=== PATIENT | female | born 1975 | race African-American/Black ===

== ENCOUNTER 2016-10-20 11:50 | Emergency (ER) | payer MEDICARE, MEDICAID ==
[~2016-10-20] VITALS: Ht 177.8 cm; Wt 87.1 kg
[~2016-10-20 11:50] MED LIST: ATENOLOL100 MG ORAL; BACLOFEN10 MG ORAL; CIPROFLOXACIN500 M2 ORAL; DILAUDID4 MG ORAL; FLUCONAZOLE100 MG ORAL; IBUPROFEN600 MG ORAL; LOMOTIL TABLET1 EAC1 PO; LORAZEPAM1 MG ORAL; MACROBID100 MG ORAL; ONDANSETRON ODT4 MG ORAL; PAMELOR25 MG ORAL; PHENAZOPYRIDIN100 MG ORAL; REGLAN10 MG ORAL; VIBRAMYCIN100 MG ORAL; VICODIN 5-3001 EACH ORAL; ZOFRAN ODT4 MG ORAL; ZOFRAN ODT8 MG ORAL; ZOFRAN4 MG ORAL; ZOLPIDEM TARTRAT5 MG ORAL
[2016-10-20 12:09] VITALS: BP 173/116
[2016-10-20] MEDS ORDERED: Morphine Sulfate 10mg/ml Inj IVP ONE (12:30)
[2016-10-20] MEDS ORDERED: Haloperidol 5mg/ml Inj IM ONE (12:30)
[2016-10-20] MEDS ORDERED: Famotidine 20 MG/ 2ML VIAL IVP ONE (12:30)
[2016-10-20 13:11] LABS: ALANINE AMINOTRANSFERASE 10 U/L (3-33); ALBUMIN/GLOBULIN RATIO 1.1 (1.0-2.7); ANION GAP 16 (5-15); ASPARTATE AMINO TRANSFERASE 20 U/L (5-40); CALCIUM 9.6 mg/dL (8.6-10.2); CARBON DIOXIDE 25 mEQ/L (20-30); CHLORIDE 98 mEQ/L (98-107); CREATININE 0.9 mg/dL (0.5-0.9); GLOMERULAR FILTRATION RATE > 60 mL/min (>60); HEMOLYSIS 52; LIPASE 62 U/L (< 60); POTASSIUM 4.4 mEQ/L (3.4-4.9); SODIUM 139 mEQ/L (135-145)
[2016-10-20 13:19] LABS: BASOPHILS % (AUTO) 1.2 % (0.0-2.0); EOSINOPHILS % (AUTO) 1.7 % (0.0-3.0); LYMPHOCYTES % (AUTO) 22.9 % (20.0-45.0); MEAN CORPUSCULAR HEMOGLOBIN 23.1 PG (27.0-31.0); MEAN CORPUSCULAR HGB CONC 29.2 G/DL (32.0-36.0); MEAN CORPUSCULAR VOLUME 79 FL (80-99); NEUTROPHILS % (AUTO) 66.2 % (45.0-75.0); PLATELET COUNT 395 K/UL (150-450); RED BLOOD COUNT 5.85 M/UL (4.20-5.40); RED CELL DISTRIBUTION WIDTH 14.7 % (11.6-14.8); WHITE BLOOD COUNT 11.2 K/UL (4.8-10.8)
[2016-10-20 13:22] LABS: APPEARANCE,URINE CLEAR; KETONES,URINE NEGATIVE (NEGATIVE); LEUKOCYTE ESTERASE ,URINE NEGATIVE (NEGATIVE); NITRITE,URINE NEGATIVE (NEGATIVE); PH,URINE 7 (4.5-8.0); PROTEIN,URINE 2+ (NEGATIVE); UROBILINOGEN,URINE 1 MG/DL (0.0-1.0)
[2016-10-20 13:32] LABS: BACTERIA,URINE FEW /HPF; RBC,URINE 15-20 /HPF (0 - 2); SQUAMOUS EPITHELIAL CELL,UR MODERATE /LPF (NONE/OCC); WBC,URINE 0-2 /HPF (0 - 2)
--- NOTE | 2016-10-20 13:34 | Emergency Room Report ---
History of Present Illness General Chief Complaint: Vomiting Source: Patient Present Illness HPI This is a 41-year-old female with a history of cyclic vomiting syndrome. Patient presented after having increased abdominal pain. Patient had similar type symptoms in the past. Patient had been taking multiple medications and had previously had endoscopy as well as colonoscopy without any significant findings. Patient states she's had prior history of pancreatitis. She denies any fever. As she reports having some diarrhea. Patient normally takes Dilaudid 4 mg. Patient is followed by Dr. Peñaloza. Allergies: Coded Allergies: No Known Allergies (Unverified , 05/08/14) Patient History Past Medical History: see triage record Last Menstrual Period: menopause Reviewed Nursing Documentation: PMH: Agreed, PSxH: Agreed Nursing Documentation-PMH Past Medical History: No History, Except For Hx Cardiac Problems: Yes Hx Hypertension: Yes Hx Cancer: No Hx Gastrointestinal Problems: Yes - cyclical vomitting syndrome Hx Neurological Problems: No Review of Systems All Other Systems: negative except mentioned in HPI Physical Exam Vital Signs Date Time Temp Pulse Resp B/P Pulse Ox O2 Delivery O2 Flow Rate FiO2 10/20/16 11:56 98.2 54 16 173/116 99 Room Air Sp02 EP Interpretation: reviewed, normal General Appearance: normal inspection, well appearing, no apparent distress, alert, GCS 15, non-toxic Head: atraumatic ENT: normal ENT inspection, hearing grossly normal, normal voice Neck: normal inspection, full range of motion, supple, no bony tend Respiratory: normal inspection, lungs clear, normal breath sounds, no respiratory distress, no retraction, no wheezing Cardiovascular #1: regular rate, rhythm, no edema Gastrointestinal: normal inspection, normal bowel sounds, non tender, soft, no guarding, no hernia Genitourinary: no CVA tenderness Musculoskeletal: normal inspection, back normal, normal range of motion Neurologic: normal inspection, alert, oriented x3, responsive, blood bank booking clerk III-XII nml as tested, speech normal Psychiatric: normal inspection, judgement/insight normal, mood/affect normal Skin: normal inspection, normal color, no rash Medical Decision Making Diagnostic Impression: Primary Impression: Opiate dependence Additional Impression: Cyclical vomiting ER Course Patient presented for abdominal pain. Differential diagnoses included ischemic bowel, appendicitis, perforated viscus, abdominal aortic aneurysm, inferior myocardial infarction, viral gastroenteritis Because of complexity of patient's case laboratory testing and imaging studies were ordered.The patient prior history of cyclic vomiting. The patient's vomiting is likely related to opiate withdrawal after initiation of vomiting since patient is chronically on Dilaudid. Laboratory testing showed normal white blood count. Urine test showed no evidence of infection.Patient was noted to have improvement after laboratory testing. Urine drug screen was negative. Patient was given prescription for Zofran. The patient is advised to follow up with primary care doctor in 1-2 days. Patient is advised to return if any worsening condition or if any changes in status that are concerning. Labs Test 10/20/16 12:30 White Blood Count 11.2 K/UL (4.8-10.8) Red Blood Count 5.85 M/UL (4.20-5.40) Hemoglobin 13.5 G/DL (12.0-16.0) Hematocrit 46.3 % (37.0-47.0) Mean Corpuscular Volume 79 FL (80-99) Mean Corpuscular Hemoglobin 23.1 PG (27.0-31.0) Mean Corpuscular Hemoglobin Concent 29.2 G/DL (32.0-36.0) Red Cell Distribution Width 14.7 % (11.6-14.8) Platelet Count 395 K/UL (150-450) Mean Platelet Volume 8.0 FL (6.5-10.1) Neutrophils (%) (Auto) 66.2 % (45.0-75.0) Lymphocytes (%) (Auto) 22.9 % (20.0-45.0) Monocytes (%) (Auto) 8.0 % (1.0-10.0) Eosinophils (%) (Auto) 1.7 % (0.0-3.0) Basophils (%) (Auto) 1.2 % (0.0-2.0) Urine Color Pale yellow Urine Appearance Clear Urine pH 7 (4.5-8.0) Urine Specific [place] 1.010 (1.005-1.035) Urine Protein 2+ (NEGATIVE) Urine Glucose (UA) Negative (NEGATIVE) Urine Ketones Negative (NEGATIVE) Urine Occult Blood 4+ (NEGATIVE) Urine Nitrite Negative (NEGATIVE) Urine Bilirubin Negative (NEGATIVE) Urine Urobilinogen 1 MG/DL (0.0-1.0) Urine Leukocyte Esterase Negative (NEGATIVE) Urine RBC 15-20 /HPF (0 - 2) Urine WBC 0-2 /HPF (0 - 2) Urine Squamous Epithelial Cells Moderate /LPF (NONE/OCC) Urine Bacteria Few /HPF (NONE) Urine HCG, Qualitative Negative Sodium Level 139 mEQ/L (135-145) Potassium Level 4.4 mEQ/L (3.4-4.9) Chloride Level 98 mEQ/L (98-107) Carbon Dioxide Level 25 mEQ/L (20-30) Anion Gap 16 (5-15) Blood Urea Nitrogen 13 mg/dL (7-23) Creatinine 0.9 mg/dL (0.5-0.9) Estimat Glomerular Filtration Rate > 60 mL/min (>60) Glucose Level 114 mg/dL (74-106) Calcium Level 9.6 mg/dL (8.6-10.2) Total Bilirubin 0.3 mg/dL (0.0-1.2) Aspartate Amino Transf (AST/SGOT) 20 U/L (5-40) Alanine Aminotransferase (ALT/SGPT) 10 U/L (3-33) Alkaline Phosphatase 116 U/L (35-104) Total Protein 8.0 g/dL (6.6-8.7) Albumin 4.2 g/dL (3.5-5.2) Globulin 3.8 g/dL Albumin/Globulin Ratio 1.1 (1.0-2.7) Lipase 62 U/L (< 60) Last Vital Signs Date Time Temp Pulse Resp B/P Pulse Ox O2 Delivery O2 Flow Rate FiO2 10/20/16 13:04 98.2 10/20/16 12:09 16 173/116 99 Room Air 10/20/16 11:56 54 Status: improved Disposition: HOME, SELF-CARE Condition: Stable Scripts Ondansetron Odt* (ZOFRAN ODT*) 4 Mg Tab.rapdis 4 MG ORAL EVERY 8 HOURS, #10 TAB 0 Refills Prov: Amor Chase 10/20/16 Referrals: NON PHYSICIAN (PCP) Amor Chase Oct 20, 2016 13:34
[2016-10-20] MEDS ORDERED: ONDANSETRON ODT4 MG ORAL (13:51)
[2016-10-20 14:05] VITALS: BP 146/86
== END 2016-10-20 14:07 | disposition home or self-care (01) ==
LOC: EMR 12:26
DX: G43.A0 Cyclical vomiting, in migraine, not intractable (principal); F11.20 Opioid dependence, uncomplicated; I10 Essential (primary) hypertension
CPT/HCPCS: 36415; 80053; 80300; 81003; 81025; 83690; 85025; 96372; 96374; 96375; 99284; J1630; J2270; J2405; S0028

== ENCOUNTER 2016-10-21 05:04 | Inpatient (IN) | payer MEDICARE, MEDICAID ==
[2016-10-21] VITALS (8 sets, daily range): BP systolic 101–166; BP diastolic 57–103
[~2016-10-21] VITALS: Ht 177.8 cm; Wt 87.1 kg
[2016-10-21] MEDS ORDERED: DiphenhydrAMINE 50mg/ml Inj IVP ONE (05:45)
[2016-10-21] MEDS ORDERED: Famotidine 20 MG/ 2ML VIAL IVP ONE (05:45)
[2016-10-21] MEDS ORDERED: HYDROmorphone 1mg/ml Carpuject IVP ONE ×2 (05:45→08:00)
[2016-10-21 06:09] LABS: MEAN CORPUSCULAR HEMOGLOBIN 23.3 PG (27.0-31.0); MEAN CORPUSCULAR VOLUME 78 FL (80-99); PLATELET COUNT 420 K/UL (150-450); RED BLOOD COUNT 5.96 M/UL (4.20-5.40); RED CELL DISTRIBUTION WIDTH 14.9 % (11.6-14.8); WHITE BLOOD COUNT 18.2 K/UL (4.8-10.8)
[2016-10-21 06:18] LABS: PROTHROMBIN TIME 10.6 SEC (9.30-11.50)
[2016-10-21 06:25] LABS: ALANINE AMINOTRANSFERASE 11 U/L (3-33); ALBUMIN/GLOBULIN RATIO 0.9 (1.0-2.7); ANION GAP 22 (5-15); ASPARTATE AMINO TRANSFERASE 24 U/L (5-40); CARBON DIOXIDE 21 mEQ/L (20-30); CHLORIDE 94 mEQ/L (98-107); CREATININE 0.9 mg/dL (0.5-0.9); GLOMERULAR FILTRATION RATE > 60 mL/min (>60); HEMOLYSIS 0; LIPASE 46 U/L (< 60); POTASSIUM 3.4 mEQ/L (3.4-4.9); SODIUM 137 mEQ/L (135-145); TOTAL PROTEIN 8.9 g/dL (6.6-8.7)
[2016-10-21 06:33] LABS: APPEARANCE,URINE CLEAR; KETONES,URINE 4+ (NEGATIVE); LEUKOCYTE ESTERASE ,URINE 1+ (NEGATIVE); NITRITE,URINE NEGATIVE (NEGATIVE); PH,URINE 6.5 (4.5-8.0); PROTEIN,URINE 4+ (NEGATIVE); UROBILINOGEN,URINE NORMAL MG/DL (0.0-1.0)
[2016-10-21 06:49] LABS: BACTERIA,URINE FEW /HPF; RBC,URINE 30-40 /HPF (0 - 2); SQUAMOUS EPITHELIAL CELL,UR FEW /LPF (NONE/OCC)
--- NOTE | 2016-10-21 07:05 | Emergency Room Report ---
History of Present Illness General Chief Complaint: Abdominal Pain Source: Patient Present Illness HPI Patient presents with abdominal pain and vomiting. Unable to keep down liquids or pain medicine. She has dilaudid 4 mg at home but vomited this up. She states she was seen yesterday here, but did not get "enough" zofran. Pain is 20 /10 epigastric radiating to her back and constant. Denies fever. Not vomit blood. Moved bowels which were loose. No dysuria. Alleges pancreatitis. Denies alcohol. Cyclic vomiting syndrome. This is the note from yesterday: Patient presented for abdominal pain. Differential diagnoses included ischemic bowel, appendicitis, perforated viscus, abdominal aortic aneurysm, inferior myocardial infarction, viral gastroenteritis Because of complexity of patient's case laboratory testing and imaging studies were ordered.The patient prior history of cyclic vomiting. The patient's vomiting is likely related to opiate withdrawal after initiation of vomiting since patient is chronically on Dilaudid. Laboratory testing showed normal white blood count. Urine test showed no evidence of infection.Patient was noted to have improvement after laboratory testing. Urine drug screen was negative. Patient was given prescription for Zofran. The patient is advised to follow up with primary care doctor in 1-2 days. Patient is advised to return if any worsening condition or if any changes in status that are concerning. Allergies: Coded Allergies: No Known Allergies (Unverified , 05/08/14) Patient History Past Medical History: see triage record Past Surgical History: maki Social History: Reports: smoking Social History Narrative at home Last Menstrual Period: Menopause Now: No Reviewed Nursing Documentation: PMH: Agreed, PSxH: Agreed Nursing Documentation-PMH Hx Cardiac Problems: Yes Hx Hypertension: Yes Hx Cancer: No Hx Neurological Problems: No Review of Systems All Other Systems: negative except mentioned in HPI Physical Exam Vital Signs Date Time Temp Pulse Resp B/P Pulse Ox O2 Delivery O2 Flow Rate FiO2 10/21/16 05:13 98.2 91 16 149/103 99 Room Air Sp02 EP Interpretation: reviewed, normal General Appearance: alert, GCS 15, mild distress - retching Head: normocephalic Eyes: bilateral eye PERRL, bilateral eye anticteric ENT: moist mucus membranes Neck: supple Respiratory: lungs clear, normal breath sounds Cardiovascular #1: regular rate, rhythm Cardiovascular #2: 2+ radial (R) Gastrointestinal: normal inspection, normal bowel sounds, no mass, non- distended, no guarding, no rebound, tenderness - epigastric Musculoskeletal: back normal, gait/station normal, normal range of motion Neurologic: alert, oriented x3, grossly normal Psychiatric: mood/affect normal Skin: normal inspection, warm/dry Medical Decision Making Diagnostic Impression: Primary Impression: Abdominal pain Qualified Codes: R10.13 - Epigastric pain Additional Impressions: UTI (urinary tract infection) Qualified Codes: N30.00 - Acute cystitis without hematuria Nausea & vomiting Qualified Codes: R11.2 - Nausea with vomiting, unspecified Opiate seeking behavior Leukocytosis Qualified Codes: D72.829 - Elevated white blood cell count, unspecified ER Course Patient presents again with abdominal pain and vomiting. Ddx: pancreatitis, gastritis, viral syndrome, UTI, opiate dependence amongst others. Labs will be obtained. Also abdominal films. CT not indicated. Patient will be treated with IV hydration, analgesia and zofran. Patient still vomiting after initial dosing and states pain unchanged. She had insisted on getting the dilaudid "undiluted" which was refused. Analgesia repeated and reglan and benadryl given. Still with vomiting and abdominal pain, though clinically appears improved. Still asking for more pain medicine. Antibiotics begun for UTI. Abd films unremarkable (paucity of gas). Due to elevated WBC (new since yesterday) and UTI with persistent vomiting, patient admitted to the hospital to Dr. Quintanilla. After admission, she states: "I realize I have an appointment with my GI specialist today which I've waited for a year to have". Laboratory Tests Test 10/21/16 05:50 10/21/16 06:06 White Blood Count 18.2 K/UL (4.8-10.8) #H Red Blood Count 5.96 M/UL (4.20-5.40) H Hemoglobin 13.9 G/DL (12.0-16.0) Hematocrit 46.4 % (37.0-47.0) Mean Corpuscular Volume 78 FL (80-99) L Mean Corpuscular Hemoglobin 23.3 PG (27.0-31.0) L Mean Corpuscular Hemoglobin Concent 30.0 G/DL (32.0-36.0) L Red Cell Distribution Width 14.9 % (11.6-14.8) H Platelet Count 420 K/UL (150-450) Mean Platelet Volume 8.0 FL (6.5-10.1) Neutrophils (%) (Auto) % (45.0-75.0) Lymphocytes (%) (Auto) % (20.0-45.0) Monocytes (%) (Auto) % (1.0-10.0) Eosinophils (%) (Auto) % (0.0-3.0) Basophils (%) (Auto) % (0.0-2.0) Prothrombin Time 10.6 SEC (9.30-11.50) Prothrombin Time INR 1.0 (0.9-1.1) PTT 25 SEC (23-33) Sodium Level 137 mEQ/L (135-145) Potassium Level 3.4 mEQ/L (3.4-4.9) Chloride Level 94 mEQ/L (98-107) L Carbon Dioxide Level 21 mEQ/L (20-30) Anion Gap 22 (5-15) H Blood Urea Nitrogen 13 mg/dL (7-23) Creatinine 0.9 mg/dL (0.5-0.9) Estimate Glomerular Filtration Rate > 60 mL/min (>60) Glucose Level 185 mg/dL (74-106) H Hemoglobin A1c 5.0 % (< 6.0) Calcium Level 10.0 mg/dL (8.6-10.2) Total Bilirubin 0.3 mg/dL (0.0-1.2) Aspartate Amino Transferase (AST) 24 U/L (5-40) Alanine Aminotransferase (ALT) 11 U/L (3-33) Alkaline Phosphatase 128 U/L (35-104) H Total Protein 8.9 g/dL (6.6-8.7) H Albumin 4.3 g/dL (3.5-5.2) Globulin 4.6 g/dL Albumin/Globulin Ratio 0.9 (1.0-2.7) L Triglycerides Level 149 mg/dL (< 150) Cholesterol Level 251 mg/dL (< 200) H LDL Cholesterol 170 mg/dL (60-99) H HDL Cholesterol 51 mg/dL (> 60) Cholesterol/HDL Ratio 4.9 (3.3-4.4) H Amylase Level 64 U/L (10-110) Lipase 46 U/L (< 60) Thyroid Stimulating Hormone (TSH) 0.831 uIU/mL (0.300-4.500) Free Thyroxine 1.24 ng/dL (0.86-1.85) Urine Color Yellow Urine Appearance Clear Urine pH 6.5 (4.5-8.0) Urine Specific [place] 1.020 (1.005-1.035) Urine Protein 4+ (NEGATIVE) H Urine Glucose (UA) 1+ (NEGATIVE) H Urine Ketones 4+ (NEGATIVE) H Urine Occult Blood 5+ (NEGATIVE) H Urine Nitrite Negative (NEGATIVE) Urine Bilirubin Negative (NEGATIVE) Urine Urobilinogen Normal MG/DL (0.0-1.0) Urine Leukocyte Esterase 1+ (NEGATIVE) H Urine RBC 30-40 /HPF (0 - 2) H Urine WBC 5-10 /HPF (0 - 2) H Urine Squamous Epithelial Cells Few /LPF (NONE/OCC) Urine Bacteria Few /HPF (NONE) Urine Opiates Screen Positive (NEGATIVE) H Urine Barbiturates Screen Negative (NEGATIVE) Phencyclidine (PCP) Screen Negative (NEGATIVE) Urine Amphetamines Screen Negative (NEGATIVE) Urine Benzodiazepines Screen Negative (NEGATIVE) Urine Cocaine Screen Negative (NEGATIVE) Urine Marijuana (THC) Screen Negative (NEGATIVE) Other X-Ray Diagnostic Results Other X-Ray Diagnostic Results : X-Ray Ordered: abd Findings: other - maki clips, no SBO, NSBGP (paucity gas) Number of Views: 2 Last Vital Signs Date Time Temp Pulse Resp B/P Pulse Ox O2 Delivery O2 Flow Rate FiO2 10/21/16 06:38 98.2 10/21/16 05:20 91 16 149/103 99 Room Air Status: improved Disposition: ADMITTED INPATIENT Condition: Serious Marcos Thompson M.D. Oct 21, 2016 07:05
[2016-10-21] MEDS ORDERED: cefTRIAXone 1 GM in NS 55 ML IVPB ONE (07:15)
[2016-10-21] MEDS ORDERED: Metoclopramide 10mg/2ml Inj IVP ONE ×2 (09:00→09:15)
--- NOTE | 2016-10-21 10:58 | History & Physical ---
History and Physical History & Physicial seen and examined. Dictation completed Rome Quintanilla MD Oct 21, 2016 10:58
[2016-10-21 11:24] LABS: CHOLESTEROL/HDL RATIO 4.9 (3.3-4.4)
[2016-10-21] MEDS ORDERED: Atenolol 25mg tab ORAL ONE (11:30)
[2016-10-21 11:32] LABS: THYROID STIMULATING HORMONE 0.831 uIU/mL (0.300-4.500)
[2016-10-21] MEDS: Heparin 5000 units/ml inj SUBQ SCH ×2 (11:45→21:42)
--- NOTE | 2016-10-21 12:23 | Diagnostic Imaging Report ---
Indication: ABD PAIN Technique: Supine view of the abdomen Comparison: Compensator Worker image from CT scan 06/15/2016 Findings: Bowel gas pattern is unremarkable. There are right upper quadrant surgical clips. No significant change Impression: No acute process Evidence of prior cholecystectomy
[2016-10-21] MEDS ORDERED: Ketorolac 30mg Inj IV PRN (12:45)
[2016-10-21] MEDS ORDERED: cefTRIAXone 1gm/D5W 55ml IVPB ONE ×2 (13:00)
[2016-10-21] MEDS: D5NS 1,000 ML IV SCH ×2 (13:11→21:39)
[2016-10-21] MEDS: Atenolol 25mg tab ORAL SCH (14:06)
--- NOTE | 2016-10-21 16:29 | Diagnostic Imaging Report ---
Indication: PAIN Technique: Elkins-scale and duplex images of the upper abdomen were obtained Comparison: CT abdomen pelvis 06/15/2016 Findings: . Gallbladder is surgically absent. Common bile duct measures 3 mm in diameter. No intrahepatic biliary ductal dilatation. Liver demonstrates normal echogenicity, no focal abnormality. Portal vein and hepatic veins are patent.. Pancreas is unremarkable. Spleen is unremarkable. Left kidney measures 11.1 cm in length. Right kidney measures 11.4 cm length. Both kidneys demonstrate normal echogenicity. There is no hydronephrosis. No focal abnormality. . Non-aneurysmal abdominal aorta. Impression: Surgically absent gallbladder Negative for dilated ducts No other acute or significant findings
--- NOTE | 2016-10-21 17:57 | History and Physical Report ---
DATE OF ADMISSION: 10/21/2016 SOURCE OF INFORMATION: Patient and EMR. HISTORY OF PRESENT ILLNESS: The patient is a 41-year-old female with history of with narcotic-seeking behavior and reported history of cyclic vomiting syndrome. The patient presented with another episode of had been referred to receive care to the emergency room. At the time of evaluation in the emergency room, the patient is stable in the ER. REVIEW OF SYSTEMS: Negative for chest pain or shortness of breath. Negative for severe headache or blurry vision. Negative for abnormal bleeding, pain or swelling in the extremities. PAST MEDICAL HISTORY: Reported cyclic vomiting syndrome questionable, history of pelvic inflammatory disease, history of opiate dependence. PAST SURGICAL HISTORY: Cholecystectomy. MEDICATIONS: Outpatient medications including atenolol, baclofen, Dilaudid, lorazepam, nitrofurantoin. ALLERGIES: NKDA. SOCIAL HISTORY: The patient is a single mother. She lives with one child. Positive for active tobacco smoking, one pack a day for 16 years. Denies history of illicit drug abuse. Denies history of alcohol abuse. FAMILY HISTORY: Reviewed and noncontributory. PHYSICAL EXAMINATION: VITAL SIGNS: Blood pressure 140/100, temperature 98.2, pulse oximetry 98% on room air, pulse rate is 90 to 95, pulse oximetry 99% on room air. HEENT: Head and neck, atraumatic and normocephalic. CHEST: Clear to auscultation. HEART: S1 and S2. Regular rate and rhythm. ABDOMEN: Soft. No organomegaly. MUSCULOSKELETAL: No gross focal motor deficit. NEUROLOGIC: Mood is anxious and depressed. LABORATORY AND DIAGNOSTIC DATA: Results dated 10/21/2016 showed WBC of 18.2, hemoglobin 13.9, platelets is 420,000. Sodium 137, potassium 3.4, BUN 22, creatinine 1.3. AST is normal. INR is 1. Urinalysis shows 5 to 10 WBCs, 5+ blood. ASSESSMENT: 1. Acute cyclic vomitus incidence. 2. Systemic inflammatory response syndrome. 3. Urinary tract infection. 4. Chronic pain. 5. Hematuria. 6. Gastrointestinal and deep venous thrombosis prophylaxis 7. Hypertension PLAN OF CARE: I will consult GI. I will continue with the intravenous antibiotics, Rocephin. We will consult commercial painter. We will avoid narcotic medication for further evaluation. Rome Quintanilla M.D. DR: Mercedes JOB#: [id number] CC: PATRICIO
[2016-10-21] MEDS ORDERED: cloNIDine 0.2mg Tab ORAL PRN (23:00)
[2016-10-22] MEDS ORDERED: Loperamide 2mg cap ORAL PRN (02:30)
[2016-10-22 04:00] VITALS: BP 161/117
[2016-10-22] MEDS: D5NS 1,000 ML IV SCH ×3 (05:00→20:31)
[2016-10-22 06:58] LABS: BASOPHILS % (AUTO) 0.7 % (0.0-2.0); LYMPHOCYTES % (AUTO) 11.7 % (20.0-45.0); MEAN CORPUSCULAR HEMOGLOBIN 23.5 PG (27.0-31.0); MEAN CORPUSCULAR HGB CONC 30.2 G/DL (32.0-36.0); MEAN CORPUSCULAR VOLUME 78 FL (80-99); MEAN PLATELET VOLUME 7.4 FL (6.5-10.1); MONOCYTES % (AUTO) 6.2 % (1.0-10.0); NEUTROPHILS % (AUTO) 81.3 % (45.0-75.0); PLATELET COUNT 386 K/UL (150-450); RED BLOOD COUNT 5.19 M/UL (4.20-5.40); RED CELL DISTRIBUTION WIDTH 14.2 % (11.6-14.8); WHITE BLOOD COUNT 16.1 K/UL (4.8-10.8)
[2016-10-22 07:11] LABS: ALANINE AMINOTRANSFERASE 18 U/L (3-33); ALBUMIN/GLOBULIN RATIO 1.1 (1.0-2.7); ANION GAP 19 (5-15); ASPARTATE AMINO TRANSFERASE 35 U/L (5-40); CALCIUM 9.9 mg/dL (8.6-10.2); CARBON DIOXIDE 24 mEQ/L (20-30); CHLORIDE 96 mEQ/L (98-107); GLOMERULAR FILTRATION RATE > 60 mL/min (>60); HEMOLYSIS 2; POTASSIUM 3.1 mEQ/L (3.4-4.9); SODIUM 139 mEQ/L (135-145); TOTAL PROTEIN 7.8 g/dL (6.6-8.7)
[2016-10-22 08:00] VITALS: BP 154/110
[2016-10-22] MEDS: Atenolol 25mg tab ORAL SCH (08:31)
[2016-10-22] MEDS: Heparin 5000 units/ml inj SUBQ SCH ×2 (08:34→20:39)
--- NOTE | 2016-10-22 09:47 | General Progress Note ---
Assessment/Plan Status: stable Assessment/Plan 1. Acute cyclic vomitus incidence. 2. Systemic inflammatory response syndrome. 3. Urinary tract infection. 4. Chronic pain. 5. Hematuria. 6. Gastrointestinal and deep venous thrombosis prophylaxis 7. Hypertension Plan: Started on Dilaudid 2 mg sc. Patient reported is taking 4 mg out patient. continue with current Zofran, IV fluid. NPO and will advance as tolerated. GI- Dr Kim notified Subjective ROS Limited/Unobtainable: Yes Constitutional: Reports: malaise HEENT: Reports: no symptoms Cardiovascular: Reports: no symptoms Respiratory: Reports: no symptoms Gastrointestinal/Abdominal: Reports: nausea, vomiting Allergies: Coded Allergies: No Known Allergies (Unverified , 05/08/14) Objective Last 24 Hour Vital Signs Date Time Temp Pulse Resp B/P Pulse Ox O2 Delivery O2 Flow Rate FiO2 10/22/16 09:00 96.7 10/22/16 08:31 102 154/91 10/22/16 08:00 97.9 111 20 154/110 97 Room Air 10/22/16 07:16 87 20 Room Air 10/22/16 04:00 96.7 102 18 161/117 99 Room Air 10/21/16 21:42 98.1 10/21/16 20:00 99.5 66 18 166/102 100 Room Air 10/21/16 16:00 98.1 89 20 142/88 99 Room Air 10/21/16 14:06 77 101/57 10/21/16 12:00 98.0 60 20 137/97 98 Room Air 10/21/16 10:00 77 18 101/57 98 Room Air 10/21/16 09:47 98.2 78 18 136/84 98 Room Air Intake and Output 10/21/16 10/22/16 19:00 07:00 Intake Total 4335 ml 500 ml Balance 4335 ml 500 ml Intake IV Total 4335 ml 500 ml Laboratory Tests 10/22/16 05:10: White Blood Count 16.1H, Red Blood Count 5.19, Hemoglobin 12.2, Hematocrit 40.5 , Mean Corpuscular Volume 78L, Mean Corpuscular Hemoglobin 23.5L, Mean Corpuscular Hemoglobin Concent 30.2L, Red Cell Distribution Width 14.2, Platelet Count 386, Mean Platelet Volume 7.4, Neutrophils (%) (Auto) 81.3H, Lymphocytes (%) (Auto) 11.7L, Monocytes (%) (Auto) 6.2, Eosinophils (%) (Auto) 0.0, Basophils (%) (Auto) 0.7, Sodium Level 139, Potassium Level 3.1L, Chloride Level 96L, Carbon Dioxide Level 24, Anion Gap 19H, Blood Urea Nitrogen 14, Creatinine 1.0H, Estimat Glomerular Filtration Rate > 60, Glucose Level 124H, Calcium Level 9.9, Total Bilirubin 0.4, Aspartate Amino Transf (AST/SGOT) 35, Alanine Aminotransferase (ALT/SGPT) 18, Alkaline Phosphatase 111H, Total Protein 7.8, Albumin 4.1, Globulin 3.7, Albumin/Globulin Ratio 1.1 Height (Feet): 5 Height (Inches): 10.00 Weight (Pounds): 192 General Appearance: no apparent distress EENT: PERRL/EOMI Neck: supple Cardiovascular: normal rate Respiratory/Chest: lungs clear Abdomen: soft Extremities: non-tender Neurologic: venereal disease control head II-XII grossly normal, oriented x 3 Rome Quintanilla MD Oct 22, 2016 09:47
[2016-10-22] MEDS: cefTRIAXone 2 GM in D5W 110 ML IVPB SCH (11:38)
[2016-10-22 11:55] VITALS: BP 147/97
[2016-10-22] MEDS ORDERED: cefTRIAXone 1 GM in D5W 55 ML IVPB SCH (12:45)
--- NOTE | 2016-10-22 15:55 | GI Initial Consult Note ---
History of Present Illness General Date patient seen: Oct 22, 2016 Time patient seen: 15:44 Reason for Hospitalization: Abdominal Pain Referring physician: CARROLL HONG Reason for Consultation: ABDOMINAL PAIN Present Illness HPI Patient presents with abdominal pain and vomiting. Unable to keep down liquids or pain medicine. She has dilaudid 4 mg at home but vomited this up. She states she was seen yesterday here, but did not get "enough" zofran. Pain is 20 /10 epigastric radiating to her back and constant. Denies fever. Not vomit blood. Moved bowels which were loose. No dysuria. Alleges pancreatitis. Denies alcohol. Cyclic vomiting syndrome. This is the note from yesterday: Patient presented for abdominal pain. Differential diagnoses included ischemic bowel, appendicitis, perforated viscus, abdominal aortic aneurysm, inferior myocardial infarction, viral gastroenteritis Because of complexity of patient's case laboratory testing and imaging studies were ordered.The patient prior history of cyclic vomiting. The patient's vomiting is likely related to opiate withdrawal after initiation of vomiting since patient is chronically on Dilaudid. Laboratory testing showed normal white blood count. Urine test showed no evidence of infection.Patient was noted to have improvement after laboratory testing. Urine drug screen was negative. Patient was given prescription for Zofran. The patient is advised to follow up with primary care doctor in 1-2 days. Patient is advised to return if any worsening condition or if any changes in status that are concerning. GI CONSULT: HPI as noted above. Pt seen on floor, awake A&Ox4 NAD with no active s/sx of N/V. The patient is complaining of RLQ pain that radiates to the back flank. Last episode of emesis was this morning, denied any hemataemesis or coffee grounds. Abdomen tender to palpation. States she had an episode of diarrhea last night which has no resolved. Pt states she is a chronic dilaudid user. Lipase levels, abd US and KUB unremarkable. Pt presents today with leukocytosis, N/V, and abnormal alkaline phosphatase. Pt says she's had both upper/lower endoscopy with unremarkable results in the past. Home Meds Active Scripts Ondansetron Odt* (ZOFRAN ODT*) 4 Mg Tab.rapdis, 4 MG ORAL EVERY 8 HOURS, #10 TAB 0 Refills Prov:Amor Chase 10/20/16 Ondansetron Odt* (ZOFRAN ODT*) 4 Mg Tab.rapdis, 4 MG ORAL Q6H Y for Nausea & Vomiting, #10 TAB 0 Refills Prov:REGINA FAIRCHILD D.O. 06/18/16 Nitrofurantoin Monohyd/M-Cryst (Nitrofurantoin Alexander-Mcr 100 mg) 100 Mg Capsule, 100 MG ORAL Q12H, #14 CAP Prov:LEEANNA REINOSO M.D. 06/17/16 Reported Medications Baclofen* (BACLOFEN*) 10 Mg Tablet, 10 MG ORAL TID, TAB 06/15/16 Zolpidem Tartrate* (ZOLPIDEM TARTRATE*) 5 Mg Tablet, 5 MG ORAL BEDTIME Y for Insomnia, TAB 0 Refills 07/11/15 Lorazepam* (LORAZEPAM*) 1 Mg Tablet, 1 MG ORAL BID, TAB 07/11/15 Hydromorphone HCl (Dilaudid) 4 Mg Tab, 4 MG ORAL EVERY 6 HOURS Y for For Pain, # 20 TAB 0 Refills 07/11/15 Metoclopramide Hcl* (REGLAN*) 10 Mg Tablet, 10 MG ORAL, TAB 07/11/15 Ondansetron Odt* (ZOFRAN ODT*) 8 Mg Tab.rapdis, 8 MG ORAL EVERY 8 HOURS Y for Nausea & Vomiting, #30 TAB 07/11/15 Atenolol* (TENORMIN*) 100 Mg Tablet, 100 MG ORAL DAILY, TAB 05/08/14 Med list reviewed/reconciled: Yes Allergies: Coded Allergies: No Known Allergies (Unverified , 05/08/14) Patient History History Provided By: Patient, Medical Record PMH Narrative Past Medical History: see triage record Past Surgical History: maki Social History: Reports: smoking Social History Narrative at home Last Menstrual Period: Menopause Now: No Reviewed Nursing Documentation: PMH: Agreed, PSxH: Agreed Nursing Documentation-PMH Hx Cardiac Problems: Yes Hx Hypertension: Yes Hx Cancer: No Hx Neurological Problems: No Social History: Reports: drug use - rx dilaudid, smoking Review of Systems All Other Systems: negative except mentioned in HPI Physical Exam Vital Signs Date Time Temp Pulse Resp B/P Pulse Ox O2 Delivery O2 Flow Rate FiO2 10/21/16 05:13 98.2 91 16 149/103 99 Room Air Sp02 EP Interpretation: reviewed Labs Laboratory Tests Test 10/22/16 05:10 White Blood Count 16.1 K/UL (4.8-10.8) H Red Blood Count 5.19 M/UL (4.20-5.40) Hemoglobin 12.2 G/DL (12.0-16.0) Hematocrit 40.5 % (37.0-47.0) Mean Corpuscular Volume 78 FL (80-99) L Mean Corpuscular Hemoglobin 23.5 PG (27.0-31.0) L Mean Corpuscular Hemoglobin Concent 30.2 G/DL (32.0-36.0) L Red Cell Distribution Width 14.2 % (11.6-14.8) Platelet Count 386 K/UL (150-450) Mean Platelet Volume 7.4 FL (6.5-10.1) Neutrophils (%) (Auto) 81.3 % (45.0-75.0) H Lymphocytes (%) (Auto) 11.7 % (20.0-45.0) L Monocytes (%) (Auto) 6.2 % (1.0-10.0) Eosinophils (%) (Auto) 0.0 % (0.0-3.0) Basophils (%) (Auto) 0.7 % (0.0-2.0) Sodium Level 139 mEQ/L (135-145) Potassium Level 3.1 mEQ/L (3.4-4.9) L Chloride Level 96 mEQ/L (98-107) L Carbon Dioxide Level 24 mEQ/L (20-30) Anion Gap 19 (5-15) H Blood Urea Nitrogen 14 mg/dL (7-23) Creatinine 1.0 mg/dL (0.5-0.9) H Estimat Glomerular Filtration Rate > 60 mL/min (>60) Glucose Level 124 mg/dL (74-106) H Calcium Level 9.9 mg/dL (8.6-10.2) Total Bilirubin 0.4 mg/dL (0.0-1.2) Aspartate Amino Transf (AST/SGOT) 35 U/L (5-40) Alanine Aminotransferase (ALT/SGPT) 18 U/L (3-33) Alkaline Phosphatase 111 U/L (35-104) H Total Protein 7.8 g/dL (6.6-8.7) Albumin 4.1 g/dL (3.5-5.2) Globulin 3.7 g/dL Albumin/Globulin Ratio 1.1 (1.0-2.7) General Appearance: well appearing, no apparent distress, alert, obese Head: normocephalic EENT: normal ENT inspection Neck: supple Respiratory: normal breath sounds, no respiratory distress Cardiovascular: normal rate Gastrointestinal: soft, tenderness - generalized Rectal: deferred Musculoskeletal: normal inspection Neurologic: normal inspection, alert, oriented x3, responsive Psychiatric: normal inspection, judgement/insight normal, memory normal Skin: normal inspection, normal color, no rash, warm/dry Lymphatic: normal inspection, no adenopathy Current Medications Current Medications Medications (Trade) Dose Ordered Sig/Robbie Route PRN Reason Start Time Stop Time Status Last Admin Dose Admin Acetaminophen (Tylenol) 650 mg Q4H PRN ORAL Mild Pain/Temp > 100.5 10/21/16 12:45 11/20/16 12:44 10/21/16 20:03 Atenolol (Tenormin) 25 mg DAILY ORAL 10/21/16 13:00 11/20/16 12:59 10/22/16 08:31 Ceftriaxone Sodium 2 gm/ Dextrose 110 ml @ 220 mls/hr Q24H IVPB 10/22/16 12:00 10/29/16 11:59 10/22/16 11:38 Clonidine HCl (Catapres) 0.2 mg Q6H PRN ORAL SBP >170 10/21/16 23:00 11/20/16 22:59 Dextrose/Sodium Chloride (D5ns) 1,000 ml @ 125 mls/hr Q8H IV 10/21/16 13:00 11/20/16 12:59 10/22/16 13:13 Diphenhydramine HCl (Benadryl) 50 mg Q6H PRN ORAL Itching 10/22/16 13:00 11/21/16 12:59 10/22/16 13:13 Heparin Sodium (Porcine) (Heparin 5000 units/ml) 5,000 units EVERY 12 HOURS SUBQ 10/21/16 11:00 11/20/16 10:59 10/22/16 08:34 Hydromorphone HCl (Dilaudid) 2 mg Q6H PRN SUBQ Severe Pain (7-10) 10/22/16 02:20 10/29/16 02:19 10/22/16 14:35 Ketorolac Tromethamine (Toradol 30mg) 15 mg Q12H PRN IV Moderate Pain (Pain Scale 4-6) 10/21/16 12:45 10/26/16 12:44 10/21/16 15:19 Loperamide HCl (Imodium) 2 mg Q4H PRN ORAL Diarrhea 10/22/16 02:30 11/21/16 02:29 Ondansetron HCl (Zofran) 4 mg Q4H PRN IM Nausea & Vomiting 10/22/16 02:26 11/21/16 02:25 10/22/16 11:38 Pantoprazole 40 mg 40 mg DAILY ORAL 10/21/16 11:00 11/20/16 10:59 10/22/16 08:31 GI: Plan Problems: (1) Nausea & vomiting (2) Diarrhea (3) Nausea, vomiting, and diarrhea (4) Cyclical vomiting (5) Leukocytosis (6) UTI (urinary tract infection) (7) Abdominal pain Plan KUB negative Abd U/S - s/p maki, negative for dilated ducts utox >> positive for opiates >> chronic dilaudid user diarrhea >> resolved. lipase negative symptomatic treatment at this time order low dose reglan zofran prn CLD, adv as tolerated ppi abx recommend pain service consult fu labs Discussed with Dr. Kim. Thank you for referring this patient, we will follow. Katie Reinoso N.P. Oct 22, 2016 15:54
[2016-10-22 16:00] VITALS: BP 139/89
[2016-10-22] MEDS: Metoclopramide 10mg/2ml Inj IVP SCH ×2 (17:15→23:02)
[2016-10-22 20:00] VITALS: BP 150/97
[2016-10-23] VITALS: BP 147/87
[2016-10-23 04:00] VITALS: BP 141/98
[2016-10-23] MEDS: D5NS 1,000 ML IV SCH ×2 (04:37→13:00)
[2016-10-23] MEDS: Metoclopramide 10mg/2ml Inj IVP SCH ×2 (05:52→14:19)
[2016-10-23 07:08] LABS: BASOPHILS % (AUTO) 1.1 % (0.0-2.0); EOSINOPHILS % (AUTO) 1.8 % (0.0-3.0); LYMPHOCYTES % (AUTO) 33.6 % (20.0-45.0); MEAN CORPUSCULAR HEMOGLOBIN 23.8 PG (27.0-31.0); MEAN CORPUSCULAR HGB CONC 30.2 G/DL (32.0-36.0); MEAN CORPUSCULAR VOLUME 79 FL (80-99); MEAN PLATELET VOLUME 7.9 FL (6.5-10.1); MONOCYTES % (AUTO) 10.9 % (1.0-10.0); NEUTROPHILS % (AUTO) 52.5 % (45.0-75.0); PLATELET COUNT 355 K/UL (150-450); RED BLOOD COUNT 4.85 M/UL (4.20-5.40); RED CELL DISTRIBUTION WIDTH 14.6 % (11.6-14.8); WHITE BLOOD COUNT 10.8 K/UL (4.8-10.8)
[2016-10-23 07:32] LABS: ALANINE AMINOTRANSFERASE 36 U/L (3-33); ALBUMIN/GLOBULIN RATIO 1.1 (1.0-2.7); ANION GAP 16 (5-15); ASPARTATE AMINO TRANSFERASE 56 U/L (5-40); CALCIUM 9.6 mg/dL (8.6-10.2); CARBON DIOXIDE 23 mEQ/L (20-30); CHLORIDE 101 mEQ/L (98-107); CREATININE 0.9 mg/dL (0.5-0.9); GLOMERULAR FILTRATION RATE > 60 mL/min (>60); HEMOLYSIS 2; POTASSIUM 3.1 mEQ/L (3.4-4.9); SODIUM 140 mEQ/L (135-145)
[2016-10-23 08:13] VITALS: BP 137/108
[2016-10-23] MEDS: Atenolol 25mg tab ORAL SCH (08:28)
[2016-10-23] MEDS: Heparin 5000 units/ml inj SUBQ SCH (08:31)
--- NOTE | 2016-10-23 09:59 | General Progress Note ---
Assessment/Plan Status: stable Assessment/Plan 1. Acute cyclic vomitus incidence. 2. Systemic inflammatory response syndrome. 3. Urinary tract infection. 4. Chronic pain vs Narcotic seeking behavior 5. Hematuria. 6. Gastrointestinal and deep venous thrombosis prophylaxis 7. Hypertension 8. HypoKalemia Plan: Started on Dilaudid 2 mg sc. Patient reported is taking 4 mg out patient. continue with current Zofran, IV fluid. NPO and will advance as tolerated. GI- Dr Kim notified Dr West is consulted Once cleared by GI. may followup as outpatient Subjective ROS Limited/Unobtainable: No - requesting only IV dilaudid. stating that her Nausea gets better with that Constitutional: Reports: no symptoms HEENT: Reports: no symptoms Gastrointestinal/Abdominal: Reports: nausea Allergies: Coded Allergies: No Known Allergies (Unverified , 05/08/14) Objective Last 24 Hour Vital Signs Date Time Temp Pulse Resp B/P Pulse Ox O2 Delivery O2 Flow Rate FiO2 10/23/16 09:14 97.7 10/23/16 08:28 69 137/108 10/23/16 08:13 97.7 69 18 137/108 99 Room Air 10/23/16 04:00 98.2 73 18 141/98 97 Room Air 10/23/16 00:00 98.8 57 18 147/87 100 Room Air 10/22/16 20:00 99.0 58 18 150/97 98 Room Air 10/22/16 16:00 98.4 56 18 139/89 98 Room Air 10/22/16 11:55 96.8 54 18 147/97 99 Room Air Intake and Output 10/22/16 10/23/16 19:00 07:00 Intake Total 845 ml 125 ml Balance 845 ml 125 ml Intake IV Total 845 ml 125 ml # Voids 2 Laboratory Tests 10/23/16 04:35: White Blood Count 10.8, Red Blood Count 4.85, Hemoglobin 11.6L, Hematocrit 38.2 , Mean Corpuscular Volume 79L, Mean Corpuscular Hemoglobin 23.8L, Mean Corpuscular Hemoglobin Concent 30.2L, Red Cell Distribution Width 14.6, Platelet Count 355, Mean Platelet Volume 7.9, Neutrophils (%) (Auto) 52.5, Lymphocytes (%) (Auto) 33.6, Monocytes (%) (Auto) 10.9H, Eosinophils (%) (Auto) 1.8, Basophils (%) (Auto) 1.1, Sodium Level 140, Potassium Level 3.1L, Chloride Level 101, Carbon Dioxide Level 23, Anion Gap 16H, Blood Urea Nitrogen 16, Creatinine 0.9, Estimat Glomerular Filtration Rate > 60, Glucose Level 112H, Calcium Level 9.6, Total Bilirubin 0.5, Aspartate Amino Transf (AST/SGOT) 56H, Alanine Aminotransferase (ALT/SGPT) 36H, Alkaline Phosphatase 101, Total Protein 7.0, Albumin 3.8, Globulin 3.2, Albumin/Globulin Ratio 1.1 Height (Feet): 5 Height (Inches): 10.00 Weight (Pounds): 192 General Appearance: no apparent distress EENT: PERRL/EOMI Neck: supple Cardiovascular: normal rate Respiratory/Chest: lungs clear Abdomen: soft Extremities: non-tender Neurologic: other - anixious Rome Quintanilla MD Oct 23, 2016 09:59
[2016-10-23] MEDS: cefTRIAXone 2 GM in D5W 110 ML IVPB SCH (10:59)
--- NOTE | 2016-10-23 11:34 | GI Progress Note ---
Assessment/Plan Problems: (1) Nausea & vomiting ICD Codes: R11.2 - Nausea with vomiting, unspecified SNOMED: 84352068 (2) Diarrhea ICD Codes: R19.7 - Diarrhea, unspecified SNOMED: 24492071 (3) Cyclical vomiting ICD Codes: G43.A0 - Cyclical vomiting, not intractable SNOMED: 79203429 (4) Opiate dependence ICD Codes: F11.20 - Opioid dependence, uncomplicated SNOMED: 75642293 Status: unchanged Status Narrative Discussed with Dr. Kim. Assessment/Plan KUB negative Abd U/S - s/p maki, negative for dilated ducts utox >> positive for opiates >> chronic dilaudid user diarrhea x 1 >> fu cdiff lipase negative symptomatic treatment at this time low dose reglan zofran prn FLD, adv as tolerated ppi abx recommend pain service consult fu hep panel fu labs Subjective Subjective pt continues to complain of pain, request dilaudid IV c/o of diarrhea Objective Last 24 Hour Vital Signs Date Time Temp Pulse Resp B/P Pulse Ox O2 Delivery O2 Flow Rate FiO2 10/23/16 09:14 97.7 10/23/16 08:28 69 137/108 10/23/16 08:13 97.7 69 18 137/108 99 Room Air 10/23/16 04:00 98.2 73 18 141/98 97 Room Air 10/23/16 00:00 98.8 57 18 147/87 100 Room Air 10/22/16 20:00 99.0 58 18 150/97 98 Room Air 10/22/16 16:00 98.4 56 18 139/89 98 Room Air 10/22/16 11:55 96.8 54 18 147/97 99 Room Air Intake and Output 10/22/16 10/23/16 19:00 07:00 Intake Total 845 ml 125 ml Balance 845 ml 125 ml Intake IV Total 845 ml 125 ml # Voids 2 Laboratory Tests Test 10/23/16 04:35 10/23/16 06:30 White Blood Count 10.8 K/UL (4.8-10.8) Red Blood Count 4.85 M/UL (4.20-5.40) Hemoglobin 11.6 G/DL (12.0-16.0) L Hematocrit 38.2 % (37.0-47.0) Mean Corpuscular Volume 79 FL (80-99) L Mean Corpuscular Hemoglobin 23.8 PG (27.0-31.0) L Mean Corpuscular Hemoglobin Concent 30.2 G/DL (32.0-36.0) L Red Cell Distribution Width 14.6 % (11.6-14.8) Platelet Count 355 K/UL (150-450) Mean Platelet Volume 7.9 FL (6.5-10.1) Neutrophils (%) (Auto) 52.5 % (45.0-75.0) Lymphocytes (%) (Auto) 33.6 % (20.0-45.0) Monocytes (%) (Auto) 10.9 % (1.0-10.0) H Eosinophils (%) (Auto) 1.8 % (0.0-3.0) Basophils (%) (Auto) 1.1 % (0.0-2.0) Sodium Level 140 mEQ/L (135-145) Potassium Level 3.1 mEQ/L (3.4-4.9) L Chloride Level 101 mEQ/L (98-107) Carbon Dioxide Level 23 mEQ/L (20-30) Anion Gap 16 (5-15) H Blood Urea Nitrogen 16 mg/dL (7-23) Creatinine 0.9 mg/dL (0.5-0.9) Estimat Glomerular Filtration Rate > 60 mL/min (>60) Glucose Level 112 mg/dL (74-106) H Calcium Level 9.6 mg/dL (8.6-10.2) Total Bilirubin 0.5 mg/dL (0.0-1.2) Aspartate Amino Transf (AST/SGOT) 56 U/L (5-40) H Alanine Aminotransferase (ALT/SGPT) 36 U/L (3-33) H Alkaline Phosphatase 101 U/L (35-104) Total Protein 7.0 g/dL (6.6-8.7) Albumin 3.8 g/dL (3.5-5.2) Globulin 3.2 g/dL Albumin/Globulin Ratio 1.1 (1.0-2.7) Hepatitis A IgM Antibody Pending Hepatitis B Surface Antigen Pending Hepatitis B Core IgM Antibody Pending Hepatitis C Antibody Pending Height (Feet): 5 Height (Inches): 10.00 Weight (Pounds): 192 General Appearance: no apparent distress, alert Cardiovascular: normal rate Respiratory/Chest: no respiratory distress Abdominal Exam: normal bowel sounds, non tender, soft Extremities: normal range of motion Katie Dill N.P. Oct 23, 2016 11:34
[2016-10-23 12:14] VITALS: BP 139/96
[2016-10-23 16:00] VITALS: BP 155/103
[2016-10-23] MEDS ORDERED: Tubing IV Secondary IV ONE (18:05)
[2016-10-23] MEDS ORDERED: D5NS 1000ml IV ONE (18:05)
--- NOTE | 2016-10-24 14:49 | Discharge Summary ---
Discharge Summary Hospital Course Date of Admission Oct 21, 2016 at 07:33 Date of Discharge Oct 23, 2016 at 18:06 Admitting Diagnosis abdominal pain HPI Jailyn Avelar is a 41 year old female who was admitted on Oct 21, 2016 at 07:33 for Abdominal Pain Hospital Course [id number] Discharge Discharge Disposition Patient left AMA Discharge Diagnoses: Gina Odonnell NP Oct 24, 2016 14:49
--- NOTE | 2016-10-24 21:48 | Discharge Summary 2 SIG ---
DATE OF ADMISSION: 10/21/2016 DATE OF DISCHARGE: 10/23/2016 POST CLOSING SPECIALIST: Bebo Kim M.D. BRIEF HOSPITAL COURSE: The patient is a 41-year-old female with history of narcotic seeking behavior and reported history of cyclic vomiting syndrome who presented after another episode of abdominal pain and vomiting and unable to keep fluids down. On evaluation, she had elevated WBC. Urine toxicology was positive for opiates. She was given IV antibiotic, IV ceftriaxone, for urinary tract infection. She was seen by Dr. Kim. Abdominal ultrasound showed status post cholecystectomy. Negative for dilated ducts. KUB was negative. Lipase was negative. She was given symptomatic treatment with low-dose Reglan and Zofran p.r.n. Diet was eventually advanced as tolerated. Full treatment was not carried out as the patient signed out against medical advice. FINAL DIAGNOSES: 1. Acute cyclic vomiting. 2. Systemic inflammatory response syndrome. 3. Urinary tract infection. 4. Chronic pain and narcotic seeking behavior. 5. Hypertension. 6. Hypokalemia. Rome Quintanilla M.D. I have been assigned to dictate discharge summary on this account and I was not involved in the patient's management. Gina Odonnell N.P. DR: LEE JOB#: [id number] CC:
== END 2016-10-23 18:06 | disposition left against medical advice (07) | DRG 103 ==
LOC: EMR 06:16 → 4W 07:33 → EDBEDREQ 10:12
DX: G43.A0 Cyclical vomiting, in migraine, not intractable (principal); R65.10 Systemic inflammatory response syndrome (SIRS) of non-infectious origin without acute organ dysfunction; N39.0 Urinary tract infection, site not specified; F11.20 Opioid dependence, uncomplicated; I10 Essential (primary) hypertension; E87.6 Hypokalemia; G89.29 Other chronic pain; Z76.5 Malingerer [conscious simulation]
CPT/HCPCS: 36415; 74000; 76700; 80053; 80061; 80300; 81003; 82150; 83036; 83690; 84439; 84443; 85025; 85610; 85730; 86705; 86709; 86803; 87324; 87340; 94664; J2405; J2765; J8499

== ENCOUNTER 2016-10-28 20:53 | Emergency (ER) | payer MEDICARE, MEDICAID ==
[~2016-10-28] VITALS: Ht 177.8 cm; Wt 86.2 kg
[2016-10-28] MEDS ORDERED: Metoclopramide 10mg/2ml Inj IM ONE (22:00)
[2016-10-28 22:36] LABS: APPEARANCE,URINE CLEAR; KETONES,URINE NEGATIVE (NEGATIVE); LEUKOCYTE ESTERASE ,URINE NEGATIVE (NEGATIVE); NITRITE,URINE NEGATIVE (NEGATIVE); PH,URINE 8 (4.5-8.0); PROTEIN,URINE 2+ (NEGATIVE); UROBILINOGEN,URINE NORMAL MG/DL (0.0-1.0)
[2016-10-28 22:53] LABS: WBC,URINE 0-2 /HPF (0 - 2)
[2016-10-28 22:54] LABS: BACTERIA,URINE FEW /HPF; SQUAMOUS EPITHELIAL CELL,UR FEW /LPF (NONE/OCC)
[2016-10-28 23:15] VITALS: BP 154/87
[2016-10-28 23:19] VITALS: BP 154/87
--- NOTE | 2016-11-02 13:36 | Emergency Room Report ---
History of Present Illness General Chief Complaint: Abdominal Pain Source: Patient Present Illness HPI [id number] presents with multiple episodes of vomiting without nausea. Denies abd pain, fever/chills, diarrhea, urinary complaints. On menstrual period currently. Denies . Has reglan, zofran, and ativan at home that she says she takes for known cyclical vomiting but not helpign today. Per EMR multiple visits here for cyclica vomiting, narcotic dependence and narcotic seeking behavior. Allergies: Coded Allergies: No Known Allergies (Unverified , 05/08/14) Patient History Past Medical History: see triage record, old chart reviewed Past Surgical History: none Pertinent Family History: none Social History: Denies: alcohol use, drug use, smoking Last Menstrual Period: n/a Now: No Immunizations: UTD Reviewed Nursing Documentation: PMH: Agreed, PSxH: Agreed Nursing Documentation-PMH Hx Cardiac Problems: Yes Hx Hypertension: Yes Hx Diabetes: No Hx Cancer: No Hx Gastrointestinal Problems: Yes - Cyclic Vomiting SYNDROME Hx Neurological Problems: No Review of Systems All Other Systems: negative except mentioned in HPI Physical Exam Vital Signs Date Time Temp Pulse Resp B/P Pulse Ox O2 Delivery O2 Flow Rate FiO2 10/28/16 21:09 99.1 90 18 171/120 100 Room Air Sp02 EP Interpretation: reviewed, abnormal General Appearance: normal inspection, well appearing, no apparent distress, alert, GCS 15, non-toxic, obese Head: normocephalic, atraumatic Eyes: bilateral eye EOMI, bilateral eye PERRL ENT: normal ENT inspection, hearing grossly normal, normal voice Neck: normal inspection, full range of motion, supple, no bony tend Respiratory: normal inspection, lungs clear, normal breath sounds, no respiratory distress, no retraction, no wheezing Cardiovascular #1: regular rate, rhythm, no edema Gastrointestinal: normal inspection, normal bowel sounds, non tender, soft, no guarding, no hernia Genitourinary: no CVA tenderness Musculoskeletal: normal inspection, back normal, normal range of motion, Sisi' s Sign negative Neurologic: normal inspection, alert, oriented x3, responsive, frog shaker III-XII nml as tested, DTRs symmetric, speech normal Psychiatric: normal inspection, judgement/insight normal, mood/affect normal Skin: normal inspection, normal color, no rash Medical Decision Making Diagnostic Impression: Primary Impression: Cyclical vomiting Qualified Codes: G43.A0 - Cyclical vomiting, not intractable ER Course Resolved with IM reglan VS with initial hypertension resolved to normotension after IM reglan given Tolerating PO in the ED Serially non-focal abdomen Multiple visits with significant workup in the past that has not revealed bacterial or emergency surgical cause Narcotic dependence and narcotic seeking behavior in the past DC home with PMD followup Last Vital Signs Date Time Temp Pulse Resp B/P Pulse Ox O2 Delivery O2 Flow Rate FiO2 10/28/16 23:19 98.7 82 18 154/87 100 Room Air Status: improved Disposition: HOME, SELF-CARE Condition: Improved Referrals: NON PHYSICIAN (PCP) Patient Instructions: Nausea and Vomiting, Adult, [id number] Additional Instructions: - Follow up with your primary care doctor as needed regarding your cyclic vomiting syndrome - Try NOT to take zofran/reglan when you dont have symptoms. ONLY when you feel nauseated ANURADHA MICHAELS M.D. Nov 02, 2016 13:36
== END 2016-10-28 23:19 | disposition home or self-care (01) ==
LOC: EMR 22:24
DX: G43.A0 Cyclical vomiting, in migraine, not intractable (principal); I10 Essential (primary) hypertension
CPT/HCPCS: 81003; 81025; 96372; 99283; J2765

== ENCOUNTER 2016-11-01 13:17 | Emergency (ER) | payer MEDICARE, MEDICAID ==
[~2016-11-01] VITALS: Ht 177.8 cm; Wt 86.2 kg
[2016-11-01] MEDS ORDERED: Metoclopramide 10mg/2ml Inj IVP ONE (14:15)
--- NOTE | 2016-11-01 14:55 | Emergency Room Report ---
History of Present Illness General Chief Complaint: Nausea, Vomiting, and Diarrhea Source: Patient Present Illness HPI 41-year-old female presents emergency department complaining of 10 out of 10 in severity abdominal pain that radiates towards the back patient states the pain is located on the right upper abdominal area. Patient also reports that she has chronic pain in this area and is usually prescribed Dilaudid at home to be taken. Patient also states that she has a history of cyclical vomiting and she has been vomiting all morning and unable to take her medications. Patient's issues prescribed oral Zofran and Reglan however she has been vomiting the medications up. She denies fevers or chills. She also reports watery diarrhea x2 weeks. Patient reports recent antibiotic use. She denies blood in the vomit or stool. Denies black tarry stools. Denies CP, Palpitations, LOC, AMS, dizziness, Changes in Vision, Sensation, paresthesias, or a sudden severe headache. Allergies: Coded Allergies: No Known Allergies (Unverified , 05/08/14) Patient History Past Medical History: see triage record Past Surgical History: none Pertinent Family History: none Last Menstrual Period: n/a Now: No Reviewed Nursing Documentation: PMH: Agreed, PSxH: Agreed Nursing Documentation-PMH Hx Hypertension: Yes Hx Diabetes: No Hx Cancer: No Hx Gastrointestinal Problems: Yes - Cyclic Vomiting SYNDROME Hx Neurological Problems: No Review of Systems All Other Systems: negative except mentioned in HPI Physical Exam Vital Signs Date Time Temp Pulse Resp B/P Pulse Ox O2 Delivery O2 Flow Rate FiO2 11/01/16 13:45 97.5 73 14 111/74 99 Room Air Medical Decision Making PA Attestation Dr. cuellar is my supervising Physician whom patient management has been discussed with. Diagnostic Impression: Primary Impression: Abdominal pain Qualified Codes: R10.84 - Generalized abdominal pain Additional Impressions: Nausea & vomiting Qualified Codes: R11.2 - Nausea with vomiting, unspecified Colitis, acute UTI (urinary tract infection) Qualified Codes: N30.00 - Acute cystitis without hematuria ER Course 41-year-old female presents emergency department complaining of 10 out of 10 in severity abdominal pain that radiates towards the back patient states the pain is located on the right upper abdominal area. Patient also reports that she has chronic pain in this area and is usually prescribed Dilaudid at home to be taken. Patient also states that she has a history of cyclical vomiting and she has been vomiting all morning and unable to take her medications. Patient's issues prescribed oral Zofran and Reglan however she has been vomiting the medications up. She denies fevers or chills. She also reports watery diarrhea x2 weeks. Patient reports recent antibiotic use. She denies blood in the vomit or stool. Denies black tarry stools. Ddx considered but are not limited to GE, colitis, acute appy, SBO, * , colitis, cyclical vomiting syndrome Vital signs: pt. is afebrile, H&PE are most consistent with Cyclical vomiting syndrome, or colitis will do abdominal work up and assess hydration status. ORDERS: none required at this time, the diagnosis is clinical ED INTERVENTIONS: -1000 NS iv hydration, -10 IVP Reglan for nausea. -4mg Zofran -10mg Bentyl PO -Benadryl 25mg IV -0.5mg Dilaudid IV DISCHARGE: At this time pt. is stable for d/c to home. Will provide printed patient care instructions, and any necessary prescriptions. Care plan and follow up instructions have been discussed with the patient prior to discharge. Labs Test 11/01/16 14:06 11/01/16 14:20 White Blood Count 14.2 K/UL (4.8-10.8) Red Blood Count 4.61 M/UL (4.20-5.40) Hemoglobin 11.0 G/DL (12.0-16.0) Hematocrit 36.3 % (37.0-47.0) Mean Corpuscular Volume 79 FL (80-99) Mean Corpuscular Hemoglobin 23.9 PG (27.0-31.0) Mean Corpuscular Hemoglobin Concent 30.3 G/DL (32.0-36.0) Red Cell Distribution Width 13.8 % (11.6-14.8) Platelet Count 300 K/UL (150-450) Mean Platelet Volume 7.1 FL (6.5-10.1) Neutrophils (%) (Auto) 74.4 % (45.0-75.0) Lymphocytes (%) (Auto) 14.3 % (20.0-45.0) Monocytes (%) (Auto) 7.7 % (1.0-10.0) Eosinophils (%) (Auto) 2.6 % (0.0-3.0) Basophils (%) (Auto) 1.0 % (0.0-2.0) Urine Color Brown Urine Appearance Clear Urine pH 6 (4.5-8.0) Urine Specific [place] 1.020 (1.005-1.035) Urine Protein 3+ (NEGATIVE) Urine Glucose (UA) Negative (NEGATIVE) Urine Ketones 1+ (NEGATIVE) Urine Occult Blood 5+ (NEGATIVE) Urine Nitrite Negative (NEGATIVE) Urine Bilirubin 1+ (NEGATIVE) Urine Ictotest Negative Urine Urobilinogen 1 MG/DL (0.0-1.0) Urine Leukocyte Esterase 1+ (NEGATIVE) Urine RBC 10-15 /HPF (0 - 2) Urine WBC 5-10 /HPF (0 - 2) Urine Squamous Epithelial Cells Moderate /LPF (NONE/OCC) Urine Bacteria Moderate /HPF (NONE) Sodium Level 135 mEQ/L (135-145) Potassium Level 3.6 mEQ/L (3.4-4.9) Chloride Level 97 mEQ/L (98-107) Carbon Dioxide Level 19 mEQ/L (20-30) Anion Gap 19 (5-15) Blood Urea Nitrogen 11 mg/dL (7-23) Creatinine 1.1 mg/dL (0.5-0.9) Estimat Glomerular Filtration Rate > 60 mL/min (>60) Glucose Level 122 mg/dL (74-106) Calcium Level 9.0 mg/dL (8.6-10.2) Total Bilirubin 0.4 mg/dL (0.0-1.2) Aspartate Amino Transf (AST/SGOT) 14 U/L (5-40) Alanine Aminotransferase (ALT/SGPT) 21 U/L (3-33) Alkaline Phosphatase 90 U/L (35-104) Total Protein 6.4 g/dL (6.6-8.7) Albumin 3.4 g/dL (3.5-5.2) Globulin 3.0 g/dL Albumin/Globulin Ratio 1.1 (1.0-2.7) Lipase 69 U/L (< 60) Last Vital Signs Date Time Temp Pulse Resp B/P Pulse Ox O2 Delivery O2 Flow Rate FiO2 11/01/16 13:45 97.5 73 14 111/74 99 Room Air Disposition: HOME, SELF-CARE Condition: Stable Scripts Nitrofurantoin Monohyd/M-Cryst* (MACROBID 100 MG*) 100 Mg Capsule 100 MG ORAL EVERY 12 HOURS for 5 Days, #10 CAP Prov: Keesha Ernst 11/01/16 Metronidazole* (FLAGYL*) 250 Mg Tablet 250 MG ORAL EVERY 6 HOURS for 10 Days, #40 TAB Prov: Keesha Ernst 11/01/16 Dicyclomine Hcl* (BENTYL*) 10 Mg Capsule 10 MG ORAL FOUR TIMES A DAY for 4 Days, #20 CAP Prov: Keesha Ernst 11/01/16 Metoclopramide Hcl* (REGLAN*) 10 Mg Tablet 10 MG ORAL THREE TIMES A DAY for 5 Days, #15 TAB Prov: Keesha Ernst 11/01/16 Referrals: NON PHYSICIAN (PCP) Patient Instructions: Clostridium Difficile Testing, Diarrhea, Adult, Easy-to- Read, Nausea and Vomiting, Adult, [id number] Additional Instructions: Take medications as directed. Follow up with PCP and GI Specialist in 3-5 days Return sooner to ED if new symptoms occur, or current symptoms become worse. - Please note that this Emergency Department Report was dictated using [employer] operator control room operator technology software, occasionally this can lead to erroneous entry secondary to interpretation by the dictation equipment. Keesha Ernst Nov 01, 2016 14:55
[2016-11-01] MEDS ORDERED: Dicyclomine HCl 10mg/5ml oral soln ORAL ONE (15:00)
[2016-11-01] MEDS ORDERED: Hydromorphone 0.5mg/0.5ml inj IVP ONE (15:00)
[2016-11-01 15:01] LABS: EOSINOPHILS % (AUTO) 2.6 % (0.0-3.0); LYMPHOCYTES % (AUTO) 14.3 % (20.0-45.0); MEAN CORPUSCULAR HEMOGLOBIN 23.9 PG (27.0-31.0); MEAN CORPUSCULAR HGB CONC 30.3 G/DL (32.0-36.0); MEAN CORPUSCULAR VOLUME 79 FL (80-99); MEAN PLATELET VOLUME 7.1 FL (6.5-10.1); MONOCYTES % (AUTO) 7.7 % (1.0-10.0); NEUTROPHILS % (AUTO) 74.4 % (45.0-75.0); PLATELET COUNT 300 K/UL (150-450); RED BLOOD COUNT 4.61 M/UL (4.20-5.40); RED CELL DISTRIBUTION WIDTH 13.8 % (11.6-14.8); WHITE BLOOD COUNT 14.2 K/UL (4.8-10.8)
[2016-11-01 15:17] LABS: APPEARANCE,URINE CLEAR; KETONES,URINE 1+ (NEGATIVE); LEUKOCYTE ESTERASE ,URINE 1+ (NEGATIVE); NITRITE,URINE NEGATIVE (NEGATIVE); PH,URINE 6 (4.5-8.0); PROTEIN,URINE 3+ (NEGATIVE); UROBILINOGEN,URINE 1 MG/DL (0.0-1.0)
[2016-11-01 15:21] LABS: ALANINE AMINOTRANSFERASE 21 U/L (3-33); ALBUMIN/GLOBULIN RATIO 1.1 (1.0-2.7); ANION GAP 19 (5-15); ASPARTATE AMINO TRANSFERASE 14 U/L (5-40); CARBON DIOXIDE 19 mEQ/L (20-30); CHLORIDE 97 mEQ/L (98-107); CREATININE 1.1 mg/dL (0.5-0.9); GLOMERULAR FILTRATION RATE > 60 mL/min (>60); HEMOLYSIS 5; LIPASE 69 U/L (< 60); POTASSIUM 3.6 mEQ/L (3.4-4.9); SODIUM 135 mEQ/L (135-145); TOTAL PROTEIN 6.4 g/dL (6.6-8.7)
[2016-11-01] MEDS ORDERED: BENTYL10 MG ORAL (15:21)
[2016-11-01] MEDS ORDERED: METRONIDAZOLE250 MG ORAL (15:21)
[2016-11-01] MEDS ORDERED: REGLAN10 MG ORAL (15:21)
[2016-11-01 15:43] LABS: SQUAMOUS EPITHELIAL CELL,UR MODERATE /LPF (NONE/OCC)
[2016-11-01 15:44] LABS: BACTERIA,URINE MODERATE /HPF
[2016-11-01 15:47] LABS: ICTOTEST NEGATIVE
[2016-11-01] MEDS ORDERED: NITROFURANTOIN100 M2 ORAL (15:53)
[2016-11-01] MEDS ORDERED: DiphenhydrAMINE 50mg/ml Inj IVP ONE (16:15)
[2016-11-01 16:50] VITALS: BP 122/80
== END 2016-11-01 16:50 | disposition home or self-care (01) ==
LOC: EMR 14:03
DX: R10.11 Right upper quadrant pain (principal); R11.2 Nausea with vomiting, unspecified; I10 Essential (primary) hypertension; R19.7 Diarrhea, unspecified; G89.29 Other chronic pain
CPT/HCPCS: 36415; 80053; 81003; 83690; 85025; 87086; 87181; 96360; 96361; 96374; 96375; 99284; J1170; J1200; J2405; J2765

== ENCOUNTER 2016-11-09 19:07 | Inpatient (IN) | payer MEDICARE, MEDICAID ==
[~2016-11-09] VITALS: Ht 165.1 cm; Wt 81.6 kg
[~2016-11-09 19:07] MED LIST changes: +BENTYL10 MG ORAL; +METRONIDAZOLE250 MG ORAL; +NITROFURANTOIN100 M2 ORAL
[2016-11-09] MEDS ORDERED: Metoclopramide 10mg/2ml Inj IVP ONE (20:15)
[2016-11-09] MEDS ORDERED: Famotidine 20 MG/ 2ML VIAL IVP ONE (20:15)
[2016-11-09] MEDS: Mylanta II UD 30ml ORAL ONE ×2 (20:30→21:45)
[2016-11-09] MEDS: Lidocaine 2% Visc 15ml soln ORAL ONE ×2 (20:30→21:44)
[2016-11-09] MEDS: Dicyclomine HCl 10mg/5ml oral soln ORAL ONE ×2 (20:30→21:45)
[2016-11-09] MEDS ORDERED: HYDROmorphone 1 MG, DiphenhydrAMINE 25 MG in NS 55 ML IVPB ONE (20:45)
[2016-11-09] MEDS ORDERED: HYDROmorphone 1mg/ml Carpuject ONE (21:42)
[2016-11-09] MEDS ORDERED: DiphenhydrAMINE 50mg/ml Inj ONE (21:42)
[2016-11-09 21:58] LABS: BASOPHILS % (AUTO) 0.6 % (0.0-2.0); EOSINOPHILS % (AUTO) 1.3 % (0.0-3.0); LYMPHOCYTES % (AUTO) 16.1 % (20.0-45.0); MEAN CORPUSCULAR HEMOGLOBIN 26.7 PG (27.0-31.0); MEAN CORPUSCULAR HGB CONC 33.9 G/DL (32.0-36.0); MEAN CORPUSCULAR VOLUME 79 FL (80-99); MEAN PLATELET VOLUME 6.3 FL (6.5-10.1); MONOCYTES % (AUTO) 1.8 % (1.0-10.0); NEUTROPHILS % (AUTO) 80.2 % (45.0-75.0); PLATELET COUNT 416 K/UL (150-450); RED BLOOD COUNT 5.23 M/UL (4.20-5.40); RED CELL DISTRIBUTION WIDTH 13.5 % (11.6-14.8); WHITE BLOOD COUNT 10.1 K/UL (4.8-10.8)
[2016-11-09 22:01] LABS: APPEARANCE,URINE CLEAR; KETONES,URINE NEGATIVE (NEGATIVE); LEUKOCYTE ESTERASE ,URINE NEGATIVE (NEGATIVE); NITRITE,URINE NEGATIVE (NEGATIVE); PH,URINE 7 (4.5-8.0); PROTEIN,URINE 2+ (NEGATIVE); UROBILINOGEN,URINE NORMAL MG/DL (0.0-1.0)
[2016-11-09 22:16] LABS: ALANINE AMINOTRANSFERASE 9 U/L (3-33); ANION GAP 16 (5-15); ASPARTATE AMINO TRANSFERASE 14 U/L (5-40); CALCIUM 9.9 mg/dL (8.6-10.2); CARBON DIOXIDE 24 mEQ/L (20-30); CHLORIDE 98 mEQ/L (98-107); GLOMERULAR FILTRATION RATE > 60 mL/min (>60); HEMOLYSIS 13; LIPASE 77 U/L (< 60); POTASSIUM 3.5 mEQ/L (3.4-4.9); SODIUM 138 mEQ/L (135-145); TOTAL PROTEIN 7.5 g/dL (6.6-8.7)
[2016-11-09 22:23] VITALS: BP 176/87
[2016-11-09 22:34] LABS: BACTERIA,URINE FEW /HPF; SQUAMOUS EPITHELIAL CELL,UR FEW /LPF (NONE/OCC)
[2016-11-09 22:35] LABS: WBC,URINE 0-2 /HPF (0 - 2)
--- NOTE | 2016-11-09 22:42 | Emergency Room Report ---
History of Present Illness General Chief Complaint: Vomiting Present Illness HPI 41-year-old female presents emergency department complaining of 4 episodes of vomiting since this a.m. with right upper quadrant pain. Patient states she has a history of chronic pain in that area as well as cyclical vomiting syndrome. Patient states she is prescribed Dilaudid at home and has been unable to take her medications today due to vomiting. Patient denies blood in the vomit. Patient reports several episodes of diarrhea and states that this is common during her cyclical vomiting episodes. Patient denies fevers or chills patient denies constipation. Denies recent travel or ill contacts. She denies . Denies CP, Palpitations, LOC, AMS, dizziness, Changes in Vision, Sensation, paresthesias, or a sudden severe headache. (Keesha Ernst P.A.) Allergies: Coded Allergies: No Known Allergies (Unverified , 05/08/14) Patient History Past Medical History: see triage record Past Surgical History: none Pertinent Family History: none Last Menstrual Period: MENOPAUSE Now: No Reviewed Nursing Documentation: PMH: Agreed, PSxH: Agreed (Keesha Ernst PRebecca) Nursing Documentation-PMH Hx Hypertension: Yes Hx Diabetes: No Hx Cancer: No Hx Gastrointestinal Problems: Yes - Cyclic Vomiting SYNDROME Hx Neurological Problems: No (Keesha Ernst P.Shania) Review of Systems All Other Systems: negative except mentioned in HPI (Keesha Ernst P.A.) Physical Exam Vital Signs Date Time Temp Pulse Resp B/P Pulse Ox O2 Delivery O2 Flow Rate FiO2 11/09/16 19:27 99.0 80 16 164/113 99 Room Air (Keesha Ernst P.A.) Medical Decision Making PA Attestation Dr. Chase is my supervising Physician whom patient management has been discussed with. (Keesha Ernst P.A.) Diagnostic Impression: Primary Impression: Cyclical vomiting Qualified Codes: G43.A0 - Cyclical vomiting, not intractable Additional Impressions: Opiate dependence Qualified Codes: F11.29 - Opioid dependence with unspecified opioid-induced disorder Opiate withdrawal ER Course 41-year-old female presents emergency department complaining of 4 episodes of vomiting since this a.m. with right upper quadrant pain. Patient states she has a history of chronic pain in that area as well as cyclical vomiting syndrome. Patient states she is prescribed Dilaudid at home and has been unable to take her medications today due to vomiting. Patient denies blood in the vomit. Patient reports several episodes of diarrhea and states that this is common during her cyclical vomiting episodes. Patient denies fevers or chills patient denies constipation. Denies recent travel or ill contacts. She denies . Ddx considered but are not limited to GE, colitis, acute appy, SBO, * , cyclical vomiting, drug-seeking. Vital signs: pt. is afebrile, H&PE are most consistent with episode of cyclical vomiting syndrome and gastritis consistent with previous symptoms from prior episodes. ORDERS: -CBC: unremarkable -CMP: pending -Lipase: pending -UA: unremarkable -Urine HCG: negative ED INTERVENTIONS: -1000 NS iv hydration, -10mg Reglan IV for nausea. -1 mg Dilaudid / 25 mg Benadryl IVPB Labs Test 11/09/16 21:30 White Blood Count 10.1 K/UL (4.8-10.8) Red Blood Count 5.23 M/UL (4.20-5.40) Hemoglobin 14.0 G/DL (12.0-16.0) Hematocrit 41.2 % (37.0-47.0) Mean Corpuscular Volume 79 FL (80-99) Mean Corpuscular Hemoglobin 26.7 PG (27.0-31.0) Mean Corpuscular Hemoglobin Concent 33.9 G/DL (32.0-36.0) Red Cell Distribution Width 13.5 % (11.6-14.8) Platelet Count 416 K/UL (150-450) Mean Platelet Volume 6.3 FL (6.5-10.1) Neutrophils (%) (Auto) 80.2 % (45.0-75.0) Lymphocytes (%) (Auto) 16.1 % (20.0-45.0) Monocytes (%) (Auto) 1.8 % (1.0-10.0) Eosinophils (%) (Auto) 1.3 % (0.0-3.0) Basophils (%) (Auto) 0.6 % (0.0-2.0) Urine Color Pale yellow Urine Appearance Clear Urine pH 7 (4.5-8.0) Urine Specific [place] 1.010 (1.005-1.035) Urine Protein 2+ (NEGATIVE) Urine Glucose (UA) Negative (NEGATIVE) Urine Ketones Negative (NEGATIVE) Urine Occult Blood 4+ (NEGATIVE) Urine Nitrite Negative (NEGATIVE) Urine Bilirubin Negative (NEGATIVE) Urine Urobilinogen Normal MG/DL (0.0-1.0) Urine Leukocyte Esterase Negative (NEGATIVE) Urine RBC 2-4 /HPF (0 - 2) Urine WBC 0-2 /HPF (0 - 2) Urine Squamous Epithelial Cells Few /LPF (NONE/OCC) Urine Bacteria Few /HPF (NONE) Urine HCG, Qualitative Negative Sodium Level 138 mEQ/L (135-145) Potassium Level 3.5 mEQ/L (3.4-4.9) Chloride Level 98 mEQ/L (98-107) Carbon Dioxide Level 24 mEQ/L (20-30) Anion Gap 16 (5-15) Blood Urea Nitrogen 7 mg/dL (7-23) Creatinine 1.0 mg/dL (0.5-0.9) Estimat Glomerular Filtration Rate > 60 mL/min (>60) Glucose Level 127 mg/dL (74-106) Calcium Level 9.9 mg/dL (8.6-10.2) Total Bilirubin 0.3 mg/dL (0.0-1.2) Aspartate Amino Transf (AST/SGOT) 14 U/L (5-40) Alanine Aminotransferase (ALT/SGPT) 9 U/L (3-33) Alkaline Phosphatase 106 U/L (35-104) Total Protein 7.5 g/dL (6.6-8.7) Albumin 3.8 g/dL (3.5-5.2) Globulin 3.7 g/dL Albumin/Globulin Ratio 1.0 (1.0-2.7) Lipase 77 U/L (< 60) (Keesha Ernst.Shania) ER Course 41-year-old female presents to ED for multiple episodes of vomiting and pain Patient initially seen and evaluated by my PA; please see her note for full history and physical Patient signed out to me pending lab work and reassessment. Patient has history of cyclical vomiting syndrome and has been here multiple times recently for similar presentation. Patient has history of opioid dependence. Labs were essentially unchanged from prior visits. Patient was prepared to be discharged but has since had multiple episodes of vomiting. Patient is unable to tolerate by mouth intake and cannot be discharged at this time. Patient given additional Zofran, IV fluids. Patient requesting pain medications which were given previously. However given patient is having withdrawal symptoms and has history of opioid dependence I do not believe additional pain medication as appropriate this time. Will be treated as opioid withdrawal with IV fluids, Zofran when necessary and clonidine for any rebound hypertension effects Patient will be admitted to Dr. Decker for further care and support Diagnosis - cyclical vomiting, opioid dependence, opioid withdrawal Admitted to floor in serious condition Labs Test 11/09/16 21:30 White Blood Count 10.1 K/UL (4.8-10.8) Red Blood Count 5.23 M/UL (4.20-5.40) Hemoglobin 14.0 G/DL (12.0-16.0) Hematocrit 41.2 % (37.0-47.0) Mean Corpuscular Volume 79 FL (80-99) Mean Corpuscular Hemoglobin 26.7 PG (27.0-31.0) Mean Corpuscular Hemoglobin Concent 33.9 G/DL (32.0-36.0) Red Cell Distribution Width 13.5 % (11.6-14.8) Platelet Count 416 K/UL (150-450) Mean Platelet Volume 6.3 FL (6.5-10.1) Neutrophils (%) (Auto) 80.2 % (45.0-75.0) Lymphocytes (%) (Auto) 16.1 % (20.0-45.0) Monocytes (%) (Auto) 1.8 % (1.0-10.0) Eosinophils (%) (Auto) 1.3 % (0.0-3.0) Basophils (%) (Auto) 0.6 % (0.0-2.0) Urine Color Pale yellow Urine Appearance Clear Urine pH 7 (4.5-8.0) Urine Specific [place] 1.010 (1.005-1.035) Urine Protein 2+ (NEGATIVE) Urine Glucose (UA) Negative (NEGATIVE) Urine Ketones Negative (NEGATIVE) Urine Occult Blood 4+ (NEGATIVE) Urine Nitrite Negative (NEGATIVE) Urine Bilirubin Negative (NEGATIVE) Urine Urobilinogen Normal MG/DL (0.0-1.0) Urine Leukocyte Esterase Negative (NEGATIVE) Urine RBC 2-4 /HPF (0 - 2) Urine WBC 0-2 /HPF (0 - 2) Urine Squamous Epithelial Cells Few /LPF (NONE/OCC) Urine Bacteria Few /HPF (NONE) Urine HCG, Qualitative Negative Sodium Level 138 mEQ/L (135-145) Potassium Level 3.5 mEQ/L (3.4-4.9) Chloride Level 98 mEQ/L (98-107) Carbon Dioxide Level 24 mEQ/L (20-30) Anion Gap 16 (5-15) Blood Urea Nitrogen 7 mg/dL (7-23) Creatinine 1.0 mg/dL (0.5-0.9) Estimat Glomerular Filtration Rate > 60 mL/min (>60) Glucose Level 127 mg/dL (74-106) Calcium Level 9.9 mg/dL (8.6-10.2) Total Bilirubin 0.3 mg/dL (0.0-1.2) Aspartate Amino Transf (AST/SGOT) 14 U/L (5-40) Alanine Aminotransferase (ALT/SGPT) 9 U/L (3-33) Alkaline Phosphatase 106 U/L (35-104) Total Protein 7.5 g/dL (6.6-8.7) Albumin 3.8 g/dL (3.5-5.2) Globulin 3.7 g/dL Albumin/Globulin Ratio 1.0 (1.0-2.7) Lipase 77 U/L (< 60) (GERALD REBOLLEDO M.D.) Last Vital Signs Date Time Temp Pulse Resp B/P Pulse Ox O2 Delivery O2 Flow Rate FiO2 11/09/16 19:27 99.0 80 16 164/113 99 Room Air (Keesha Ernst) Status: improved (GERALD REBOLLEDO M.D.) Disposition: ADMITTED INPATIENT Condition: Serious Signed Out To: Dr. Rebolledo (Keesha Ernst) Referrals: NON PHYSICIAN (PCP) Keesha Ernst November 09, 2016 22:42 GERALD REBOLLEDO M.D. November 10, 2016 02:59
[2016-11-10 01:37] VITALS: BP 172/114
[2016-11-10 04:52] VITALS: BP 118/88
[2016-11-10] MEDS ORDERED: Nitroglycerin Subl 0.4mg tab (Bottle Of 25) SL PRN (06:45)
[2016-11-10] MEDS ORDERED: LORazepam Inj 2mg/ml 1ml IV PRN (06:45)
[2016-11-10] MEDS ORDERED: Miralax 17gm pkt ORAL PRN (06:45)
[2016-11-10] MEDS ORDERED: Mylanta II UD 30ml ORAL PRN (06:45)
[2016-11-10] MEDS: Metoclopramide 10mg/2ml Inj IVP PRN ×3 (07:25→21:45)
[2016-11-10 08:29] VITALS: BP 132/90
[2016-11-10] MEDS: Pantoprazole Inj IV SCH (08:31)
[2016-11-10] MEDS: Heparin 5000 units/ml inj SUBQ SCH ×2 (08:33→20:38)
[2016-11-10] MEDS: Morphine Sulfate 2mg/ml Inj IVP PRN ×4 (08:33→21:47)
[2016-11-10] MEDS: D5 1/2NS 1,000 ML IV SCH ×2 (08:40→21:20)
[2016-11-10] MEDS: Dicyclomine 10mg Cap ORAL SCH ×4 (09:00→20:37)
[2016-11-10] MEDS: LORazepam 1mg tab ORAL SCH ×2 (09:00→17:12)
--- NOTE | 2016-11-10 11:14 | Diagnostic Imaging Report ---
Indication:Abdominal pain Technique: Grayscale and duplex Doppler imaging of the abdomen performed. Comparison: None Findings: The liver, demonstrated part of the pancreas, aorta and IVC, both kidneys, spleen appear unremarkable. Gallbladder is absent. There is no biliary ductal dilatation identified. Doppler evaluation of the main portal vein shows patency. There is no ascites. No hydronephrosis seen. Impression: Negative abdominal ultrasound. Cholecystectomy
[2016-11-10 11:30] VITALS: BP 139/89
--- NOTE | 2016-11-10 11:51 | Consultation ---
History of Present Illness General Date patient seen: November 10, 2016 Chief Complaint: Vomiting Present Illness HPI 41-year-old female presented emergency department complaining of 4 episodes of vomiting since this a.m. with right upper quadrant pain. Patient states she has a history of chronic pain in that area as well as cyclical vomiting syndrome. Patient states she is prescribed Dilaudid at home and has been unable to take her medications today due to vomiting. Basically she is here to get IV dilaudid. Allergies: Coded Allergies: No Known Allergies (Unverified , 05/08/14) Medication History Scheduled Atenolol* (Tenormin*), 100 MG ORAL DAILY, (Reported) Baclofen* (Baclofen*), 10 MG ORAL TID, (Reported) Dicyclomine Hcl* (Bentyl*), 10 MG ORAL FOUR TIMES A DAY Lorazepam* (Lorazepam*), 1 MG ORAL BID, (Reported) Scheduled PRN Ondansetron Odt* (Zofran Odt*), 8 MG ORAL EVERY 8 HOURS PRN for Nausea & Vomiting, (Reported) Zolpidem Tartrate* (Zolpidem Tartrate*), 5 MG ORAL BEDTIME PRN for Insomnia, ( Reported) Discontinued Medications Hydromorphone HCl (Dilaudid), 4 MG ORAL EVERY 6 HOURS PRN for For Pain, ( Reported) Discontinued Reason: Therapy completed Metoclopramide Hcl* (Reglan*), 10 MG ORAL, (Reported) Discontinued Reason: Pt stopped taking med Metronidazole* (Flagyl*), 250 MG ORAL EVERY 6 HOURS Discontinued Reason: Therapy completed Nitrofurantoin Monohyd/M-Cryst (Nitrofurantoin Mcdonald-Mcr 100 mg), 100 MG ORAL Q12H Discontinued Reason: Therapy completed Patient History Healthcare decision maker Resuscitation status Full Code Advanced Directive on File Past Medical/Surgical History Past Medical/Surgical History: (1) Cyclical vomiting (2) Opiate dependence Review of Systems All Other Systems: negative except mentioned in HPI Physical Exam General Appearance: WD/WN Lines, tubes and drains: peripheral HEENT: normocephalic Neck: non-tender Respiratory/Chest: chest wall non-tender Cardiovascular/Chest: normal peripheral pulses Abdomen: normal bowel sounds Genitourinary/Rectal: normal genital exam Extremities: normal range of motion Skin Exam: normal pigmentation Last 24 Hour Vital Signs Date Time Temp Pulse Resp B/P Pulse Ox O2 Delivery O2 Flow Rate FiO2 11/10/16 11:30 98.2 82 19 139/89 99 Room Air 11/10/16 09:03 98.1 11/10/16 09:00 65 132/90 11/10/16 08:29 98.1 65 19 132/90 100 Room Air 11/10/16 07:18 88 14 146/95 100 Room Air 11/10/16 04:52 98.6 87 14 118/88 100 Room Air 11/10/16 02:40 172/114 11/10/16 01:37 98.9 79 16 172/114 97 Room Air 11/09/16 22:23 99.0 87 14 176/87 97 Room Air 11/09/16 22:16 99.0 11/09/16 19:27 99.0 80 16 164/113 99 Room Air Intake and Output 11/09/16 11/10/16 19:00 07:00 Intake Total 1556.5 ml Balance 1556.5 ml Intake IV Total 1556.5 ml # Voids 2 Laboratory Tests Test 11/09/16 21:30 White Blood Count 10.1 K/UL (4.8-10.8) Red Blood Count 5.23 M/UL (4.20-5.40) Hemoglobin 14.0 G/DL (12.0-16.0) Hematocrit 41.2 % (37.0-47.0) Mean Corpuscular Volume 79 FL (80-99) L Mean Corpuscular Hemoglobin 26.7 PG (27.0-31.0) L Mean Corpuscular Hemoglobin Concent 33.9 G/DL (32.0-36.0) Red Cell Distribution Width 13.5 % (11.6-14.8) Platelet Count 416 K/UL (150-450) Mean Platelet Volume 6.3 FL (6.5-10.1) L Neutrophils (%) (Auto) 80.2 % (45.0-75.0) H Lymphocytes (%) (Auto) 16.1 % (20.0-45.0) L Monocytes (%) (Auto) 1.8 % (1.0-10.0) Eosinophils (%) (Auto) 1.3 % (0.0-3.0) Basophils (%) (Auto) 0.6 % (0.0-2.0) Urine Color Pale yellow Urine Appearance Clear Urine pH 7 (4.5-8.0) Urine Specific [place] 1.010 (1.005-1.035) Urine Protein 2+ (NEGATIVE) H Urine Glucose (UA) Negative (NEGATIVE) Urine Ketones Negative (NEGATIVE) Urine Occult Blood 4+ (NEGATIVE) H Urine Nitrite Negative (NEGATIVE) Urine Bilirubin Negative (NEGATIVE) Urine Urobilinogen Normal MG/DL (0.0-1.0) Urine Leukocyte Esterase Negative (NEGATIVE) Urine RBC 2-4 /HPF (0 - 2) H Urine WBC 0-2 /HPF (0 - 2) Urine Squamous Epithelial Cells Few /LPF (NONE/OCC) Urine Bacteria Few /HPF (NONE) Urine HCG, Qualitative Negative Sodium Level 138 mEQ/L (135-145) Potassium Level 3.5 mEQ/L (3.4-4.9) Chloride Level 98 mEQ/L (98-107) Carbon Dioxide Level 24 mEQ/L (20-30) Anion Gap 16 (5-15) H Blood Urea Nitrogen 7 mg/dL (7-23) Creatinine 1.0 mg/dL (0.5-0.9) H Estimat Glomerular Filtration Rate > 60 mL/min (>60) Glucose Level 127 mg/dL (74-106) H Calcium Level 9.9 mg/dL (8.6-10.2) Total Bilirubin 0.3 mg/dL (0.0-1.2) Aspartate Amino Transf (AST/SGOT) 14 U/L (5-40) Alanine Aminotransferase (ALT/SGPT) 9 U/L (3-33) Alkaline Phosphatase 106 U/L (35-104) H Total Protein 7.5 g/dL (6.6-8.7) Albumin 3.8 g/dL (3.5-5.2) Globulin 3.7 g/dL Albumin/Globulin Ratio 1.0 (1.0-2.7) Lipase 77 U/L (< 60) H Height (Feet): 5 Height (Inches): 9.00 Weight (Pounds): 180 Medications Current Medications Medications (Trade) Dose Ordered Sig/Robbie Route PRN Reason Start Time Stop Time Status Last Admin Dose Admin Acetaminophen (Tylenol) 650 mg Q4H PRN ORAL fever 11/10/16 06:45 12/10/16 06:44 Al Hydroxide/Mg Hydroxide (Mylanta II) 30 ml Q6H PRN ORAL dyspepsia 11/10/16 06:45 12/10/16 06:44 Atenolol (Tenormin) 100 mg DAILY ORAL 11/10/16 09:00 12/10/16 08:59 Baclofen (Lioresal) 10 mg TID ORAL 11/10/16 09:00 12/10/16 08:59 Dextrose (Dextrose 50%) STAT PRN IV Hypoglycemia 11/10/16 06:45 12/10/16 06:44 Dextrose/Sodium Chloride (D5 0.45% NS) 1,000 ml @ 75 mls/hr [id number] IV 11/10/16 08:00 12/10/16 07:59 11/10/16 08:40 Dicyclomine HCl (Bentyl) 10 mg FOUR TIMES A DAY ORAL 11/10/16 09:00 12/10/16 08:59 Diphenhydramine HCl (Benadryl) 25 mg Q6H PRN ORAL Itching/Pruritis 11/10/16 06:45 12/10/16 06:44 Heparin Sodium (Porcine) (Heparin 5000 units/ml) 5,000 units EVERY 12 HOURS SUBQ 11/10/16 09:00 12/10/16 08:59 11/10/16 08:33 Lorazepam (Ativan 2mg/ml 1ml) 1 mg Q4H PRN IV agitation 11/10/16 06:45 11/17/16 06:44 11/10/16 11:03 Lorazepam 1 mg 1 mg BID ORAL 11/10/16 09:00 11/17/16 08:59 Metoclopramide HCl (Reglan) 10 mg Q6H PRN IVP SEVERE NAUSEA 11/10/16 06:45 12/10/16 06:44 11/10/16 07:25 Morphine Sulfate (Morphine Sulfate) 2 mg Q4H PRN IVP severe Pain (Pain Scale 7-10) 11/10/16 06:45 11/17/16 06:44 11/10/16 08:33 Nitroglycerin (Ntg) 0.4 mg Q5M X 3 DOSES PRN SL Prn Chest Pain 11/10/16 06:45 12/10/16 06:44 Ondansetron HCl (Zofran) 4 mg Q6H PRN IVP Nausea & Vomiting 11/10/16 06:45 12/10/16 06:44 Pantoprazole (Protonix) 40 mg DAILY IV 11/10/16 09:00 12/10/16 08:59 11/10/16 08:31 Polyethylene Glycol (Miralax) 17 gm HSPRN PRN ORAL Constipation 11/10/16 06:45 12/10/16 06:44 Promethazine HCl (Phenergan) 25 mg Q8H PRN IV refractory nausea 11/10/16 06:45 12/10/16 06:44 Temazepam (Restoril) 15 mg HSPRN PRN ORAL Insomnia 11/10/16 06:45 11/17/16 06:44 Assessment/Plan Problem List: (1) Cyclical vomiting ICD Codes: G43.A0 - Cyclical vomiting, not intractable SNOMED: [id number] Qualifiers: Qualified Codes: G43.A0 - Cyclical vomiting, not intractable (2) Opiate dependence ICD Codes: F11.20 - Opioid dependence, uncomplicated SNOMED: 01155240 Qualifiers: Qualified Codes: F11.29 - Opioid dependence with unspecified opioid-induced disorder (3) Abdominal pain ICD Codes: R10.9 - Unspecified abdominal pain SNOMED: 66529616 Assessment/Plan NPO IV fluids symptomatic treatment Pain and GI and psych management SALBADOR MEYER November 10, 2016 11:51
--- NOTE | 2016-11-10 15:34 | General Progress Note ---
Assessment/Plan Assessment/Plan GI Consult Dictated Thank you Heriberto Bennett MD Subjective Allergies: Coded Allergies: No Known Allergies (Unverified , 05/08/14) Objective Last 24 Hour Vital Signs Date Time Temp Pulse Resp B/P Pulse Ox O2 Delivery O2 Flow Rate FiO2 11/10/16 14:07 98.2 11/10/16 11:30 98.2 82 19 139/89 99 Room Air 11/10/16 09:00 65 132/90 11/10/16 08:29 98.1 65 19 132/90 100 Room Air 11/10/16 07:18 88 14 146/95 100 Room Air 11/10/16 04:52 98.6 87 14 118/88 100 Room Air 11/10/16 02:40 172/114 11/10/16 01:37 98.9 79 16 172/114 97 Room Air 11/09/16 22:23 99.0 87 14 176/87 97 Room Air 11/09/16 22:16 99.0 11/09/16 19:27 99.0 80 16 164/113 99 Room Air Intake and Output 11/09/16 11/10/16 19:00 07:00 Intake Total 1556.5 ml Balance 1556.5 ml Intake IV Total 1556.5 ml # Voids 2 Laboratory Tests 11/09/16 21:30: White Blood Count 10.1, Red Blood Count 5.23, Hemoglobin 14.0, Hematocrit 41.2, Mean Corpuscular Volume 79L, Mean Corpuscular Hemoglobin 26.7L, Mean Corpuscular Hemoglobin Concent 33.9, Red Cell Distribution Width 13.5, Platelet Count 416, Mean Platelet Volume 6.3L, Neutrophils (%) (Auto) 80.2H, Lymphocytes (%) (Auto) 16.1L, Monocytes (%) (Auto) 1.8, Eosinophils (%) (Auto) 1.3, Basophils (%) (Auto) 0.6, Urine Color Pale yellow, Urine Appearance Clear, Urine pH 7, Urine Specific [place] 1.010, Urine Protein 2+H, Urine Glucose (UA) Negative, Urine Ketones Negative, Urine Occult Blood 4+H, Urine Nitrite Negative , Urine Bilirubin Negative, Urine Urobilinogen Normal, Urine Leukocyte Esterase Negative, Urine RBC 2-4H, Urine WBC 0-2, Urine Squamous Epithelial Cells Few, Urine Bacteria Few, Urine HCG, Qualitative Negative, Sodium Level 138, Potassium Level 3.5, Chloride Level 98, Carbon Dioxide Level 24, Anion Gap 16H, Blood Urea Nitrogen 7, Creatinine 1.0H, Estimat Glomerular Filtration Rate > 60 , Glucose Level 127H, Calcium Level 9.9, Total Bilirubin 0.3, Aspartate Amino Transf (AST/SGOT) 14, Alanine Aminotransferase (ALT/SGPT) 9, Alkaline Phosphatase 106H, Total Protein 7.5, Albumin 3.8, Globulin 3.7, Albumin/ Globulin Ratio 1.0, Lipase 77H Height (Feet): 5 Height (Inches): 9.00 Weight (Pounds): 180 HERIBERTO BENNETT November 10, 2016 15:34
[2016-11-10 15:42] VITALS: BP 108/80
--- NOTE | 2016-11-10 18:38 | History and Physical Report ---
DATE OF ADMISSION: 11/10/2016 TIME: 8 a.m. CONSULTANTS: 1. Bebo Kim M.D. 2. Bianca Petersen M.D. CHIEF COMPLAINT: Recurrent nausea and vomiting. BRIEF HISTORY: This is a 41-year-old female who lives at home presents with two days of increasing nausea and vomiting. She has a diagnosis of cyclic vomiting for the past seven years and has been getting these about monthly. Currently, slightly anxious in bed, tired. No other complaints otherwise. PAST MEDICAL HISTORY: Cyclic vomiting and hypertension. PAST SURGICAL HISTORY: Gallbladder. MEDICATIONS: Atenolol, , Bentyl, heparin, Protonix, Tylenol, morphine, MiraLAX, Zofran, Restoril, Benadryl, Mylanta, nitroglycerin, Reglan, Phenergan, and Ativan. ALLERGIES: Denies. SOCIAL HISTORY: Positive smoking. No alcohol. No intravenous drug abuse. FAMILY HISTORY: Noncontributory. REVIEW OF SYSTEMS: No chest pain. Slight short of breath. Positive nausea and vomiting. No diarrhea. PHYSICAL EXAMINATION: GENERAL: Slightly anxious, tired in bed, oriented x3, no acute distress. VITAL SIGNS: Temperature is 98 degrees, pulse 65, respiratory rate 19, and blood pressure 132/90. CARDIOVASCULAR: No murmur. LUNGS: Clear. ABDOMEN: Bowel sounds positive. Slightly tender. No guarding. No rebound. EXTREMITIES: No cyanosis, clubbing or edema. NEUROLOGIC: The patient is slightly weak, but moves all extremities. LABORATORY AND DIAGNOSTIC DATA: CBC is normal. BMP show creatinine 1.0 and glucose 127. Otherwise, lipase 77 and alkaline phosphatase 106. Urinalysis show 4+ occult blood and 2+ protein, otherwise normal. ASSESSMENT: Nausea, vomiting, cyclic vomiting x7 years. PLAN: Continue pre-medications. Dr. Kim, Dr. Petersen, Dr. Haas, and Dr. Sumner to consult. OT/PT. Dietary evaluation. CBC and BMP in the morning. We will continue to follow this patient medically. Amadou Decker D.O. DR: ERICK JOB#: [id number] CC:
[2016-11-10 20:00] VITALS: BP 118/76
[2016-11-11] VITALS: BP 120/77
[2016-11-11] MEDS: Morphine Sulfate 2mg/ml Inj IVP PRN ×6 (01:23→22:03)
--- NOTE | 2016-11-11 02:48 | Consultation ---
DATE OF CONSULTATION: 11/10/2016 GASTROLOGY CONSULTATION CHIEF COMPLAINT: I was asked to see this patient for evaluation of cyclic nausea and vomiting. HISTORY OF PRESENT ILLNESS: The patient is a 41-year-old woman with a seven-year history of cyclic nausea and vomiting. The patient states that she gets one in fact a month and she usually takes multiple medications at home. She states eventually gets hospitalized. Her last endoscopy and colonoscopy was over seven years ago done by . At home, she is on Zofran and Reglan and still lot of other medications described below. She has her gallbladder removed. PAST MEDICAL HISTORY: History of hypertension, history of chronic abdominal pain, status post cholecystectomy. MEDICATIONS: Baclofen, Zofran, Reglan, Dilaudid, Ativan, Neurontin, atenolol, and amlodipine. FAMILY HISTORY: Noncontributory. SOCIAL HISTORY: The patient does smoke and does not drink alcohol. He has a son, who is grown. REVIEW OF SYSTEMS: Otherwise, negative. PHYSICAL EXAMINATION: GENERAL: The patient is pleasant woman, seen in her room. HEENT: Normocephalic and atraumatic. Sclerae anicteric. Oropharynx clear. NECK: Supple. CHEST: Clear to auscultation. CARDIOVASCULAR: Regular rhythm and rate. ABDOMEN: Soft. Good bowel sounds. There is some tenderness to palpation, but this was not reproducible and it was mainly in the epigastric region. EXTREMITIES: No edema. LABORATORY AND DIAGNOSTIC DATA: Laboratory values are noted. ASSESSMENT: This patient presents with cyclic nausea and vomiting syndrome per her own report. The etiology of the abdominal pain is unclear, as this does not follow typical regular pattern seen with cyclic nausea and vomiting syndrome. We support the patient's pain management, but we will try to cautiously take her down her outpatient doses. She received antiemetics and a consideration to be made to Elavil on long-term basis for treatment of the chronic cyclic nausea and vomiting syndrome. RECOMMENDATIONS: Per above discussion and per orders written in the chart. Thank you for asking me to participate in the care of this patient. Heriberto Bennett M.D. DR: YOLANDA JOB#: [id number] CC:
[2016-11-11 04:00] VITALS: BP 125/69
[2016-11-11] MEDS: D5 1/2NS 1,000 ML IV SCH ×2 (04:00→05:57)
[2016-11-11] MEDS: Metoclopramide 10mg/2ml Inj IVP PRN ×2 (05:52→21:58)
[2016-11-11 07:32] LABS: BASOPHILS % (AUTO) 0.4 % (0.0-2.0); LYMPHOCYTES % (AUTO) 29.2 % (20.0-45.0); MEAN CORPUSCULAR HEMOGLOBIN 23.4 PG (27.0-31.0); MEAN CORPUSCULAR HGB CONC 30.4 G/DL (32.0-36.0); MEAN CORPUSCULAR VOLUME 77 FL (80-99); MEAN PLATELET VOLUME 6.3 FL (6.5-10.1); MONOCYTES % (AUTO) 7.1 % (1.0-10.0); NEUTROPHILS % (AUTO) 59.3 % (45.0-75.0); PLATELET COUNT 380 K/UL (150-450); RED BLOOD COUNT 4.02 M/UL (4.20-5.40); WHITE BLOOD COUNT 12.6 K/UL (4.8-10.8)
[2016-11-11 08:00] VITALS: BP 124/87
[2016-11-11 08:37] LABS: ALANINE AMINOTRANSFERASE 7 U/L (3-33); AMYLASE 67 U/L (10-110); ANION GAP 16 (5-15); ASPARTATE AMINO TRANSFERASE 14 U/L (5-40); CALCIUM 8.7 mg/dL (8.6-10.2); CARBON DIOXIDE 23 mEQ/L (20-30); CHLORIDE 99 mEQ/L (98-107); CREATININE 0.9 mg/dL (0.5-0.9); GLOMERULAR FILTRATION RATE > 60 mL/min (>60); HEMOLYSIS 4; LIPASE 113 U/L (< 60); SODIUM 138 mEQ/L (135-145); TOTAL PROTEIN 5.5 g/dL (6.6-8.7)
[2016-11-11] MEDS: LORazepam 1mg tab ORAL SCH ×2 (09:35→18:07)
[2016-11-11] MEDS: Dicyclomine 10mg Cap ORAL SCH ×4 (09:35→21:07)
[2016-11-11] MEDS: Pantoprazole Inj IV SCH (09:37)
[2016-11-11] MEDS: Heparin 5000 units/ml inj SUBQ SCH ×2 (09:38→21:10)
--- NOTE | 2016-11-11 11:28 | GI Progress Note ---
Assessment/Plan Problems: (1) Abdominal pain ICD Codes: R10.9 - Unspecified abdominal pain SNOMED: 16161400 (2) Cyclical vomiting ICD Codes: G43.A0 - Cyclical vomiting, not intractable SNOMED: 78127746 Qualifiers: Qualified Codes: G43.A0 - Cyclical vomiting, not intractable (3) Opiate dependence ICD Codes: F11.20 - Opioid dependence, uncomplicated SNOMED: 23877445 Qualifiers: Qualified Codes: F11.29 - Opioid dependence with unspecified opioid-induced disorder (4) Nausea, vomiting, and diarrhea ICD Codes: R11.2 - Nausea with vomiting, unspecified; R19.7 - Diarrhea, unspecified SNOMED: 4412752 (5) Gastroenteritis ICD Codes: K52.9 - Noninfective gastroenteritis and colitis, unspecified SNOMED: 85938266 Status: stable Status Narrative Discussed with Dr. Kim. Assessment/Plan Abd U/S - negative utox >> positive for opiates >> chronic dilaudid user rising lipase hepatitis panel negative symptomatic treatment at this time low dose reglan if vomiting persists zofran prn CLD, adv as tolerated ppi abx fu labs Subjective Subjective abdominal pain Objective Last 24 Hour Vital Signs Date Time Temp Pulse Resp B/P Pulse Ox O2 Delivery O2 Flow Rate FiO2 11/11/16 10:06 97.0 11/11/16 09:36 78 125/69 11/11/16 04:00 97.0 78 18 125/69 96 Room Air 11/11/16 00:00 98.0 80 18 120/77 97 Room Air 11/10/16 20:00 98.2 85 20 118/76 98 Room Air 11/10/16 15:42 98.0 94 19 108/80 98 Room Air 11/10/16 11:30 98.2 82 19 139/89 99 Room Air Intake and Output 11/10/16 11/11/16 19:00 07:00 Intake Total 750 ml 525 ml Output Total 50 ml Balance 700 ml 525 ml Intake Oral 0 ml IV Total 750 ml 525 ml Output Emesis 50 ml # Voids 2 2 # Bowel Movements 1 Laboratory Tests Test 11/11/16 04:30 White Blood Count 12.6 K/UL (4.8-10.8) H Red Blood Count 4.02 M/UL (4.20-5.40) L Hemoglobin 9.4 G/DL (12.0-16.0) #L Hematocrit 30.9 % (37.0-47.0) L Mean Corpuscular Volume 77 FL (80-99) L Mean Corpuscular Hemoglobin 23.4 PG (27.0-31.0) L Mean Corpuscular Hemoglobin Concent 30.4 G/DL (32.0-36.0) L Red Cell Distribution Width 14.0 % (11.6-14.8) Platelet Count 380 K/UL (150-450) Mean Platelet Volume 6.3 FL (6.5-10.1) L Neutrophils (%) (Auto) 59.3 % (45.0-75.0) Lymphocytes (%) (Auto) 29.2 % (20.0-45.0) Monocytes (%) (Auto) 7.1 % (1.0-10.0) Eosinophils (%) (Auto) 4.0 % (0.0-3.0) H Basophils (%) (Auto) 0.4 % (0.0-2.0) Activated Partial Thromboplast Time 23 SEC (23-33) Sodium Level 138 mEQ/L (135-145) Potassium Level 3.0 mEQ/L (3.4-4.9) L Chloride Level 99 mEQ/L (98-107) Carbon Dioxide Level 23 mEQ/L (20-30) Anion Gap 16 (5-15) H Blood Urea Nitrogen 8 mg/dL (7-23) Creatinine 0.9 mg/dL (0.5-0.9) Estimat Glomerular Filtration Rate > 60 mL/min (>60) Glucose Level 96 mg/dL (74-106) Calcium Level 8.7 mg/dL (8.6-10.2) Total Bilirubin 0.3 mg/dL (0.0-1.2) Aspartate Amino Transf (AST/SGOT) 14 U/L (5-40) Alanine Aminotransferase (ALT/SGPT) 7 U/L (3-33) Alkaline Phosphatase 74 U/L (35-104) Total Protein 5.5 g/dL (6.6-8.7) L Albumin 2.8 g/dL (3.5-5.2) L Globulin 2.7 g/dL Albumin/Globulin Ratio 1.0 (1.0-2.7) Amylase Level 67 U/L (10-110) Lipase 113 U/L (< 60) H Height (Feet): 5 Height (Inches): 9.00 Weight (Pounds): 180 General Appearance: no apparent distress, alert, overweight Cardiovascular: normal rate Respiratory/Chest: normal breath sounds, no respiratory distress Abdominal Exam: normal bowel sounds, non tender, soft Extremities: normal range of motion Katie Dill N.P. November 11, 2016 11:28
[2016-11-11 12:00] VITALS: BP 126/75
[2016-11-11] MEDS ORDERED: NS 55ml IV ONE (14:06)
--- NOTE | 2016-11-11 14:17 | General Progress Note ---
Assessment/Plan Problem List: (1) HTN (hypertension) ICD Codes: I10 - Essential (primary) hypertension SNOMED: 07677092 (2) Itch ICD Codes: L29.9 - Pruritus, unspecified SNOMED: 964692935 (3) Nausea & vomiting ICD Codes: R11.2 - Nausea with vomiting, unspecified SNOMED: 78967932 Status: stable, progressing, tolerating diet Assessment/Plan otp t diet adv diet cbc bmp am benadryl and id eval Subjective Constitutional: Reports: weakness Allergies: Coded Allergies: No Known Allergies (Unverified , 05/08/14) All Systems: reviewed and negative except above Subjective c/o sl itch Objective Last 24 Hour Vital Signs Date Time Temp Pulse Resp B/P Pulse Ox O2 Delivery O2 Flow Rate FiO2 11/11/16 12:00 98.2 59 18 126/75 100 Room Air 11/11/16 10:06 97.0 11/11/16 09:36 78 125/69 11/11/16 08:00 97.9 94 18 124/87 99 Room Air 11/11/16 04:00 97.0 78 18 125/69 96 Room Air 11/11/16 00:00 98.0 80 18 120/77 97 Room Air 11/10/16 20:00 98.2 85 20 118/76 98 Room Air 11/10/16 15:42 98.0 94 19 108/80 98 Room Air Intake and Output 11/10/16 11/11/16 19:00 07:00 Intake Total 750 ml 525 ml Output Total 50 ml Balance 700 ml 525 ml Intake Oral 0 ml IV Total 750 ml 525 ml Output Emesis 50 ml # Voids 2 2 # Bowel Movements 1 Laboratory Tests 11/11/16 04:30: White Blood Count 12.6H, Red Blood Count 4.02L, Hemoglobin 9.4#L, Hematocrit 30.9L, Mean Corpuscular Volume 77L, Mean Corpuscular Hemoglobin 23.4L, Mean Corpuscular Hemoglobin Concent 30.4L, Red Cell Distribution Width 14.0, Platelet Count 380, Mean Platelet Volume 6.3L, Neutrophils (%) (Auto) 59.3, Lymphocytes (%) (Auto) 29.2, Monocytes (%) (Auto) 7.1, Eosinophils (%) (Auto) 4.0H, Basophils (%) (Auto) 0.4, Activated Partial Thromboplast Time 23, Sodium Level 138, Potassium Level 3.0L, Chloride Level 99, Carbon Dioxide Level 23, Anion Gap 16H, Blood Urea Nitrogen 8, Creatinine 0.9, Estimat Glomerular Filtration Rate > 60, Glucose Level 96, Calcium Level 8.7, Total Bilirubin 0.3, Aspartate Amino Transf (AST/SGOT) 14, Alanine Aminotransferase (ALT/SGPT) 7, Alkaline Phosphatase 74, Total Protein 5.5L, Albumin 2.8L, Globulin 2.7, Albumin /Globulin Ratio 1.0, Amylase Level 67, Lipase 113H Height (Feet): 5 Height (Inches): 9.00 Weight (Pounds): 180 General Appearance: alert EENT: normal ENT inspection Neck: normal alignment Cardiovascular: normal peripheral pulses, normal rate, regular rhythm Respiratory/Chest: chest wall non-tender, lungs clear, normal breath sounds Abdomen: normal bowel sounds, non tender, soft Extremities: normal inspection Edema: no edema noted Arm (L), no edema noted Arm (R), no edema noted Leg (L), no edema noted Leg (R), no edema noted Pedal (L), no edema noted Pedal (R), no edema noted Generalized Neurologic: responsive, motor weakness Skin: normal pigmentation, warm/dry ENDY KUMAR November 11, 2016 14:16
[2016-11-11 16:00] VITALS: BP 135/82
[2016-11-11 20:00] VITALS: BP 133/87
--- NOTE | 2016-11-11 22:31 | Pulmonology Progress Note ---
Assessment/Plan Problems: (1) Cyclical vomiting (2) Opiate dependence (3) Abdominal pain Assessment/Plan symptoamtic treatment f/u GI recommendations check electrolytes advance diet Subjective ROS Limited/Unobtainable: No Allergies: Coded Allergies: No Known Allergies (Unverified , 05/08/14) Objective Last 24 Hour Vital Signs Date Time Temp Pulse Resp B/P Pulse Ox O2 Delivery O2 Flow Rate FiO2 11/11/16 20:00 98.2 62 20 133/87 98 Room Air 11/11/16 18:36 98.2 11/11/16 16:00 98.2 60 18 135/82 100 Room Air 11/11/16 12:00 98.2 59 18 126/75 100 Room Air 11/11/16 09:36 78 125/69 11/11/16 08:00 97.9 94 18 124/87 99 Room Air 11/11/16 04:00 97.0 78 18 125/69 96 Room Air 11/11/16 00:00 98.0 80 18 120/77 97 Room Air Intake and Output 11/10/16 11/11/16 19:00 07:00 Intake Total 750 ml 525 ml Output Total 50 ml Balance 700 ml 525 ml Intake Oral 0 ml IV Total 750 ml 525 ml Output Emesis 50 ml # Voids 2 2 # Bowel Movements 1 General Appearance: WD/WN HEENT: normocephalic, atraumatic, anicteric Respiratory/Chest: chest wall non-tender, lungs clear Cardiovascular: normal peripheral pulses, normal rate Abdomen: normal bowel sounds, soft, non tender Genitourinary: normal external genitalia Skin: no rash 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: 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 normal Lymphatic: no neck adenopathy Laboratory Tests 11/11/16 04:30: White Blood Count 12.6H, Red Blood Count 4.02L, Hemoglobin 9.4#L, Hematocrit 30.9L, Mean Corpuscular Volume 77L, Mean Corpuscular Hemoglobin 23.4L, Mean Corpuscular Hemoglobin Concent 30.4L, Red Cell Distribution Width 14.0, Platelet Count 380, Mean Platelet Volume 6.3L, Neutrophils (%) (Auto) 59.3, Lymphocytes (%) (Auto) 29.2, Monocytes (%) (Auto) 7.1, Eosinophils (%) (Auto) 4.0H, Basophils (%) (Auto) 0.4, Activated Partial Thromboplast Time 23, Sodium Level 138, Potassium Level 3.0L, Chloride Level 99, Carbon Dioxide Level 23, Anion Gap 16H, Blood Urea Nitrogen 8, Creatinine 0.9, Estimat Glomerular Filtration Rate > 60, Glucose Level 96, Calcium Level 8.7, Total Bilirubin 0.3, Aspartate Amino Transf (AST/SGOT) 14, Alanine Aminotransferase (ALT/SGPT) 7, Alkaline Phosphatase 74, Total Protein 5.5L, Albumin 2.8L, Globulin 2.7, Albumin /Globulin Ratio 1.0, Amylase Level 67, Lipase 113H Current Medications Medications (Trade) Dose Ordered Sig/Robbie Route PRN Reason Start Time Stop Time Status Last Admin Dose Admin Acetaminophen (Tylenol) 650 mg Q4H PRN ORAL fever 11/10/16 06:45 12/10/16 06:44 Al Hydroxide/Mg Hydroxide (Mylanta II) 30 ml Q6H PRN ORAL dyspepsia 11/10/16 06:45 12/10/16 06:44 Atenolol (Tenormin) 100 mg DAILY ORAL 11/10/16 09:00 12/10/16 08:59 11/11/16 09:36 Baclofen (Lioresal) 10 mg TID ORAL 11/10/16 09:00 12/10/16 08:59 11/11/16 18:07 Dextrose (Dextrose 50%) STAT PRN IV Hypoglycemia 11/10/16 06:45 12/10/16 06:44 Dextrose/Sodium Chloride (D5 0.45% NS) 1,000 ml @ 75 mls/hr [id number] IV 11/10/16 08:00 12/10/16 07:59 11/11/16 05:57 Dicyclomine HCl (Bentyl) 10 mg FOUR TIMES A DAY ORAL 11/10/16 09:00 12/10/16 08:59 11/11/16 21:07 Diphenhydramine HCl (Benadryl) 50 mg Q6H PRN ORAL Itching 11/11/16 14:45 12/11/16 14:44 11/11/16 14:55 Heparin Sodium (Porcine) (Heparin 5000 units/ml) 5,000 units EVERY 12 HOURS SUBQ 11/10/16 09:00 12/10/16 08:59 11/11/16 21:10 Lorazepam (Ativan 2mg/ml 1ml) 1 mg Q4H PRN IV agitation 11/10/16 06:45 11/17/16 06:44 11/10/16 11:03 Lorazepam 1 mg 1 mg BID ORAL 11/10/16 09:00 11/17/16 08:59 11/11/16 18:07 Metoclopramide HCl (Reglan) 10 mg Q6H PRN IVP SEVERE NAUSEA 11/10/16 06:45 12/10/16 06:44 11/11/16 21:58 Morphine Sulfate (Morphine Sulfate) 2 mg Q4H PRN IVP severe Pain (Pain Scale 7-10) 11/10/16 06:45 11/17/16 06:44 11/11/16 22:03 Nitroglycerin (Ntg) 0.4 mg Q5M X 3 DOSES PRN SL Prn Chest Pain 11/10/16 06:45 12/10/16 06:44 Ondansetron HCl (Zofran) 4 mg Q6H PRN IVP Nausea & Vomiting 11/10/16 06:45 12/10/16 06:44 11/11/16 18:06 Pantoprazole (Protonix) 40 mg DAILY IV 11/10/16 09:00 12/10/16 08:59 11/11/16 09:37 Polyethylene Glycol (Miralax) 17 gm HSPRN PRN ORAL Constipation 11/10/16 06:45 12/10/16 06:44 Promethazine HCl (Phenergan) 25 mg Q8H PRN IV refractory nausea 11/10/16 06:45 12/10/16 06:44 11/11/16 21:59 Temazepam (Restoril) 15 mg HSPRN PRN ORAL Insomnia 11/10/16 06:45 11/17/16 06:44 11/11/16 02:01 SALBADOR MEYER November 11, 2016 22:31
[2016-11-12 04:00] VITALS: BP 136/85
[2016-11-12] MEDS: Morphine Sulfate 2mg/ml Inj IVP PRN ×5 (04:31→21:06)
[2016-11-12] MEDS: Metoclopramide 10mg/2ml Inj IVP PRN (04:31)
[2016-11-12 07:08] LABS: ANION GAP 14 (5-15); CALCIUM 9.1 mg/dL (8.6-10.2); CARBON DIOXIDE 27 mEQ/L (20-30); CHLORIDE 98 mEQ/L (98-107); CREATININE 0.8 mg/dL (0.5-0.9); GLOMERULAR FILTRATION RATE > 60 mL/min (>60); HEMOLYSIS 2; LIPASE 113 U/L (< 60); POTASSIUM 3.1 mEQ/L (3.4-4.9); SODIUM 139 mEQ/L (135-145)
[2016-11-12 07:24] LABS: BASOPHILS % (AUTO) 0.7 % (0.0-2.0); EOSINOPHILS % (AUTO) 6.9 % (0.0-3.0); LYMPHOCYTES % (AUTO) 28.2 % (20.0-45.0); MEAN CORPUSCULAR HEMOGLOBIN 23.2 PG (27.0-31.0); MEAN CORPUSCULAR VOLUME 77 FL (80-99); MEAN PLATELET VOLUME 5.6 FL (6.5-10.1); MONOCYTES % (AUTO) 8.3 % (1.0-10.0); PLATELET COUNT 398 K/UL (150-450); RED BLOOD COUNT 4.44 M/UL (4.20-5.40); RED CELL DISTRIBUTION WIDTH 13.8 % (11.6-14.8); WHITE BLOOD COUNT 9.7 K/UL (4.8-10.8)
[2016-11-12 08:02] VITALS: BP 152/101
[2016-11-12] MEDS: Pantoprazole Inj IV SCH (08:54)
[2016-11-12] MEDS: LORazepam 1mg tab ORAL SCH ×2 (08:55→18:00)
[2016-11-12] MEDS: Dicyclomine 10mg Cap ORAL SCH ×5 (08:55→22:02)
[2016-11-12] MEDS: Heparin 5000 units/ml inj SUBQ SCH ×3 (08:56→21:00)
[2016-11-12 11:30] VITALS: BP 144/84
--- NOTE | 2016-11-12 11:40 | GI Progress Note ---
Assessment/Plan Problems: (1) Abdominal pain ICD Codes: R10.9 - Unspecified abdominal pain SNOMED: 26224079 (2) Cyclical vomiting ICD Codes: G43.A0 - Cyclical vomiting, not intractable SNOMED: 29618995 Qualifiers: Qualified Codes: G43.A0 - Cyclical vomiting, not intractable (3) Opiate dependence ICD Codes: F11.20 - Opioid dependence, uncomplicated SNOMED: 96030910 Qualifiers: Qualified Codes: F11.29 - Opioid dependence with unspecified opioid-induced disorder (4) Nausea, vomiting, and diarrhea ICD Codes: R11.2 - Nausea with vomiting, unspecified; R19.7 - Diarrhea, unspecified SNOMED: 2095126 (5) Gastroenteritis ICD Codes: K52.9 - Noninfective gastroenteritis and colitis, unspecified SNOMED: 19277427 Status: unchanged Status Narrative Discussed with Dr. Kim. Assessment/Plan Abd U/S - negative elevated lipase hepatitis panel negative symptomatic treatment at this time ordered utox reglan ATC zofran prn CLD, adv as tolerated ppi abx fu labs Subjective Subjective abdominal pain nausea emesis x 1, bile Objective Last 24 Hour Vital Signs Date Time Temp Pulse Resp B/P Pulse Ox O2 Delivery O2 Flow Rate FiO2 11/12/16 11:30 97.9 85 19 144/84 99 Room Air 11/12/16 09:25 98.2 11/12/16 08:55 74 152/101 11/12/16 08:02 98.2 74 19 152/101 100 Room Air 11/12/16 04:00 97.9 60 20 136/85 100 Room Air 11/11/16 20:00 98.2 62 20 133/87 98 Room Air 11/11/16 16:00 98.2 60 18 135/82 100 Room Air 11/11/16 12:00 98.2 59 18 126/75 100 Room Air Intake and Output 11/11/16 11/12/16 19:00 07:00 Intake Total 1005 ml Balance 1005 ml Intake Oral 480 ml IV Total 525 ml # Voids 3 2 Laboratory Tests Test 11/12/16 05:10 White Blood Count 9.7 K/UL (4.8-10.8) Red Blood Count 4.44 M/UL (4.20-5.40) Hemoglobin 10.3 G/DL (12.0-16.0) L Hematocrit 34.4 % (37.0-47.0) L Mean Corpuscular Volume 77 FL (80-99) L Mean Corpuscular Hemoglobin 23.2 PG (27.0-31.0) L Mean Corpuscular Hemoglobin Concent 30.0 G/DL (32.0-36.0) L Red Cell Distribution Width 13.8 % (11.6-14.8) Platelet Count 398 K/UL (150-450) Mean Platelet Volume 5.6 FL (6.5-10.1) L Neutrophils (%) (Auto) 56.0 % (45.0-75.0) Lymphocytes (%) (Auto) 28.2 % (20.0-45.0) Monocytes (%) (Auto) 8.3 % (1.0-10.0) Eosinophils (%) (Auto) 6.9 % (0.0-3.0) H Basophils (%) (Auto) 0.7 % (0.0-2.0) Sodium Level 139 mEQ/L (135-145) Potassium Level 3.1 mEQ/L (3.4-4.9) L Chloride Level 98 mEQ/L (98-107) Carbon Dioxide Level 27 mEQ/L (20-30) Anion Gap 14 (5-15) Blood Urea Nitrogen 5 mg/dL (7-23) L Creatinine 0.8 mg/dL (0.5-0.9) Estimat Glomerular Filtration Rate > 60 mL/min (>60) Glucose Level 91 mg/dL (74-106) Calcium Level 9.1 mg/dL (8.6-10.2) Lipase 113 U/L (< 60) H Height (Feet): 5 Height (Inches): 9.00 Weight (Pounds): 180 General Appearance: no apparent distress, alert, overweight Cardiovascular: normal rate Respiratory/Chest: normal breath sounds, no respiratory distress Abdominal Exam: normal bowel sounds, non tender, soft Extremities: normal range of motion Katie Dill N.P. November 12, 2016 11:40
[2016-11-12] MEDS: D5 1/2NS 1,000 ML IV SCH (13:20)
[2016-11-12] MEDS: Metoclopramide 10mg/2ml Inj IVP SCH ×2 (14:33→22:03)
--- NOTE | 2016-11-12 14:38 | General Progress Note ---
Assessment/Plan Problem List: (1) HTN (hypertension) ICD Codes: I10 - Essential (primary) hypertension SNOMED: 11290236 (2) Itch ICD Codes: L29.9 - Pruritus, unspecified SNOMED: 689870054 (3) Nausea & vomiting ICD Codes: R11.2 - Nausea with vomiting, unspecified SNOMED: 02817609 Status: stable, progressing, tolerating diet Assessment/Plan otp t diet adv diet cbc bmp am benadryl and id eval neph eval Subjective Constitutional: Reports: weakness Allergies: Coded Allergies: No Known Allergies (Unverified , 05/08/14) All Systems: reviewed and negative except above Subjective sl nv weak Objective Last 24 Hour Vital Signs Date Time Temp Pulse Resp B/P Pulse Ox O2 Delivery O2 Flow Rate FiO2 11/12/16 13:24 97.9 11/12/16 11:30 97.9 85 19 144/84 99 Room Air 11/12/16 08:55 74 152/101 11/12/16 08:02 98.2 74 19 152/101 100 Room Air 11/12/16 04:00 97.9 60 20 136/85 100 Room Air 11/11/16 20:00 98.2 62 20 133/87 98 Room Air 11/11/16 16:00 98.2 60 18 135/82 100 Room Air Intake and Output 11/11/16 11/12/16 19:00 07:00 Intake Total 1005 ml Balance 1005 ml Intake Oral 480 ml IV Total 525 ml # Voids 3 2 Laboratory Tests 11/12/16 05:10: White Blood Count 9.7, Red Blood Count 4.44, Hemoglobin 10.3L, Hematocrit 34.4L , Mean Corpuscular Volume 77L, Mean Corpuscular Hemoglobin 23.2L, Mean Corpuscular Hemoglobin Concent 30.0L, Red Cell Distribution Width 13.8, Platelet Count 398, Mean Platelet Volume 5.6L, Neutrophils (%) (Auto) 56.0, Lymphocytes (%) (Auto) 28.2, Monocytes (%) (Auto) 8.3, Eosinophils (%) (Auto) 6.9H, Basophils (%) (Auto) 0.7, Sodium Level 139, Potassium Level 3.1L, Chloride Level 98, Carbon Dioxide Level 27, Anion Gap 14, Blood Urea Nitrogen 5L , Creatinine 0.8, Estimat Glomerular Filtration Rate > 60, Glucose Level 91, Calcium Level 9.1, Lipase 113H Height (Feet): 5 Height (Inches): 9.00 Weight (Pounds): 180 General Appearance: lethargic EENT: normal ENT inspection Neck: normal alignment Cardiovascular: normal peripheral pulses, normal rate, regular rhythm Respiratory/Chest: chest wall non-tender, lungs clear, normal breath sounds Abdomen: normal bowel sounds, non tender, soft Extremities: normal inspection Edema: no edema noted Arm (L), no edema noted Arm (R), no edema noted Leg (L), no edema noted Leg (R), no edema noted Pedal (L), no edema noted Pedal (R), no edema noted Generalized Neurologic: responsive, motor weakness Skin: normal pigmentation, warm/dry ENDY KUMAR November 12, 2016 14:38
[2016-11-12] MEDS: D5 1/2NS w/KCl 20mEq 1,000 ML IV SCH (18:41)
--- NOTE | 2016-11-12 21:19 | Consultation ---
DATE OF CONSULTATION: 11/11/2016 NOTE: "POOR AUDIO QUALITY" HISTORY OF PRESENT ILLNESS: The patient is a 41-year-old female patient. The patient was admitted to the hospital for intractable vomiting, cyclical vomiting. The patient lives at home. The patient states that she has had nausea and vomiting for three days and self reducing. She is admitted to the hospital. The patient has a history of anxiety and depression and possible bipolar disorder according to . She has been quite anxious, irritable, and agitated disorder. The patient states that her anxiety level has been high. She has been very depressed due to her current medical condition . PAST MEDICAL HISTORY: The patient's past medical history includes a history of hypertension and cyclical vomiting. ALLERGIES: The patient has no known drug allergies. SUBSTANCE USE HISTORY: There is no indication of alcohol use, illicit substance use, or smoking cigarette. SOCIAL HISTORY: The patient is a 41-year-old female patient. The patient currently lives in a [facility]. She is a single female. PSYCHIATRIC HISTORY: The patient states that she has a history of mental illness including possible bipolar disorder. She does have history of anxiety. She was given psychotropic medications in the past. MENTAL STATUS EXAMINATION: The patient is alert and oriented x4 to person, place, time, and situation. Mood is anxious. Affect is congruent. Thought process is disorganized. Thought content is linear. The patient has poor attention and concentration. Fair insight, judgment, and impulse control. DIAGNOSES: AXIS I: 1. Generalized anxiety disorder. 2. . AXIS II: Deferred. AXIS III: Per history and physical. AXIS IV: Problems with social environment. PLAN: This clinician has assessed this patient. This clinician has provided the patient with supportive psychotherapy, reality orientation, and coping skills. Encouraging the patient to participate in milieu as well as medication management. the patient . Continue with medication management and behavioral management. This clinician has reviewed the patient's chart. Discussed the treatment with nursing staff. Erendira Campbell PsyD. DR: FARTUN JOB#: [id number] CC:
[2016-11-12] MEDS ORDERED: KCl 10% 40mEq/30ml liquid ORAL ONE (23:30)
[2016-11-13] MEDS: Morphine Sulfate 2mg/ml Inj IVP PRN ×6 (02:05→23:42)
[2016-11-13] MEDS: Metoclopramide 10mg/2ml Inj IVP SCH ×3 (06:07→21:38)
[2016-11-13] MEDS: D5 1/2NS w/KCl 20mEq 1,000 ML IV SCH ×2 (06:14→20:10)
[2016-11-13 06:48] LABS: ANION GAP 22 (5-15); CALCIUM 9.9 mg/dL (8.6-10.2); CARBON DIOXIDE 22 mEQ/L (20-30); CHLORIDE 92 mEQ/L (98-107); CREATININE 1.1 mg/dL (0.5-0.9); GLOMERULAR FILTRATION RATE > 60 mL/min (>60); HEMOLYSIS 19; POTASSIUM 3.8 mEQ/L (3.4-4.9); SODIUM 136 mEQ/L (135-145)
[2016-11-13 06:57] LABS: BASOPHILS % (AUTO) 0.6 % (0.0-2.0); EOSINOPHILS % (AUTO) 1.1 % (0.0-3.0); MEAN CORPUSCULAR HEMOGLOBIN 23.5 PG (27.0-31.0); MEAN CORPUSCULAR HGB CONC 30.1 G/DL (32.0-36.0); MEAN CORPUSCULAR VOLUME 78 FL (80-99); MEAN PLATELET VOLUME 6.8 FL (6.5-10.1); MONOCYTES % (AUTO) 9.1 % (1.0-10.0); NEUTROPHILS % (AUTO) 72.2 % (45.0-75.0); PLATELET COUNT 302 K/UL (150-450); RED CELL DISTRIBUTION WIDTH 14.2 % (11.6-14.8); WHITE BLOOD COUNT 13.7 K/UL (4.8-10.8)
[2016-11-13 08:13] VITALS: BP 129/91
[2016-11-13] MEDS: Dicyclomine 10mg Cap ORAL SCH ×4 (09:18→21:38)
[2016-11-13] MEDS: Pantoprazole Inj IV SCH (09:19)
[2016-11-13] MEDS: LORazepam 1mg tab ORAL SCH ×2 (09:19→17:53)
[2016-11-13] MEDS: Heparin 5000 units/ml inj SUBQ SCH ×2 (09:20→21:39)
--- NOTE | 2016-11-13 10:09 | GI Progress Note ---
Assessment/Plan Problems: (1) Abdominal pain ICD Codes: R10.9 - Unspecified abdominal pain SNOMED: 74712496 (2) Cyclical vomiting ICD Codes: G43.A0 - Cyclical vomiting, not intractable SNOMED: 75207697 Qualifiers: Qualified Codes: G43.A0 - Cyclical vomiting, not intractable (3) Opiate dependence ICD Codes: F11.20 - Opioid dependence, uncomplicated SNOMED: 25839164 Qualifiers: Qualified Codes: F11.29 - Opioid dependence with unspecified opioid-induced disorder (4) Nausea, vomiting, and diarrhea ICD Codes: R11.2 - Nausea with vomiting, unspecified; R19.7 - Diarrhea, unspecified SNOMED: 2386799 (5) Gastroenteritis ICD Codes: K52.9 - Noninfective gastroenteritis and colitis, unspecified SNOMED: 62359998 Status: unchanged Status Narrative Discussed with Dr. Kim. Assessment/Plan KUB (10/21/16) - negative APCT (06/15/16) - Uterine fibroid. Post cholecystectomy. Small hiatal hernia Abd U/S - negative elevated lipase hepatitis panel negative utox unremarkable pt scheduled for EGD/colonoscopy tomorrow to evaluate abdominal pain, N/V of unknown etiology. - CLD, NPO @ [place]. reglan ATC zofran prn ppi abx fu labs Subjective Subjective abdominal pain nausea emesis x 1 last night, bile Objective Last 24 Hour Vital Signs Date Time Temp Pulse Resp B/P Pulse Ox O2 Delivery O2 Flow Rate FiO2 11/13/16 09:19 82 129/91 11/13/16 08:13 98.2 82 20 129/91 99 11/13/16 06:38 97.9 11/12/16 11:30 97.9 85 19 144/84 99 Room Air Intake and Output 11/12/16 11/13/16 19:00 07:00 Intake Total 240 ml Output Total 120 ml 130 ml Balance 120 ml -130 ml Intake Oral 240 ml Output Emesis 120 ml 130 ml # Voids 2 1 Laboratory Tests Test 11/12/16 17:40 11/13/16 05:30 Urine Opiates Screen Positive (NEGATIVE) H Urine Barbiturates Screen Negative (NEGATIVE) Phencyclidine (PCP) Screen Negative (NEGATIVE) Urine Amphetamines Screen Negative (NEGATIVE) Urine Benzodiazepines Screen Negative (NEGATIVE) Urine Cocaine Screen Negative (NEGATIVE) Urine Marijuana (THC) Screen Negative (NEGATIVE) White Blood Count 13.7 K/UL (4.8-10.8) H Red Blood Count 5.60 M/UL (4.20-5.40) H Hemoglobin 13.1 G/DL (12.0-16.0) Hematocrit 43.6 % (37.0-47.0) Mean Corpuscular Volume 78 FL (80-99) L Mean Corpuscular Hemoglobin 23.5 PG (27.0-31.0) L Mean Corpuscular Hemoglobin Concent 30.1 G/DL (32.0-36.0) L Red Cell Distribution Width 14.2 % (11.6-14.8) Platelet Count 302 K/UL (150-450) Mean Platelet Volume 6.8 FL (6.5-10.1) Neutrophils (%) (Auto) 72.2 % (45.0-75.0) Lymphocytes (%) (Auto) 17.0 % (20.0-45.0) L Monocytes (%) (Auto) 9.1 % (1.0-10.0) Eosinophils (%) (Auto) 1.1 % (0.0-3.0) Basophils (%) (Auto) 0.6 % (0.0-2.0) Sodium Level 136 mEQ/L (135-145) Potassium Level 3.8 mEQ/L (3.4-4.9) Chloride Level 92 mEQ/L (98-107) L Carbon Dioxide Level 22 mEQ/L (20-30) Anion Gap 22 (5-15) H Blood Urea Nitrogen 11 mg/dL (7-23) Creatinine 1.1 mg/dL (0.5-0.9) H Estimat Glomerular Filtration Rate > 60 mL/min (>60) Glucose Level 109 mg/dL (74-106) H Calcium Level 9.9 mg/dL (8.6-10.2) Lipase 117 U/L (< 60) H Height (Feet): 5 Height (Inches): 9.00 Weight (Pounds): 180 General Appearance: no apparent distress, alert Cardiovascular: normal rate Respiratory/Chest: normal breath sounds, no respiratory distress Abdominal Exam: normal bowel sounds, non tender, soft Extremities: normal range of motion Katie Dill N.PCampos November 13, 2016 10:09
[2016-11-13] MEDS ORDERED: D5 1/2NS 1000ml IV ONE (10:44)
[2016-11-13 12:09] VITALS: BP 111/75
--- NOTE | 2016-11-13 14:45 | General Progress Note ---
Assessment/Plan Problem List: (1) HTN (hypertension) ICD Codes: I10 - Essential (primary) hypertension SNOMED: 43310595 (2) Itch ICD Codes: L29.9 - Pruritus, unspecified SNOMED: 630438443 (3) Nausea & vomiting ICD Codes: R11.2 - Nausea with vomiting, unspecified SNOMED: 97105426 Status: stable, progressing, tolerating diet Assessment/Plan otp t diet adv diet cbc bmp am dc plan Subjective Constitutional: Reports: weakness Allergies: Coded Allergies: No Known Allergies (Unverified , 05/08/14) All Systems: reviewed and negative except above Subjective sl weak Objective Last 24 Hour Vital Signs Date Time Temp Pulse Resp B/P Pulse Ox O2 Delivery O2 Flow Rate FiO2 11/13/16 12:09 98.4 72 19 111/75 99 11/13/16 10:47 98.2 11/13/16 09:19 82 129/91 11/13/16 08:13 98.2 82 20 129/91 99 Intake and Output 11/12/16 11/13/16 19:00 07:00 Intake Total 240 ml Output Total 120 ml 130 ml Balance 120 ml -130 ml Intake Oral 240 ml Output Emesis 120 ml 130 ml # Voids 2 1 Laboratory Tests 11/12/16 17:40: Urine Opiates Screen PositiveH, Urine Barbiturates Screen Negative, Phencyclidine (PCP) Screen Negative, Urine Amphetamines Screen Negative, Urine Benzodiazepines Screen Negative, Urine Cocaine Screen Negative, Urine Marijuana (THC) Screen Negative 11/13/16 05:30: White Blood Count 13.7H, Red Blood Count 5.60H, Hemoglobin 13.1, Hematocrit 43.6 , Mean Corpuscular Volume 78L, Mean Corpuscular Hemoglobin 23.5L, Mean Corpuscular Hemoglobin Concent 30.1L, Red Cell Distribution Width 14.2, Platelet Count 302, Mean Platelet Volume 6.8, Neutrophils (%) (Auto) 72.2, Lymphocytes (%) (Auto) 17.0L, Monocytes (%) (Auto) 9.1, Eosinophils (%) (Auto) 1.1, Basophils (%) (Auto) 0.6, Sodium Level 136, Potassium Level 3.8, Chloride Level 92L, Carbon Dioxide Level 22, Anion Gap 22H, Blood Urea Nitrogen 11, Creatinine 1.1H, Estimat Glomerular Filtration Rate > 60, Glucose Level 109H, Calcium Level 9.9, Lipase 117H Height (Feet): 5 Height (Inches): 9.00 Weight (Pounds): 180 General Appearance: alert EENT: normal ENT inspection Neck: normal alignment Cardiovascular: normal peripheral pulses, normal rate, regular rhythm Respiratory/Chest: chest wall non-tender, lungs clear, normal breath sounds Abdomen: normal bowel sounds, non tender, soft Extremities: normal inspection Edema: no edema noted Arm (L), no edema noted Arm (R), no edema noted Leg (L), no edema noted Leg (R), no edema noted Pedal (L), no edema noted Pedal (R), no edema noted Generalized Neurologic: responsive, motor weakness Skin: normal pigmentation, warm/dry ENDY KUMAR November 13, 2016 14:45
[2016-11-13 15:47] VITALS: BP 98/63
[2016-11-13] MEDS ORDERED: Bisacodyl EC 5mg tab ORAL ONE (16:00)
[2016-11-13] MEDS ORDERED: Polyethylene Glycol 238gm bottle ORAL ONE (16:00)
[2016-11-13 20:00] VITALS: BP 102/67
[2016-11-13] MEDS ORDERED: Fleet's Enema 133ml RECTAL ONE (23:00)
[2016-11-14] VITALS (12 sets, daily range): BP systolic 103–165; BP diastolic 66–115
[2016-11-14] MEDS: Metoclopramide 10mg/2ml Inj IVP SCH ×3 (05:39→21:08)
[2016-11-14 06:53] LABS: EOSINOPHILS % (AUTO) 4.2 % (0.0-3.0); MEAN CORPUSCULAR HEMOGLOBIN 23.5 PG (27.0-31.0); MEAN CORPUSCULAR HGB CONC 31.2 G/DL (32.0-36.0); MEAN CORPUSCULAR VOLUME 75 FL (80-99); MEAN PLATELET VOLUME 6.6 FL (6.5-10.1); MONOCYTES % (AUTO) 9.6 % (1.0-10.0); NEUTROPHILS % (AUTO) 59.1 % (45.0-75.0); PLATELET COUNT 444 K/UL (150-450); RED CELL DISTRIBUTION WIDTH 13.7 % (11.6-14.8); WHITE BLOOD COUNT 11.2 K/UL (4.8-10.8)
[2016-11-14 07:27] LABS: CALCIUM 9.6 mg/dL (8.6-10.2); CREATININE 2.8 mg/dL (0.5-0.9); GLOMERULAR FILTRATION RATE 22.4 mL/min (>60); POTASSIUM 3.2 mEQ/L (3.4-4.9)
[2016-11-14 07:45] LABS: INR 1.1 (0.9-1.1); PROTHROMBIN TIME 11.1 SEC (9.30-11.50)
[2016-11-14] MEDS: LORazepam 1mg tab ORAL SCH ×2 (09:00→18:00)
[2016-11-14] MEDS: Heparin 5000 units/ml inj SUBQ SCH ×2 (09:00→21:09)
[2016-11-14] MEDS: Dicyclomine 10mg Cap ORAL SCH ×4 (09:00→21:08)
[2016-11-14] MEDS: D5 1/2NS w/KCl 20mEq 1,000 ML IV SCH (09:30)
[2016-11-14] MEDS: Pantoprazole Inj IV SCH (09:48)
[2016-11-14] MEDS ORDERED: LORazepam 1mg tab ORAL PRN (10:00)
--- NOTE | 2016-11-14 12:25 | Anethesia Preoperative Eval ---
Anesthesia Pre-op PMH/ROS General Date of Evaluation: November 14, 2016 Anesthesiologist: Chapo ASA Score: ASA 2 Mallampati Score Class I : Soft palate, uvula, fauces, pillars visible Class II: Soft palate, uvula, fauces visible Class III: Soft palate, base of uvula visible Class IV: Only hard plate visible Mallampati Classification: Class II Surgeon: Judy Diagnosis: Cyclic vomitting syndrome Surgical Procedure: EGD and colonoscopy Anesthesia History: none Family History: no anesthesia problems Allergies: Coded Allergies: No Known Allergies (Unverified , 05/08/14) Medications: see eMAR Past Medical History Cardiovascular: Reports: HTN, other - HLD, Denies: CAD, MT, arrhythmia, valve dz Pulmonary: Denies: COPD, LEANNE, asthma, other Gastrointestinal/Genitourinary: Reports: GERD, other - cyclic vomitting syndrome, Denies: CRI, ESRD 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: Reports: other - opiate dependent, Denies: CVA, TIA, dementia, depression/anxiety Endocrine: Denies: DM, hypothyroidism, other, steroids HEENT: Denies: ANGOON (L), ANGOON (R), cataract (L), cataract (R), glaucoma, other Hematology/Immune: Reports: anemia - chronic, Denies: DVT, bleeding disorder, other Musculoskeletal/Integumentary: Denies: DDD, DJD, OA, RA, edema, other Other: other - overweight PSxH Narrative: lap maki Anesthesia Pre-op Phys. Exam Physician Exam Last Vital Signs Date Time Temp Pulse Resp B/P Pulse Ox O2 Delivery O2 Flow Rate FiO2 11/14/16 08:00 98.1 64 20 109/75 100 Room Air Constitutional: NAD Cardiovascular: RRR Respiratory: CTA Airway Exam Mallampati Score: Class II MO: full ROM: full Teeth: intact Anesthesia Pre-op A/P Labs Hematology Test 11/14/16 05:25 White Blood Count 11.2 K/UL (4.8-10.8) H Red Blood Count 5.10 M/UL (4.20-5.40) Hemoglobin 12.0 G/DL (12.0-16.0) Hematocrit 38.4 % (37.0-47.0) Mean Corpuscular Volume 75 FL (80-99) L Mean Corpuscular Hemoglobin 23.5 PG (27.0-31.0) L Mean Corpuscular Hemoglobin Concent 31.2 G/DL (32.0-36.0) L Red Cell Distribution Width 13.7 % (11.6-14.8) Platelet Count 444 K/UL (150-450) Mean Platelet Volume 6.6 FL (6.5-10.1) Neutrophils (%) (Auto) 59.1 % (45.0-75.0) Lymphocytes (%) (Auto) 26.0 % (20.0-45.0) Monocytes (%) (Auto) 9.6 % (1.0-10.0) Eosinophils (%) (Auto) 4.2 % (0.0-3.0) H Basophils (%) (Auto) 1.0 % (0.0-2.0) Coagulation Test 11/14/16 05:25 Prothrombin Time 11.1 SEC (9.30-11.50) Prothromb Time International Ratio 1.1 (0.9-1.1) Activated Partial Thromboplast Time 25 SEC (23-33) Chemistry Test 11/14/16 05:25 Sodium Level 136 mEQ/L (135-145) Potassium Level 3.2 mEQ/L (3.4-4.9) L Chloride Level 94 mEQ/L (98-107) L Carbon Dioxide Level 24 mEQ/L (20-30) Anion Gap 18 (5-15) H Blood Urea Nitrogen 20 mg/dL (7-23) Creatinine 2.8 mg/dL (0.5-0.9) #H Estimat Glomerular Filtration Rate 22.4 mL/min (>60) Glucose Level 107 mg/dL (74-106) H Calcium Level 9.6 mg/dL (8.6-10.2) Lipase 212 U/L (< 60) H Risk Assessment & Plan Assessment: ASA II Plan: MAC Status Change Before Surgery: No Pre-Antibiotics Drug: N/A GRAHAM ARIZMENDI M.D. November 14, 2016 12:25
[2016-11-14] MEDS ORDERED: LR 1000ml 1,000 ML IVLG SCH (12:26)
--- NOTE | 2016-11-14 12:27 | Pre-Procedure Note/Attestation ---
Pre-Procedure Note/Attestation Complete Prior to Procedure Planned Procedure: not applicable Procedure Narrative: egd/colon Indications for Procedure Pre-Operative Diagnosis: N/V abd pain Attestation I attest that I discussed the nature of the procedure; its benefits; risks and complications; and alternatives (and the risks and benefits of such alternatives ), prior to the procedure, with the patient (or the patient's legal guest relations representative). I attest that, if there was a reasonable possibility of needing a blood transfusion, the patient (or the patient's legal guest relations representative) was given the [facility] standardized written summary, pursuant to the [place] Blood Safety Act ([place] Health and Safety Code # 1645, as amended). I attest that I re-evaluated the patient just prior to the surgery and that there has been no change in the patient's H&P, except as documented below: RHONA HOOK November 14, 2016 12:27
[2016-11-14] MEDS ORDERED: Propofol 10mg/ml 20ml IV ONE (12:30)
[2016-11-14] MEDS ORDERED: Hydromorphone 0.5mg/0.5ml inj IVP PRN (12:30)
[2016-11-14] MEDS ORDERED: LR 1000ml ONE (12:30)
[2016-11-14] MEDS ORDERED: DiphenhydrAMINE 50mg/ml Inj IVP PRN (12:30)
[2016-11-14] MEDS ORDERED: Lidocaine 1% MPF 10mg/ml 5ml ONE (12:30)
[2016-11-14] MEDS ORDERED: fentaNYL 100 mcg/2 mL IV PRN (12:30)
[2016-11-14] MEDS ORDERED: NS 550ML IV ONE (12:33)
--- NOTE | 2016-11-14 13:10 | Endoscopy Procedure Note ---
Endoscopy Procedure Note Indication for Procedure: abd pain Procedures Performed: EGD, colonoscopy Operative Findings/Diagnosis: gastritis, colon polyp Specimen: yes Pt Tolerated Procedure Well: Yes Estimated Blood Loss: none Anesthesiologist: polly Anesthesia: MAC Implant(s) used?: No 50 yrs or older w/o bx or poly: Not Applicable 10yrs. F/U not recommended: Not Applicable RHONA HOOK November 14, 2016 13:10
--- NOTE | 2016-11-14 13:24 | Immediate Post-Op Evaluation ---
Immediate Post-Op Evalulation Immediate Post-Op Evalulation Procedure: EGD and colonoscopy Date of Evaluation: November 14, 2016 Time of Evaluation: 13:24 IV Fluids: 800 Blood Products: 0 Estimated Blood Loss: 0 Urinary Output: 0 Blood Pressure Systolic: 165 Blood Pressure Diastolic: 91 Pulse Rate: 84 Respiratory Rate: 16 O2 Sat by Pulse Oximetry: 98 Temperature (Fahrenheit): 97 Pain Score (1-10): 0 Nausea: No Vomiting: No Complications 0 Patient Status: awake, reacts, patent, none Hydration Status: adequate Drug: N/A GRAHAM ARIZMENDI M.D. November 14, 2016 13:24
[2016-11-14] MEDS: Morphine Sulfate 2mg/ml Inj IVP PRN ×2 (14:07→18:12)
--- NOTE | 2016-11-14 16:06 | General Progress Note ---
Assessment/Plan Problem List: (1) HTN (hypertension) ICD Codes: I10 - Essential (primary) hypertension SNOMED: 99061599 (2) Itch ICD Codes: L29.9 - Pruritus, unspecified SNOMED: 847774732 (3) Nausea & vomiting ICD Codes: R11.2 - Nausea with vomiting, unspecified SNOMED: 67423697 Status: stable, progressing, tolerating diet Assessment/Plan otp t diet adv diet cbc bmp am dc plan Subjective Constitutional: Reports: weakness Allergies: Coded Allergies: No Known Allergies (Unverified , 05/08/14) All Systems: reviewed and negative except above Subjective sl weak c/o nv Objective Last 24 Hour Vital Signs Date Time Temp Pulse Resp B/P Pulse Ox O2 Delivery O2 Flow Rate FiO2 11/14/16 14:37 98.2 11/14/16 13:51 98.2 83 20 148/97 100 Room Air 11/14/16 13:41 98.2 83 20 161/98 100 Room Air 11/14/16 13:39 83 20 161/98 100 Room Air 11/14/16 13:29 82 20 158/100 100 Nasal Cannula 2.0 11/14/16 13:24 83 20 156/101 100 Nasal Cannula 2.0 11/14/16 13:24 84 16 98 11/14/16 13:19 97.0 82 20 165/91 100 Nasal Cannula 2.0 11/14/16 12:00 97.5 70 20 115/78 100 Room Air 11/14/16 08:00 98.1 64 20 109/75 100 Room Air 11/14/16 04:00 96.8 73 18 117/71 99 Room Air 11/14/16 00:00 98.2 71 18 103/66 100 Room Air 11/13/16 20:00 97.3 65 18 102/67 99 Room Air Intake and Output 11/13/16 11/14/16 19:00 07:00 Intake Total 680 ml Balance 680 ml Intake Oral 680 ml # Voids 3 6 Laboratory Tests 11/14/16 05:25: White Blood Count 11.2H, Red Blood Count 5.10, Hemoglobin 12.0, Hematocrit 38.4 , Mean Corpuscular Volume 75L, Mean Corpuscular Hemoglobin 23.5L, Mean Corpuscular Hemoglobin Concent 31.2L, Red Cell Distribution Width 13.7, Platelet Count 444, Mean Platelet Volume 6.6, Neutrophils (%) (Auto) 59.1, Lymphocytes (%) (Auto) 26.0, Monocytes (%) (Auto) 9.6, Eosinophils (%) (Auto) 4.2H, Basophils (%) (Auto) 1.0, Prothrombin Time 11.1, Prothromb Time International Ratio 1.1, Activated Partial Thromboplast Time 25, Sodium Level 136, Potassium Level 3.2L, Chloride Level 94L, Carbon Dioxide Level 24, Anion Gap 18H, Blood Urea Nitrogen 20, Creatinine 2.8#H, Estimat Glomerular Filtration Rate 22.4, Glucose Level 107H, Calcium Level 9.6, Lipase 212H Height (Feet): 5 Height (Inches): 5.00 Weight (Pounds): 180 General Appearance: lethargic EENT: normal ENT inspection Neck: normal alignment Cardiovascular: normal peripheral pulses, normal rate, regular rhythm Respiratory/Chest: chest wall non-tender, lungs clear, normal breath sounds Abdomen: normal bowel sounds, non tender, soft Extremities: normal inspection Edema: no edema noted Arm (L), no edema noted Arm (R), no edema noted Leg (L), no edema noted Leg (R), no edema noted Pedal (L), no edema noted Pedal (R), no edema noted Generalized Neurologic: responsive, motor weakness Skin: normal pigmentation, warm/dry ENDY KUMAR November 14, 2016 16:06
--- NOTE | 2016-11-14 21:08 | Progress Note ---
DATE: 11/12/2016 SUBJECTIVE: This is a 41-year-old female patient with intractable vomiting. Continue treatment with medication regimen . She will continued to be followed by psychiatry to reduce anxiety. Seen and assessed at bedside. Chart reviewed and discussed with staff. Sudhir Sumner M.D. DR: Ahmet JOB#: [id number] CC:
--- NOTE | 2016-11-14 21:38 | Progress Note ---
DATE: 11/14/2016 SUBJECTIVE: This is a 41-year-old female with intractable vomiting. PLAN: We will continue treatment with medication to prevent any further decline in her cognition. Chart was reviewed and discussed with staff. Sudhir Sumner M.D. DR: ESTEPHANIE JOB#: [id number] CC:
--- NOTE | 2016-11-14 21:59 | Consultation ---
DATE OF CONSULTATION: 11/11/2016 HISTORY OF PRESENT ILLNESS: The patient is a 41-year-old female patient. She is confused and disorganized. Continue therapy. Chart reviewed and discussed with staff. Seen and assessed at the bedside. Sudhir Sumner M.D. DR: Ketan JOB#: [id number] CC:
--- NOTE | 2016-11-14 22:47 | Progress Note ---
DATE: 11/13/2016 SUBJECTIVE: Patient has intractable vomiting. She will continue to be followed by Psychiatry to reduce anxiety. Chart reviewed and discussed with staff. The patient was seen and assessed at bedside. Sudhir Sumner M.D. DR: PAULO JOB#: [id number] CC:
--- NOTE | 2016-11-14 22:58 | Consultation ---
DATE OF CONSULTATION: 11/10/2016 NOTE: "POOR AUDIO QUALITY" ADMISSION PSYCHIATRIC CONSULTATION CONSULTING PHYSICIAN: Sudhir Sumner M.D. She came to [facility] with intractable vomiting. HISTORY OF PRESENT ILLNESS: The patient was admitted to [facility] because of intractable vomiting and altered mental status. The patient has been having increasing confusion, disorganized thought process, and anxiety. Because of her anxiety primarily for her medical illness, therefore, a psychiatric consultation was requested to reduce her anxiety. ALLERGIES: She has no known drug allergies. SUBSTANCE ABUSE HISTORY: No history of any drug and alcohol use. SOCIAL HISTORY: longterm resident. Financially supported by [facility] and Medicare. . PSYCHIATRIC HISTORY: She has a previous history of bipolar disorder as well as anxiety disorder and she does have some mild confusion and disorganized thought process. Poor cognition secondary to the progression of her medical illness. MENTAL STATUS EXAMINATION: The patient is a 41-year-old female with psychomotor agitation. Mood is irritable and agitated. Affect is guarded and restricted. Thought process is goal directed. Denies any suicidal or homicidal thoughts. Insight and judgment is fair. PLAN: My plan for this patient is to give Ativan and for anxiety. Sudhir Sumner M.D. DR: Ahmet JOB#: [id number] CC:
[2016-11-15] MEDS: Morphine Sulfate 2mg/ml Inj IVP PRN ×2 (00:08→08:46)
[2016-11-15] MEDS: Metoclopramide 10mg/2ml Inj IVP SCH ×2 (05:47→14:00)
--- NOTE | 2016-11-15 06:51 | 48 Hour Post Anesthesia Eval ---
Post Anesthesia Evaluation Procedure: EGD and colonoscopy Date of Evaluation: November 14, 2016 Time of Evaluation: 14:00 Blood Pressure Systolic: 161 0: 98 Pulse Rate: 83 Respiratory Rate: 18 Temperature (Fahrenheit): 98.2 O2 Sat by Pulse Oximetry: 100 Airway: patent Nausea: No Vomiting: No Pain Intensity: 2 Hydration Status: adequate Cardiopulmonary Status: at baseline Mental Status/LOC: patient returned to baseline Post-Anesthesia Complications: 0 Follow-up care needed: N/A - further care as pr primary team GRAHAM ARIZMENDI M.D. November 15, 2016 06:51
[2016-11-15 07:38] LABS: BASOPHILS % (AUTO) 0.8 % (0.0-2.0); EOSINOPHILS % (AUTO) 0.6 % (0.0-3.0); MEAN CORPUSCULAR HEMOGLOBIN 23.8 PG (27.0-31.0); MEAN CORPUSCULAR HGB CONC 31.5 G/DL (32.0-36.0); MEAN CORPUSCULAR VOLUME 76 FL (80-99); MEAN PLATELET VOLUME 6.4 FL (6.5-10.1); MONOCYTES % (AUTO) 10.1 % (1.0-10.0); NEUTROPHILS % (AUTO) 65.6 % (45.0-75.0); PLATELET COUNT 420 K/UL (150-450); RED BLOOD COUNT 4.84 M/UL (4.20-5.40); RED CELL DISTRIBUTION WIDTH 14.2 % (11.6-14.8); WHITE BLOOD COUNT 12.1 K/UL (4.8-10.8)
[2016-11-15 07:55] LABS: CALCIUM 9.8 mg/dL (8.6-10.2); CREATININE 1.4 mg/dL (0.5-0.9); GLOMERULAR FILTRATION RATE 49.7 mL/min (>60); POTASSIUM 3.4 mEQ/L (3.4-4.9)
[2016-11-15 07:56] VITALS: BP 118/86
[2016-11-15] MEDS: Dicyclomine 10mg Cap ORAL SCH ×2 (10:14→13:00)
[2016-11-15] MEDS: LORazepam 1mg tab ORAL SCH (10:14)
[2016-11-15] MEDS: Heparin 5000 units/ml inj SUBQ SCH (10:15)
[2016-11-15] MEDS: Pantoprazole Inj IV SCH (10:15)
--- NOTE | 2016-11-15 10:32 | GI Progress Note ---
Assessment/Plan Problems: (1) Abdominal pain ICD Codes: R10.9 - Unspecified abdominal pain SNOMED: 95838210 (2) Cyclical vomiting ICD Codes: G43.A0 - Cyclical vomiting, not intractable SNOMED: 84747570 Qualifiers: Qualified Codes: G43.A0 - Cyclical vomiting, not intractable (3) Opiate dependence ICD Codes: F11.20 - Opioid dependence, uncomplicated SNOMED: 24622154 Qualifiers: Qualified Codes: F11.29 - Opioid dependence with unspecified opioid-induced disorder (4) Nausea, vomiting, and diarrhea ICD Codes: R11.2 - Nausea with vomiting, unspecified; R19.7 - Diarrhea, unspecified SNOMED: 0175602 (5) Gastroenteritis ICD Codes: K52.9 - Noninfective gastroenteritis and colitis, unspecified SNOMED: 31036813 (6) Dehydration ICD Codes: E86.0 - Dehydration SNOMED: 46143143 Status: progressing Status Narrative Discussed with Dr. Kim. Assessment/Plan KUB (10/21/16) - negative APCT (06/15/16) - Uterine fibroid. Post cholecystectomy. Small hiatal hernia Abd U/S - negative elevated lipase hepatitis panel negative utox unremarkable s/p EGD/colonoscopy >> gastritis, colon polyp symptomatic treatment, ok for DC if patient can tolerate regular diet fu lipid panel electrolyte replacement PO hydration reglan ATC zofran prn ppi abx fu labs Subjective Subjective nausea no emesis since MN Objective Last 24 Hour Vital Signs Date Time Temp Pulse Resp B/P Pulse Ox O2 Delivery O2 Flow Rate FiO2 11/15/16 10:14 94 118/86 11/15/16 07:56 97.0 94 18 118/86 98 Room Air 11/15/16 06:51 83 18 100 11/14/16 20:00 97.7 104 20 158/115 99 Room Air 11/14/16 18:42 98.2 11/14/16 16:00 97.7 100 20 158/115 99 Room Air 11/14/16 13:51 98.2 83 20 148/97 100 Room Air 11/14/16 13:41 98.2 83 20 161/98 100 Room Air 11/14/16 13:39 83 20 161/98 100 Room Air 11/14/16 13:29 82 20 158/100 100 Nasal Cannula 2.0 11/14/16 13:24 83 20 156/101 100 Nasal Cannula 2.0 11/14/16 13:24 84 16 98 11/14/16 13:19 97.0 82 20 165/91 100 Nasal Cannula 2.0 11/14/16 12:00 97.5 70 20 115/78 100 Room Air Intake and Output 11/14/16 11/15/16 18:59 06:59 Intake Total 450 ml 480 ml Output Total 200 ml 180 ml Balance 250 ml 300 ml Intake Oral 480 ml IV Total 450 ml Output Emesis 200 ml 180 ml # Voids 3 3 Laboratory Tests Test 11/15/16 05:30 White Blood Count 12.1 K/UL (4.8-10.8) H Red Blood Count 4.84 M/UL (4.20-5.40) Hemoglobin 11.5 G/DL (12.0-16.0) L Hematocrit 36.5 % (37.0-47.0) L Mean Corpuscular Volume 76 FL (80-99) L Mean Corpuscular Hemoglobin 23.8 PG (27.0-31.0) L Mean Corpuscular Hemoglobin Concent 31.5 G/DL (32.0-36.0) L Red Cell Distribution Width 14.2 % (11.6-14.8) Platelet Count 420 K/UL (150-450) Mean Platelet Volume 6.4 FL (6.5-10.1) L Neutrophils (%) (Auto) 65.6 % (45.0-75.0) Lymphocytes (%) (Auto) 23.0 % (20.0-45.0) Monocytes (%) (Auto) 10.1 % (1.0-10.0) H Eosinophils (%) (Auto) 0.6 % (0.0-3.0) Basophils (%) (Auto) 0.8 % (0.0-2.0) Sodium Level 137 mEQ/L (135-145) Potassium Level 3.4 mEQ/L (3.4-4.9) Chloride Level 94 mEQ/L (98-107) L Carbon Dioxide Level 24 mEQ/L (20-30) Anion Gap 19 (5-15) H Blood Urea Nitrogen 22 mg/dL (7-23) Creatinine 1.4 mg/dL (0.5-0.9) H Estimat Glomerular Filtration Rate 49.7 mL/min (>60) Glucose Level 107 mg/dL (74-106) H Calcium Level 9.8 mg/dL (8.6-10.2) Lipase 133 U/L (< 60) H Height (Feet): 5 Height (Inches): 5.00 Weight (Pounds): 180 General Appearance: no apparent distress, alert Cardiovascular: normal rate Respiratory/Chest: normal breath sounds, no respiratory distress Abdominal Exam: normal bowel sounds, non tender, soft Extremities: normal range of motion Katie Dill N.P. November 15, 2016 10:32
[2016-11-15 11:23] VITALS: BP 108/69
--- NOTE | 2016-11-15 12:48 | General Progress Note ---
Assessment/Plan Problem List: (1) HTN (hypertension) ICD Codes: I10 - Essential (primary) hypertension SNOMED: 10581295 (2) Itch ICD Codes: L29.9 - Pruritus, unspecified SNOMED: 470862025 (3) Nausea & vomiting ICD Codes: R11.2 - Nausea with vomiting, unspecified SNOMED: 61673362 Status: stable, progressing, tolerating diet Assessment/Plan otp t diet adv diet cbc bmp am dc plan Subjective Constitutional: Reports: weakness Allergies: Coded Allergies: No Known Allergies (Unverified , 05/08/14) All Systems: reviewed and negative except above Subjective sl weak eating better wants to go home Objective Last 24 Hour Vital Signs Date Time Temp Pulse Resp B/P Pulse Ox O2 Delivery O2 Flow Rate FiO2 11/15/16 11:23 97.9 74 18 108/69 98 Room Air 11/15/16 10:14 94 118/86 11/15/16 07:56 97.0 94 18 118/86 98 Room Air 11/15/16 06:51 83 18 100 11/14/16 20:00 97.7 104 20 158/115 99 Room Air 11/14/16 18:42 98.2 11/14/16 16:00 97.7 100 20 158/115 99 Room Air 11/14/16 13:51 98.2 83 20 148/97 100 Room Air 11/14/16 13:41 98.2 83 20 161/98 100 Room Air 11/14/16 13:39 83 20 161/98 100 Room Air 11/14/16 13:29 82 20 158/100 100 Nasal Cannula 2.0 11/14/16 13:24 83 20 156/101 100 Nasal Cannula 2.0 11/14/16 13:24 84 16 98 11/14/16 13:19 97.0 82 20 165/91 100 Nasal Cannula 2.0 Intake and Output 11/14/16 11/15/16 19:00 07:00 Intake Total 450 ml 480 ml Output Total 200 ml 180 ml Balance 250 ml 300 ml Intake Oral 480 ml IV Total 450 ml Output Emesis 200 ml 180 ml # Voids 3 3 Laboratory Tests 11/15/16 05:30: White Blood Count 12.1H, Red Blood Count 4.84, Hemoglobin 11.5L, Hematocrit 36.5L, Mean Corpuscular Volume 76L, Mean Corpuscular Hemoglobin 23.8L, Mean Corpuscular Hemoglobin Concent 31.5L, Red Cell Distribution Width 14.2, Platelet Count 420, Mean Platelet Volume 6.4L, Neutrophils (%) (Auto) 65.6, Lymphocytes (%) (Auto) 23.0, Monocytes (%) (Auto) 10.1H, Eosinophils (%) (Auto) 0.6, Basophils (%) (Auto) 0.8, Sodium Level 137, Potassium Level 3.4, Chloride Level 94L, Carbon Dioxide Level 24, Anion Gap 19H, Blood Urea Nitrogen 22, Creatinine 1.4H, Estimat Glomerular Filtration Rate 49.7, Glucose Level 107H, Calcium Level 9.8, Lipase 133H Height (Feet): 5 Height (Inches): 5.00 Weight (Pounds): 180 General Appearance: alert EENT: normal ENT inspection Neck: normal alignment Cardiovascular: normal peripheral pulses, normal rate, regular rhythm Respiratory/Chest: chest wall non-tender, lungs clear, normal breath sounds Abdomen: normal bowel sounds, non tender, soft Extremities: normal inspection Edema: no edema noted Arm (L), no edema noted Arm (R), no edema noted Leg (L), no edema noted Leg (R), no edema noted Pedal (L), no edema noted Pedal (R), no edema noted Generalized Neurologic: responsive, motor weakness Skin: normal pigmentation, warm/dry ENDY KUMAR November 15, 2016 12:48
--- NOTE | 2016-11-15 16:48 | Procedure Note ---
DATE OF PROCEDURE: 11/14/2016 SURGEON: Bebo Kim M.D. PROCEDURE: Upper endoscopy with biopsy and colonoscopy with biopsy. ANESTHESIOLOGIST: Please see the anesthesia sheet. INSTRUMENT: Olympus adult flexible upper endoscope and colonoscope. INDICATION: Anemia, abdominal pain, and persistent vomiting. REASON FOR PROCEDURE: The procedure, risks, benefits, and possible consequences, including hemorrhage, aspiration, perforation and infection, and alternative treatments, were explained to the patient/legal guardian by Dr. Bebo Kim and the patient/legal guardian understood and accepted these risks. DESCRIPTION OF PROCEDURE: After informed consent was obtained and the patient was adequately sedated, the Olympus upper endoscope was advanced from the mouth into the second portion of duodenum and retroflexion was performed in the stomach. The patient had evidence of diffuse gastritis. Random biopsy from antrum of the stomach was obtained to rule out H. pylori infection. At this time, the upper endoscope was retrieved and the patient was turned over for colonoscopy. First, a rectal exam was performed, which was normal. Then, the scope was advanced from the rectum into the cecum, documented by appendiceal orifice, ileocecal valve, and right upper quadrant palpation. Quality of prep was very good. The patient had these multiple small raised lesions throughout the colon, especially in the right colon of unknown significance and one of them in the cecum, which was ulcerative was biopsied. There was also one diminutive polyp in the transverse colon, which was biopsied. Retroflexion of rectum showed evidence of internal hemorrhoids. SUMMARY OF FINDINGS: 1. Gastritis, status post biopsy. 2. Multiple raised lesions throughout the colon, more prominent in the right colon, status post biopsy. 3. One colonic polyp removed, see above for details. 4. Internal hemorrhoids. RECOMMENDATIONS: Follow up biopsies and treat accordingly. I want to thank, Dr. Amadou Decker, for this kind referral. Bebo Kim M.D. DR: RAJWINDER JOB#: [id number] CC: Amadou Decker D.O.
--- NOTE | 2016-11-18 10:52 | Discharge Summary ---
Discharge Summary Hospital Course Date of Admission November 10, 2016 at 01:17 Date of Discharge November 15, 2016 at 14:41 Admitting Diagnosis intractable vomiting/cyclical vomiting HPI Jailyn Avelar is a 41 year old female who was admitted on November 10, 2016 at 01:17 for Intractable Vomiting,Cyclical Vomiting Hospital Course dc summary #[id number] Discharge Medications Continued Medications: Atenolol* (Tenormin*) 100 Mg Tablet 100 MG ORAL DAILY, TAB Baclofen* (Baclofen*) 10 Mg Tablet 10 MG ORAL TID, TAB Dicyclomine Hcl* (Bentyl*) 10 Mg Capsule 10 MG ORAL FOUR TIMES A DAY for 4 Days, #20 CAP Lorazepam* (Lorazepam*) 1 Mg Tablet 1 MG ORAL BID, TAB Ondansetron Odt* (Zofran Odt*) 8 Mg Tab.rapdis 8 MG ORAL EVERY 8 HOURS PRN for Nausea & Vomiting, #30 TAB Zolpidem Tartrate* (Zolpidem Tartrate*) 5 Mg Tablet 5 MG ORAL BEDTIME PRN for Insomnia, TAB 0 Refills Discharge Condition Upon Discharge: stable Discharge Disposition Patient was discharged to Home () Discharge Diagnoses: Discharge Instructions Discharge Instructions Special Instructions I have been assigned to complete a D/C Summary on this account. I was not involved in the patient management Liz Pires NP ([place]) November 18, 2016 10:52
--- NOTE | 2016-11-19 04:49 | Discharge Summary 2 SIG ---
DATE OF ADMISSION: 11/10/2016 DATE OF DISCHARGE: 11/15/2016 REASON FOR ADMISSION: 41-year-old female with history of cyclic vomiting syndrome presented to the emergency department complaining of four vomiting episodes in the morning with the right upper quadrant pain. The patient was unable to take her medications due to vomiting. She denied any hematemesis. She also reported few episodes of diarrhea which was characteristic for her during cyclic vomiting episodes in the past. The patient denied fever. Denied chills. Denied recent travel or ill contacts. She denied chest pain, palpitations, loss of consciousness, altered mental status, dizziness, change in vision, sensation, paresthesia, or sudden severe headache. The patient initially started on the IV fluids, Reglan given and Dilaudid with Benadryl provided for pain. The patient was ready to be discharged, however, she was still continue vomiting and was unable to tolerate any fluids. Additional IV fluids provided. Zofran given. The patient admitted for further management. ADMITTING DIAGNOSES: 1. Cyclic vomiting. 2. Opiate dependence. 3. Abdominal pain. HOSPITAL COURSE: The patient was admitted. GI consult was requested. The patient subsequently undergone EGD and colonoscopy with biopsy. EGD revealed gastritis. Colonoscopy revealed one polyp, status post biopsy, multiple raised lesions in the colon, mainly in the right colon, status post biopsy, and internal hemorrhoids. GI recommended to follow biopsy results and treat accordingly. Biopsy still pending. KUB was negative. Abdominal ultrasound was negative. CT of the abdomen and pelvis done on previous admission and revealed uterine fibroids, status post cholecystectomy and small hiatal hernia. Hepatitis panel was negative. Urine tox screen was positive for opiates. Urinalysis was negative. Elevated lipase, likely due to the cyclic vomiting. GI recommended symptomatic treatment. Continue PPI. Antiemetic : Zofran as needed and Reglan around the clock. Electrolytes were replaced as needed. Fluids were pushed. Empiric antibiotics were provided. The patient was afebrile, able to tolerate diet. Nausea subsided. Psychiatrist also seen and evaluated the patient. Diagnosed the patient with generalized anxiety disorder. Recommended continue Ativan as needed. Blood pressure was managed with beta-ravinder and was stable. DISCHARGE DIAGNOSES: 1. Cyclic vomiting. 2. Opiate dependency. 3. Abdominal pain. 4. Hypertension. 5. Status post esophagogastroduodenoscopy and colonoscopy with biopsy. 6. Dehydration. 7. Gastritis. 8. Polyp, status post biopsy. 9. Multiple raised colon lesion, status post biopsy. DISCHARGE MEDICATIONS: See medication reconciliation list. DISCHARGE INSTRUCTIONS: The patient discharged home. Follow up with the primary medical doctor. Biopsy results will be followed by GI specialist. If abnormal results come back, the patient will be contacted. Amadou Decker D.O. I have been assigned to dictate discharge summary on this account and I was not involved in the patient's management. Liz JonesStony Brook Eastern Long Island Hospitallarry N.PCampos DR: Luis A JOB#: [id number] CC: PATRICIO
== END 2016-11-15 14:41 | disposition home or self-care (01) | DRG 103 ==
LOC: EMR 19:45 → 4E 11-10 01:17 → EDBEDREQ 11-10 06:29 → 4E 11-12 10:32
DX: G43.A0 Cyclical vomiting, in migraine, not intractable (principal); F11.20 Opioid dependence, uncomplicated; I10 Essential (primary) hypertension; K52.9 Noninfective gastroenteritis and colitis, unspecified; K29.70 Gastritis, unspecified, without bleeding; K64.8 Other hemorrhoids; E86.0 Dehydration; R10.9 Unspecified abdominal pain; F17.200 Nicotine dependence, unspecified, uncomplicated; F41.8 Other specified anxiety disorders; D12.3 Benign neoplasm of transverse colon; K63.9 Disease of intestine, unspecified
CPT/HCPCS: 36415; 76700; 80048; 80053; 80300; 81003; 81025; 82150; 83690; 85025; 85610; 85730; 87081; 94003; 94150; J2405; J2765; J8499

== ENCOUNTER 2017-05-07 19:53 | Inpatient (IN) | payer MEDICARE, MEDICAID ==
[~2017-05-07] VITALS: Ht 177.8 cm; Wt 82.6 kg
[2017-05-07] MEDS ORDERED: REGLAN5 MG ORAL (20:01)
[2017-05-07] MEDS ORDERED: DILAUDID2 MG ORAL (20:01)
--- NOTE | 2017-05-07 20:07 | Emergency Room Report ---
History of Present Illness General Chief Complaint: Abdominal Pain Source: Patient Present Illness HPI Patient presents with complaints of mid lower abdominal pain Reports episode of diarrhea earlier This was followed by vomiting denies any fevers or chills Patient gives history of cyclical vomiting syndrome Reports that her Zofran did not work And therefore she presented to the ER Denies any recent travel denies any trauma Allergies: Coded Allergies: No Known Allergies (Unverified , 05/08/14) Patient History Past Medical History: see triage record Pertinent Family History: none Last Menstrual Period: n/a Reviewed Nursing Documentation: PMH: Agreed, PSxH: Agreed Nursing Documentation-PMH Hx Hypertension: Yes Hx Diabetes: No Hx Cancer: No Hx Gastrointestinal Problems: Yes - Cyclic vomiting Hx Neurological Problems: No Review of Systems All Other Systems: negative except mentioned in HPI Physical Exam Vital Signs Date Time Temp Pulse Resp B/P (MAP) Pulse Ox O2 Delivery O2 Flow Rate FiO2 05/07/17 19:57 97.5 77 12 149/112 100 Room Air Sp02 EP Interpretation: reviewed, normal General Appearance: mild distress - Acutely nauseated Head: normocephalic, atraumatic Eyes: bilateral eye PERRL, bilateral eye EOMI ENT: hearing grossly normal, normal pharynx, TMs + canals normal, uvula midline Neck: full range of motion, supple, no meningismus, no bony tend Respiratory: lungs clear, normal breath sounds, no rhonchi, no respiratory distress, no retraction, no accessory muscle use Cardiovascular #1: normal peripheral pulses, regular rate, rhythm, no edema, no gallop, no JVD, no murmur Gastrointestinal: normal bowel sounds, soft, no mass, no organomegaly, non- distended, no guarding, no hernia, no pulsatile mass, no rebound, tenderness - Tender mid periumbilical region, no obvious rebound Genitourinary: no CVA tenderness Musculoskeletal: normal inspection Neurologic: oriented x3, responsive, gold frame assembler III-XII nml as tested, motor strength/ tone normal, sensory intact Psychiatric: mood/affect normal Skin: normal color, no rash, warm/dry, palpation normal Lymphatic: normal inspection, no adenopathy Medical Decision Making Diagnostic Impression: Primary Impression: Abdominal pain Additional Impression: Nausea & vomiting ER Course With the patient's history and examination, multiple differentials considered, including but not limited to , ectopic , ovarian torsion, gastritis, cholecystitis, pancreatitis, appendicitis Patient has done somewhat better however again becomes nauseated increased upper abdominal pain patient has had multiple CT imaging and given the soft abdominal exam one was not repeated Patient requires further inpatient care Labs Test 05/07/17 20:16 05/07/17 20:26 White Blood Count 9.1 K/UL (4.8-10.8) Red Blood Count 5.23 M/UL (4.20-5.40) Hemoglobin 12.4 G/DL (12.0-16.0) Hematocrit 40.7 % (37.0-47.0) Mean Corpuscular Volume 78 FL (80-99) Mean Corpuscular Hemoglobin 23.8 PG (27.0-31.0) Mean Corpuscular Hemoglobin Concent 30.5 G/DL (32.0-36.0) Red Cell Distribution Width 14.7 % (11.6-14.8) Platelet Count 415 K/UL (150-450) Mean Platelet Volume 7.0 FL (6.5-10.1) Neutrophils (%) (Auto) 59.5 % (45.0-75.0) Lymphocytes (%) (Auto) 30.8 % (20.0-45.0) Monocytes (%) (Auto) 5.5 % (1.0-10.0) Eosinophils (%) (Auto) 2.6 % (0.0-3.0) Basophils (%) (Auto) 1.6 % (0.0-2.0) Sodium Level 139 MMOL/L (136-145) Potassium Level 4.6 MMOL/L (3.5-5.1) Chloride Level 105 MMOL/L (98-107) Carbon Dioxide Level 20 MMOL/L (21-32) Anion Gap 14 mmol/L (5-15) Blood Urea Nitrogen 16 mg/dL (7-18) Creatinine 0.8 MG/DL (0.55-1.30) Estimat Glomerular Filtration Rate > 60 mL/min (>60) Glucose Level 88 MG/DL (74-106) Calcium Level 9.5 MG/DL (8.5-10.1) Total Bilirubin 0.4 MG/DL (0.2-1.0) Aspartate Amino Transf (AST/SGOT) 33 U/L (15-37) Alanine Aminotransferase (ALT/SGPT) 17 U/L (12-78) Alkaline Phosphatase 113 U/L (46-116) Total Protein 7.9 G/DL (6.4-8.2) Albumin 3.9 G/DL (3.4-5.0) Globulin 4.0 g/dL Albumin/Globulin Ratio 1.0 (1.0-2.7) Lipase 232 U/L (73-393) Urine Color Pale yellow Urine Appearance Clear Urine pH 6 (4.5-8.0) Urine Specific [place] 1.015 (1.005-1.035) Urine Protein Negative (NEGATIVE) Urine Glucose (UA) Negative (NEGATIVE) Urine Ketones 1+ (NEGATIVE) Urine Occult Blood 4+ (NEGATIVE) Urine Nitrite Negative (NEGATIVE) Urine Bilirubin Negative (NEGATIVE) Urine Urobilinogen Normal MG/DL (0.0-1.0) Urine Leukocyte Esterase Negative (NEGATIVE) Rhythm Strip Diag. Results EP Interpretation: yes Rate: 67 Rhythm: NSR, no PVC's, no ectopy Last Vital Signs Date Time Temp Pulse Resp B/P (MAP) Pulse Ox O2 Delivery O2 Flow Rate FiO2 05/07/17 19:57 97.5 77 12 149/112 100 Room Air Status: improved Disposition: ADMITTED INPATIENT Condition: Serious REGINA FAIRCHILD D.O. May 07, 2017 20:07
[2017-05-07] MEDS ORDERED: DiphenhydrAMINE 50mg/ml Inj IVP ONE (20:15)
[2017-05-07] MEDS ORDERED: Metoclopramide 10mg/2ml Inj IVP ONE (20:15)
[2017-05-07] MEDS ORDERED: Morphine Sulfate 4mg/ml Inj IVP ONE (20:15)
[2017-05-07 20:39] LABS: BASOPHILS % (AUTO) 1.6 % (0.0-2.0); EOSINOPHILS % (AUTO) 2.6 % (0.0-3.0); HEMATOCRIT 40.7 % (37.0-47.0); HEMOGLOBIN 12.4 G/DL (12.0-16.0); LYMPHOCYTES % (AUTO) 30.8 % (20.0-45.0); MEAN CORPUSCULAR VOLUME 78 FL (80-99); MONOCYTES % (AUTO) 5.5 % (1.0-10.0); NEUTROPHILS % (AUTO) 59.5 % (45.0-75.0); PLATELET COUNT 415 K/UL (150-450); RED BLOOD COUNT 5.23 M/UL (4.20-5.40); RED CELL DISTRIBUTION WIDTH 14.7 % (11.6-14.8); WHITE BLOOD COUNT 9.1 K/UL (4.8-10.8)
[2017-05-07] MEDS ORDERED: ZOFRAN ODT4 MG ORAL (20:46)
[2017-05-07] MEDS ORDERED: OMEPRAZOLE20 M2 ORAL (20:47)
[2017-05-07] MEDS ORDERED: ZOLPIDEM TARTRAT5 MG ORAL (20:47)
[2017-05-07 20:51] LABS: APPEARANCE,URINE CLEAR; BILIRUBIN, URINE NEGATIVE (NEGATIVE); COLOR,URINE PALE YELLOW; GLUCOSE, URINE (UA) NEGATIVE (NEGATIVE); KETONES,URINE 1+ (NEGATIVE); LEUKOCYTE ESTERASE ,URINE NEGATIVE (NEGATIVE); NITRITE,URINE NEGATIVE (NEGATIVE); PH,URINE 6 (4.5-8.0); PROTEIN,URINE NEGATIVE (NEGATIVE); UROBILINOGEN,URINE NORMAL MG/DL (0.0-1.0)
[2017-05-07] MEDS ORDERED: BACLOFEN10 MG ORAL (20:54)
[2017-05-07] MEDS ORDERED: IMITREX50 MG ORAL (20:54)
[2017-05-07] MEDS ORDERED: AMLODIPINE BESYL5 MG ORAL (20:54)
[2017-05-07] MEDS ORDERED: GABAPENTIN600 MG ORAL (20:54)
[2017-05-07] MEDS ORDERED: DILAUDID4 MG ORAL (20:54)
[2017-05-07] MEDS ORDERED: MULTIVITAMINS1 EAC2 ORAL (20:54)
[2017-05-07 21:02] LABS: ALANINE AMINOTRANSFERASE 17 U/L (12-78); ALBUMIN 3.9 G/DL (3.4-5.0); ALKALINE PHOSPHATASE 113 U/L (46-116); ANION GAP 14 mmol/L (5-15); ASPARTATE AMINO TRANSFERASE 33 U/L (15-37); BILIRUBIN,TOTAL 0.4 MG/DL (0.2-1.0); BLOOD UREA NITROGEN 16 mg/dL (7-18); CALCIUM 9.5 MG/DL (8.5-10.1); CARBON DIOXIDE 20 MMOL/L (21-32); CHLORIDE 105 MMOL/L (98-107); CREATININE 0.8 MG/DL (0.55-1.30); POTASSIUM 4.6 MMOL/L (3.5-5.1); SODIUM 139 MMOL/L (136-145)
[2017-05-07] MEDS ORDERED: HYDROmorphone 1 MG in NS 55 ML IV ONE (21:15)
[2017-05-07] MEDS ORDERED: HYDROmorphone 1mg/ml Carpuject ONE (21:19)
[2017-05-07] MEDS ORDERED: LORazepam Inj 2mg/ml 1ml IV PRN (21:45)
[2017-05-07] MEDS ORDERED: Miralax 17gm pkt ORAL PRN (21:45)
[2017-05-07] MEDS ORDERED: Mylanta II UD 30ml ORAL PRN (21:45)
[2017-05-07] MEDS ORDERED: Nitroglycerin Subl 0.4mg tab SL PRN (21:45)
[2017-05-07 21:48] VITALS: BP 149/99
[2017-05-07] MEDS: D5 1/2NS 1,000 ML IV SCH (22:18)
[2017-05-08] VITALS: BP 128/80
[2017-05-08] MEDS: HYDROmorphone 1mg/ml Carpuject IVP PRN ×7 (00:28→23:43)
[2017-05-08 04:00] VITALS: BP 129/79
[2017-05-08 06:45] LABS: ALANINE AMINOTRANSFERASE 14 U/L (12-78); ALBUMIN/GLOBULIN RATIO 0.9 (1.0-2.7); ALKALINE PHOSPHATASE 87 U/L (46-116); AMYLASE 42 U/L (25-115); ASPARTATE AMINO TRANSFERASE 15 U/L (15-37); BILIRUBIN,TOTAL 0.3 MG/DL (0.2-1.0); BLOOD UREA NITROGEN 13 mg/dL (7-18); CALCIUM 8.3 MG/DL (8.5-10.1); CARBON DIOXIDE 23 MMOL/L (21-32); CREATININE 0.9 MG/DL (0.55-1.30)
[2017-05-08 07:02] LABS: EOSINOPHILS % (AUTO) 3.2 % (0.0-3.0); HEMOGLOBIN 9.9 G/DL (12.0-16.0); MEAN CORPUSCULAR VOLUME 78 FL (80-99); MONOCYTES % (AUTO) 7.3 % (1.0-10.0); NEUTROPHILS % (AUTO) 49.6 % (45.0-75.0); PLATELET COUNT 313 K/UL (150-450); RED BLOOD COUNT 4.13 M/UL (4.20-5.40); RED CELL DISTRIBUTION WIDTH 14.7 % (11.6-14.8); WHITE BLOOD COUNT 8.6 K/UL (4.8-10.8)
[2017-05-08 07:09] LABS: CHLORIDE 107 MMOL/L (98-107); POTASSIUM 3.3 MMOL/L (3.5-5.1); SODIUM 139 MMOL/L (136-145)
[2017-05-08 08:00] VITALS: BP 117/74
[2017-05-08] MEDS: LORazepam 1mg tab ORAL SCH ×2 (09:15→17:15)
[2017-05-08] MEDS: Pantoprazole Inj IV SCH (09:16)
[2017-05-08] MEDS: Metoclopramide 10mg/2ml Inj IVP PRN ×2 (09:17→17:14)
[2017-05-08] MEDS: Heparin 5000 units/ml inj SUBQ SCH ×2 (09:19→20:37)
--- NOTE | 2017-05-08 11:14 | GI Initial Consult Note ---
History of Present Illness General Date patient seen: May 08, 2017 Time patient seen: 11:06 Reason for Hospitalization: Abdominal Pain Referring physician: ENDY KUMAR Reason for Consultation: PERSISTANT VOMITING Present Illness HPI Patient presents with complaints of mid lower abdominal pain Reports episode of diarrhea earlier This was followed by vomiting denies any fevers or chills Patient gives history of cyclical vomiting syndrome Reports that her Zofran did not work And therefore she presented to the ER Denies any recent travel denies any trauma GI consult for cyclic vomiting. HPI as noted above. Pt seen on floor, awake A &Ox4 NAD with no active s/sx of N/V. The patient reported multiple episodes of emesis last night, has not had any episodes this morning. Denied any hemataemesis or coffee grounds. Abdomen tender to palpation. Pt states she is a chronic Dilaudid user. Denies any ETOH or drug use. Labs show anemia and hypoalbuminemia. Pt had recent EGD/colonoscopy, mainly unremarkable. Endoscopy Procedure Note Indication for Procedure: abd pain Procedures Performed: EGD, colonoscopy Operative Findings/Diagnosis: gastritis, colon polyp RHONA HOOK - November 14, 2016 13:10 Home Meds Reported Medications Sumatriptan Succinate* (IMITREX*) 50 Mg Tablet, 100 MG ORAL DAILY Y for For Headache 05/07/17 Hydromorphone HCl (Dilaudid) 4 Mg Tablet, 4 MG ORAL Q8H 05/07/17 Amlodipine Besylate* (AMLODIPINE BESYLATE*) 5 Mg Tablet, 5 MG ORAL DAILY 05/07/17 Multivitamins* (MULTIVITAMINS*) 1 Each Tablet, 1 TAB ORAL DAILY 05/07/17 Baclofen* (BACLOFEN*) 10 Mg Tablet, 10 MG ORAL THREE TIMES A DAY 05/07/17 Gabapentin* (GABAPENTIN*) 600 Mg Tablet, 600 MG ORAL THREE TIMES A DAY 05/07/17 Omeprazole (OMEPRAZOLE) 20 Mg Capsule.dr, 20 MG ORAL DAILY 05/07/17 Zolpidem Tartrate* (ZOLPIDEM TARTRATE*) 5 Mg Tablet, 5 MG ORAL BEDTIME 05/07/17 Ondansetron Odt* (ZOFRAN ODT*) 4 Mg Tab.rapdis, 4 MG ORAL TID 05/07/17 Metoclopramide Hcl* (REGLAN*) 5 Mg Tablet, 5 MG ORAL EVERY 6 HOURS, TAB 05/07/17 Baclofen* (BACLOFEN*) 10 Mg Tablet, 10 MG ORAL TID, TAB 06/15/16 Lorazepam* (LORAZEPAM*) 1 Mg Tablet, 1 MG ORAL BID, TAB 07/11/15 Atenolol* (TENORMIN*) 100 Mg Tablet, 100 MG ORAL DAILY, TAB 05/08/14 Discontinued Scripts Dicyclomine Hcl* (BENTYL*) 10 Mg Capsule, 10 MG ORAL FOUR TIMES A DAY for 4 Days , #20 CAP Prov:Keesha Ernst 11/01/16 Med list reviewed/reconciled: Yes Allergies: Coded Allergies: No Known Allergies (Unverified , 05/08/14) Patient History History Provided By: Patient, Medical Record PMH Narrative Past Medical History: see triage record Pertinent Family History: none Last Menstrual Period: n/a Reviewed Nursing Documentation: PMH: Agreed, PSxH: Agreed Nursing Documentation-PMH Hx Hypertension: Yes Hx Diabetes: No Hx Cancer: No Hx Gastrointestinal Problems: Yes - Cyclic vomiting Hx Neurological Problems: No Social History: Reports: other - chronic pain, dilaudid user Review of Systems All Other Systems: negative except mentioned in HPI Physical Exam Vital Signs Date Time Temp Pulse Resp B/P (MAP) Pulse Ox O2 Delivery O2 Flow Rate FiO2 05/07/17 19:57 97.5 77 12 149/112 100 Room Air Sp02 EP Interpretation: reviewed, normal Labs Laboratory Tests Test 05/07/17 20:16 05/07/17 20:26 05/08/17 04:50 White Blood Count 9.1 K/UL (4.8-10.8) 8.6 K/UL (4.8-10.8) Red Blood Count 5.23 M/UL (4.20-5.40) 4.13 M/UL (4.20-5.40) L Hemoglobin 12.4 G/DL (12.0-16.0) 9.9 G/DL (12.0-16.0) L Hematocrit 40.7 % (37.0-47.0) 32.0 % (37.0-47.0) L Mean Corpuscular Volume 78 FL (80-99) L 78 FL (80-99) L Mean Corpuscular Hemoglobin 23.8 PG (27.0-31.0) L 24.0 PG (27.0-31.0) L Mean Corpuscular Hemoglobin Concent 30.5 G/DL (32.0-36.0) L 31.0 G/DL (32.0-36.0) L Red Cell Distribution Width 14.7 % (11.6-14.8) 14.7 % (11.6-14.8) Platelet Count 415 K/UL (150-450) 313 K/UL (150-450) Mean Platelet Volume 7.0 FL (6.5-10.1) 7.1 FL (6.5-10.1) Neutrophils (%) (Auto) 59.5 % (45.0-75.0) 49.6 % (45.0-75.0) Lymphocytes (%) (Auto) 30.8 % (20.0-45.0) 39.0 % (20.0-45.0) Monocytes (%) (Auto) 5.5 % (1.0-10.0) 7.3 % (1.0-10.0) Eosinophils (%) (Auto) 2.6 % (0.0-3.0) 3.2 % (0.0-3.0) H Basophils (%) (Auto) 1.6 % (0.0-2.0) 1.0 % (0.0-2.0) Sodium Level 139 MMOL/L (136-145) 139 MMOL/L (136-145) Potassium Level 4.6 MMOL/L (3.5-5.1) 3.3 MMOL/L (3.5-5.1) L Chloride Level 105 MMOL/L (98-107) 107 MMOL/L (98-107) Carbon Dioxide Level 20 MMOL/L (21-32) L 23 MMOL/L (21-32) Anion Gap 14 mmol/L (5-15) Blood Urea Nitrogen 16 mg/dL (7-18) 13 mg/dL (7-18) Creatinine 0.8 MG/DL (0.55-1.30) 0.9 MG/DL (0.55-1.30) Estimat Glomerular Filtration Rate > 60 mL/min (>60) > 60 mL/min (>60) Glucose Level 88 MG/DL (74-106) 93 MG/DL (74-106) Calcium Level 9.5 MG/DL (8.5-10.1) 8.3 MG/DL (8.5-10.1) L Total Bilirubin 0.4 MG/DL (0.2-1.0) 0.3 MG/DL (0.2-1.0) Aspartate Amino Transf (AST/SGOT) 33 U/L (15-37) 15 U/L (15-37) Alanine Aminotransferase (ALT/SGPT) 17 U/L (12-78) 14 U/L (12-78) Alkaline Phosphatase 113 U/L (46-116) 87 U/L (46-116) Total Protein 7.9 G/DL (6.4-8.2) 6.2 G/DL (6.4-8.2) L Albumin 3.9 G/DL (3.4-5.0) 3.0 G/DL (3.4-5.0) L Globulin 4.0 g/dL 3.2 g/dL Albumin/Globulin Ratio 1.0 (1.0-2.7) 0.9 (1.0-2.7) L Lipase 232 U/L (73-393) 161 U/L (73-393) Urine Color Pale yellow Urine Appearance Clear Urine pH 6 (4.5-8.0) Urine Specific [place] 1.015 (1.005-1.035) Urine Protein Negative (NEGATIVE) Urine Glucose (UA) Negative (NEGATIVE) Urine Ketones 1+ (NEGATIVE) H Urine Occult Blood 4+ (NEGATIVE) H Urine Nitrite Negative (NEGATIVE) Urine Bilirubin Negative (NEGATIVE) Urine Urobilinogen Normal MG/DL (0.0-1.0) Urine Leukocyte Esterase Negative (NEGATIVE) Urine RBC 5-10 /HPF (0 - 2) H Urine WBC 2-4 /HPF (0 - 2) Urine Squamous Epithelial Cells Moderate /LPF (NONE/OCC) H Urine Bacteria Few /HPF (NONE) Urine Yeast Few /HPF (NONE) H Activated Partial Thromboplast Time 27 SEC (23-33) Amylase Level 42 U/L (25-115) General Appearance: well appearing, no apparent distress, alert, obese Head: normocephalic EENT: PERRL/EOMI, normal ENT inspection Neck: supple Respiratory: normal breath sounds, no respiratory distress Cardiovascular: normal rate Gastrointestinal: normal inspection, non tender, soft, normal bowel sounds, non -distended Rectal: deferred Genitourinary: no CVA tenderness Musculoskeletal: normal inspection, back normal Neurologic: normal inspection, alert, oriented x3, responsive Psychiatric: normal inspection, judgement/insight normal, memory normal Skin: normal inspection, normal color, no rash, warm/dry, palpation normal, well hydrated Lymphatic: normal inspection, no adenopathy Current Medications Current Medications Medications (Trade) Dose Ordered Sig/Robbie Route PRN Reason Start Time Stop Time Status Last Admin Dose Admin Acetaminophen (Tylenol) 650 mg Q4H PRN ORAL fever 05/07/17 21:45 06/06/17 21:44 Al Hydroxide/Mg Hydroxide (Mylanta II) 30 ml Q6H PRN ORAL dyspepsia 05/07/17 21:45 06/06/17 21:44 Amlodipine Besylate (Norvasc) 5 mg DAILY ORAL 05/08/17 09:00 06/07/17 08:59 Atenolol (Tenormin) 100 mg DAILY ORAL 05/08/17 09:00 06/07/17 08:59 Baclofen (Lioresal) 10 mg THREE TIMES A DAY ORAL 05/08/17 09:00 06/07/17 08:59 05/08/17 09:16 Dextrose (Dextrose 50%) STAT PRN IV Hypoglycemia 05/07/17 21:45 06/06/17 21:44 Dextrose/Sodium Chloride 1,000 ml @ 75 mls/hr [id number] IV 05/07/17 22:00 06/06/17 21:59 05/07/17 22:18 Diphenhydramine HCl (Benadryl) 25 mg Q6H PRN ORAL Itching/Pruritis 05/07/17 21:45 06/06/17 21:44 05/08/17 04:14 Gabapentin (Neurontin) 600 mg THREE TIMES A DAY ORAL 05/08/17 09:00 06/07/17 08:59 05/08/17 09:15 Heparin Sodium (Porcine) (Heparin 5000 units/ml) 5,000 units EVERY 12 HOURS SUBQ 05/08/17 09:00 06/07/17 08:59 05/08/17 09:19 Hydromorphone HCl (Dilaudid) 1 mg Q3H PRN IVP For Pain 05/07/17 22:30 05/14/17 22:29 05/08/17 09:16 Lorazepam (Ativan 2mg/ml 1ml) 1 mg Q4H PRN IV agitation 05/07/17 21:45 05/14/17 21:44 Lorazepam (Ativan) 1 mg BID ORAL 05/08/17 09:00 05/15/17 08:59 05/08/17 09:15 Metoclopramide HCl (Reglan) 10 mg Q6H PRN IVP servere gerhardsea 05/07/17 21:45 06/06/17 21:44 05/08/17 09:17 Nitroglycerin (Ntg) 0.4 mg Q5M X 3 DOSES PRN SL Prn Chest Pain 05/07/17 21:45 06/06/17 21:44 Ondansetron HCl (Zofran) 4 mg Q6H PRN IVP Nausea & Vomiting 05/07/17 21:45 06/06/17 21:44 05/08/17 04:10 Pantoprazole (Protonix) 40 mg DAILY IV 05/08/17 09:00 06/07/17 08:59 05/08/17 09:16 Polyethylene Glycol (Miralax) 17 gm HSPRN PRN ORAL Constipation 05/07/17 21:45 06/06/17 21:44 Promethazine HCl (Phenergan) 25 mg Q8H PRN IV refractory nausea 05/07/17 21:45 06/06/17 21:44 Temazepam (Restoril) 15 mg HSPRN PRN ORAL Insomnia 05/07/17 21:45 05/14/17 21:44 05/08/17 00:03 GI: Plan Problems: (1) Abdominal pain (2) Nausea & vomiting (3) Vomiting (4) Dehydration (5) Cyclical vomiting (6) Opiate dependence Plan APCT (06/15/16) - Uterine fibroid. Post cholecystectomy. Small hiatal hernia lipase WNL hepatitis panel negative s/p EGD/colonoscopy 11/2016>> gastritis, colon polyp microcytic hypochromic anemia symptomatic treatment zofran prn, reglan for persistent vomiting will adv to FLD fu abdominal US fu iron panel electrolyte replacement ppi abx fu labs Discussed with Dr. Hook. Thank you for this patient referral, we will follow. Katie Dill N.P. May 08, 2017 11:14
[2017-05-08] MEDS: D5 1/2NS 1,000 ML IV SCH ×2 (11:35→23:42)
[2017-05-08 12:00] VITALS: BP 128/76
--- NOTE | 2017-05-08 15:10 | Diagnostic Imaging Report ---
Indication: Right upper quadrant abdominal pain and vomiting Technique: Elkins-scale and duplex images of the upper abdomen were obtained Comparison: 11/10/2016 Findings: Gallbladder is surgically absent. Sonographic Ugarte's sign is negative. Common bile duct measures 7 mm in diameter. No intrahepatic biliary ductal dilatation. Liver demonstrates normal echogenicity, no focal abnormality. Portal vein and hepatic veins are patent. Pancreas is unremarkable. Spleen is unremarkable. Left kidney measures 9.8 cm in length. Right kidney measures 10.4 cm length. Both kidneys demonstrate normal echogenicity. There is no hydronephrosis. No focal abnormality . Non-aneurysmal abdominal aorta . Impression: Prior cholecystectomy Mildly ectatic common bile duct, probably related to prior cholecystectomy although increasing caliber from prior study does raise the possibly of downstream obstruction. Correlation with liver function tests is recommended, and consideration for MRCP if there is high clinical suspicion No other significant abnormality
--- NOTE | 2017-05-08 15:13 | Infectious Diseases Prog Note ---
Assessment/Plan Problems: (1) Vaginal discharge Assessment & Plan: suspect due to yeast vaginitis, will screen for chlamydia and gonorrhea, and treat for yeast vaginitis with fluconazole (2) Yeast infection Assessment & Plan: with whitish vaginal discharge, will treat with one dose of fluconazol and screen for Chlamydia, and gonorrhea Subjective Allergies: Coded Allergies: No Known Allergies (Unverified , 05/08/14) Objective Vital Signs Last 24 Hour Vital Signs Date Time Temp Pulse Resp B/P (MAP) Pulse Ox O2 Delivery O2 Flow Rate FiO2 05/08/17 13:30 97.5 05/08/17 09:00 52 117/74 05/08/17 09:00 52 117/74 05/08/17 08:00 97.7 52 19 117/74 100 Room Air 05/08/17 04:00 97.5 57 18 129/79 96 Room Air 05/08/17 00:00 97.5 54 20 128/80 97 Room Air 05/07/17 21:48 97.5 12 149/99 100 Room Air 05/07/17 21:46 97.5 66 12 149/99 100 Room Air 05/07/17 19:57 97.5 77 12 149/112 100 Room Air Height (Feet): 5 Height (Inches): 10.00 Weight (Pounds): 182 Microbiology Date/Time Source Procedure Growth Status 05/07/17 20:26 Urine,Clean Catch Urine Culture - Preliminary NO GROWTH Resulted Laboratory Tests Test 05/07/17 20:16 05/07/17 20:26 05/08/17 04:50 White Blood Count 9.1 K/UL (4.8-10.8) 8.6 K/UL (4.8-10.8) Red Blood Count 5.23 M/UL (4.20-5.40) 4.13 M/UL (4.20-5.40) L Hemoglobin 12.4 G/DL (12.0-16.0) 9.9 G/DL (12.0-16.0) L Hematocrit 40.7 % (37.0-47.0) 32.0 % (37.0-47.0) L Mean Corpuscular Volume 78 FL (80-99) L 78 FL (80-99) L Mean Corpuscular Hemoglobin 23.8 PG (27.0-31.0) L 24.0 PG (27.0-31.0) L Mean Corpuscular Hemoglobin Concent 30.5 G/DL (32.0-36.0) L 31.0 G/DL (32.0-36.0) L Red Cell Distribution Width 14.7 % (11.6-14.8) 14.7 % (11.6-14.8) Platelet Count 415 K/UL (150-450) 313 K/UL (150-450) Mean Platelet Volume 7.0 FL (6.5-10.1) 7.1 FL (6.5-10.1) Neutrophils (%) (Auto) 59.5 % (45.0-75.0) 49.6 % (45.0-75.0) Lymphocytes (%) (Auto) 30.8 % (20.0-45.0) 39.0 % (20.0-45.0) Monocytes (%) (Auto) 5.5 % (1.0-10.0) 7.3 % (1.0-10.0) Eosinophils (%) (Auto) 2.6 % (0.0-3.0) 3.2 % (0.0-3.0) H Basophils (%) (Auto) 1.6 % (0.0-2.0) 1.0 % (0.0-2.0) Sodium Level 139 MMOL/L (136-145) 139 MMOL/L (136-145) Potassium Level 4.6 MMOL/L (3.5-5.1) 3.3 MMOL/L (3.5-5.1) L Chloride Level 105 MMOL/L (98-107) 107 MMOL/L (98-107) Carbon Dioxide Level 20 MMOL/L (21-32) L 23 MMOL/L (21-32) Anion Gap 14 mmol/L (5-15) Blood Urea Nitrogen 16 mg/dL (7-18) 13 mg/dL (7-18) Creatinine 0.8 MG/DL (0.55-1.30) 0.9 MG/DL (0.55-1.30) Estimat Glomerular Filtration Rate > 60 mL/min (>60) > 60 mL/min (>60) Glucose Level 88 MG/DL (74-106) 93 MG/DL (74-106) Calcium Level 9.5 MG/DL (8.5-10.1) 8.3 MG/DL (8.5-10.1) L Total Bilirubin 0.4 MG/DL (0.2-1.0) 0.3 MG/DL (0.2-1.0) Aspartate Amino Transf (AST/SGOT) 33 U/L (15-37) 15 U/L (15-37) Alanine Aminotransferase (ALT/SGPT) 17 U/L (12-78) 14 U/L (12-78) Alkaline Phosphatase 113 U/L (46-116) 87 U/L (46-116) Total Protein 7.9 G/DL (6.4-8.2) 6.2 G/DL (6.4-8.2) L Albumin 3.9 G/DL (3.4-5.0) 3.0 G/DL (3.4-5.0) L Globulin 4.0 g/dL 3.2 g/dL Albumin/Globulin Ratio 1.0 (1.0-2.7) 0.9 (1.0-2.7) L Lipase 232 U/L (73-393) 161 U/L (73-393) Urine Color Pale yellow Urine Appearance Clear Urine pH 6 (4.5-8.0) Urine Specific [place] 1.015 (1.005-1.035) Urine Protein Negative (NEGATIVE) Urine Glucose (UA) Negative (NEGATIVE) Urine Ketones 1+ (NEGATIVE) H Urine Occult Blood 4+ (NEGATIVE) H Urine Nitrite Negative (NEGATIVE) Urine Bilirubin Negative (NEGATIVE) Urine Urobilinogen Normal MG/DL (0.0-1.0) Urine Leukocyte Esterase Negative (NEGATIVE) Urine RBC 5-10 /HPF (0 - 2) H Urine WBC 2-4 /HPF (0 - 2) Urine Squamous Epithelial Cells Moderate /LPF (NONE/OCC) H Urine Bacteria Few /HPF (NONE) Urine Yeast Few /HPF (NONE) H Activated Partial Thromboplast Time 27 SEC (23-33) Amylase Level 42 U/L (25-115) Current Medications Medications (Trade) Dose Ordered Sig/Robbie Route PRN Reason Start Time Stop Time Status Last Admin Dose Admin Acetaminophen (Tylenol) 650 mg Q4H PRN ORAL fever 05/07/17 21:45 06/06/17 21:44 Al Hydroxide/Mg Hydroxide (Mylanta II) 30 ml Q6H PRN ORAL dyspepsia 05/07/17 21:45 06/06/17 21:44 Amlodipine Besylate (Norvasc) 5 mg DAILY ORAL 05/08/17 09:00 06/07/17 08:59 Atenolol (Tenormin) 100 mg DAILY ORAL 05/08/17 09:00 06/07/17 08:59 Baclofen (Lioresal) 10 mg THREE TIMES A DAY ORAL 05/08/17 09:00 06/07/17 08:59 05/08/17 12:59 Dextrose (Dextrose 50%) STAT PRN IV Hypoglycemia 05/07/17 21:45 06/06/17 21:44 Dextrose/Sodium Chloride 1,000 ml @ 75 mls/hr [id number] IV 05/07/17 22:00 06/06/17 21:59 05/08/17 11:35 Diphenhydramine HCl (Benadryl) 25 mg Q6H PRN ORAL Itching/Pruritis 05/07/17 21:45 06/06/17 21:44 05/08/17 04:14 Gabapentin (Neurontin) 600 mg THREE TIMES A DAY ORAL 05/08/17 09:00 06/07/17 08:59 05/08/17 12:59 Heparin Sodium (Porcine) (Heparin 5000 units/ml) 5,000 units EVERY 12 HOURS SUBQ 05/08/17 09:00 06/07/17 08:59 05/08/17 09:19 Hydromorphone HCl (Dilaudid) 1 mg Q3H PRN IVP For Pain 05/07/17 22:30 05/14/17 22:29 05/08/17 13:00 Lorazepam (Ativan 2mg/ml 1ml) 1 mg Q4H PRN IV agitation 05/07/17 21:45 05/14/17 21:44 Lorazepam (Ativan) 1 mg BID ORAL 05/08/17 09:00 05/15/17 08:59 05/08/17 09:15 Metoclopramide HCl (Reglan) 10 mg Q6H PRN IVP maki lópez 05/07/17 21:45 06/06/17 21:44 05/08/17 09:17 Nitroglycerin (Ntg) 0.4 mg Q5M X 3 DOSES PRN SL Prn Chest Pain 05/07/17 21:45 06/06/17 21:44 Ondansetron HCl (Zofran) 4 mg Q6H PRN IVP Nausea & Vomiting 05/07/17 21:45 06/06/17 21:44 05/08/17 12:59 Pantoprazole (Protonix) 40 mg DAILY IV 05/08/17 09:00 06/07/17 08:59 05/08/17 09:16 Polyethylene Glycol (Miralax) 17 gm HSPRN PRN ORAL Constipation 05/07/17 21:45 06/06/17 21:44 Promethazine HCl (Phenergan) 25 mg Q8H PRN IV refractory nausea 05/07/17 21:45 06/06/17 21:44 Temazepam (Restoril) 15 mg HSPRN PRN ORAL Insomnia 05/07/17 21:45 05/14/17 21:44 05/08/17 00:03 Bere Bruno M.D. May 08, 2017 15:13
[2017-05-08 16:00] VITALS: BP 131/77
[2017-05-08] MEDS ORDERED: Fluconazole 100mg tab ORAL ONE (16:00)
--- NOTE | 2017-05-08 17:57 | Consultation ---
History of Present Illness General Date patient seen: May 08, 2017 Chief Complaint: Abdominal Pain Referring physician: ENDY KUMAR Reason for Consultation: inpatient manageemnt Present Illness HPI 41 year old female with hx of Cyclical vomiting presented with complaints of mid lower abdominal pain Reports episode of diarrhea earlier. She was diagnosed with intractable nausea and vomiting and is admitted for further evaluation. Allergies: Coded Allergies: No Known Allergies (Unverified , 05/08/14) Medication History Scheduled Amlodipine Besylate* (Amlodipine Besylate*), 5 MG ORAL DAILY, (Reported) Atenolol* (Tenormin*), 100 MG ORAL DAILY, (Reported) Baclofen* (Baclofen*), 10 MG ORAL TID, (Reported) Baclofen* (Baclofen*), 10 MG ORAL THREE TIMES A DAY, (Reported) Gabapentin* (Gabapentin*), 600 MG ORAL THREE TIMES A DAY, (Reported) Hydromorphone HCl (Dilaudid), 4 MG ORAL Q8H, (Reported) Lorazepam* (Lorazepam*), 1 MG ORAL BID, (Reported) Metoclopramide Hcl* (Reglan*), 5 MG ORAL EVERY 6 HOURS, (Reported) Multivitamins* (Multivitamins*), 1 TAB ORAL DAILY, (Reported) Omeprazole (Omeprazole), 20 MG ORAL DAILY, (Reported) Ondansetron Odt* (Zofran Odt*), 4 MG ORAL TID, (Reported) Zolpidem Tartrate* (Zolpidem Tartrate*), 5 MG ORAL BEDTIME, (Reported) Scheduled PRN Sumatriptan Succinate* (Imitrex*), 100 MG ORAL DAILY PRN for For Headache, ( Reported) Discontinued Medications Dicyclomine Hcl* (Bentyl*), 10 MG ORAL FOUR TIMES A DAY Discontinued Reason: Pt stopped taking med Patient History Healthcare decision maker Resuscitation status Advanced Directive on File Past Medical/Surgical History Past Medical/Surgical History: (1) Cyclical vomiting (2) HTN (hypertension) (3) Opiate dependence Review of Systems All Other Systems: negative except mentioned in HPI Physical Exam General Appearance: WD/WN Lines, tubes and drains: peripheral HEENT: normocephalic, atraumatic Neck: non-tender, normal alignment Respiratory/Chest: chest wall non-tender, lungs clear Breasts: no masses Cardiovascular/Chest: normal peripheral pulses Abdomen: non tender Genitourinary/Rectal: normal genital exam Last 24 Hour Vital Signs Date Time Temp Pulse Resp B/P (MAP) Pulse Ox O2 Delivery O2 Flow Rate FiO2 05/08/17 17:45 98.2 05/08/17 16:00 98.2 58 18 131/77 100 Room Air 05/08/17 12:00 97.6 58 18 128/76 99 Room Air 05/08/17 09:00 52 117/74 05/08/17 09:00 52 117/74 05/08/17 08:00 97.7 52 19 117/74 100 Room Air 05/08/17 04:00 97.5 57 18 129/79 96 Room Air 05/08/17 00:00 97.5 54 20 128/80 97 Room Air 05/07/17 21:48 97.5 12 149/99 100 Room Air 05/07/17 21:46 97.5 66 12 149/99 100 Room Air 05/07/17 19:57 97.5 77 12 149/112 100 Room Air Intake and Output 05/08/17 05/09/17 19:00 07:00 Intake Total 300 ml Balance 300 ml IV Total 300 ml Laboratory Tests Test 05/07/17 20:16 05/07/17 20:26 05/08/17 04:50 White Blood Count 9.1 K/UL (4.8-10.8) 8.6 K/UL (4.8-10.8) Red Blood Count 5.23 M/UL (4.20-5.40) 4.13 M/UL (4.20-5.40) L Hemoglobin 12.4 G/DL (12.0-16.0) 9.9 G/DL (12.0-16.0) L Hematocrit 40.7 % (37.0-47.0) 32.0 % (37.0-47.0) L Mean Corpuscular Volume 78 FL (80-99) L 78 FL (80-99) L Mean Corpuscular Hemoglobin 23.8 PG (27.0-31.0) L 24.0 PG (27.0-31.0) L Mean Corpuscular Hemoglobin Concent 30.5 G/DL (32.0-36.0) L 31.0 G/DL (32.0-36.0) L Red Cell Distribution Width 14.7 % (11.6-14.8) 14.7 % (11.6-14.8) Platelet Count 415 K/UL (150-450) 313 K/UL (150-450) Mean Platelet Volume 7.0 FL (6.5-10.1) 7.1 FL (6.5-10.1) Neutrophils (%) (Auto) 59.5 % (45.0-75.0) 49.6 % (45.0-75.0) Lymphocytes (%) (Auto) 30.8 % (20.0-45.0) 39.0 % (20.0-45.0) Monocytes (%) (Auto) 5.5 % (1.0-10.0) 7.3 % (1.0-10.0) Eosinophils (%) (Auto) 2.6 % (0.0-3.0) 3.2 % (0.0-3.0) H Basophils (%) (Auto) 1.6 % (0.0-2.0) 1.0 % (0.0-2.0) Sodium Level 139 MMOL/L (136-145) 139 MMOL/L (136-145) Potassium Level 4.6 MMOL/L (3.5-5.1) 3.3 MMOL/L (3.5-5.1) L Chloride Level 105 MMOL/L (98-107) 107 MMOL/L (98-107) Carbon Dioxide Level 20 MMOL/L (21-32) L 23 MMOL/L (21-32) Anion Gap 14 mmol/L (5-15) Blood Urea Nitrogen 16 mg/dL (7-18) 13 mg/dL (7-18) Creatinine 0.8 MG/DL (0.55-1.30) 0.9 MG/DL (0.55-1.30) Estimat Glomerular Filtration Rate > 60 mL/min (>60) > 60 mL/min (>60) Glucose Level 88 MG/DL (74-106) 93 MG/DL (74-106) Calcium Level 9.5 MG/DL (8.5-10.1) 8.3 MG/DL (8.5-10.1) L Total Bilirubin 0.4 MG/DL (0.2-1.0) 0.3 MG/DL (0.2-1.0) Aspartate Amino Transf (AST/SGOT) 33 U/L (15-37) 15 U/L (15-37) Alanine Aminotransferase (ALT/SGPT) 17 U/L (12-78) 14 U/L (12-78) Alkaline Phosphatase 113 U/L (46-116) 87 U/L (46-116) Total Protein 7.9 G/DL (6.4-8.2) 6.2 G/DL (6.4-8.2) L Albumin 3.9 G/DL (3.4-5.0) 3.0 G/DL (3.4-5.0) L Globulin 4.0 g/dL 3.2 g/dL Albumin/Globulin Ratio 1.0 (1.0-2.7) 0.9 (1.0-2.7) L Lipase 232 U/L (73-393) 161 U/L (73-393) Urine Color Pale yellow Urine Appearance Clear Urine pH 6 (4.5-8.0) Urine Specific [place] 1.015 (1.005-1.035) Urine Protein Negative (NEGATIVE) Urine Glucose (UA) Negative (NEGATIVE) Urine Ketones 1+ (NEGATIVE) H Urine Occult Blood 4+ (NEGATIVE) H Urine Nitrite Negative (NEGATIVE) Urine Bilirubin Negative (NEGATIVE) Urine Urobilinogen Normal MG/DL (0.0-1.0) Urine Leukocyte Esterase Negative (NEGATIVE) Urine RBC 5-10 /HPF (0 - 2) H Urine WBC 2-4 /HPF (0 - 2) Urine Squamous Epithelial Cells Moderate /LPF (NONE/OCC) H Urine Bacteria Few /HPF (NONE) Urine Yeast Few /HPF (NONE) H Activated Partial Thromboplast Time 27 SEC (23-33) Amylase Level 42 U/L (25-115) Microbiology Date/Time Source Procedure Growth Status 05/07/17 20:26 Urine,Clean Catch Urine Culture - Preliminary NO GROWTH Resulted Height (Feet): 5 Height (Inches): 10.00 Weight (Pounds): 182 Medications Current Medications Medications (Trade) Dose Ordered Sig/Robbie Route PRN Reason Start Time Stop Time Status Last Admin Dose Admin Acetaminophen (Tylenol) 650 mg Q4H PRN ORAL fever 05/07/17 21:45 06/06/17 21:44 Al Hydroxide/Mg Hydroxide (Mylanta II) 30 ml Q6H PRN ORAL dyspepsia 05/07/17 21:45 06/06/17 21:44 Amlodipine Besylate (Norvasc) 5 mg DAILY ORAL 05/08/17 09:00 06/07/17 08:59 Atenolol (Tenormin) 100 mg DAILY ORAL 05/08/17 09:00 06/07/17 08:59 Baclofen (Lioresal) 10 mg THREE TIMES A DAY ORAL 05/08/17 09:00 06/07/17 08:59 05/08/17 17:15 Dextrose (Dextrose 50%) STAT PRN IV Hypoglycemia 05/07/17 21:45 06/06/17 21:44 Dextrose/Sodium Chloride 1,000 ml @ 75 mls/hr [id number] IV 05/07/17 22:00 06/06/17 21:59 05/08/17 11:35 Diphenhydramine HCl (Benadryl) 25 mg Q6H PRN ORAL Itching/Pruritis 05/07/17 21:45 06/06/17 21:44 05/08/17 04:14 Gabapentin (Neurontin) 600 mg THREE TIMES A DAY ORAL 05/08/17 09:00 06/07/17 08:59 05/08/17 17:47 Heparin Sodium (Porcine) (Heparin 5000 units/ml) 5,000 units EVERY 12 HOURS SUBQ 05/08/17 09:00 06/07/17 08:59 05/08/17 09:19 Hydromorphone HCl (Dilaudid) 1 mg Q3H PRN IVP For Pain 05/07/17 22:30 05/14/17 22:29 05/08/17 17:15 Lorazepam (Ativan 2mg/ml 1ml) 1 mg Q4H PRN IV agitation 05/07/17 21:45 05/14/17 21:44 Lorazepam (Ativan) 1 mg BID ORAL 05/08/17 09:00 05/15/17 08:59 05/08/17 17:15 Metoclopramide HCl (Reglan) 10 mg Q6H PRN IVP servernick ela 05/07/17 21:45 06/06/17 21:44 05/08/17 17:14 Nitroglycerin (Ntg) 0.4 mg Q5M X 3 DOSES PRN SL Prn Chest Pain 05/07/17 21:45 06/06/17 21:44 Ondansetron HCl (Zofran) 4 mg Q6H PRN IVP Nausea & Vomiting 05/07/17 21:45 06/06/17 21:44 05/08/17 12:59 Pantoprazole (Protonix) 40 mg DAILY IV 05/08/17 09:00 06/07/17 08:59 05/08/17 09:16 Polyethylene Glycol (Miralax) 17 gm HSPRN PRN ORAL Constipation 05/07/17 21:45 06/06/17 21:44 Promethazine HCl (Phenergan) 25 mg Q8H PRN IV refractory nausea 05/07/17 21:45 06/06/17 21:44 Temazepam (Restoril) 15 mg HSPRN PRN ORAL Insomnia 05/07/17 21:45 05/14/17 21:44 05/08/17 00:03 Assessment/Plan Problem List: (1) Nausea & vomiting ICD Codes: R11.2 - Nausea with vomiting, unspecified SNOMED: 99860984 (2) Cyclical vomiting ICD Codes: G43.A0 - Cyclical vomiting, not intractable SNOMED: 31187448 (3) HTN (hypertension) ICD Codes: I10 - Essential (primary) hypertension SNOMED: 02030868 Assessment/Plan npo symptomatic treatment IV hydration GI evaluation SALBADOR MEYER May 08, 2017 17:57
--- NOTE | 2017-05-08 18:31 | Consultation ---
DATE OF CONSULTATION: 05/08/2017 INFECTIOUS DISEASE CONSULTATION CONSULTING PHYSICIAN: Bere Bruno M.D. REQUESTING PHYSICIAN: Amadou Decker D.O. REASON FOR CONSULTATION: Vaginal discharge with yeast infection, rule out other infectious etiology and sexually transmitted disease. Recommendation for antifungal treatment. HISTORY OF PRESENT ILLNESS: The patient is a 41-year-old female with past medical history significant for chlamydia vaginitis about 10 years ago and cyclic vomiting syndrome presented to [facility] with recurrent episode of nausea and vomiting due to her cyclic vomiting syndrome. The patient complained of abdominal pain 7/10 in the lower abdomen side with one episode of diarrhea, which resolved on its own. The patient tried to take Zofran or Reglan at home with not much improvement in her nausea and vomiting so she presented to the emergency room for IV hydration and further management. The patient had urinalysis which showed yeast in her urine. She also complained of white vaginal discharge with itching so I was consulted by the primary provider for antimicrobial treatment of her vaginal discharge and to rule out other sexually transmitted disease such as gonorrhea and chlamydia. PAST MEDICAL HISTORY: Significant for cyclic vomiting syndrome, hypertension, and chlamydia vaginitis. PAST SURGICAL HISTORY: Negative. ALLERGIES: No known drug allergy. MEDICATIONS: The patient was started on lorazepam, Phenergan, Reglan, Mylanta, nitroglycerin, Benadryl, Restoril, Zofran, Tylenol, Protonix, Dilaudid, Ativan, Tenormin, and Norvasc. FAMILY HISTORY: Not contributory. SOCIAL HISTORY: The patient is an unemployed. Denied using any recent drugs, tobacco, or alcohol. REVIEW OF SYSTEMS: A 14-point of system reviewed were all negative apart from the one I mentioned above in my H and P PHYSICAL EXAMINATION: VITAL SIGNS: Temperature 97.5, pulse 52, blood pressure 117/74, and pulse oximetry 100% on room air. GENERAL: The patient is a middle-aged female, up in bed, awake, alert, oriented, not in acute distress. HEENT: Normocephalic and atraumatic. Pupils are reactive to light. Moist oral mucosa. No exudate. NECK: Supple. No lymphadenopathy. CARDIOVASCULAR: Regular rate and rhythm. No murmur or gallop. LUNGS: Clear bilaterally. No wheezing or rhonchi. ABDOMEN: Soft, nontender, and nondistended. Positive bowel sounds. No hepatosplenomegaly or ascites. EXTREMITIES: No edema or cyanosis. GENITOURINARY: The patient had whitish vaginal discharge. No foul smelling. No odor. No genital ulcer or lesion. LABORATORY DATA: Showed white count of 8.6, hemoglobin of 9.9, hematocrit of 32, and platelet count of 313. BUN of 13 and creatinine of 0.9. AST of 15 and ALT of 14. Urinalysis showed negative leukocyte esterase, moderate amount of squamous cell, and few yeast. MICROBIOLOGY: Urine culture so far pending. IMAGING: Abdominal ultrasound showed prior cholecystectomy and mild ectactic common bile duct probably related to prior cholecystectomy although increasing caliber from prior study does raise the possibility of downstream obstruction. ASSESSMENT AND RECOMMENDATION: 1. Vaginal discharge suspect due to yeast vaginitis. We will treat empirically with one dose of fluconazole and screen for other sexually transmitted disease such as chlamydia and gonorrhea. 2. Yeast infection with whitish vaginal discharge. We will treat with one dose of fluconazole and screen for chlamydia and gonorrhea. We will send serology for syphilis too. 3. Cyclic vomiting syndrome with dehydration and poor oral intake. Continue intravenous fluid for hydration. Monitor electrolytes. Gastrointestinal is following. Thank you for the consult. Bere Bruno M.D. DR: OSCAR JOB#: [id number] CC:
[2017-05-08 20:00] VITALS: BP 129/77
[2017-05-08] MEDS ORDERED: Tubing IV Secondary IV ONE (21:35)
[2017-05-08] MEDS ORDERED: D5 1/2NS 1000ml IV ONE (21:35)
[2017-05-09] VITALS: BP 126/78
[2017-05-09] MEDS: HYDROmorphone 1mg/ml Carpuject IVP PRN ×5 (03:36→17:08)
[2017-05-09 04:00] VITALS: BP 118/86
[2017-05-09 07:10] LABS: EOSINOPHILS % (AUTO) 5.8 % (0.0-3.0); HEMATOCRIT 34.5 % (37.0-47.0); HEMOGLOBIN 10.5 G/DL (12.0-16.0); LYMPHOCYTES % (AUTO) 38.3 % (20.0-45.0); MEAN CORPUSCULAR VOLUME 79 FL (80-99); MONOCYTES % (AUTO) 9.8 % (1.0-10.0); NEUTROPHILS % (AUTO) 45.1 % (45.0-75.0); PLATELET COUNT 353 K/UL (150-450); RED BLOOD COUNT 4.39 M/UL (4.20-5.40); RED CELL DISTRIBUTION WIDTH 14.7 % (11.6-14.8); WHITE BLOOD COUNT 6.4 K/UL (4.8-10.8)
[2017-05-09 07:25] LABS: ANION GAP 8 mmol/L (5-15); BLOOD UREA NITROGEN 7 mg/dL (7-18); CALCIUM 8.8 MG/DL (8.5-10.1); CARBON DIOXIDE 26 MMOL/L (21-32); CHLORIDE 108 MMOL/L (98-107); CREATININE 0.9 MG/DL (0.55-1.30); FERRITIN 38 NG/ML (8-388); POTASSIUM 3.5 MMOL/L (3.5-5.1); SODIUM 142 MMOL/L (136-145)
[2017-05-09 08:00] VITALS: BP 118/42
[2017-05-09 08:02] LABS: % IRON SATURATION 45 % (15-50); IRON 94 ug/dL (50-175); TOTAL IRON BINDING CAPACITY 210 ug/dL (250-450)
--- NOTE | 2017-05-09 08:22 | Pulmonology Progress Note ---
Assessment/Plan Assessment/Plan ASSESSMENT Abdominal pain nausea with vomiting cyclic vomiting syndrome opiate dependency dehydration anemia vaginitis with yeast HTN PLAN OF CARE MS floor IVF GI follows abdominal US noted stable LFT, lipase symptomatic treatment a/emetic prn per GI Zofran for prn and Reglan for persistent vomiting Last CT A/P on previous admission unremarkable diet advanced as per GI, monitor tolerance and advance further as tolerated GI prophylaxis, monitor HH, check iron panel ID follows, s/p 1 dose of Fluconazole check CG- pending BP management Limit opioid use from today dc plan for am Subjective Allergies: Coded Allergies: No Known Allergies (Unverified , 05/08/14) Subjective reports nausea, vomiting, abdominal pain not tolerated diet no fever, no leukocytosis Objective Last 24 Hour Vital Signs Date Time Temp Pulse Resp B/P (MAP) Pulse Ox O2 Delivery O2 Flow Rate FiO2 05/09/17 04:00 97.9 58 20 118/86 100 Room Air 05/09/17 00:00 97.9 49 20 126/78 98 Room Air 05/08/17 20:00 97.5 50 20 129/77 100 Room Air 05/08/17 17:45 98.2 05/08/17 16:00 98.2 58 18 131/77 100 Room Air 05/08/17 12:00 97.6 58 18 128/76 99 Room Air 05/08/17 09:00 52 117/74 05/08/17 09:00 52 117/74 General Appearance: WD/WN, no acute distress, other - A/A/O x 4 obese AA female HEENT: normocephalic, atraumatic, anicteric, mucous membranes moist, PERRL Respiratory/Chest: lungs clear, no respiratory distress, no accessory muscle use Cardiovascular: normal peripheral pulses, normal rate, regular rhythm, no JVD Abdomen: normal bowel sounds, soft, non tender - obese Genitourinary: normal external genitalia Skin: no rash 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: 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 insurance specialist II-XII grossly normal, no motor/sensory deficits, alert, oriented x 3, responsive Musculoskeletal: normal muscle bulk Microbiology Date/Time Source Procedure Growth Status 05/07/17 20:26 Urine,Clean Catch Urine Culture - Preliminary Mixed Gram Positive Organism Resulted Laboratory Tests 05/09/17 06:05: White Blood Count 6.4, Red Blood Count 4.39, Hemoglobin 10.5L, Hematocrit 34.5L , Mean Corpuscular Volume 79L, Mean Corpuscular Hemoglobin 23.9L, Mean Corpuscular Hemoglobin Concent 30.3L, Red Cell Distribution Width 14.7, Platelet Count 353, Mean Platelet Volume 6.8, Neutrophils (%) (Auto) 45.1, Lymphocytes (%) (Auto) 38.3, Monocytes (%) (Auto) 9.8, Eosinophils (%) (Auto) 5.8H, Basophils (%) (Auto) 1.0, Reticulocyte Count [Pending], Prothrombin Time 10.6, Prothromb Time International Ratio 1.0, Activated Partial Thromboplast Time 26, Sodium Level 142, Potassium Level 3.5, Chloride Level 108H, Carbon Dioxide Level 26, Anion Gap 8, Blood Urea Nitrogen 7, Creatinine 0.9, Estimat Glomerular Filtration Rate > 60, Glucose Level 99, Calcium Level 8.8, Iron Level 94, Total Iron Binding Capacity 210L, Percent Iron Saturation 45, Unsaturated Iron Binding 116, Ferritin 38, Vitamin B12 Level 495, Folate > 20.0H , Thyroid Stimulating Hormone (TSH) 0.637, Free Thyroxine 1.08 Current Medications Medications (Trade) Dose Ordered Sig/Robbie Route PRN Reason Start Time Stop Time Status Last Admin Dose Admin Acetaminophen (Tylenol) 650 mg Q4H PRN ORAL fever 05/07/17 21:45 06/06/17 21:44 Al Hydroxide/Mg Hydroxide (Mylanta II) 30 ml Q6H PRN ORAL dyspepsia 05/07/17 21:45 06/06/17 21:44 Amlodipine Besylate (Norvasc) 5 mg DAILY ORAL 05/08/17 09:00 06/07/17 08:59 Atenolol (Tenormin) 100 mg DAILY ORAL 05/08/17 09:00 06/07/17 08:59 Baclofen (Lioresal) 10 mg THREE TIMES A DAY ORAL 05/08/17 09:00 06/07/17 08:59 05/08/17 17:15 Dextrose (Dextrose 50%) STAT PRN IV Hypoglycemia 05/07/17 21:45 06/06/17 21:44 Dextrose/Sodium Chloride 1,000 ml @ 75 mls/hr [id number] IV 05/07/17 22:00 06/06/17 21:59 05/08/17 23:42 Diphenhydramine HCl (Benadryl) 25 mg Q6H PRN ORAL Itching/Pruritis 05/07/17 21:45 06/06/17 21:44 05/08/17 04:14 Gabapentin (Neurontin) 600 mg THREE TIMES A DAY ORAL 05/08/17 09:00 06/07/17 08:59 05/08/17 17:47 Heparin Sodium (Porcine) (Heparin 5000 units/ml) 5,000 units EVERY 12 HOURS SUBQ 05/08/17 09:00 06/07/17 08:59 05/08/17 20:37 Hydromorphone HCl (Dilaudid) 1 mg Q3H PRN IVP For Pain 05/07/17 22:30 05/14/17 22:29 05/09/17 03:36 Lorazepam (Ativan 2mg/ml 1ml) 1 mg Q4H PRN IV agitation 05/07/17 21:45 05/14/17 21:44 Lorazepam (Ativan) 1 mg BID ORAL 05/08/17 09:00 05/15/17 08:59 05/08/17 17:15 Metoclopramide HCl (Reglan) 10 mg Q6H PRN IVP servere nauasea 05/07/17 21:45 06/06/17 21:44 05/08/17 17:14 Nitroglycerin (Ntg) 0.4 mg Q5M X 3 DOSES PRN SL Prn Chest Pain 05/07/17 21:45 06/06/17 21:44 Ondansetron HCl (Zofran) 4 mg Q6H PRN IVP Nausea & Vomiting 05/07/17 21:45 06/06/17 21:44 05/08/17 23:49 Pantoprazole (Protonix) 40 mg DAILY IV 05/08/17 09:00 06/07/17 08:59 05/08/17 09:16 Polyethylene Glycol (Miralax) 17 gm HSPRN PRN ORAL Constipation 05/07/17 21:45 06/06/17 21:44 Promethazine HCl (Phenergan) 25 mg Q8H PRN IV refractory nausea 05/07/17 21:45 06/06/17 21:44 Temazepam (Restoril) 15 mg HSPRN PRN ORAL Insomnia 05/07/17 21:45 05/14/17 21:44 05/08/17 23:54 Pranay ([facility])Liz NP May 09, 2017 08:22
[2017-05-09] MEDS: LORazepam 1mg tab ORAL SCH (10:41)
[2017-05-09] MEDS: Pantoprazole Inj IV SCH (10:44)
[2017-05-09] MEDS: Heparin 5000 units/ml inj SUBQ SCH (10:48)
--- NOTE | 2017-05-09 11:46 | GI Progress Note ---
Assessment/Plan Problems: (1) Nausea & vomiting ICD Codes: R11.2 - Nausea with vomiting, unspecified SNOMED: 42130250 (2) Abdominal pain ICD Codes: R10.9 - Unspecified abdominal pain SNOMED: 88860383 (3) Vomiting ICD Codes: R11.10 - Vomiting, unspecified SNOMED: 021239596 (4) Opiate dependence ICD Codes: F11.20 - Opioid dependence, uncomplicated SNOMED: 82436186 (5) Dehydration ICD Codes: E86.0 - Dehydration SNOMED: 16675705 (6) Cyclical vomiting ICD Codes: G43.A0 - Cyclical vomiting, not intractable SNOMED: 93516587 Status: stable Status Narrative Discussed with Dr. Kim. Assessment/Plan APCT (06/15/16) - Uterine fibroid. Post cholecystectomy. Small hiatal hernia lipase WNL hepatitis panel negative s/p EGD/colonoscopy 11/2016>> gastritis, colon polyp microcytic hypochromic anemia abdominal U/S >> Prior cholecystectomy. Mildly ectatic common bile duct, probably related to prior cholecystectomy. okay for DC per GI standpoint symptomatic treatment zofran prn, reglan for persistent vomiting adv diet pain mgmt, transition IV --> PO electrolyte replacement ppi abx fu labs Subjective Subjective emesis resolved abdominal pain still present Objective Last 24 Hour Vital Signs Date Time Temp Pulse Resp B/P (MAP) Pulse Ox O2 Delivery O2 Flow Rate FiO2 05/09/17 10:42 58 118/42 05/09/17 10:42 58 118/42 05/09/17 08:00 97.9 58 20 118/42 100 Room Air 05/09/17 04:00 97.9 58 20 118/86 100 Room Air 05/09/17 00:00 97.9 49 20 126/78 98 Room Air 05/08/17 20:00 97.5 50 20 129/77 100 Room Air 05/08/17 17:45 98.2 05/08/17 16:00 98.2 58 18 131/77 100 Room Air 05/08/17 12:00 97.6 58 18 128/76 99 Room Air Laboratory Tests Test 05/09/17 06:05 White Blood Count 6.4 K/UL (4.8-10.8) Red Blood Count 4.39 M/UL (4.20-5.40) Hemoglobin 10.5 G/DL (12.0-16.0) L Hematocrit 34.5 % (37.0-47.0) L Mean Corpuscular Volume 79 FL (80-99) L Mean Corpuscular Hemoglobin 23.9 PG (27.0-31.0) L Mean Corpuscular Hemoglobin Concent 30.3 G/DL (32.0-36.0) L Red Cell Distribution Width 14.7 % (11.6-14.8) Platelet Count 353 K/UL (150-450) Mean Platelet Volume 6.8 FL (6.5-10.1) Neutrophils (%) (Auto) 45.1 % (45.0-75.0) Lymphocytes (%) (Auto) 38.3 % (20.0-45.0) Monocytes (%) (Auto) 9.8 % (1.0-10.0) Eosinophils (%) (Auto) 5.8 % (0.0-3.0) H Basophils (%) (Auto) 1.0 % (0.0-2.0) Reticulocyte Count 2.3 % (0.0-2.0) H Prothrombin Time 10.6 SEC (9.30-11.50) Prothromb Time International Ratio 1.0 (0.9-1.1) Activated Partial Thromboplast Time 26 SEC (23-33) Sodium Level 142 MMOL/L (136-145) Potassium Level 3.5 MMOL/L (3.5-5.1) Chloride Level 108 MMOL/L (98-107) H Carbon Dioxide Level 26 MMOL/L (21-32) Anion Gap 8 mmol/L (5-15) Blood Urea Nitrogen 7 mg/dL (7-18) Creatinine 0.9 MG/DL (0.55-1.30) Estimat Glomerular Filtration Rate > 60 mL/min (>60) Glucose Level 99 MG/DL (74-106) Calcium Level 8.8 MG/DL (8.5-10.1) Iron Level 94 ug/dL (50-175) Total Iron Binding Capacity 210 ug/dL (250-450) L Percent Iron Saturation 45 % (15-50) Unsaturated Iron Binding 116 ug/dL (112-346) Ferritin 38 NG/ML (8-388) Vitamin B12 Level 495 PG/ML (193-986) Folate > 20.0 NG/ML (3.1-17.5) H Thyroid Stimulating Hormone (TSH) 0.637 uiU/mL (0.360-3.740) Free Thyroxine 1.08 NG/DL (0.10-1.46) Microbiology Date/Time Source Procedure Growth Status 05/08/17 17:27 Vaginal Gram Stain Pending Resulted 05/08/17 17:27 Vaginal Neisseria gonorrhoeae Culture - Preliminary NO GROWTH AFTER 24 HOURS Resulted Height (Feet): 5 Height (Inches): 10.00 Weight (Pounds): 182 General Appearance: WD/WN, no apparent distress, alert, overweight Cardiovascular: normal rate Respiratory/Chest: normal breath sounds, no respiratory distress Abdominal Exam: normal bowel sounds, non tender, soft Extremities: normal range of motion, non-tender Katie Dill N.P. May 09, 2017 11:46
--- NOTE | 2017-05-09 11:46 | GI Progress Note ---
Assessment/Plan Problems: (1) Nausea & vomiting ICD Codes: R11.2 - Nausea with vomiting, unspecified SNOMED: 04909320 (2) Abdominal pain ICD Codes: R10.9 - Unspecified abdominal pain SNOMED: 67223374 (3) Vomiting ICD Codes: R11.10 - Vomiting, unspecified SNOMED: 055670738 (4) Opiate dependence ICD Codes: F11.20 - Opioid dependence, uncomplicated SNOMED: 08774644 (5) Dehydration ICD Codes: E86.0 - Dehydration SNOMED: 27875599 (6) Cyclical vomiting ICD Codes: G43.A0 - Cyclical vomiting, not intractable SNOMED: 09441714 Status: stable Status Narrative Discussed with Dr. Kim. Assessment/Plan APCT (06/15/16) - Uterine fibroid. Post cholecystectomy. Small hiatal hernia lipase WNL hepatitis panel negative s/p EGD/colonoscopy 11/2016>> gastritis, colon polyp microcytic hypochromic anemia abdominal U/S >> Prior cholecystectomy. Mildly ectatic common bile duct, probably related to prior cholecystectomy. okay for DC per GI standpoint symptomatic treatment zofran prn, reglan for persistent vomiting adv diet pain mgmt, transition IV --> PO electrolyte replacement ppi abx fu labs Subjective Subjective emesis resolved abdominal pain still present Objective Last 24 Hour Vital Signs Date Time Temp Pulse Resp B/P (MAP) Pulse Ox O2 Delivery O2 Flow Rate FiO2 05/09/17 10:42 58 118/42 05/09/17 10:42 58 118/42 05/09/17 08:00 97.9 58 20 118/42 100 Room Air 05/09/17 04:00 97.9 58 20 118/86 100 Room Air 05/09/17 00:00 97.9 49 20 126/78 98 Room Air 05/08/17 20:00 97.5 50 20 129/77 100 Room Air 05/08/17 17:45 98.2 05/08/17 16:00 98.2 58 18 131/77 100 Room Air 05/08/17 12:00 97.6 58 18 128/76 99 Room Air Laboratory Tests Test 05/09/17 06:05 White Blood Count 6.4 K/UL (4.8-10.8) Red Blood Count 4.39 M/UL (4.20-5.40) Hemoglobin 10.5 G/DL (12.0-16.0) L Hematocrit 34.5 % (37.0-47.0) L Mean Corpuscular Volume 79 FL (80-99) L Mean Corpuscular Hemoglobin 23.9 PG (27.0-31.0) L Mean Corpuscular Hemoglobin Concent 30.3 G/DL (32.0-36.0) L Red Cell Distribution Width 14.7 % (11.6-14.8) Platelet Count 353 K/UL (150-450) Mean Platelet Volume 6.8 FL (6.5-10.1) Neutrophils (%) (Auto) 45.1 % (45.0-75.0) Lymphocytes (%) (Auto) 38.3 % (20.0-45.0) Monocytes (%) (Auto) 9.8 % (1.0-10.0) Eosinophils (%) (Auto) 5.8 % (0.0-3.0) H Basophils (%) (Auto) 1.0 % (0.0-2.0) Reticulocyte Count 2.3 % (0.0-2.0) H Prothrombin Time 10.6 SEC (9.30-11.50) Prothromb Time International Ratio 1.0 (0.9-1.1) Activated Partial Thromboplast Time 26 SEC (23-33) Sodium Level 142 MMOL/L (136-145) Potassium Level 3.5 MMOL/L (3.5-5.1) Chloride Level 108 MMOL/L (98-107) H Carbon Dioxide Level 26 MMOL/L (21-32) Anion Gap 8 mmol/L (5-15) Blood Urea Nitrogen 7 mg/dL (7-18) Creatinine 0.9 MG/DL (0.55-1.30) Estimat Glomerular Filtration Rate > 60 mL/min (>60) Glucose Level 99 MG/DL (74-106) Calcium Level 8.8 MG/DL (8.5-10.1) Iron Level 94 ug/dL (50-175) Total Iron Binding Capacity 210 ug/dL (250-450) L Percent Iron Saturation 45 % (15-50) Unsaturated Iron Binding 116 ug/dL (112-346) Ferritin 38 NG/ML (8-388) Vitamin B12 Level 495 PG/ML (193-986) Folate > 20.0 NG/ML (3.1-17.5) H Thyroid Stimulating Hormone (TSH) 0.637 uiU/mL (0.360-3.740) Free Thyroxine 1.08 NG/DL (0.10-1.46) Microbiology Date/Time Source Procedure Growth Status 05/08/17 17:27 Vaginal Gram Stain Pending Resulted 05/08/17 17:27 Vaginal Neisseria gonorrhoeae Culture - Preliminary NO GROWTH AFTER 24 HOURS Resulted Height (Feet): 5 Height (Inches): 10.00 Weight (Pounds): 182 General Appearance: WD/WN, no apparent distress, alert, overweight Cardiovascular: normal rate Respiratory/Chest: normal breath sounds, no respiratory distress Abdominal Exam: normal bowel sounds, non tender, soft Extremities: normal range of motion, non-tender Katie Dill N.P. May 09, 2017 11:46
--- NOTE | 2017-05-09 11:46 | GI Progress Note ---
Assessment/Plan Problems: (1) Nausea & vomiting ICD Codes: R11.2 - Nausea with vomiting, unspecified SNOMED: 13567053 (2) Abdominal pain ICD Codes: R10.9 - Unspecified abdominal pain SNOMED: 73592271 (3) Vomiting ICD Codes: R11.10 - Vomiting, unspecified SNOMED: 600350097 (4) Opiate dependence ICD Codes: F11.20 - Opioid dependence, uncomplicated SNOMED: 42447920 (5) Dehydration ICD Codes: E86.0 - Dehydration SNOMED: 54026001 (6) Cyclical vomiting ICD Codes: G43.A0 - Cyclical vomiting, not intractable SNOMED: 91026784 Status: stable Status Narrative Discussed with Dr. Kim. Assessment/Plan APCT (06/15/16) - Uterine fibroid. Post cholecystectomy. Small hiatal hernia lipase WNL hepatitis panel negative s/p EGD/colonoscopy 11/2016>> gastritis, colon polyp microcytic hypochromic anemia abdominal U/S >> Prior cholecystectomy. Mildly ectatic common bile duct, probably related to prior cholecystectomy. okay for DC per GI standpoint symptomatic treatment zofran prn, reglan for persistent vomiting adv diet pain mgmt, transition IV --> PO electrolyte replacement ppi abx fu labs Subjective Subjective emesis resolved abdominal pain still present Objective Last 24 Hour Vital Signs Date Time Temp Pulse Resp B/P (MAP) Pulse Ox O2 Delivery O2 Flow Rate FiO2 05/09/17 10:42 58 118/42 05/09/17 10:42 58 118/42 05/09/17 08:00 97.9 58 20 118/42 100 Room Air 05/09/17 04:00 97.9 58 20 118/86 100 Room Air 05/09/17 00:00 97.9 49 20 126/78 98 Room Air 05/08/17 20:00 97.5 50 20 129/77 100 Room Air 05/08/17 17:45 98.2 05/08/17 16:00 98.2 58 18 131/77 100 Room Air 05/08/17 12:00 97.6 58 18 128/76 99 Room Air Laboratory Tests Test 05/09/17 06:05 White Blood Count 6.4 K/UL (4.8-10.8) Red Blood Count 4.39 M/UL (4.20-5.40) Hemoglobin 10.5 G/DL (12.0-16.0) L Hematocrit 34.5 % (37.0-47.0) L Mean Corpuscular Volume 79 FL (80-99) L Mean Corpuscular Hemoglobin 23.9 PG (27.0-31.0) L Mean Corpuscular Hemoglobin Concent 30.3 G/DL (32.0-36.0) L Red Cell Distribution Width 14.7 % (11.6-14.8) Platelet Count 353 K/UL (150-450) Mean Platelet Volume 6.8 FL (6.5-10.1) Neutrophils (%) (Auto) 45.1 % (45.0-75.0) Lymphocytes (%) (Auto) 38.3 % (20.0-45.0) Monocytes (%) (Auto) 9.8 % (1.0-10.0) Eosinophils (%) (Auto) 5.8 % (0.0-3.0) H Basophils (%) (Auto) 1.0 % (0.0-2.0) Reticulocyte Count 2.3 % (0.0-2.0) H Prothrombin Time 10.6 SEC (9.30-11.50) Prothromb Time International Ratio 1.0 (0.9-1.1) Activated Partial Thromboplast Time 26 SEC (23-33) Sodium Level 142 MMOL/L (136-145) Potassium Level 3.5 MMOL/L (3.5-5.1) Chloride Level 108 MMOL/L (98-107) H Carbon Dioxide Level 26 MMOL/L (21-32) Anion Gap 8 mmol/L (5-15) Blood Urea Nitrogen 7 mg/dL (7-18) Creatinine 0.9 MG/DL (0.55-1.30) Estimat Glomerular Filtration Rate > 60 mL/min (>60) Glucose Level 99 MG/DL (74-106) Calcium Level 8.8 MG/DL (8.5-10.1) Iron Level 94 ug/dL (50-175) Total Iron Binding Capacity 210 ug/dL (250-450) L Percent Iron Saturation 45 % (15-50) Unsaturated Iron Binding 116 ug/dL (112-346) Ferritin 38 NG/ML (8-388) Vitamin B12 Level 495 PG/ML (193-986) Folate > 20.0 NG/ML (3.1-17.5) H Thyroid Stimulating Hormone (TSH) 0.637 uiU/mL (0.360-3.740) Free Thyroxine 1.08 NG/DL (0.10-1.46) Microbiology Date/Time Source Procedure Growth Status 05/08/17 17:27 Vaginal Gram Stain Pending Resulted 05/08/17 17:27 Vaginal Neisseria gonorrhoeae Culture - Preliminary NO GROWTH AFTER 24 HOURS Resulted Height (Feet): 5 Height (Inches): 10.00 Weight (Pounds): 182 General Appearance: WD/WN, no apparent distress, alert, overweight Cardiovascular: normal rate Respiratory/Chest: normal breath sounds, no respiratory distress Abdominal Exam: normal bowel sounds, non tender, soft Extremities: normal range of motion, non-tender Katie Dill N.P. May 09, 2017 11:46
[2017-05-09 12:00] VITALS: BP 126/80
[2017-05-09] MEDS: Metoclopramide 10mg/2ml Inj IVP PRN (14:29)
[2017-05-09] MEDS: D5 1/2NS 1,000 ML IV SCH (14:30)
[2017-05-09] MEDS ORDERED: D5 1/2NS 1000ml IV ONE (14:51)
[2017-05-09 15:22] VITALS: BP 120/80
--- NOTE | 2017-05-09 17:38 | Infectious Diseases Prog Note ---
Assessment/Plan Problems: (1) Vaginal discharge Assessment & Plan: suspect due to yeast vaginitis, screen for chlamydia and gonorrhea is pending , was treated for yeast vaginitis with fluconazole 150 mg po x1 (2) Yeast infection Assessment & Plan: with whitish vaginal discharge, was treated with one dose of fluconazol and screen for Chlamydia, and gonorrhea is pending Subjective Constitutional: Reports: no symptoms HEENT: Reports: no symptoms Respiratory: Reports: no symptoms Breasts: Reports: no symptoms Cardiovascular: Reports: no symptoms Gastrointestinal/Abdominal: Reports: no symptoms Genitourinary: Reports: no symptoms Neurologic: Reports: no symptoms Psychiatric: Reports: no symptoms Skin: Reports: no symptoms Endocrine: Reports: no symptoms Hematologic: Reports: no symptoms Allergies: Coded Allergies: No Known Allergies (Unverified , 05/08/14) Objective Vital Signs Last 24 Hour Vital Signs Date Time Temp Pulse Resp B/P (MAP) Pulse Ox O2 Delivery O2 Flow Rate FiO2 05/09/17 15:22 98.4 53 19 120/80 99 Room Air 05/09/17 12:00 97.7 50 17 126/80 100 Room Air 05/09/17 10:42 58 118/42 05/09/17 10:42 58 118/42 05/09/17 08:00 97.9 58 20 118/42 100 Room Air 05/09/17 04:00 97.9 58 20 118/86 100 Room Air 05/09/17 00:00 97.9 49 20 126/78 98 Room Air 05/08/17 20:00 97.5 50 20 129/77 100 Room Air 05/08/17 17:45 98.2 Height (Feet): 5 Height (Inches): 10.00 Weight (Pounds): 182 General Appearance: WD/WN, no acute distress HEENT: normocephalic, atraumatic, anicteric, mucous membranes moist, PERRL, EOMI, pharynx normal, supple, no JVD Respiratory/Chest: chest wall non-tender, lungs clear, normal breath sounds, no respiratory distress, no accessory muscle use Cardiovascular: normal peripheral pulses, normal rate, regular rhythm, no gallop/murmur, no JVD Abdomen: normal bowel sounds, soft, non tender, no organomegaly, non distended , no mass, no scars Extremities: no cyanosis, no clubbing Skin: no rash, no lesions, no ulcers 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: alert, oriented x 3 Microbiology Date/Time Source Procedure Growth Status 05/08/17 17:27 Vaginal Gram Stain - Final Resulted 05/08/17 17:27 Vaginal Neisseria gonorrhoeae Culture - Preliminary NO GROWTH AFTER 24 HOURS Resulted 05/07/17 20:26 Urine,Clean Catch Urine Culture - Preliminary Mixed Gram Positive Organism Resulted Laboratory Tests Test 05/09/17 06:05 White Blood Count 6.4 K/UL (4.8-10.8) Red Blood Count 4.39 M/UL (4.20-5.40) Hemoglobin 10.5 G/DL (12.0-16.0) L Hematocrit 34.5 % (37.0-47.0) L Mean Corpuscular Volume 79 FL (80-99) L Mean Corpuscular Hemoglobin 23.9 PG (27.0-31.0) L Mean Corpuscular Hemoglobin Concent 30.3 G/DL (32.0-36.0) L Red Cell Distribution Width 14.7 % (11.6-14.8) Platelet Count 353 K/UL (150-450) Mean Platelet Volume 6.8 FL (6.5-10.1) Neutrophils (%) (Auto) 45.1 % (45.0-75.0) Lymphocytes (%) (Auto) 38.3 % (20.0-45.0) Monocytes (%) (Auto) 9.8 % (1.0-10.0) Eosinophils (%) (Auto) 5.8 % (0.0-3.0) H Basophils (%) (Auto) 1.0 % (0.0-2.0) Reticulocyte Count 2.3 % (0.0-2.0) H Prothrombin Time 10.6 SEC (9.30-11.50) Prothromb Time International Ratio 1.0 (0.9-1.1) Activated Partial Thromboplast Time 26 SEC (23-33) Sodium Level 142 MMOL/L (136-145) Potassium Level 3.5 MMOL/L (3.5-5.1) Chloride Level 108 MMOL/L (98-107) H Carbon Dioxide Level 26 MMOL/L (21-32) Anion Gap 8 mmol/L (5-15) Blood Urea Nitrogen 7 mg/dL (7-18) Creatinine 0.9 MG/DL (0.55-1.30) Estimat Glomerular Filtration Rate > 60 mL/min (>60) Glucose Level 99 MG/DL (74-106) Calcium Level 8.8 MG/DL (8.5-10.1) Iron Level 94 ug/dL (50-175) Total Iron Binding Capacity 210 ug/dL (250-450) L Percent Iron Saturation 45 % (15-50) Unsaturated Iron Binding 116 ug/dL (112-346) Ferritin 38 NG/ML (8-388) Vitamin B12 Level 495 PG/ML (193-986) Folate > 20.0 NG/ML (3.1-17.5) H Thyroid Stimulating Hormone (TSH) 0.637 uiU/mL (0.360-3.740) Free Thyroxine 1.08 NG/DL (0.10-1.46) Bere Bruno M.D. May 09, 2017 17:38
--- NOTE | 2017-05-12 08:45 | History and Physical Report ---
DATE OF ADMISSION: 05/07/2017 I am covering for Dr. Amadou Decker. HISTORY OF PRESENT ILLNESS: The patient has been admitted for another intractable/cyclical vomiting syndrome. The patient has been vomiting persistently. Has also complained of pain all over. Has diarrhea. Denies rectal bleeding. Denies blood in the stool. Denies shortness of breath. Denies fever or chills. PAST MEDICAL HISTORY: Significant for cyclical vomiting, history of chronic pain syndrome, anxiety, gastroparesis, GERD, migraine headache, insomnia, history of pancreatitis, and hypertension. PAST SURGICAL HISTORY: Cholecystectomy. MEDICATIONS: Baclofen, gabapentin, hydromorphone, lorazepam, and Zolpidem and some of these medications are p.r.n. SOCIAL HISTORY: The patient has a history of smoking. Denies history of alcohol or illicit drugs. FAMILY HISTORY: Noncontributory. REVIEW OF SYSTEMS: HEENT: Denies headaches. RESPIRATORY: Denies shortness of breath. Denies cough. CARDIOVASCULAR: Denies chest pain. Denies orthopnea. GASTROINTESTINAL: Reports abdominal pain. Reports pain all over and vomiting, especially in the past couple of days and also reports diarrhea. Denies heartburn. EXTREMITIES: Does have pain all over. CENTRAL NERVOUS SYSTEM: No change in vision or speech pattern. PHYSICAL EXAMINATION: VITAL SIGNS: Temperature is 99.5, pulse is 50, and blood pressure 129/77. HEENT: PERRLA. NECK: Supple. No lymphadenopathy. CHEST: Clear to auscultation. CARDIOVASCULAR: Regular rate and rhythm. GASTROINTESTINAL: Soft. Epigastric tenderness. No rebound. Positive bowel sounds. EXTREMITIES: No edema. Reflexes are equal on both sides. Moves all four extremities. NEUROLOGIC: Strength, motor 5/5 in all extremities. Blunt affect. LABORATORY STUDIES: WBC of 9.1, hemoglobin 12.4, and platelets 415. Sodium 139, potassium 4.6, BUN of 16, and creatinine 0.8. ASSESSMENT AND PLAN: 1. Cyclical intractable vomiting. 2. I have asked Dr. Kim to see the patient for that reason. treatment plan and plan of care already discussed with him. Uli Samayoa M.D. DR: ANA JOB#: [id number] CC:
--- NOTE | 2017-05-12 10:45 | Discharge Summary ---
Discharge Summary Hospital Course Date of Admission May 07, 2017 at 20:38 Date of Discharge May 09, 2017 at 17:22 Admitting Diagnosis PERSISTANT VOMITING, DEHYDRATION HPI Jailyn Avelar is a 41 year old female who was admitted on May 07, 2017 at 20:38 for Persistant Vomiting, Dehydration Hospital Course dc summary [id number] Discharge Medications Continued Medications: Amlodipine Besylate* (Amlodipine Besylate*) 5 Mg Tablet 5 MG ORAL DAILY Atenolol* (Tenormin*) 100 Mg Tablet 100 MG ORAL DAILY, TAB Baclofen* (Baclofen*) 10 Mg Tablet 10 MG ORAL TID, TAB Baclofen* (Baclofen*) 10 Mg Tablet 10 MG ORAL THREE TIMES A DAY Gabapentin* (Gabapentin*) 600 Mg Tablet 600 MG ORAL THREE TIMES A DAY Hydromorphone HCl (Dilaudid) 4 Mg Tablet 4 MG ORAL Q8H Lorazepam* (Lorazepam*) 1 Mg Tablet 1 MG ORAL BID, TAB Metoclopramide Hcl* (Reglan*) 5 Mg Tablet 5 MG ORAL EVERY 6 HOURS, TAB Multivitamins* (Multivitamins*) 1 Each Tablet 1 TAB ORAL DAILY Omeprazole (Omeprazole) 20 Mg Capsule.dr 20 MG ORAL DAILY Ondansetron Odt* (Zofran Odt*) 4 Mg Tab.rapdis 4 MG ORAL TID Sumatriptan Succinate* (Imitrex*) 50 Mg Tablet 100 MG ORAL DAILY PRN for For Headache Zolpidem Tartrate* (Zolpidem Tartrate*) 5 Mg Tablet 5 MG ORAL BEDTIME Discharge Condition Upon Discharge: stable Discharge Disposition Patient was discharged to Home (01) Discharge Diagnoses: Pranay (Yan)Liz NP May 12, 2017 10:45
--- NOTE | 2017-05-13 02:45 | Discharge Summary 2 SIG ---
DATE OF ADMISSION: 05/07/2017 DATE OF DISCHARGE: 05/09/2017 REASON FOR ADMISSION: 41-year-old female with history of cyclic vomiting syndrome, presented with complaint of mid lower abdominal pain. She was recently hospitalized for nausea, vomiting, abdominal pain. All workup was essentially unremarkable . At that time patient was diagnosed with cyclic vomiting syndrome. She denied any fever and chills. She denied any recent travel or trauma. Vital signs were stable. No leukocytosis. Stable hemoglobin and hematocrit. Stable electrolytes. The patient had intractable nausea and vomiting, and was unable to tolerate diet. Lipase was within normal limits-232. Urinalysis was negative. EKG revealed normal sinus rhythm. The patient was admitted with abdominal pain and intractable nausea and vomiting. HOSPITAL STAY: The patient was admitted. GI and ID consults were requested. The patient was initially NPO, on the IV fluids. GI closely followed. GI recommended symptomatic treatment. Last CT of the abdomen and pelvis was unremarkable. Antiemetic provided as needed, Zofran given as needed, and Reglan for persistent vomiting. Diet was advanced slowly. Diet tolerance was closely monitored. The patient was able prior to discharge tolerate her diet. GI prophylaxis provided. Laboratory work revealed evidence of anemia, microcytic, hypochromic. Iron panel revealed stable iron. Folate and B12 within normal limits. Hemoglobin and hematocrit stayed at the baseline. Abdominal ultrasound revealed evidence of prior cholecystectomy, mildly ectatic common bile duct, probably related to prior cholecystectomy. Increasing caliber of common bile duct raised possibility of downstream obstruction. However, Radiology recommended correlate with liver function test. LFTs were all stable. Per GI, abdominal ultrasound was unremarkable. ID specialist closely followed. The patient had vaginitis with likely yeast. The patient received one dose of fluconazole. Urine culture revealed mixed Gram-positive organism with colony count 30 to 40 and vaginal discharge revealed normal vaginal yordan. No group B strep or Neisseria gonorrhoeae were solated. test was negative. Blood pressure was managed with beta-ravinder and calcium-channel ravinder, and was stable. Use of opioids was limited. Pain controlled. Patient was able to tolerate diet, The patient was stable for discharge home FINAL DIAGNOSES: 1. Abdominal pain, likely due to the cyclic vomiting syndrome, resolved. 2. Cyclic vomiting syndrome. 3. Opiate dependency. 4. Dehydration. 5. Anemia. 6. Vaginitis with yeast. 7. Hypertension. DISCHARGE MEDICATIONS: See medication reconciliation list. DISCHARGE INSTRUCTIONS: The patient was discharged home. Follow up with the primary medical doctor. Amadou Decker D.O. Liz JonesMargaretville Memorial HospitalKrys N.PCampos DR: Millicetn JOB#: [id number] CC: PATRICIO
== END 2017-05-09 17:22 | disposition home or self-care (01) | DRG 103 ==
LOC: EMR 20:34 → 4E 20:38 → EDBEDREQ 20:53
DX: G43.A1 Cyclical vomiting, in migraine, intractable (principal); F11.20 Opioid dependence, uncomplicated; I10 Essential (primary) hypertension; B37.3 Candidiasis of vulva and vagina; E86.0 Dehydration; D64.9 Anemia, unspecified; G89.4 Chronic pain syndrome; F41.9 Anxiety disorder, unspecified; R10.9 Unspecified abdominal pain; Z87.891 Personal history of nicotine dependence
CPT/HCPCS: 36415; 76700; 80048; 80053; 81003; 82150; 82607; 82728; 82746; 83540; 83550; 83690; 84439; 84443; 85025; 85044; 85610; 85730; 87081; 87086; 87205; 99285; J2405; J2765

== ENCOUNTER 2017-06-18 10:54 | Emergency (ER) | payer MEDICARE, MEDICAID ==
[~2017-06-18] VITALS: Ht 177.8 cm; Wt 86.2 kg
[~2017-06-18 10:54] MED LIST changes: +AMLODIPINE BESYL5 MG ORAL; +DILAUDID2 MG ORAL; +GABAPENTIN600 MG ORAL; +IMITREX50 MG ORAL; +MULTIVITAMINS1 EAC2 ORAL; +OMEPRAZOLE20 M2 ORAL; +REGLAN5 MG ORAL
[2017-06-18 11:10] VITALS: BP 121/89
--- NOTE | 2017-06-18 11:26 | Emergency Room Report ---
History of Present Illness General Chief Complaint: General Complaint Source: Patient Present Illness HPI 42-year-old female walks in with chief complaint of dizziness and syncope at home this morning. no associated chest pain or shortness of breath She states there was a gas leak in her apartment last night. She states that gas department was called, gas was turned off. Also complaining of "pain in my whole body" and requesting IV or IM Dilaudid or morphine, "which I always get here". Allergies: Coded Allergies: No Known Allergies (Unverified , 05/08/14) Patient History Last Menstrual Period: Nexplanon control, no menses for 5 years now. Nursing Documentation-PMH Hx Hypertension: Yes Hx Diabetes: No Hx Cancer: No Hx Gastrointestinal Problems: Yes - cyclic vomiting syndrome Hx Neurological Problems: No - Migraines Physical Exam Vital Signs Date Time Temp Pulse Resp B/P (MAP) Pulse Ox O2 Delivery O2 Flow Rate FiO2 06/18/17 10:59 97.9 58 17 121/89 99 Room Air Medical Decision Making ER Course likely malingering, narcotic seeking behavior patient with documented opiate dependence Last Vital Signs Date Time Temp Pulse Resp B/P (MAP) Pulse Ox O2 Delivery O2 Flow Rate FiO2 06/18/17 10:59 97.9 58 17 121/89 99 Room Air Referrals: NON PHYSICIAN (PCP) ANURADHA MICHAELS M.D. Jun 18, 2017 11:26
[2017-06-18] MEDS ORDERED: Metoclopramide 10mg/2ml Inj IM ONE (11:30)
[2017-06-18 12:15] VITALS: BP 132/78
--- NOTE | 2017-06-30 19:25 | Cardiology Report ---
APPROVED REPORT EKG Measurement Heart [id number] Sinus bradycardia Possible Left atrial enlargement Nonspecific T wave abnormality Abnormal ECG
== END 2017-06-18 12:15 | disposition home or self-care (01) ==
LOC: EMR 11:15
DX: R11.2 Nausea with vomiting, unspecified (principal); I10 Essential (primary) hypertension
CPT/HCPCS: 93005; 96372; 99283; J2765

== ENCOUNTER 2017-06-25 00:05 | Emergency (ER) | payer MEDICARE, MEDICAID ==
[~2017-06-25] VITALS: Ht 177.8 cm; Wt 83.9 kg
[2017-06-25] MEDS ORDERED: HYDROmorphone 1mg/ml Carpuject IVP ONE (00:45)
[2017-06-25 00:58] LABS: BASOPHILS % (AUTO) 0.5 % (0.0-2.0); LYMPHOCYTES % (AUTO) 14.7 % (20.0-45.0); MEAN CORPUSCULAR HEMOGLOBIN 23.3 PG (27.0-31.0); MEAN CORPUSCULAR HGB CONC 30.4 G/DL (32.0-36.0); MEAN CORPUSCULAR VOLUME 77 FL (80-99); MEAN PLATELET VOLUME 7.6 FL (6.5-10.1); MONOCYTES % (AUTO) 2.8 % (1.0-10.0); NEUTROPHILS % (AUTO) 81.9 % (45.0-75.0); PLATELET COUNT 426 K/UL (150-450); RED BLOOD COUNT 5.31 M/UL (4.20-5.40); RED CELL DISTRIBUTION WIDTH 14.3 % (11.6-14.8); WHITE BLOOD COUNT 13.4 K/UL (4.8-10.8)
[2017-06-25 01:01] LABS: APPEARANCE,URINE CLEAR; KETONES,URINE 2+ (NEGATIVE); LEUKOCYTE ESTERASE ,URINE NEGATIVE (NEGATIVE); NITRITE,URINE NEGATIVE (NEGATIVE); PH,URINE 7 (4.5-8.0); PROTEIN,URINE 3+ (NEGATIVE); UROBILINOGEN,URINE NORMAL MG/DL (0.0-1.0)
[2017-06-25 01:04] LABS: ANION GAP 11 mmol/L (5-15); CALCIUM 9.5 MG/DL (8.5-10.1); CARBON DIOXIDE 26 MMOL/L (21-32); CHLORIDE 101 MMOL/L (98-107); CREATININE 1.1 MG/DL (0.55-1.30); GLOMERULAR FILTRATION RATE > 60 mL/min (>60); POTASSIUM 3.2 MMOL/L (3.5-5.1); SODIUM 137 MMOL/L (136-145)
[2017-06-25 01:06] LABS: BACTERIA,URINE FEW /HPF; FINE GRANULAR CASTS,URINE 0-2 /LPF; HYALINE CASTS, URINE 0-2 /LPF; RBC,URINE 40-60 /HPF (0 - 2); SQUAMOUS EPITHELIAL CELL,UR MANY /LPF (NONE/OCC); WBC,URINE 0-2 /HPF (0 - 2)
[2017-06-25 01:09] LABS: ALANINE AMINOTRANSFERASE 16 U/L (12-78); ALBUMIN/GLOBULIN RATIO 0.9 (1.0-2.7); ASPARTATE AMINO TRANSFERASE 16 U/L (15-37); LIPASE 114 U/L (73-393); TOTAL PROTEIN 8.4 G/DL (6.4-8.2)
[2017-06-25 02:22] VITALS: BP 146/93
[2017-06-25] MEDS ORDERED: Ketorolac 30mg Inj IV ONE (03:00)
[2017-06-25 03:54] VITALS: BP 148/96
[2017-06-25] MEDS ORDERED: ZOFRAN ODT4 MG ORAL (03:56)
--- NOTE | 2017-06-25 03:57 | Emergency Room Report ---
History of Present Illness General Chief Complaint: Abdominal Pain Source: Patient Present Illness HPI Is a 42-year-old female with a history of cyclic vomiting syndrome. She has history of chronic pain and takes Dilaudid at home. Patient presents with chief complaint abdominal pain vomiting. Similar to previous presentation. Pain is 10 out of 10. Sharp in nature. Cramping. Onset yesterday. Unable to keep anything down. Denies any trauma. Denies any blood in her vomitus. No diarrhea. Allergies: Coded Allergies: No Known Allergies (Unverified , 05/08/14) Patient History Past Medical History: see triage record, old chart reviewed Past Surgical History: none Pertinent Family History: none Social History: Denies: smoking Last Menstrual Period: none Now: No : 1 Immunizations: other Reviewed Nursing Documentation: PMH: Agreed, PSxH: Agreed Nursing Documentation-PMH Hx Hypertension: Yes Hx Diabetes: No Hx Cancer: No Hx Gastrointestinal Problems: Yes - cyclic vomiting syndrome Hx Neurological Problems: No - Migraines Review of Systems Eye: Denies: eye pain, blurred vision ENT: Denies: ear pain, nose congestion, throat swelling Respiratory: Denies: cough, shortness of breath Cardiovascular: Denies: chest pain, palpitations Gastrointestinal: Reports: abdominal pain, diarrhea, nausea, vomiting Musculoskeletal: Denies: back pain, joint pain Skin: Denies: rash Neurological: Denies: headache, numbness Endocrine: Denies: increased thirst, increased urine Hematologic/Lymphatic: Denies: easy bruising All Other Systems: negative except mentioned in HPI Physical Exam Vital Signs Date Time Temp Pulse Resp B/P (MAP) Pulse Ox O2 Delivery O2 Flow Rate FiO2 06/25/17 00:08 99.3 81 18 174/120 98 Room Air vitals with high blood pressure. Repeat blood pressure better. Sp02 EP Interpretation: reviewed, normal General Appearance: well appearing, no apparent distress, alert Head: normocephalic, atraumatic Eyes: bilateral eye PERRL, bilateral eye EOMI ENT: hearing grossly normal, normal pharynx Neck: full range of motion, supple, no meningismus Respiratory: chest non-tender, lungs clear, normal breath sounds Cardiovascular #1: regular rate, rhythm, no murmur Gastrointestinal: normal bowel sounds, non tender, no mass, no organomegaly, no bruit, non-distended Musculoskeletal: back normal, gait/station normal, normal range of motion Psychiatric: mood/affect normal Skin: warm/dry Medical Decision Making Diagnostic Impression: Primary Impression: Abdominal pain Qualified Codes: R10.84 - Generalized abdominal pain Additional Impression: Nausea, vomiting, and diarrhea ER Course Patient presents with nausea vomiting and diarrhea. Labs unremarkable. Urine showed no infection. We'll discharge home. Lab Results Impression labs unremarkable Last Vital Signs Date Time Temp Pulse Resp B/P (MAP) Pulse Ox O2 Delivery O2 Flow Rate FiO2 06/25/17 02:22 83 18 146/93 100 Room Air 06/25/17 01:19 99.3 Status: improved Disposition: HOME, SELF-CARE Condition: Stable Scripts Ondansetron Odt* (ZOFRAN ODT*) 4 Mg Tab.rapdis 4 MG ORAL Q6H Y for Nausea & Vomiting, #30 TAB 0 Refills Prov: LEEANNA REINOSO M.D. 06/25/17 Referrals: NON PHYSICIAN (PCP) Patient Instructions: Abdominal Pain, Adult Additional Instructions: Followup with your DrCampos to 3 days for refills on your medication. Return if symptom worsen. LEEANNA REINOSO M.D. Jun 25, 2017 03:57
[2017-06-25 04:54] VITALS: BP 152/81
[2017-06-26] MEDS ORDERED: NITROFURANTOIN100 M2 ORAL (17:18)
[2017-06-26] MEDS ORDERED: ZOFRAN ODT4 MG ORAL (17:18)
== END 2017-06-25 05:13 | disposition home or self-care (01) ==
LOC: EMR 00:30
DX: R10.9 Unspecified abdominal pain (principal); R11.2 Nausea with vomiting, unspecified; R19.7 Diarrhea, unspecified
CPT/HCPCS: 36415; 80053; 80307; 81003; 81025; 83690; 85025; 96361; 96374; 96375; 99284; J1170; J1885; J2405

== ENCOUNTER 2017-06-26 15:20 | Emergency (ER) | payer MEDICARE, MEDICAID ==
[~2017-06-26] VITALS: Ht 177.8 cm; Wt 83.9 kg
[2017-06-26 15:30] VITALS: BP 160/96
[2017-06-26] MEDS ORDERED: HYDROmorphone 1mg/ml Carpuject IVP ONE (16:00)
[2017-06-26] MEDS ORDERED: Ketorolac 30mg Inj IV ONE (16:00)
[2017-06-26 16:01] LABS: APPEARANCE,URINE SLIGHTLY CLOUDY; KETONES,URINE 2+ (NEGATIVE); LEUKOCYTE ESTERASE ,URINE NEGATIVE (NEGATIVE); NITRITE,URINE NEGATIVE (NEGATIVE); PH,URINE 7 (4.5-8.0); PROTEIN,URINE NEGATIVE (NEGATIVE); UROBILINOGEN,URINE 4 MG/DL (0.0-1.0)
[2017-06-26 16:21] LABS: BACTERIA,URINE FEW /HPF; SQUAMOUS EPITHELIAL CELL,UR MODERATE /LPF (NONE/OCC); WBC,URINE 0-2 /HPF (0 - 2)
[2017-06-26 16:44] LABS: BASOPHILS % (AUTO) 1.9 % (0.0-2.0); EOSINOPHILS % (AUTO) 1.3 % (0.0-3.0); LYMPHOCYTES % (AUTO) 20.1 % (20.0-45.0); MEAN CORPUSCULAR HEMOGLOBIN 22.9 PG (27.0-31.0); MEAN CORPUSCULAR HGB CONC 29.4 G/DL (32.0-36.0); MEAN CORPUSCULAR VOLUME 78 FL (80-99); MEAN PLATELET VOLUME 6.3 FL (6.5-10.1); MONOCYTES % (AUTO) 7.7 % (1.0-10.0); NEUTROPHILS % (AUTO) 69.1 % (45.0-75.0); PLATELET COUNT 323 K/UL (150-450); RED BLOOD COUNT 4.45 M/UL (4.20-5.40); RED CELL DISTRIBUTION WIDTH 14.1 % (11.6-14.8); WHITE BLOOD COUNT 11.6 K/UL (4.8-10.8)
[2017-06-26 16:59] LABS: ANION GAP 9 mmol/L (5-15); CALCIUM 8.2 MG/DL (8.5-10.1); CARBON DIOXIDE 25 MMOL/L (21-32); CHLORIDE 104 MMOL/L (98-107); CREATININE 0.8 MG/DL (0.55-1.30); GLOMERULAR FILTRATION RATE > 60 mL/min (>60); POTASSIUM 2.9 MMOL/L (3.5-5.1); SODIUM 138 MMOL/L (136-145)
[2017-06-26 17:03] LABS: ALANINE AMINOTRANSFERASE 17 U/L (12-78); ASPARTATE AMINO TRANSFERASE 29 U/L (15-37); LIPASE 118 U/L (73-393); TOTAL PROTEIN 7.2 G/DL (6.4-8.2)
[2017-06-26] MEDS ORDERED: NITROFURANTOIN100 M2 ORAL (17:18)
[2017-06-26] MEDS ORDERED: ZOFRAN ODT4 MG ORAL (17:18)
[2017-06-26 17:30] VITALS: BP 145/78
--- NOTE | 2017-06-26 19:22 | Emergency Room Report ---
History of Present Illness General Chief Complaint: Abdominal Pain Source: Patient Present Illness HPI 42-year-old female presents ED for violation of abdominal pain with vomiting and diarrhea, started 4 days ago. Patient states pain is throbbing, 8/10, nonradiating. The episodes of vomiting and diarrhea. Denies fevers or chills. Denies chest pain shortness of breath. Patient states she has history of cyclical vomiting syndrome. Was here a few days ago states that symptoms improved after IV hydration and medication but returned. No other aggravating or relieving factors. Denies any other associated symptoms Allergies: Coded Allergies: No Known Allergies (Unverified , 05/08/14) Patient History Past Medical History: other - cyclical vomiting syndrome Past Surgical History: none Pertinent Family History: none Social History: Denies: smoking, alcohol use, drug use Now: No Immunizations: UTD Reviewed Nursing Documentation: PMH: Agreed, PSxH: Agreed Nursing Documentation-PMH Hx Hypertension: Yes Hx Diabetes: No Hx Cancer: No Hx Gastrointestinal Problems: Yes - cyclic vomiting syndrome Hx Neurological Problems: No - Migraines Review of Systems All Other Systems: negative except mentioned in HPI Physical Exam Vital Signs Date Time Temp Pulse Resp B/P (MAP) Pulse Ox O2 Delivery O2 Flow Rate FiO2 06/26/17 15:24 98.4 106 20 144/96 100 Room Air Sp02 EP Interpretation: reviewed, normal General Appearance: no apparent distress, alert, GCS 15, non-toxic Head: normocephalic, atraumatic Eyes: bilateral eye normal inspection, bilateral eye PERRL ENT: hearing grossly normal, normal pharynx, no angioedema, normal voice Neck: full range of motion, supple/symm/no masses Respiratory: chest non-tender, lungs clear, normal breath sounds, speaking full sentences Cardiovascular #1: regular rate, rhythm, no edema Cardiovascular #2: 2+ carotid (R), 2+ carotid (L), 2+ radial (R), 2+ radial (L) , 2+ dorsalis pedis (R), 2+ dorsalis pedis (L) Gastrointestinal: normal bowel sounds, non tender, soft, non-distended, no guarding, no rebound Rectal: deferred Genitourinary: normal inspection, no CVA tenderness Musculoskeletal: back normal, gait/station normal, normal range of motion, non- tender Neurologic: alert, oriented x3, responsive, motor strength/tone normal, sensory intact, speech normal Psychiatric: judgement/insight normal, memory normal, mood/affect normal, no suicidal/homicidal ideation Reflexes: 3+ bicep (R), 3+ bicep (L), 3+ tricep (R), 3+ tricep (L), 3+ knee (R) , 3+ knee (L) Skin: normal color, no rash, warm/dry, well hydrated Lymphatic: no adenopathy Medical Decision Making Diagnostic Impression: Primary Impression: Cyclical vomiting Qualified Codes: G43.A0 - Cyclical vomiting, not intractable Additional Impressions: UTI (urinary tract infection) Qualified Codes: N39.0 - Urinary tract infection, site not specified Opiate dependence Qualified Codes: F11.29 - Opioid dependence with unspecified opioid-induced disorder ER Course Hospital Course 42-year-old F presents to ED with cramping abdominal pain with vomiting, diarrhea differential diagnosis: gastritis, SBO, cholecystits, gastroenteritis Clinical course Patient placed on stretcher. On hospital monitor. After initial history and physical I ordered labs, IV fluids, Zofran and toradol, dilaudid Labs - minimal leukocytosis, K 2.9, UA + bacteria Upon reassessment, patient states pain has improved. Tolerating by mouth intake. Potassium repleted I feel this is a highly complex case requiring extensive working including EKG/ Rhythm strip, Xray/CT/US, Blood/urine lab work, repeat exams while in ED, and administration of strong opiates/narcotics for pain control, admission to hospital or close patient follow up. Diagnosis -cyclical vomiting, UTI, opioid dependence Stable and discharged to home with prescriptions for zofran, macrobid. Followup with PMD. Return to ED if symptoms recur or worsen Labs Test 06/26/17 15:30 06/26/17 16:30 Urine Color Yellow Urine Appearance Slightly cloudy Urine pH 7 (4.5-8.0) Urine Specific [place] 1.010 (1.005-1.035) Urine Protein Negative (NEGATIVE) Urine Glucose (UA) Negative (NEGATIVE) Urine Ketones 2+ (NEGATIVE) Urine Occult Blood 3+ (NEGATIVE) Urine Nitrite Negative (NEGATIVE) Urine Bilirubin Negative (NEGATIVE) Urine Urobilinogen 4 MG/DL (0.0-1.0) Urine Leukocyte Esterase Negative (NEGATIVE) Urine RBC 5-10 /HPF (0 - 2) Urine WBC 0-2 /HPF (0 - 2) Urine Squamous Epithelial Cells Moderate /LPF (NONE/OCC) Urine Bacteria Few /HPF (NONE) Urine HCG, Qualitative Negative White Blood Count 11.6 K/UL (4.8-10.8) Red Blood Count 4.45 M/UL (4.20-5.40) Hemoglobin 10.2 G/DL (12.0-16.0) Hematocrit 34.6 % (37.0-47.0) Mean Corpuscular Volume 78 FL (80-99) Mean Corpuscular Hemoglobin 22.9 PG (27.0-31.0) Mean Corpuscular Hemoglobin Concent 29.4 G/DL (32.0-36.0) Red Cell Distribution Width 14.1 % (11.6-14.8) Platelet Count 323 K/UL (150-450) Mean Platelet Volume 6.3 FL (6.5-10.1) Neutrophils (%) (Auto) 69.1 % (45.0-75.0) Lymphocytes (%) (Auto) 20.1 % (20.0-45.0) Monocytes (%) (Auto) 7.7 % (1.0-10.0) Eosinophils (%) (Auto) 1.3 % (0.0-3.0) Basophils (%) (Auto) 1.9 % (0.0-2.0) Sodium Level 138 MMOL/L (136-145) Potassium Level 2.9 MMOL/L (3.5-5.1) Chloride Level 104 MMOL/L (98-107) Carbon Dioxide Level 25 MMOL/L (21-32) Anion Gap 9 mmol/L (5-15) Blood Urea Nitrogen 11 mg/dL (7-18) Creatinine 0.8 MG/DL (0.55-1.30) Estimat Glomerular Filtration Rate > 60 mL/min (>60) Glucose Level 101 MG/DL (74-106) Calcium Level 8.2 MG/DL (8.5-10.1) Total Bilirubin 0.4 MG/DL (0.2-1.0) Aspartate Amino Transf (AST/SGOT) 29 U/L (15-37) Alanine Aminotransferase (ALT/SGPT) 17 U/L (12-78) Alkaline Phosphatase 92 U/L (46-116) Total Protein 7.2 G/DL (6.4-8.2) Albumin 3.6 G/DL (3.4-5.0) Globulin 3.6 g/dL Albumin/Globulin Ratio 1.0 (1.0-2.7) Lipase 118 U/L (73-393) Last Vital Signs Date Time Temp Pulse Resp B/P (MAP) Pulse Ox O2 Delivery O2 Flow Rate FiO2 06/26/17 17:30 98.0 68 18 145/78 99 Room Air Status: improved Disposition: HOME, SELF-CARE Condition: Stable Scripts Ondansetron Odt* (ZOFRAN ODT*) 4 Mg Tab.rapdis 4 MG ORAL Q6H Y for Nausea & Vomiting, #30 TAB 0 Refills Prov: GERALD KENNEY M.D. 06/26/17 Nitrofurantoin Monohyd/M-Cryst* (MACROBID 100 MG*) 100 Mg Capsule 100 MG ORAL EVERY 12 HOURS for 7 Days, CAP Prov: GERALD KENNEY M.D. 06/26/17 Referrals: NON PHYSICIAN (PCP) Patient Instructions: Dysuria GERALD KENNEY M.D. Jun 26, 2017 19:22
== END 2017-06-26 17:30 | disposition home or self-care (01) ==
LOC: EMR 15:56
DX: G43.A0 Cyclical vomiting, in migraine, not intractable (principal); I10 Essential (primary) hypertension
CPT/HCPCS: 36415; 80053; 81003; 81025; 83690; 85025; 96361; 96374; 96375; 99284; J1170; J1885; J2405; J8499

== ENCOUNTER 2017-07-21 13:12 | Emergency (ER) | payer MEDICARE, MEDICAID ==
[~2017-07-21] VITALS: Ht 177.8 cm; Wt 80.3 kg
[2017-07-21 13:24] VITALS: BP 134/98
[2017-07-21] MEDS ORDERED: Ketorolac 30mg Inj IV ONE (14:00)
[2017-07-21] MEDS ORDERED: HYDROmorphone 1mg/ml Carpuject IVP ONE (14:00)
[2017-07-21 15:12] LABS: APPEARANCE,URINE CLEAR; BILIRUBIN, URINE NEGATIVE (NEGATIVE); COLOR,URINE PALE YELLOW; GLUCOSE, URINE (UA) NEGATIVE (NEGATIVE); KETONES,URINE 1+ (NEGATIVE); LEUKOCYTE ESTERASE ,URINE NEGATIVE (NEGATIVE); NITRITE,URINE NEGATIVE (NEGATIVE); PH,URINE 6.5 (4.5-8.0); PROTEIN,URINE 1+ (NEGATIVE); UROBILINOGEN,URINE NORMAL MG/DL (0.0-1.0)
--- NOTE | 2017-07-21 15:21 | Emergency Room Report ---
History of Present Illness General Chief Complaint: Vomiting Source: Patient Present Illness HPI 42-year-old female presents to ED for evaluation. States she's been having repeated vomiting episodes x1 day. History of cyclical vomiting syndrome. Denies any abdominal pain. Denies any fevers or chills. Denies drug use. Denies chest pain or shortness of breath. No other aggravating relieving factors. Denies any other associated symptoms Allergies: Coded Allergies: No Known Allergies (Unverified , 05/08/14) Patient History Past Medical History: HTN, other - cyclical vomiting Past Surgical History: none Pertinent Family History: none Social History: Denies: smoking, alcohol use, drug use Now: No Immunizations: UTD Reviewed Nursing Documentation: PMH: Agreed, PSxH: Agreed Nursing Documentation-PMH Hx Hypertension: Yes Hx Diabetes: No Hx Cancer: No Hx Gastrointestinal Problems: Yes - cyclic vomiting syndrome Hx Neurological Problems: No - Migraines Review of Systems All Other Systems: negative except mentioned in HPI Physical Exam Vital Signs Date Time Temp Pulse Resp B/P (MAP) Pulse Ox O2 Delivery O2 Flow Rate FiO2 07/21/17 13:15 98.2 72 20 142/112 98 Room Air Sp02 EP Interpretation: reviewed, normal General Appearance: no apparent distress, alert, GCS 15, non-toxic Head: normocephalic, atraumatic Eyes: bilateral eye normal inspection, bilateral eye PERRL ENT: hearing grossly normal, normal pharynx, no angioedema, normal voice Neck: full range of motion, supple/symm/no masses Respiratory: chest non-tender, lungs clear, normal breath sounds, speaking full sentences Cardiovascular #1: regular rate, rhythm, no edema Cardiovascular #2: 2+ carotid (R), 2+ carotid (L), 2+ radial (R), 2+ radial (L) , 2+ dorsalis pedis (R), 2+ dorsalis pedis (L) Gastrointestinal: normal bowel sounds, non tender, soft, non-distended, no guarding, no rebound Rectal: deferred Genitourinary: normal inspection, no CVA tenderness Musculoskeletal: back normal, gait/station normal, normal range of motion, non- tender Neurologic: alert, oriented x3, responsive, motor strength/tone normal, sensory intact, speech normal Psychiatric: judgement/insight normal, memory normal, mood/affect normal, no suicidal/homicidal ideation Reflexes: 3+ bicep (R), 3+ bicep (L), 3+ tricep (R), 3+ tricep (L), 3+ knee (R) , 3+ knee (L) Skin: normal color, no rash, warm/dry, well hydrated Lymphatic: no adenopathy Medical Decision Making Diagnostic Impression: Primary Impression: Cyclical vomiting Qualified Codes: G43.A0 - Cyclical vomiting, not intractable ER Course Hospital Course 52-year-old F presents to ED with epigastric pain with N/V. differential diagnosis: gastritis, SBO, cholecystits Clinical course Patient placed on stretcher. On cardiac technologist. After initial history and physical I ordered labs, IV fluids, Zofran and pepcid and pain meds Labs - no leukocytosis, no electrolyte abnormalities, LFTs normal Upon reassessment, patient states pain has improved. findings consistent with cyclical vomiting syndrome. Patient has been here multiple times for similar presentation I feel this is a highly complex case requiring extensive working including EKG/ Rhythm strip, Xray/CT/US, Blood/urine lab work, repeat exams while in ED, and administration of strong opiates/narcotics for pain control, admission to hospital or close patient follow up. Diagnosis -cyclical vomiting Stable and discharged to home with prescriptions for Zantac, zofran. Followup with PMD. Return to ED if symptoms recur or worsen Labs Test 07/21/17 14:50 07/21/17 15:05 Urine Color Pale yellow Urine Appearance Clear Urine pH 6.5 (4.5-8.0) Urine Specific [place] 1.015 (1.005-1.035) Urine Protein 1+ (NEGATIVE) Urine Glucose (UA) Negative (NEGATIVE) Urine Ketones 1+ (NEGATIVE) Urine Occult Blood 4+ (NEGATIVE) Urine Nitrite Negative (NEGATIVE) Urine Bilirubin Negative (NEGATIVE) Urine Urobilinogen Normal MG/DL (0.0-1.0) Urine Leukocyte Esterase Negative (NEGATIVE) Urine RBC 5-10 /HPF (0 - 2) Urine WBC 2-4 /HPF (0 - 2) Urine Squamous Epithelial Cells Moderate /LPF (NONE/OCC) Urine Amorphous Sediment Few /LPF (NONE) Urine Bacteria Moderate /HPF (NONE) White Blood Count 9.2 K/UL (4.8-10.8) Red Blood Count 5.48 M/UL (4.20-5.40) Hemoglobin 13.1 G/DL (12.0-16.0) Hematocrit 42.5 % (37.0-47.0) Mean Corpuscular Volume 78 FL (80-99) Mean Corpuscular Hemoglobin 23.9 PG (27.0-31.0) Mean Corpuscular Hemoglobin Concent 30.8 G/DL (32.0-36.0) Red Cell Distribution Width 14.2 % (11.6-14.8) Platelet Count 465 K/UL (150-450) Mean Platelet Volume 6.4 FL (6.5-10.1) Neutrophils (%) (Auto) 84.3 % (45.0-75.0) Lymphocytes (%) (Auto) 12.2 % (20.0-45.0) Monocytes (%) (Auto) 2.2 % (1.0-10.0) Eosinophils (%) (Auto) 0.4 % (0.0-3.0) Basophils (%) (Auto) 0.9 % (0.0-2.0) Sodium Level 140 MMOL/L (136-145) Potassium Level 3.2 MMOL/L (3.5-5.1) Chloride Level 105 MMOL/L (98-107) Carbon Dioxide Level 23 MMOL/L (21-32) Anion Gap 12 mmol/L (5-15) Blood Urea Nitrogen 13 mg/dL (7-18) Creatinine 0.9 MG/DL (0.55-1.30) Estimat Glomerular Filtration Rate > 60 mL/min (>60) Glucose Level 144 MG/DL (74-106) Calcium Level 10.0 MG/DL (8.5-10.1) Total Bilirubin 0.3 MG/DL (0.2-1.0) Aspartate Amino Transf (AST/SGOT) 16 U/L (15-37) Alanine Aminotransferase (ALT/SGPT) 8 U/L (12-78) Alkaline Phosphatase 120 U/L (46-116) Total Protein 8.5 G/DL (6.4-8.2) Albumin 3.9 G/DL (3.4-5.0) Globulin 4.6 g/dL Albumin/Globulin Ratio 0.8 (1.0-2.7) Lipase 137 U/L (73-393) Last Vital Signs Date Time Temp Pulse Resp B/P (MAP) Pulse Ox O2 Delivery O2 Flow Rate FiO2 07/21/17 14:50 98.2 07/21/17 13:24 88 20 134/98 98 Room Air Status: improved Disposition: HOME, SELF-CARE Condition: Stable Scripts Ranitidine Hcl* (ZANTAC*) 150 Mg Tablet 150 MG ORAL TWICE A DAY, #30 TAB Prov: GERALD KENNEY M.D. 07/21/17 Ondansetron Odt* (ZOFRAN ODT*) 4 Mg Tab.rapdis 4 MG ORAL Q6H Y for Nausea & Vomiting, #30 TAB 0 Refills Prov: GERALD KENNEY M.D. 07/21/17 Referrals: NON PHYSICIAN (PCP) GERALD KENNEY M.D. Jul 21, 2017 15:21
[2017-07-21 15:24] LABS: BASOPHILS % (AUTO) 0.9 % (0.0-2.0); EOSINOPHILS % (AUTO) 0.4 % (0.0-3.0); HEMATOCRIT 42.5 % (37.0-47.0); HEMOGLOBIN 13.1 G/DL (12.0-16.0); LYMPHOCYTES % (AUTO) 12.2 % (20.0-45.0); MEAN CORPUSCULAR VOLUME 78 FL (80-99); MONOCYTES % (AUTO) 2.2 % (1.0-10.0); NEUTROPHILS % (AUTO) 84.3 % (45.0-75.0); PLATELET COUNT 465 K/UL (150-450); RED BLOOD COUNT 5.48 M/UL (4.20-5.40); RED CELL DISTRIBUTION WIDTH 14.2 % (11.6-14.8); WHITE BLOOD COUNT 9.2 K/UL (4.8-10.8)
[2017-07-21 15:26] LABS: ANION GAP 12 mmol/L (5-15); BLOOD UREA NITROGEN 13 mg/dL (7-18); CARBON DIOXIDE 23 MMOL/L (21-32); CHLORIDE 105 MMOL/L (98-107); CREATININE 0.9 MG/DL (0.55-1.30); POTASSIUM 3.2 MMOL/L (3.5-5.1); SODIUM 140 MMOL/L (136-145)
[2017-07-21 15:31] LABS: ALANINE AMINOTRANSFERASE 8 U/L (12-78); ALBUMIN 3.9 G/DL (3.4-5.0); ALBUMIN/GLOBULIN RATIO 0.8 (1.0-2.7); ALKALINE PHOSPHATASE 120 U/L (46-116); ASPARTATE AMINO TRANSFERASE 16 U/L (15-37); BILIRUBIN,TOTAL 0.3 MG/DL (0.2-1.0)
[2017-07-21] MEDS ORDERED: RANITIDINE HCL150 MG ORAL (15:47)
[2017-07-21] MEDS ORDERED: ZOFRAN ODT4 MG ORAL (15:47)
[2017-07-21 16:07] VITALS: BP 148/96
== END 2017-07-21 16:07 | disposition home or self-care (01) ==
LOC: EMR 13:53
DX: G43.A0 Cyclical vomiting, in migraine, not intractable (principal); I10 Essential (primary) hypertension
CPT/HCPCS: 36415; 80053; 81003; 83690; 85025; 87086; 96361; 96374; 96375; 96376; 99284; J1170; J1885; J2405; S0028

== ENCOUNTER 2017-08-17 21:29 | Inpatient (IN) | payer MEDICARE, MEDICAID ==
[~2017-08-17] VITALS: Ht 177.8 cm; Wt 79.8 kg
[~2017-08-17 21:29] MED LIST changes: +RANITIDINE HCL150 MG ORAL
[2017-08-17] MEDS ORDERED: HYDROmorphone 1mg/ml Carpuject IVP ONE (21:45)
[2017-08-17] MEDS ORDERED: DiphenhydrAMINE 50mg/ml Inj IVP ONE (21:45)
--- NOTE | 2017-08-17 21:46 | Emergency Room Report ---
History of Present Illness General Chief Complaint: Nausea, Vomiting, and Diarrhea Source: Patient Present Illness HPI The patient presents with vomiting and abdominal pain. She has cyclic vomiting syndrome. She thinks she's might have vomited some blood as it's dark. The pain is 9/10, constant epigastric and nonradiating. Denies any fevers or chills. There's no diarrhea. Stools normal at this time. She has a little bit of dysuria this morning. No medication taken at home. She's had this problem in the past. Occasionally has needed admission. Depressed, no SI. Denies alcohol abuse. Has been noted to be opiate dependent in past. Allergies: Coded Allergies: No Known Allergies (Unverified , 05/08/14) Patient History Past Medical History: see triage record Past Surgical History: maki Social History: Reports: smoking, Denies: alcohol use, drug use - though opiate dependence noted in chart Social History Narrative home Now: No : 1 Para: 1 Reviewed Nursing Documentation: PMH: Agreed, PSxH: Agreed Nursing Documentation-PMH Hx Hypertension: Yes Hx Diabetes: No Hx Cancer: No Hx Gastrointestinal Problems: Yes - cyclic vomitting syndrome Hx Neurological Problems: No - Migraines Review of Systems All Other Systems: negative except mentioned in HPI Physical Exam Vital Signs Date Time Temp Pulse Resp B/P (MAP) Pulse Ox O2 Delivery O2 Flow Rate FiO2 08/17/17 21:34 97.9 94 16 164/113 96 Room Air Sp02 EP Interpretation: reviewed, normal General Appearance: well appearing, no apparent distress, GCS 15 Head: normocephalic Eyes: bilateral eye normal inspection, bilateral eye PERRL ENT: moist mucus membranes Neck: supple Respiratory: lungs clear, normal breath sounds Cardiovascular #1: regular rate, rhythm Cardiovascular #2: 2+ radial (R) Gastrointestinal: normal inspection, no mass, non-distended, no rebound, tenderness, decreased bowel sounds Musculoskeletal: back normal, gait/station normal, normal range of motion Neurologic: alert, oriented x3 Psychiatric: depressed affect Skin: normal inspection, warm/dry Medical Decision Making Diagnostic Impression: Primary Impression: Abdominal pain Qualified Codes: R10.13 - Epigastric pain Additional Impression: Vomiting Qualified Codes: R11.2 - Nausea with vomiting, unspecified ER Course Patient presents with vomiting and abdominal pain. Ddx: gastritis, cyclical vomiting, pancreatitis, PUD, opiate withdrawal amongst others. Evaluation with labs. Treatment with IV hydration, analgesia and antiemetics. Patient still c/o pain. Dilaudid repeated. 2:45 Still with nausea. 7/10 pain. Leukocytosis (has had in the past, not surgical abdomen). Improved but still with pain, states if d/c home will return. Admit med. Laboratory Tests Test 08/17/17 21:50 08/17/17 22:30 Urine Color Pale yellow Urine Appearance Clear Urine pH 8 (4.5-8.0) Urine Specific [place] 1.010 (1.005-1.035) Urine Protein 2+ (NEGATIVE) H Urine Glucose (UA) Negative (NEGATIVE) Urine Ketones 1+ (NEGATIVE) H Urine Occult Blood 4+ (NEGATIVE) H Urine Nitrite Negative (NEGATIVE) Urine Bilirubin Negative (NEGATIVE) Urine Urobilinogen Normal MG/DL (0.0-1.0) Urine Leukocyte Esterase Negative (NEGATIVE) Urine RBC 10-15 /HPF (0 - 2) H Urine WBC 0-2 /HPF (0 - 2) Urine Squamous Epithelial Cells Few /LPF (NONE/OCC) Urine Bacteria Few /HPF (NONE) White Blood Count 12.2 K/UL (4.8-10.8) H Red Blood Count 5.63 M/UL (4.20-5.40) H Hemoglobin 13.4 G/DL (12.0-16.0) Hematocrit 43.5 % (37.0-47.0) Mean Corpuscular Volume 77 FL (80-99) L Mean Corpuscular Hemoglobin 23.9 PG (27.0-31.0) L Mean Corpuscular Hemoglobin Concent 30.9 G/DL (32.0-36.0) L Red Cell Distribution Width 14.1 % (11.6-14.8) Platelet Count 368 K/UL (150-450) Mean Platelet Volume 9.6 FL (6.5-10.1) Neutrophils (%) (Auto) 85.6 % (45.0-75.0) H Lymphocytes (%) (Auto) 9.6 % (20.0-45.0) L Monocytes (%) (Auto) 3.5 % (1.0-10.0) Eosinophils (%) (Auto) 0.1 % (0.0-3.0) Basophils (%) (Auto) 1.2 % (0.0-2.0) Prothrombin Time 10.3 SEC (9.30-11.50) Prothrombin Time INR 1.0 (0.9-1.1) PTT 19 SEC (23-33) L Sodium Level 136 MMOL/L (136-145) Potassium Level 3.2 MMOL/L (3.5-5.1) L Chloride Level 99 MMOL/L (98-107) Carbon Dioxide Level 26 MMOL/L (21-32) Anion Gap 11 mmol/L (5-15) Blood Urea Nitrogen 9 mg/dL (7-18) Creatinine 0.9 MG/DL (0.55-1.30) Estimate Glomerular Filtration Rate > 60 mL/min (>60) Glucose Level 154 MG/DL (74-106) H Calcium Level 9.7 MG/DL (8.5-10.1) Total Bilirubin 0.4 MG/DL (0.2-1.0) Aspartate Amino Transferase (AST) 20 U/L (15-37) Alanine Aminotransferase (ALT) 16 U/L (12-78) Alkaline Phosphatase 117 U/L (46-116) H Total Protein 8.4 G/DL (6.4-8.2) H Albumin 3.9 G/DL (3.4-5.0) Globulin 4.5 g/dL Albumin/Globulin Ratio 0.9 (1.0-2.7) L Lipase 92 U/L (73-393) Status: improved Disposition: ADMITTED INPATIENT Condition: Serious Marcos Thompson M.D. Aug 17, 2017 21:46
[2017-08-17 22:30] VITALS: BP 132/80
[2017-08-17 22:34] LABS: APPEARANCE,URINE CLEAR; BILIRUBIN, URINE NEGATIVE (NEGATIVE); COLOR,URINE PALE YELLOW; GLUCOSE, URINE (UA) NEGATIVE (NEGATIVE); KETONES,URINE 1+ (NEGATIVE); LEUKOCYTE ESTERASE ,URINE NEGATIVE (NEGATIVE); NITRITE,URINE NEGATIVE (NEGATIVE); PH,URINE 8 (4.5-8.0); PROTEIN,URINE 2+ (NEGATIVE); UROBILINOGEN,URINE NORMAL MG/DL (0.0-1.0)
[2017-08-17] MEDS ORDERED: Tubing IV Cassette IV ONE (22:53)
[2017-08-17 22:56] LABS: HEMATOCRIT 43.5 % (37.0-47.0); HEMOGLOBIN 13.4 G/DL (12.0-16.0); MEAN CORPUSCULAR VOLUME 77 FL (80-99); PLATELET COUNT 368 K/UL (150-450); RED BLOOD COUNT 5.63 M/UL (4.20-5.40); RED CELL DISTRIBUTION WIDTH 14.1 % (11.6-14.8); WHITE BLOOD COUNT 12.2 K/UL (4.8-10.8)
[2017-08-17 23:00] LABS: BASOPHILS % (AUTO) 1.2 % (0.0-2.0); EOSINOPHILS % (AUTO) 0.1 % (0.0-3.0); LYMPHOCYTES % (AUTO) 9.6 % (20.0-45.0); MONOCYTES % (AUTO) 3.5 % (1.0-10.0); NEUTROPHILS % (AUTO) 85.6 % (45.0-75.0)
[2017-08-17 23:02] LABS: ANION GAP 11 mmol/L (5-15); BLOOD UREA NITROGEN 9 mg/dL (7-18); CALCIUM 9.7 MG/DL (8.5-10.1); CARBON DIOXIDE 26 MMOL/L (21-32); CHLORIDE 99 MMOL/L (98-107); CREATININE 0.9 MG/DL (0.55-1.30); POTASSIUM 3.2 MMOL/L (3.5-5.1); SODIUM 136 MMOL/L (136-145)
[2017-08-17 23:07] LABS: ALANINE AMINOTRANSFERASE 16 U/L (12-78); ALBUMIN 3.9 G/DL (3.4-5.0); ALBUMIN/GLOBULIN RATIO 0.9 (1.0-2.7); ALKALINE PHOSPHATASE 117 U/L (46-116); ASPARTATE AMINO TRANSFERASE 20 U/L (15-37); BILIRUBIN,TOTAL 0.4 MG/DL (0.2-1.0)
[2017-08-17 23:30] VITALS: BP 158/79
[2017-08-18 00:30] VITALS: BP 128/82
[2017-08-18] MEDS ORDERED: HYDROmorphone 1mg/ml Carpuject IVP ONE ×2 (00:45→03:45)
[2017-08-18 01:30] VITALS: BP 118/82
[2017-08-18 02:45] VITALS: BP 118/79
[2017-08-18] MEDS ORDERED: DiphenhydrAMINE 50mg/ml Inj IVP ONE (03:45)
[2017-08-18 04:15] VITALS: BP 118/79
[2017-08-18] MEDS ORDERED: Mylanta II UD 30ml ORAL PRN (06:30)
[2017-08-18] MEDS ORDERED: LORazepam Inj 2mg/ml 1ml IV PRN (06:30)
[2017-08-18] MEDS ORDERED: Miralax 17gm pkt ORAL PRN (06:30)
[2017-08-18] MEDS ORDERED: Nitroglycerin Subl 0.4mg tab SL PRN (06:30)
[2017-08-18] MEDS: D5 1/2NS 1,000 ML IV SCH ×2 (06:50→20:53)
[2017-08-18] MEDS: Morphine Sulfate 2mg/ml Inj IVP PRN ×4 (07:05→22:17)
[2017-08-18] MEDS ORDERED: D5 1/2NS 1000ml IV ONE (10:09)
[2017-08-18] MEDS: Pantoprazole Inj IV SCH (10:10)
[2017-08-18] MEDS: Heparin 5000 units/ml inj SUBQ SCH ×2 (10:14→20:54)
--- NOTE | 2017-08-18 11:55 | Diagnostic Imaging Report ---
Indication:Abdominal pain Technique: Grayscale and duplex Doppler imaging of the abdomen performed. Comparison: None Findings: Gallbladder is absent. The liver, demonstrated part of the pancreas, aorta and IVC, both kidneys, spleen appear unremarkable. There is no biliary ductal dilatation identified. Doppler evaluation of the main portal vein shows patency. There is no ascites. No hydronephrosis seen. Impression: No acute findings. Postcholecystectomy
--- NOTE | 2017-08-18 14:05 | GI Initial Consult Note ---
History of Present Illness General Date patient seen: Aug 18, 2017 Time patient seen: 13:58 Reason for Hospitalization: Nausea, Vomiting, and Diarrhea Referring physician: ENDY KUMAR Reason for Consultation: VOMITTING Present Illness HPI The patient presents with vomiting and abdominal pain. She has cyclic vomiting syndrome. She thinks she's might have vomited some blood as it's dark. The pain is 9/10 epigastric and nonradiating. Denies any fevers or chills. There' s no diarrhea. Chest normal. At this time. She has a little bit of dysuria this morning. GI consult for cyclic vomiting. Pt known to us from previous admission with cyclic vomiting syndrome. Pt seen on floor, awake A&Ox4 NAD with no active s/ sx of N/V. The patient reported multiple episodes of emesis last night, has not had any episodes this morning. Denied any hematemesis or coffee grounds. Abdomen tender to palpation. Pt states she is a chronic Dilaudid user. Denies any ETOH or drug use. Labs show anemia and hypoalbuminemia. Pt has history of EGD/colonoscopy last Nov, 2016. Endoscopy Procedure Note Indication for Procedure: abd pain Procedures Performed: EGD, colonoscopy Operative Findings/Diagnosis: gastritis, colon polyp RHONA HOOK = November 14, 2016 13:10 Home Meds Active Scripts Ranitidine Hcl* (ZANTAC*) 150 Mg Tablet, 150 MG ORAL TWICE A DAY, #30 TAB Prov:GERALD KENNEY M.D. 07/21/17 Ondansetron Odt* (ZOFRAN ODT*) 4 Mg Tab.rapdis, 4 MG ORAL Q6H Y for Nausea & Vomiting, #30 TAB 0 Refills Prov:GERALD KENNEY M.D. 07/21/17 Ondansetron Odt* (ZOFRAN ODT*) 4 Mg Tab.rapdis, 4 MG ORAL Q6H Y for Nausea & Vomiting, #30 TAB 0 Refills Prov:GERALD KENNEY M.D. 06/26/17 Nitrofurantoin Monohyd/M-Cryst* (MACROBID 100 MG*) 100 Mg Capsule, 100 MG ORAL EVERY 12 HOURS for 7 Days, CAP Prov:GERALD KENNEY M.D. 06/26/17 Ondansetron Odt* (ZOFRAN ODT*) 4 Mg Tab.rapdis, 4 MG ORAL Q6H Y for Nausea & Vomiting, #30 TAB 0 Refills Prov:LEEANNA REINOSO M.D. 06/25/17 Reported Medications Sumatriptan Succinate* (IMITREX*) 50 Mg Tablet, 100 MG ORAL DAILY Y for For Headache 05/07/17 Hydromorphone HCl (Dilaudid) 4 Mg Tablet, 4 MG ORAL Q8H 05/07/17 Amlodipine Besylate* (AMLODIPINE BESYLATE*) 5 Mg Tablet, 5 MG ORAL DAILY 05/07/17 Multivitamins* (MULTIVITAMINS*) 1 Each Tablet, 1 TAB ORAL DAILY 05/07/17 Baclofen* (BACLOFEN*) 10 Mg Tablet, 10 MG ORAL THREE TIMES A DAY 05/07/17 Gabapentin* (GABAPENTIN*) 600 Mg Tablet, 600 MG ORAL THREE TIMES A DAY 05/07/17 Omeprazole (OMEPRAZOLE) 20 Mg Capsule.dr, 20 MG ORAL DAILY 05/07/17 Zolpidem Tartrate* (ZOLPIDEM TARTRATE*) 5 Mg Tablet, 5 MG ORAL BEDTIME 05/07/17 Ondansetron Odt* (ZOFRAN ODT*) 4 Mg Tab.rapdis, 4 MG ORAL TID 05/07/17 Metoclopramide Hcl* (REGLAN*) 5 Mg Tablet, 5 MG ORAL EVERY 6 HOURS, TAB 05/07/17 Baclofen* (BACLOFEN*) 10 Mg Tablet, 10 MG ORAL TID, TAB 06/15/16 Lorazepam* (LORAZEPAM*) 1 Mg Tablet, 1 MG ORAL BID, TAB 07/11/15 Atenolol* (TENORMIN*) 100 Mg Tablet, 100 MG ORAL DAILY, TAB 05/08/14 Med list reviewed/reconciled: Yes Allergies: Coded Allergies: No Known Allergies (Unverified , 05/08/14) Patient History History Provided By: Patient, Medical Record [facility] Narrative Past Medical History: see triage record Now: No : 1 Para: 1 Nursing Documentation-PM Hx Hypertension: Yes Hx Diabetes: No Hx Cancer: No Hx Gastrointestinal Problems: Yes - cyclic vomiting syndrome Hx Neurological Problems: No - Migraines Review of Systems All Other Systems: negative except mentioned in HPI Physical Exam Vital Signs Date Time Temp Pulse Resp B/P (MAP) Pulse Ox O2 Delivery O2 Flow Rate FiO2 08/17/17 21:34 97.9 94 16 164/113 96 Room Air Sp02 EP Interpretation: reviewed, normal Labs Laboratory Tests Test 08/17/17 21:50 08/17/17 22:30 Urine Color Pale yellow Urine Appearance Clear Urine pH 8 (4.5-8.0) Urine Specific [place] 1.010 (1.005-1.035) Urine Protein 2+ (NEGATIVE) H Urine Glucose (UA) Negative (NEGATIVE) Urine Ketones 1+ (NEGATIVE) H Urine Occult Blood 4+ (NEGATIVE) H Urine Nitrite Negative (NEGATIVE) Urine Bilirubin Negative (NEGATIVE) Urine Urobilinogen Normal MG/DL (0.0-1.0) Urine Leukocyte Esterase Negative (NEGATIVE) Urine RBC 10-15 /HPF (0 - 2) H Urine WBC 0-2 /HPF (0 - 2) Urine Squamous Epithelial Cells Few /LPF (NONE/OCC) Urine Bacteria Few /HPF (NONE) White Blood Count 12.2 K/UL (4.8-10.8) H Red Blood Count 5.63 M/UL (4.20-5.40) H Hemoglobin 13.4 G/DL (12.0-16.0) Hematocrit 43.5 % (37.0-47.0) Mean Corpuscular Volume 77 FL (80-99) L Mean Corpuscular Hemoglobin 23.9 PG (27.0-31.0) L Mean Corpuscular Hemoglobin Concent 30.9 G/DL (32.0-36.0) L Red Cell Distribution Width 14.1 % (11.6-14.8) Platelet Count 368 K/UL (150-450) Mean Platelet Volume 9.6 FL (6.5-10.1) Neutrophils (%) (Auto) 85.6 % (45.0-75.0) H Lymphocytes (%) (Auto) 9.6 % (20.0-45.0) L Monocytes (%) (Auto) 3.5 % (1.0-10.0) Eosinophils (%) (Auto) 0.1 % (0.0-3.0) Basophils (%) (Auto) 1.2 % (0.0-2.0) Prothrombin Time 10.3 SEC (9.30-11.50) Prothromb Time International Ratio 1.0 (0.9-1.1) Activated Partial Thromboplast Time 19 SEC (23-33) L Sodium Level 136 MMOL/L (136-145) Potassium Level 3.2 MMOL/L (3.5-5.1) L Chloride Level 99 MMOL/L (98-107) Carbon Dioxide Level 26 MMOL/L (21-32) Anion Gap 11 mmol/L (5-15) Blood Urea Nitrogen 9 mg/dL (7-18) Creatinine 0.9 MG/DL (0.55-1.30) Estimat Glomerular Filtration Rate > 60 mL/min (>60) Glucose Level 154 MG/DL (74-106) H Calcium Level 9.7 MG/DL (8.5-10.1) Total Bilirubin 0.4 MG/DL (0.2-1.0) Aspartate Amino Transf (AST/SGOT) 20 U/L (15-37) Alanine Aminotransferase (ALT/SGPT) 16 U/L (12-78) Alkaline Phosphatase 117 U/L (46-116) H Total Protein 8.4 G/DL (6.4-8.2) H Albumin 3.9 G/DL (3.4-5.0) Globulin 4.5 g/dL Albumin/Globulin Ratio 0.9 (1.0-2.7) L Lipase 92 U/L (73-393) General Appearance: well appearing, no apparent distress, alert Head: normocephalic EENT: PERRL/EOMI, normal ENT inspection Neck: supple Respiratory: normal breath sounds, no respiratory distress Cardiovascular: normal rate Gastrointestinal: normal inspection, non tender, soft, normal bowel sounds, non -distended Rectal: deferred Genitourinary: no CVA tenderness Musculoskeletal: normal inspection, back normal Neurologic: normal inspection, alert, oriented x3, responsive Psychiatric: normal inspection, judgement/insight normal, memory normal Skin: normal inspection, normal color, no rash, warm/dry, palpation normal, well hydrated Lymphatic: normal inspection, no adenopathy Current Medications Current Medications Medications (Trade) Dose Ordered Sig/Robbie Route PRN Reason Start Time Stop Time Status Last Admin Dose Admin Acetaminophen (Tylenol) 650 mg Q4H PRN ORAL fever 08/18/17 06:30 09/17/17 06:29 Al Hydroxide/Mg Hydroxide (Mylanta II) 30 ml Q6H PRN ORAL dyspepsia 08/18/17 06:30 09/17/17 06:29 Dextrose (Dextrose 50%) STAT PRN IV Hypoglycemia 08/18/17 06:30 09/17/17 06:29 Dextrose/Sodium Chloride 1,000 ml @ 75 mls/hr [id number] IV 08/18/17 07:00 09/17/17 06:59 08/18/17 06:50 Diphenhydramine HCl (Benadryl) 25 mg Q6H PRN ORAL Itching/Pruritis 08/18/17 06:30 09/17/17 06:29 Heparin Sodium (Porcine) (Heparin 5000 units/ml) 5,000 units EVERY 12 HOURS SUBQ 08/18/17 09:00 09/17/17 08:59 08/18/17 10:14 Lorazepam (Ativan 2mg/ml 1ml) 1 mg Q4H PRN IV agitation 08/18/17 06:30 08/25/17 06:29 Morphine Sulfate (Morphine Sulfate) 2 mg Q4H PRN IVP severe Pain (Pain Scale 7-10) 08/18/17 06:30 08/25/17 06:29 08/18/17 13:11 Nitroglycerin (Ntg) 0.4 mg Q5M X 3 DOSES PRN SL Prn Chest Pain 08/18/17 06:30 09/17/17 06:29 Ondansetron HCl (Zofran) 4 mg Q6H PRN IVP Nausea & Vomiting 08/18/17 06:30 09/17/17 06:29 08/18/17 13:10 Pantoprazole (Protonix) 40 mg DAILY IV 08/18/17 09:00 09/17/17 08:59 08/18/17 10:10 Polyethylene Glycol (Miralax) 17 gm HSPRN PRN ORAL Constipation 08/18/17 06:30 09/17/17 06:29 Promethazine HCl (Phenergan) 25 mg Q8H PRN IV refractory nausea 08/18/17 06:30 09/17/17 06:29 Temazepam (Restoril) 15 mg HSPRN PRN ORAL Insomnia 08/18/17 06:30 08/25/17 06:29 GI: Plan Problems: (1) Nausea, vomiting, and diarrhea (2) Cyclical vomiting (3) Opiate dependence (4) Abdominal pain (5) Nausea & vomiting (6) Dehydration Plan hepatitis panel negative s/p EGD/colonoscopy 11/2016>> gastritis, colon polyp microcytic hypochromic anemia abdominal U/S >> No acute findings. Postcholecystectomy symptomatic treatment utox zofran prn, reglan for persistent vomiting adv diet as tolerated pain mgmt, transition IV --> PO electrolyte replacement ppi abx fu labs Discussed with Dr. Hook. Thank you for this patient referral, we will follow. Katie Reinoso N.P. Aug 18, 2017 14:05
--- NOTE | 2017-08-18 15:18 | Consultation ---
History of Present Illness General Date patient seen: Aug 18, 2017 Chief Complaint: Nausea, Vomiting, and Diarrhea Referring physician: ENDY KUMAR Reason for Consultation: VOMITTING Present Illness HPI 42 year old female presented with vomiting and abdominal pain. She has cyclic vomiting syndrome. She thinks she's might have vomited some blood as it' s dark. The pain is 9/10, constant epigastric and nonradiating. Denies any fevers or chills. There's no diarrhea. Stools normal at this time. She has a little bit of dysuria this morning. No medication taken at home. Allergies: Coded Allergies: No Known Allergies (Unverified , 05/08/14) Medication History Scheduled Amlodipine Besylate* (Amlodipine Besylate*), 5 MG ORAL DAILY, (Reported) Atenolol* (Tenormin*), 100 MG ORAL DAILY, (Reported) Baclofen* (Baclofen*), 10 MG ORAL TID, (Reported) Baclofen* (Baclofen*), 10 MG ORAL THREE TIMES A DAY, (Reported) Gabapentin* (Gabapentin*), 600 MG ORAL THREE TIMES A DAY, (Reported) Hydromorphone HCl (Dilaudid), 4 MG ORAL Q8H, (Reported) Lorazepam* (Lorazepam*), 1 MG ORAL BID, (Reported) Metoclopramide Hcl* (Reglan*), 5 MG ORAL EVERY 6 HOURS, (Reported) Multivitamins* (Multivitamins*), 1 TAB ORAL DAILY, (Reported) Nitrofurantoin Monohyd/M-Cryst* (Macrobid 100 Mg*), 100 MG ORAL EVERY 12 HOURS Omeprazole (Omeprazole), 20 MG ORAL DAILY, (Reported) Ondansetron Odt* (Zofran Odt*), 4 MG ORAL TID, (Reported) Ranitidine Hcl* (Zantac*), 150 MG ORAL TWICE A DAY Zolpidem Tartrate* (Zolpidem Tartrate*), 5 MG ORAL BEDTIME, (Reported) Scheduled PRN Ondansetron Odt* (Zofran Odt*), 4 MG ORAL Q6H PRN for Nausea & Vomiting Ondansetron Odt* (Zofran Odt*), 4 MG ORAL Q6H PRN for Nausea & Vomiting Ondansetron Odt* (Zofran Odt*), 4 MG ORAL Q6H PRN for Nausea & Vomiting Sumatriptan Succinate* (Imitrex*), 100 MG ORAL DAILY PRN for For Headache, ( Reported) Patient History Healthcare decision maker Resuscitation status Full Code Advanced Directive on File Past Medical/Surgical History Past Medical/Surgical History: (1) HTN (hypertension) (2) Anxiety (3) Migraine Review of Systems All Other Systems: negative except mentioned in HPI Physical Exam General Appearance: WD/WN Lines, tubes and drains: peripheral HEENT: normocephalic, anicteric Neck: non-tender, normal alignment Respiratory/Chest: chest wall non-tender, lungs clear Breasts: no masses Cardiovascular/Chest: normal peripheral pulses, no JVD Abdomen: soft Genitourinary/Rectal: normal genital exam Last 24 Hour Vital Signs Date Time Temp Pulse Resp B/P (MAP) Pulse Ox O2 Delivery O2 Flow Rate FiO2 08/18/17 04:40 66 16 122/72 98 Room Air 08/18/17 04:15 97.8 83 20 118/79 98 Room Air 08/18/17 02:45 97.8 83 20 118/79 98 Room Air 08/18/17 02:00 97.8 08/18/17 01:30 98.2 82 20 118/82 97 Room Air 08/18/17 00:30 97.8 80 20 128/82 99 Room Air 08/17/17 23:30 97.8 90 20 158/79 100 Room Air 08/17/17 23:26 97.8 08/17/17 22:30 98.1 80 16 132/80 98 Room Air 08/17/17 21:34 97.9 94 16 164/113 96 Room Air Intake and Output 08/17/17 08/18/17 19:00 07:00 Intake Total 1000 ml Balance 1000 ml Intake Oral 0 ml IV Total 1000 ml # Voids 3 Laboratory Tests Test 08/17/17 21:50 08/17/17 22:30 Urine Color Pale yellow Urine Appearance Clear Urine pH 8 (4.5-8.0) Urine Specific [place] 1.010 (1.005-1.035) Urine Protein 2+ (NEGATIVE) H Urine Glucose (UA) Negative (NEGATIVE) Urine Ketones 1+ (NEGATIVE) H Urine Occult Blood 4+ (NEGATIVE) H Urine Nitrite Negative (NEGATIVE) Urine Bilirubin Negative (NEGATIVE) Urine Urobilinogen Normal MG/DL (0.0-1.0) Urine Leukocyte Esterase Negative (NEGATIVE) Urine RBC 10-15 /HPF (0 - 2) H Urine WBC 0-2 /HPF (0 - 2) Urine Squamous Epithelial Cells Few /LPF (NONE/OCC) Urine Bacteria Few /HPF (NONE) White Blood Count 12.2 K/UL (4.8-10.8) H Red Blood Count 5.63 M/UL (4.20-5.40) H Hemoglobin 13.4 G/DL (12.0-16.0) Hematocrit 43.5 % (37.0-47.0) Mean Corpuscular Volume 77 FL (80-99) L Mean Corpuscular Hemoglobin 23.9 PG (27.0-31.0) L Mean Corpuscular Hemoglobin Concent 30.9 G/DL (32.0-36.0) L Red Cell Distribution Width 14.1 % (11.6-14.8) Platelet Count 368 K/UL (150-450) Mean Platelet Volume 9.6 FL (6.5-10.1) Neutrophils (%) (Auto) 85.6 % (45.0-75.0) H Lymphocytes (%) (Auto) 9.6 % (20.0-45.0) L Monocytes (%) (Auto) 3.5 % (1.0-10.0) Eosinophils (%) (Auto) 0.1 % (0.0-3.0) Basophils (%) (Auto) 1.2 % (0.0-2.0) Prothrombin Time 10.3 SEC (9.30-11.50) Prothromb Time International Ratio 1.0 (0.9-1.1) Activated Partial Thromboplast Time 19 SEC (23-33) L Sodium Level 136 MMOL/L (136-145) Potassium Level 3.2 MMOL/L (3.5-5.1) L Chloride Level 99 MMOL/L (98-107) Carbon Dioxide Level 26 MMOL/L (21-32) Anion Gap 11 mmol/L (5-15) Blood Urea Nitrogen 9 mg/dL (7-18) Creatinine 0.9 MG/DL (0.55-1.30) Estimat Glomerular Filtration Rate > 60 mL/min (>60) Glucose Level 154 MG/DL (74-106) H Calcium Level 9.7 MG/DL (8.5-10.1) Total Bilirubin 0.4 MG/DL (0.2-1.0) Aspartate Amino Transf (AST/SGOT) 20 U/L (15-37) Alanine Aminotransferase (ALT/SGPT) 16 U/L (12-78) Alkaline Phosphatase 117 U/L (46-116) H Total Protein 8.4 G/DL (6.4-8.2) H Albumin 3.9 G/DL (3.4-5.0) Globulin 4.5 g/dL Albumin/Globulin Ratio 0.9 (1.0-2.7) L Lipase 92 U/L (73-393) Height (Feet): 5 Height (Inches): 10.00 Weight (Pounds): 176 Medications Current Medications Medications (Trade) Dose Ordered Sig/Robbie Route PRN Reason Start Time Stop Time Status Last Admin Dose Admin Acetaminophen (Tylenol) 650 mg Q4H PRN ORAL fever 08/18/17 06:30 09/17/17 06:29 Al Hydroxide/Mg Hydroxide (Mylanta II) 30 ml Q6H PRN ORAL dyspepsia 08/18/17 06:30 09/17/17 06:29 Dextrose (Dextrose 50%) STAT PRN IV Hypoglycemia 08/18/17 06:30 09/17/17 06:29 Dextrose/Sodium Chloride 1,000 ml @ 75 mls/hr [id number] IV 08/18/17 07:00 09/17/17 06:59 08/18/17 06:50 Diphenhydramine HCl (Benadryl) 25 mg Q6H PRN ORAL Itching/Pruritis 08/18/17 06:30 09/17/17 06:29 Heparin Sodium (Porcine) (Heparin 5000 units/ml) 5,000 units EVERY 12 HOURS SUBQ 08/18/17 09:00 09/17/17 08:59 08/18/17 10:14 Lorazepam (Ativan 2mg/ml 1ml) 1 mg Q4H PRN IV agitation 08/18/17 06:30 2 06:29 Morphine Sulfate (Morphine Sulfate) 2 mg Q4H PRN IVP severe Pain (Pain Scale 7-10) 08/18/17 06:30 08/25/17 06:29 08/18/17 13:11 Nitroglycerin (Ntg) 0.4 mg Q5M X 3 DOSES PRN SL Prn Chest Pain 08/18/17 06:30 09/17/17 06:29 Ondansetron HCl (Zofran) 4 mg Q6H PRN IVP Nausea & Vomiting 08/18/17 06:30 09/17/17 06:29 08/18/17 13:10 Pantoprazole (Protonix) 40 mg DAILY IV 08/18/17 09:00 09/17/17 08:59 08/18/17 10:10 Polyethylene Glycol (Miralax) 17 gm HSPRN PRN ORAL Constipation 08/18/17 06:30 09/17/17 06:29 Promethazine HCl (Phenergan) 25 mg Q8H PRN IV refractory nausea 08/18/17 06:30 09/17/17 06:29 Temazepam (Restoril) 15 mg HSPRN PRN ORAL Insomnia 08/18/17 06:30 08/25/17 06:29 Assessment/Plan Problem List: (1) Nausea & vomiting ICD Codes: R11.2 - Nausea with vomiting, unspecified SNOMED: 37522252 (2) Cyclical vomiting ICD Codes: G43.A0 - Cyclical vomiting, not intractable SNOMED: 17887145 (3) HTN (hypertension) ICD Codes: I10 - Essential (primary) hypertension SNOMED: 70519908 (4) Anxiety ICD Codes: F41.9 - Anxiety disorder, unspecified SNOMED: 17661913 Assessment/Plan npo symptomatic treatment iv fluids GI evaluation SALBADOR MEYER Aug 18, 2017 15:18
[2017-08-18 16:08] VITALS: BP 119/78
--- NOTE | 2017-08-18 18:11 | Nephrology Progress Note ---
Assessment/Plan Problem List: (1) Chronic pain disorder (2) GERD (gastroesophageal reflux disease) (3) Migraine (4) Anxiety (5) Cyclical vomiting (6) Abdominal pain (7) HTN (hypertension) Plan Consult dictated # [id number] Subjective Constitutional: Denies: no symptoms, chills, diaphoresis, fever, malaise, weakness, other HEENT: Denies: no symptoms, eye pain, blurred vision, tearing, double vision, ear pain, ear discharge, nose pain, nose congestion, throat pain, throat swelling, mouth pain, mouth swelling, other Genitourinary: Denies: no symptoms, burning, discharge, frequency, flank pain, hematuria, incontinence, pain, urgency, other 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: Denies: no symptoms, anxiety, depressed, emotional problems, headache, numbness, paresthesia, pre-existing deficit, seizure, tingling, tremors, weakness, other Subjective In bed, in no apparent distress Objective Objective Last 24 Hour Vital Signs Date Time Temp Pulse Resp B/P (MAP) Pulse Ox O2 Delivery O2 Flow Rate FiO2 08/18/17 16:08 99.1 94 20 119/78 97 Room Air 94 08/18/17 04:40 66 16 122/72 98 Room Air 08/18/17 04:15 97.8 83 20 118/79 98 Room Air 08/18/17 02:45 97.8 83 20 118/79 98 Room Air 08/18/17 02:00 97.8 08/18/17 01:30 98.2 82 20 118/82 97 Room Air 08/18/17 00:30 97.8 80 20 128/82 99 Room Air 08/17/17 23:30 97.8 90 20 158/79 100 Room Air 08/17/17 23:26 97.8 08/17/17 22:30 98.1 80 16 132/80 98 Room Air 08/17/17 21:34 97.9 94 16 164/113 96 Room Air Intake and Output 08/17/17 08/18/17 19:00 07:00 Intake Total 1000 ml Balance 1000 ml Intake Oral 0 ml IV Total 1000 ml # Voids 3 Laboratory Tests 08/17/17 21:50: Urine Color Pale yellow, Urine Appearance Clear, Urine pH 8, Urine Specific [place] 1.010, Urine Protein 2+H, Urine Glucose (UA) Negative, Urine Ketones 1+H , Urine Occult Blood 4+H, Urine Nitrite Negative, Urine Bilirubin Negative, Urine Urobilinogen Normal, Urine Leukocyte Esterase Negative, Urine RBC 10-15H, Urine WBC 0-2, Urine Squamous Epithelial Cells Few, Urine Bacteria Few 08/17/17 22:30: White Blood Count 12.2H, Red Blood Count 5.63H, Hemoglobin 13.4, Hematocrit 43.5 , Mean Corpuscular Volume 77L, Mean Corpuscular Hemoglobin 23.9L, Mean Corpuscular Hemoglobin Concent 30.9L, Red Cell Distribution Width 14.1, Platelet Count 368, Mean Platelet Volume 9.6, Neutrophils (%) (Auto) 85.6H, Lymphocytes (%) (Auto) 9.6L, Monocytes (%) (Auto) 3.5, Eosinophils (%) (Auto) 0.1, Basophils (%) (Auto) 1.2, Prothrombin Time 10.3, Prothromb Time International Ratio 1.0, Activated Partial Thromboplast Time 19L, Sodium Level 136, Potassium Level 3.2L, Chloride Level 99, Carbon Dioxide Level 26, Anion Gap 11, Blood Urea Nitrogen 9, Creatinine 0.9, Estimat Glomerular Filtration Rate > 60, Glucose Level 154H, Calcium Level 9.7, Total Bilirubin 0.4, Aspartate Amino Transf (AST/SGOT) 20, Alanine Aminotransferase (ALT/SGPT) 16, Alkaline Phosphatase 117H, Total Protein 8.4H, Albumin 3.9, Globulin 4.5, Albumin/Globulin Ratio 0.9L, Lipase 92 Height (Feet): 5 Height (Inches): 10.00 Weight (Pounds): 176 General Appearance: no apparent distress, alert EENT: normal ENT inspection Neck: normal alignment Cardiovascular: normal rate, regular rhythm, no JVD Respiratory/Chest: lungs clear, normal breath sounds, no respiratory distress Abdomen: soft, no organomegaly, no mass, tender Extremities: non-tender, normal inspection, no calf tenderness Neurologic: alert, oriented x 3, responsive, normal mood/affect Joan Mathis N.P. Aug 18, 2017 18:11
--- NOTE | 2017-08-18 18:30 | History and Physical Report ---
DATE OF ADMISSION: 08/18/2017 TIME: 1 p.m. CONSULTANTS: 1. Bebo Kim M.D. 2. Bianca Petersen M.D. CHIEF COMPLAINT: Abdominal pain, nausea, and vomiting. BRIEF HISTORY: The patient is a 42-year-old female, who lives at home, presents with abdominal pain, nausea, and vomiting for three days, sharp, intermittent, and getting worse. The patient does have a history of cyclic vomiting syndrome for seven years, apparently recurrent every few months or so. The patient came to [facility], diagnosed with the above, and admitted to medical floor for further treatment. Currently, feeling a little bit better. Slight abdominal pain. Slow, but pain medications is relieving some. Slight nausea. Vomiting has stopped. The patient is otherwise stabilized and comfortable. PAST MEDICAL HISTORY: Includes hypertension and cyclic vomiting syndrome. PAST SURGICAL HISTORY: Gallbladder. MEDICATIONS: Include heparin, Tylenol, morphine, MiraLAX, Restoril, Benadryl, nitroglycerin, Ativan, and Phenergan. ALLERGIES: Denies. SOCIAL HISTORY: Positive smoking. No alcohol. No intravenous drug abuse. FAMILY HISTORY: Noncontributory. PHYSICAL EXAMINATION: GENERAL: Calm, slightly anxious in bed, oriented x3, and in no acute distress. VITAL SIGNS: Temperature is 97, pulse 83, respirations 20, and blood pressure 118/79. CARDIOVASCULAR: No murmurs. LUNGS: Distant and clear. ABDOMEN: Bowel sounds positive. Slightly tender. No guarding. No rigidity. No rebound. EXTREMITIES: No cyanosis, clubbing, or edema. NEUROLOGIC: The patient moves all extremities, but slightly weak. LABORATORY AND DIAGNOSTIC DATA: White count is 12, otherwise CBC is normal. BMP show potassium 3.2. Glucose 154, otherwise normal. Alkaline phosphatase 117. PTT is 19. Urinalysis shows 3+ protein and 4+ occult blood, otherwise normal. ASSESSMENT: Abdominal pain, nausea, vomiting, cyclic vomiting syndrome, diabetes, and hypertension. PLAN: 1. Blood pressure, blood sugar, and pain control. 2. Antiemetic p.r.n. 3. IV fluids. 4. Dietary evaluation. 5. CBC and BMP in the morning. 6. Dr. Petersen, Dr. Kim, Dr. Le, and Dr. May to consult. We will continue to follow this patient medically. Amadou Decker D.O. DR: BLNAE JOB#: [id number] CC:
[2017-08-18 20:00] VITALS: BP 149/94
[2017-08-18] MEDS ORDERED: Potassium Chloride 40 MEQ in Sodium Chloride 500ML 550 ML IVPB ONE (21:30)
--- NOTE | 2017-08-18 22:30 | Consultation ---
DATE OF CONSULTATION: 08/18/2017 INFECTIOUS DISEASE CONSULTATION CONSULTING PHYSICIAN: Enrike Sanchez M.D. PRIMARY ATTENDING PHYSICIAN: Amadou Decker D.O. REASON FOR CONSULT: Leukocytosis. HISTORY OF PRESENT ILLNESS: The patient is a 42-year-old female, admitted today from home complaining of nausea, vomiting and abdominal pain since yesterday. The patient had history of cyclic vomiting since _last year had multiple admissions to [facility], the last admission was June of last year. She states that the frequency of her diet is decreased. PAST MEDICAL HISTORY: Hypertension and cyclic vomiting syndrome. The patient is status post cholecystectomy. MEDICATIONS: Heparin, Protonix, D5 normal saline, Tylenol, morphine, MiraLAX, Zofran, temazepam, diphenhydramine, nitroglycerin, promethazine, and lorazepam. ALLERGIES: No known drug allergy. SOCIAL HISTORY: Single, has a grownup child, lives at home. Smoking one pack cigarettes a day. Denies drug or alcohol abuse. REVIEW OF SYSTEMS: Denies fever or chills. She has nausea, vomiting, and abdominal pain. Denies any change in diet habit. Denies any problem passing urine. No coughing. No shortness of breath. PHYSICAL EXAMINATION: GENERAL APPEARANCE: No acute distress, well developed. VITAL SIGNS: Temperature 99.1 degrees, pulse 94, blood pressure 119/78. HEAD AND NECK: She has whitish tongue. HEART: Regular. LUNGS: Clear. ABDOMEN: Soft. Mildly tender. EXTREMITIES: No edema. NEUROLOGIC: Awake, alert, and oriented x3. LABORATORY AND DIAGNOSTIC DATA: WBC 12.2, hemoglobin 13.4, hematocrit 43.5, and platelets 368,000. Sodium 136, potassium 3.2, chloride 99, bicarbonate 26, BUN 9, creatinine 0.9 and glucose 154. Total protein is elevated at 8.4. Abdominal ultrasound was negative except post cholecystectomy status. IMPRESSION: Mild leukocytosis, may be secondary to cyclic vomiting. The patient has cyclic vomiting syndrome, hypertension and nicotine dependence. RECOMMENDATION: We will follow up the cultures. We will observe off antibiotics. The patient does not want to quit smoking at the present time. At the end of my exam, I thank Dr. Amadou Decker, for involving me in the care of this patient. Enrike Sanchez M.D. DR: PABLITO JOB#: [id number] CC: PATRICIO
[2017-08-19] MEDS: Morphine Sulfate 2mg/ml Inj IVP PRN ×3 (02:19→10:24)
[2017-08-19 04:00] VITALS: BP 129/90
--- NOTE | 2017-08-19 04:00 | Consultation ---
DATE OF CONSULTATION: 08/18/2017 NEPHROLOGY CONSULTATION CONSULTING PHYSICIAN: Claudy May M.D. REFERRING PHYSICIAN: Amadou Decker D.O. REASON FOR CONSULTATION: Hypokalemia. HISTORY OF PRESENT ILLNESS: The patient is a 42-year-old female with past medical history significant for hypertension, chronic pain syndrome, cyclical vomiting syndrome, GERD, migraine headaches, and anxiety disorder, who presented to [facility] with vomiting which started yesterday according to her. She stated that she takes Zofran and Dilaudid at home which she did at that time, but the vomiting did not stop which prompted her visit to the emergency room. She denies any chest pain. No fever. No chills. She is lying in bed at this time in no apparent distress, but stated that she would like some pain medicine. PAST MEDICAL HISTORY: Significant for cyclical vomiting syndrome, hypertension, chronic pain syndrome, GERD, migraine headaches, and anxiety disorder. PAST SURGICAL HISTORY: Cholecystectomy. HOME MEDICATIONS: Include amlodipine 5 mg p.o. daily, atenolol 100 mg p.o. daily, baclofen 10 mg p.o. t.i.d., gabapentin 600 mg p.o. t.i.d., hydromorphone 4 mg p.o. q.8 h. p.r.n., lorazepam 1 mg p.o. b.i.d., Reglan 5 mg p.o. q.6 h., multivitamin tablet one p.o. daily, omeprazole 20 mg p.o. daily, Imitrex 100 mg p.o. daily p.r.n., and zolpidem 5 mg p.o. p.r.n. at bedtime. ALLERGIES: She has no known allergies. SOCIAL HISTORY: She lives at home with family. Denies any alcohol use or illicit drug use, but she is a current everyday smoker, smokes a pack a day. FAMILY HISTORY: Mother and sister have high blood pressure. REVIEW OF SYSTEMS: A full 12-point review of systems was reviewed with the patient and positives as stated in HPI. PHYSICAL EXAMINATION: GENERAL: This is a 42-year-old adult female, in no apparent distress. VITAL SIGNS: Blood pressure 119/78, heart rate is 94, respiratory rate is 20, temperature 99.1 degrees, and O2 saturation is 97% on room air. HEENT: Head is normocephalic and atraumatic with moist mucous membranes. Pupils are equal, round, and reactive to light and accommodation. NECK: Supple. No JVD noted. LUNGS: Clear to auscultation bilaterally. No crackles. No wheezing. CARDIOVASCULAR: Regular rate and rhythm. No murmurs. No gallops. ABDOMEN: Soft. Epigastric tenderness. Positive bowel sounds noted in all four quadrants. EXTREMITIES: No edema. No cyanosis. No clubbing. NEUROLOGIC: She is awake, alert, and oriented x3 with no focal deficits. LABORATORY DATA: CBC, white count 12.2, hemoglobin 13.4, hematocrit 43.5, and platelet count of 368,000. BMP, sodium 136, potassium 3.2, chloride 99, bicarbonate 26, BUN 9, creatinine 0.9, and blood glucose 154. RADIOLOGIC FINDINGS: Abdominal ultrasound findings, gallbladder is absent, the liver demonstrated part of the pancreas and IVC, both kidneys, spleen appear unremarkable. There is no biliary ductal dilatation identified. Doppler evaluation of the main portal vein shows patency. There is no ascites. No hydronephrosis seen. Impression, no acute findings. Post cholecystectomy. ASSESSMENT: 1. Hypokalemia. 2. Cyclical vomiting syndrome. 3. Chronic pain syndrome. 4. Hypertension. 5. Gastroesophageal reflux disease. 6. Anxiety disorder. 7. Abdominal pain. PLAN: We will replace potassium with KCl 40 mEq p.o. x1 now. Continue current IV fluids. We will monitor electrolytes and correct as needed. Pain management as needed. Continue daily PPI. DVT prophylaxis with heparin subcutaneous. We will monitor the patient's overall response to treatment and make recommendations as necessary. Claudy May M.D. Joan Mathis DR: TANNER JOB#: [id number] CC:
[2017-08-19 06:35] LABS: BASOPHILS % (AUTO) 1.3 % (0.0-2.0); EOSINOPHILS % (AUTO) 0.9 % (0.0-3.0); HEMATOCRIT 37.5 % (37.0-47.0); HEMOGLOBIN 11.9 G/DL (12.0-16.0); LYMPHOCYTES % (AUTO) 19.8 % (20.0-45.0); MEAN CORPUSCULAR VOLUME 77 FL (80-99); MONOCYTES % (AUTO) 10.3 % (1.0-10.0); NEUTROPHILS % (AUTO) 67.6 % (45.0-75.0); PLATELET COUNT 405 K/UL (150-450); RED BLOOD COUNT 4.88 M/UL (4.20-5.40); RED CELL DISTRIBUTION WIDTH 13.7 % (11.6-14.8); WHITE BLOOD COUNT 12.2 K/UL (4.8-10.8)
[2017-08-19 07:14] LABS: ALANINE AMINOTRANSFERASE 16 U/L (12-78); ALBUMIN 3.5 G/DL (3.4-5.0); ALKALINE PHOSPHATASE 98 U/L (46-116); AMYLASE 47 U/L (25-115); ANION GAP 11 mmol/L (5-15); ASPARTATE AMINO TRANSFERASE 15 U/L (15-37); BILIRUBIN,TOTAL 0.3 MG/DL (0.2-1.0); BLOOD UREA NITROGEN 12 mg/dL (7-18); CALCIUM 9.4 MG/DL (8.5-10.1); CARBON DIOXIDE 25 MMOL/L (21-32); CHLORIDE 102 MMOL/L (98-107); CREATININE 0.9 MG/DL (0.55-1.30); SODIUM 138 MMOL/L (136-145)
[2017-08-19 08:15] VITALS: BP 148/85
[2017-08-19] MEDS: D5 1/2NS 1,000 ML IV SCH (09:40)
[2017-08-19] MEDS: Pantoprazole Inj IV SCH (10:23)
[2017-08-19] MEDS: Heparin 5000 units/ml inj SUBQ SCH (10:24)
[2017-08-19] MEDS ORDERED: D5 1/2NS w/KCl 20mEq 1,000 ML IV SCH (11:00)
--- NOTE | 2017-08-21 11:09 | Discharge Summary ---
Discharge Summary Hospital Course Date of Admission Aug 18, 2017 at 02:59 Date of Discharge Aug 19, 2017 at 11:40 Admitting Diagnosis pain/vomiting HPI Jailyn Avelar is a 42 year old female who was admitted on Aug 18, 2017 at 02:59 for Pain/Vomiting Hospital Course [id number] Discharge Discharge Disposition Patient left AMA Discharge Diagnoses: Gina Odonnell NP Aug 21, 2017 11:09
--- NOTE | 2017-08-22 | Discharge Summary 2 SIG ---
DATE OF ADMISSION: 08/18/2017 DATE OF DISCHARGE: 08/19/2017 CONSULTANTS: 1. Bebo Kim M.D. 2. Bianca Petersen M.D. 3. Enrike Sanchez M.D. 4. Claudy May M.D. BRIEF HOSPITAL COURSE: The patient is a 42-year-old female, who lives at home, presented to ED complaining of abdominal pain, nausea, and vomiting for three days. The pain was sharp and intermittent and was getting worse. She has history of cyclic vomiting syndrome for the past seven years. Apparently, symptoms are recurrent every month or so. On evaluation at ED, she was given IV hydration, analgesia, and antiemetics. Blood work showed WBCs 12.2. LFTs and lipase were normal. She was admitted to medical floor. Her potassium was 3.2 and was given potassium replacement. She was initially placed on NPO. Full treatment was not carried out as the patient signed out against medical advice. FINAL DIAGNOSES: 1. Cyclic vomiting syndrome. 2. Abdominal pain. 3. Hypertension. 4. Diabetes. 5. Hypokalemia. 6. Leukocytosis, possibly reactive secondary to cyclic vomiting. 7. Noncompliance as the patient signed out against medical advice. DISPOSITION: The patient left AMA. Amadou Decker D.O. I have been assigned to dictate discharge summary on this account and I was not involved in the patient's management. Gina Odonnell N.P. DR: SHARA JOB#: [id number] CC:
== END 2017-08-19 11:40 | disposition left against medical advice (07) | DRG 641 ==
LOC: EMR 22:05 → 4E 08-18 02:59 → EDBEDREQ 08-18 03:57
DX: E87.6 Hypokalemia (principal); E86.0 Dehydration; I10 Essential (primary) hypertension; G43.A0 Cyclical vomiting, in migraine, not intractable; R10.9 Unspecified abdominal pain; E11.9 Type 2 diabetes mellitus without complications; Z91.19 Patient's noncompliance with other medical treatment and regimen; F17.200 Nicotine dependence, unspecified, uncomplicated; K21.9 Gastro-esophageal reflux disease without esophagitis; F41.9 Anxiety disorder, unspecified; G89.4 Chronic pain syndrome; Z90.49 Acquired absence of other specified parts of digestive tract
CPT/HCPCS: 36415; 76700; 80053; 81003; 82150; 83690; 85025; 85610; 85730; 99285; J2405; J8499

== ENCOUNTER 2017-09-16 00:46 | Emergency (ER) | payer MEDICARE, MEDICAID ==
[~2017-09-16] VITALS: Ht 177.8 cm; Wt 79.4 kg
[2017-09-16 01:20] VITALS: BP 150/99
[2017-09-16] MEDS ORDERED: Haloperidol 5mg/ml Inj IVPB ONE (01:30)
--- NOTE | 2017-09-16 01:57 | Emergency Room Report ---
History of Present Illness General Chief Complaint: Abdominal Pain Source: Patient Present Illness HPI This is a 4 42-year-old female with history of cyclic vomiting syndrome. She present here numerous times for abdominal pain with nausea vomiting. This is likely area month. She presents with chief complaint abdominal pain with nausea and vomiting since this morning. Numerous episode. Nonbloody and nonbilious. Pain is sharp 10 out of 10. She is currently taking Dilaudid. Also on Zofran and Reglan. No diarrhea. No fever or chills. Nothing made it better. Nothing made it worse. Allergies: Coded Allergies: No Known Allergies (Unverified , 09/16/17) Patient History Past Medical History: see triage record, old chart reviewed Past Surgical History: other Pertinent Family History: none Social History: Denies: smoking Last Menstrual Period: n/a Now: No Immunizations: other Reviewed Nursing Documentation: PMH: Agreed, PSxH: Agreed Nursing Documentation-PMH Past Medical History: No History, Except For Hx Hypertension: Yes Hx Diabetes: No Hx Cancer: No Hx Gastrointestinal Problems: Yes - cyclic vomitting syndrome Hx Neurological Problems: No - Migraines Review of Systems Eye: Denies: eye pain, blurred vision ENT: Denies: ear pain, nose congestion, throat swelling Respiratory: Denies: cough, shortness of breath Cardiovascular: Denies: chest pain, palpitations Gastrointestinal: Reports: abdominal pain, nausea, vomiting, Denies: diarrhea Musculoskeletal: Denies: back pain, joint pain Skin: Denies: rash Neurological: Denies: headache, numbness Endocrine: Denies: increased thirst, increased urine Hematologic/Lymphatic: Denies: easy bruising All Other Systems: negative except mentioned in HPI Physical Exam Vital Signs Date Time Temp Pulse Resp B/P (MAP) Pulse Ox O2 Delivery O2 Flow Rate FiO2 09/16/17 00:54 99.4 87 16 168/117 95 Room Air 99.3 vitals with high blood pressure Sp02 EP Interpretation: reviewed, normal General Appearance: well appearing, no apparent distress, alert Head: normocephalic, atraumatic Eyes: bilateral eye PERRL, bilateral eye EOMI ENT: hearing grossly normal, normal pharynx Neck: full range of motion, supple, no meningismus Respiratory: chest non-tender, lungs clear, normal breath sounds Cardiovascular #1: regular rate, rhythm, no murmur Gastrointestinal: normal bowel sounds, no mass, no organomegaly, no bruit, non- distended, tenderness - mild diffuse Musculoskeletal: back normal, gait/station normal, normal range of motion Psychiatric: mood/affect normal Skin: warm/dry Medical Decision Making Diagnostic Impression: Primary Impression: Cyclical vomiting Qualified Codes: G43.A0 - Cyclical vomiting, not intractable Additional Impression: Chronic pain disorder ER Course Patient with cyclic vomiting syndrome. No vomiting here. Urine showed no ketones. Labs unremarkable. Symptom control well with Haldol and Phenergan. On the monitor there is no evidence of any prolonged QT interval. Lab Results Impression labs unremarkable Last Vital Signs Date Time Temp Pulse Resp B/P (MAP) Pulse Ox O2 Delivery O2 Flow Rate FiO2 09/16/17 00:54 99.4 87 16 168/117 95 Room Air 99.3 Status: improved Disposition: HOME, SELF-CARE Condition: Stable Referrals: NON PHYSICIAN (PCP) Patient Instructions: Abdominal Pain, Adult Additional Instructions: Follow-up with your Dr. in 3-5 days. Return if symptom worsen. LEEANNA REINOSO M.D. Sep 16, 2017 01:57
[2017-09-16 02:42] LABS: BASOPHILS % (AUTO) 1.7 % (0.0-2.0); EOSINOPHILS % (AUTO) 1.8 % (0.0-3.0); HEMATOCRIT 36.6 % (37.0-47.0); HEMOGLOBIN 11.4 G/DL (12.0-16.0); LYMPHOCYTES % (AUTO) 21.8 % (20.0-45.0); MEAN CORPUSCULAR VOLUME 76 FL (80-99); MONOCYTES % (AUTO) 6.7 % (1.0-10.0); NEUTROPHILS % (AUTO) 67.9 % (45.0-75.0); PLATELET COUNT 394 K/UL (150-450); RED BLOOD COUNT 4.81 M/UL (4.20-5.40); RED CELL DISTRIBUTION WIDTH 14.3 % (11.6-14.8); WHITE BLOOD COUNT 9.9 K/UL (4.8-10.8)
[2017-09-16 02:44] LABS: APPEARANCE,URINE CLEAR; BILIRUBIN, URINE NEGATIVE (NEGATIVE); COLOR,URINE PALE YELLOW; GLUCOSE, URINE (UA) NEGATIVE (NEGATIVE); KETONES,URINE NEGATIVE (NEGATIVE); LEUKOCYTE ESTERASE ,URINE 1+ (NEGATIVE); NITRITE,URINE NEGATIVE (NEGATIVE); PH,URINE 8 (4.5-8.0); PROTEIN,URINE 1+ (NEGATIVE); UROBILINOGEN,URINE 1 MG/DL (0.0-1.0)
[2017-09-16 02:53] LABS: ANION GAP 9 mmol/L (5-15); BLOOD UREA NITROGEN 12 mg/dL (7-18); CALCIUM 9.3 MG/DL (8.5-10.1); CARBON DIOXIDE 26 MMOL/L (21-32); CHLORIDE 105 MMOL/L (98-107); CREATININE 1.2 MG/DL (0.55-1.30); POTASSIUM 3.4 MMOL/L (3.5-5.1); SODIUM 140 MMOL/L (136-145)
[2017-09-16 03:03] VITALS: BP 140/89
[2017-09-16 05:15] VITALS: BP 138/89
[2017-09-16 05:22] VITALS: BP 138/89
== END 2017-09-16 05:22 | disposition home or self-care (01) ==
LOC: EMR 01:12
DX: G43.A0 Cyclical vomiting, in migraine, not intractable (principal); G89.29 Other chronic pain; I10 Essential (primary) hypertension
CPT/HCPCS: 36415; 80048; 80307; 81003; 81025; 85025; 96361; 96374; 96375; 99284; J1630; J2550

== ENCOUNTER 2017-09-18 08:38 | Emergency (ER) | payer MEDICARE, MEDICAID ==
[~2017-09-18] VITALS: Ht 177.8 cm; Wt 79.4 kg
--- NOTE | 2017-09-18 08:46 | Emergency Room Report ---
History of Present Illness General Chief Complaint: Abdominal Pain Source: Patient, Medical Record Present Illness HPI 42-year-old female walked in with complaints of continued vomiting. Patient is here fairly frequently with similar symptoms, was here 2 days ago for similar. Lab work and urinalysis was unremarkable at the time, mild hypokalemia. Symptoms controlled with Haldol. history of cyclic vomiting syndrome. Patient on dilaudid at home. States shes taking dilaudid/zofran but symptoms continue. Has not followed up with PMD since. States "have seen all the specialists, no one knows whats causing this." ECG on previous visit did not show QTc prolongation so phergen, and IV haldol were given with improvement PMHx: hypertension, chronic pain syndrome, cyclical vomiting syndrome, GERD, migraine headaches, and anxiety disorder Allergies: Coded Allergies: No Known Allergies (Unverified , 09/16/17) Patient History Past Medical History: other - Cyclic vomiting syndrome Past Surgical History: maki Pertinent Family History: none Social History: Denies: smoking, alcohol use, drug use Last Menstrual Period: menopause Now: No Immunizations: UTD Reviewed Nursing Documentation: PMH: Agreed, PSxH: Agreed Nursing Documentation-PMH Hx Hypertension: Yes Hx Diabetes: No Hx Cancer: No Hx Gastrointestinal Problems: Yes - cyclic vomitting syndrome Hx Neurological Problems: No - Migraines Review of Systems All Other Systems: negative except mentioned in HPI Physical Exam Sp02 EP Interpretation: reviewed, normal General Appearance: normal inspection, well appearing, no apparent distress, alert, GCS 15, non-toxic, obese Head: normocephalic, atraumatic Eyes: bilateral eye PERRL, bilateral eye EOMI ENT: normal ENT inspection, hearing grossly normal, normal pharynx, no angioedema, normal voice, TMs + canals normal, uvula midline, moist mucus membranes Neck: normal inspection, full range of motion, supple, thyroid normal, no meningismus, no bony tend Respiratory: normal inspection, lungs clear, normal breath sounds, no rhonchi, no respiratory distress, no retraction, no accessory muscle use, no wheezing, speaking full sentences Cardiovascular #1: regular rate, rhythm, no edema, no JVD, normal capillary refill Gastrointestinal: normal inspection, normal bowel sounds, non tender, soft, no mass, no peritonitis, non-distended, no guarding, no hernia, no pulsatile mass Genitourinary: no CVA tenderness Musculoskeletal: normal inspection, back normal, normal range of motion, no calf tenderness, pelvis stable, Sisi's Sign negative Neurologic: normal inspection, alert, oriented x3, responsive, production operations inspector III-XII nml as tested, motor strength/tone normal, cerebellar normal, normal gait, speech normal Psychiatric: normal inspection, judgement/insight normal, mood/affect normal, no suicidal/homicidal ideation, no delusions Skin: normal inspection, normal color, no rash Lymphatic: normal inspection, no adenopathy Medical Decision Making Diagnostic Impression: Primary Impression: Cyclical vomiting Qualified Codes: G43.A0 - Cyclical vomiting, not intractable ER Course VSS, afebrile Abdomen serially nonfocal Patient has had cholecystectomy in the past, however I do not think that she has ileus or SBO at this time given well appearanc, multiple visits to ER for similar, nonfocal nondistended abdomen. Patient was given IV Zofran and IM Haldol with improvement in symptoms I doubt acute bacterial or surgical process given frequent visits to ER and admissions for similar, nonfocal abdomen, normal vital signs, afebrile She was hydrated with 500 mL of NS Advise PMD referral to GI for cyclic vomiting syndrome Patient has Zofran and Dilaudid at home for the symptoms ER course: Patient has remained stable during ED stay. Disposition: Patient is to be discharged to home. Patient is instructed to follow up with their primary care doctor within 5 days. Strict return precautions discussed with patient such as fever, chills, worsening/severe pain, nausea, vomiting, which may indicate severe illness. Patient verbalizes understanding and agrees with plan. Please note that this Emergency Department Report was dictated using [employer]ual care coordinator technology software, occasionally this can lead to erroneous entry secondary to interpretation by the dictation equipment Status: improved Disposition: HOME, SELF-CARE ANURADHA MICHAELS M.D. Sep 18, 2017 08:46
[2017-09-18 08:54] VITALS: BP 123/92
[2017-09-18] MEDS ORDERED: Haloperidol 5mg/ml Inj IM ONE (09:00)
[2017-09-18] MEDS ORDERED: Sodium Chloride 500ML 500 ML IV ONE (09:15)
[2017-09-18 09:43] VITALS: BP 125/89
== END 2017-09-18 09:46 | disposition home or self-care (01) ==
LOC: EMR 09:30
DX: G43.A0 Cyclical vomiting, in migraine, not intractable (principal); I10 Essential (primary) hypertension
CPT/HCPCS: 96372; 96374; 96375; 99284; J1630; J2405; J7040

== ENCOUNTER 2017-11-05 09:12 | Emergency (ER) | payer MEDICARE, MEDICAID ==
[~2017-11-05] VITALS: Ht 177.8 cm; Wt 86.2 kg
[2017-11-05 09:44] VITALS: BP 113/83
[2017-11-05] MEDS ORDERED: Norco 5mg/325mg tab PO ONE (09:45)
[2017-11-05] MEDS ORDERED: Ketorolac 30mg Inj IM ONE (09:45)
[2017-11-05] MEDS ORDERED: IBUPROFEN600 MG ORAL (10:38)
[2017-11-05] MEDS ORDERED: CYCLOBENZAPRINE10 MG ORAL (10:38)
[2017-11-05] MEDS ORDERED: COLACE100 MG ORAL (10:38)
[2017-11-05 10:42] VITALS: BP 113/83
--- NOTE | 2017-11-05 13:13 | Diagnostic Imaging Report ---
Indication: Back pain Comparison: None Findings: 3 views of the lumbar spine were obtained. No acute fracture or malalignment is identified. Cholecystectomy clips noted. Vertebral body heights and disk spaces are well maintained. Posterior elements are unremarkable. Impression: No acute findings.
--- NOTE | 2017-11-07 06:40 | Emergency Room Report ---
History of Present Illness General Chief Complaint: Back Pain-No Injury Source: Patient Present Illness HPI Patient presents emergency department today complaining of back pain. Patient states that the pain started yesterday. The pain is worse with movement. Patient states that the area feels tender. She denies any trauma. Denies any dysuria or urinary frequency. Denies being . Denies any chest pain shortness of breath. She denies any leg pain or radiating pain. Symptoms noted to moderate.No other modifying factors. No other associated signs and symptoms. No other complaints were noted. Allergies: Coded Allergies: No Known Allergies (Unverified , 09/16/17) Patient History Past Medical History: HTN, other - Cyclic vomiting syndrome Past Surgical History: none Pertinent Family History: none Social History: Denies: smoking, alcohol use, drug use Reviewed Nursing Documentation: PMH: Agreed; PSxH: Agreed Nursing Documentation-PMH Hx Hypertension: Yes Hx Diabetes: No Hx Cancer: No Hx Gastrointestinal Problems: Yes - cyclic vomitting syndrome Hx Neurological Problems: No - Migraines Review of Systems All Other Systems: negative except mentioned in HPI Physical Exam Vital Signs Date Time Temp Pulse Resp B/P (MAP) Pulse Ox O2 Delivery O2 Flow Rate FiO2 11/05/17 09:23 98.1 78 20 113/83 95 Room Air 98.1 Sp02 EP Interpretation: reviewed, normal General Appearance: normal inspection, well appearing, no apparent distress, alert Head: atraumatic Eyes: bilateral eye normal inspection ENT: normal ENT inspection, hearing grossly normal, normal voice Neck: normal inspection, full range of motion, supple, no bony tend Respiratory: normal inspection, lungs clear, normal breath sounds, no respiratory distress, no retraction, no wheezing Cardiovascular #1: regular rate, rhythm, no edema Gastrointestinal: normal inspection, normal bowel sounds, non tender, soft, no guarding, no hernia Genitourinary: no CVA tenderness Musculoskeletal: normal inspection, normal range of motion, other - Tender lower back Neurologic: normal inspection, alert, responsive, speech normal Psychiatric: normal inspection, judgement/insight normal, mood/affect normal Skin: normal inspection, normal color, no rash Medical Decision Making Diagnostic Impression: Primary Impression: Back pain ER Course Patient presents emergency department today complaining lower back pain. Differential considerations include factors as location versus strain. Given patient's presentation I felt x-rays are indicated. X-rays were noted to be negative. There however is some evidence of loss of lordosis of the lower back consistent with back spasms. Patient was given position for pain medications and muscle relaxants. Recommend rest.Patient is advised to follow up with primary doctor in 2-3 days and return the emergency room for any worsening symptoms and as needed. Other X-Ray Diagnostic Results Other X-Ray Diagnostic Results : X-Ray ordered: L-spine x-ray # of Views/Limited Vs Complete: 3 View Indication: Pain Interpretation: no dislocation, no soft tissue swelling, no fractures Impression: No acute disease Electronically Signed by: Electronically signed by Roberto Payan MD Last Vital Signs Date Time Temp Pulse Resp B/P (MAP) Pulse Ox O2 Delivery O2 Flow Rate FiO2 11/05/17 10:42 98.1 78 20 113/83 95 Room Air 98.1 Status: improved Disposition: HOME, SELF-CARE Condition: Stable Scripts Cyclobenzaprine Hcl* (FLEXERIL*) 10 Mg Tablet 10 MG ORAL THREE TIMES A DAY, #15 TAB Prov: ROBERTO PAYAN M.D. 11/05/17 Ibuprofen* (MOTRIN*) 600 Mg Tablet 600 MG ORAL Q8H PRN for For Pain, #15 TAB 0 Refills Prov: ROBERTO PAYAN M.D. 11/05/17 Docusate Sodium* (COLACE*) 100 Mg Capsule 100 MG ORAL THREE TIMES A DAY for 15 Days, CAP Prov: ROBERTO PAYAN M.D. 11/05/17 Referrals: NON PHYSICIAN (PCP) Patient Instructions: Back Pain, Adult ROBERTO PAYAN M.D. November 07, 2017 06:40
== END 2017-11-05 10:43 | disposition home or self-care (01) ==
LOC: EMR 09:47
DX: M54.5 Low back pain (principal); I10 Essential (primary) hypertension
CPT/HCPCS: 72020; 96372; 99284

== ENCOUNTER 2017-12-18 16:19 | Emergency (ER) | payer MEDICARE, MEDICAID ==
[~2017-12-18] VITALS: Ht 177.8 cm; Wt 90.7 kg
[~2017-12-18 16:19] MED LIST changes: +COLACE100 MG ORAL; +CYCLOBENZAPRINE10 MG ORAL
[2017-12-18 16:46] VITALS: BP 162/107
[2017-12-18] MEDS ORDERED: DiphenhydrAMINE 50mg/ml Inj IVP ONE (17:00)
[2017-12-18] MEDS ORDERED: Morphine Sulfate 4mg/ml Inj IVP ONE ×2 (17:00→20:00)
--- NOTE | 2017-12-18 17:02 | Emergency Room Report ---
History of Present Illness General Chief Complaint: Vomiting Source: Patient Present Illness HPI Patient presents with complaints of increased nausea and vomiting Patient has multiple presentations with complaints of cyclical vomiting Patient is on morphine at home however was not able to take her pills Denies any chest pain or shortness of breath abdominal pain and cramping is epigastric 4 out of 10 denies any diarrhea denies any lower abdominal pain Symptoms started at approximately noon Allergies: Coded Allergies: No Known Allergies (Unverified , 09/16/17) Patient History Past Medical History: see triage record Pertinent Family History: none Last Menstrual Period: menopause Reviewed Nursing Documentation: PMH: Agreed; PSxH: Agreed Nursing Documentation-PMH Hx Hypertension: Yes Hx Diabetes: No Hx Cancer: No Hx Gastrointestinal Problems: Yes - cyclic vomitting syndrome Hx Neurological Problems: No - Migraines Review of Systems All Other Systems: negative except mentioned in HPI Physical Exam Vital Signs Date Time Temp Pulse Resp B/P (MAP) Pulse Ox O2 Delivery O2 Flow Rate FiO2 12/18/17 16:20 97.9 85 18 165/99 97 Room Air 97.9 Sp02 EP Interpretation: reviewed, normal General Appearance: well appearing, no apparent distress Head: normocephalic, atraumatic Eyes: bilateral eye PERRL, bilateral eye EOMI ENT: hearing grossly normal, normal pharynx, TMs + canals normal, uvula midline Neck: full range of motion, supple, no meningismus, no bony tend Respiratory: lungs clear, normal breath sounds, no rhonchi, no respiratory distress, no retraction, no accessory muscle use Cardiovascular #1: normal peripheral pulses, regular rate, rhythm, no edema, no gallop, no JVD, no murmur Gastrointestinal: normal bowel sounds, non tender, soft, no mass, no organomegaly, non-distended, no guarding, no hernia, no pulsatile mass, no rebound Genitourinary: no CVA tenderness Musculoskeletal: normal inspection Neurologic: oriented x3, responsive, on air talent III-XII nml as tested, motor strength/ tone normal, sensory intact Psychiatric: mood/affect normal Skin: normal color, no rash, warm/dry, palpation normal Lymphatic: normal inspection, no adenopathy Medical Decision Making Diagnostic Impression: Primary Impression: Vomiting Additional Impression: Abdominal pain ER Course With the history exam and presentation, multiple differentials considered, including but not limited to appendicitis, gastritis, cholecystitis, diverticulitis Patient's blood work reveals mildly elevated white blood cell count Otherwise left lites within normal limits Patient received repeat dose of pain medication including antiemetics further IV hydrated Patient appears calm and comfortable and significantly improved And at this time will have close outpatient follow-up Labs Test 12/18/17 17:20 White Blood Count 13.6 K/UL (4.8-10.8) Red Blood Count 5.27 M/UL (4.20-5.40) Hemoglobin 12.4 G/DL (12.0-16.0) Hematocrit 40.8 % (37.0-47.0) Mean Corpuscular Volume 77 FL (80-99) Mean Corpuscular Hemoglobin 23.4 PG (27.0-31.0) Mean Corpuscular Hemoglobin Concent 30.3 G/DL (32.0-36.0) Red Cell Distribution Width 13.9 % (11.6-14.8) Platelet Count 438 K/UL (150-450) Mean Platelet Volume 6.1 FL (6.5-10.1) Neutrophils (%) (Auto) 80.3 % (45.0-75.0) Lymphocytes (%) (Auto) 12.2 % (20.0-45.0) Monocytes (%) (Auto) 5.2 % (1.0-10.0) Eosinophils (%) (Auto) 0.9 % (0.0-3.0) Basophils (%) (Auto) 1.3 % (0.0-2.0) Sodium Level 137 MMOL/L (136-145) Potassium Level 4.3 MMOL/L (3.5-5.1) Chloride Level 103 MMOL/L (98-107) Carbon Dioxide Level 22 MMOL/L (21-32) Anion Gap 12 mmol/L (5-15) Blood Urea Nitrogen 16 mg/dL (7-18) Creatinine 0.9 MG/DL (0.55-1.30) Estimat Glomerular Filtration Rate > 60 mL/min (>60) Glucose Level 115 MG/DL (74-106) Calcium Level 9.5 MG/DL (8.5-10.1) Total Bilirubin 0.4 MG/DL (0.2-1.0) Aspartate Amino Transf (AST/SGOT) 24 U/L (15-37) Alanine Aminotransferase (ALT/SGPT) 13 U/L (12-78) Alkaline Phosphatase 125 U/L (46-116) Total Protein 8.2 G/DL (6.4-8.2) Albumin 3.6 G/DL (3.4-5.0) Globulin 4.6 g/dL Albumin/Globulin Ratio 0.8 (1.0-2.7) Lipase 117 U/L (73-393) Last Vital Signs Date Time Temp Pulse Resp B/P (MAP) Pulse Ox O2 Delivery O2 Flow Rate FiO2 12/18/17 16:46 83 13 162/107 100 Room Air 12/18/17 16:20 97.9 97.9 Status: improved Disposition: HOME, SELF-CARE Condition: Improved Referrals: NON PHYSICIAN (PCP) Additional Instructions: Patient is provided with the discharge instructions notified to follow up with primary doctor in the next 2-3 days otherwise return to the er with any worsening symptoms. Please note that this report is being documented using [employer] technology. This can lead to erroneous entry secondary to incorrect interpretation by the dictating instrument. Uli Hawkins DO Dec 18, 2017 17:02
[2017-12-18 17:36] LABS: BASOPHILS % (AUTO) 1.3 % (0.0-2.0); EOSINOPHILS % (AUTO) 0.9 % (0.0-3.0); HEMATOCRIT 40.8 % (37.0-47.0); HEMOGLOBIN 12.4 G/DL (12.0-16.0); LYMPHOCYTES % (AUTO) 12.2 % (20.0-45.0); MEAN CORPUSCULAR VOLUME 77 FL (80-99); MONOCYTES % (AUTO) 5.2 % (1.0-10.0); NEUTROPHILS % (AUTO) 80.3 % (45.0-75.0); PLATELET COUNT 438 K/UL (150-450); RED BLOOD COUNT 5.27 M/UL (4.20-5.40); RED CELL DISTRIBUTION WIDTH 13.9 % (11.6-14.8); WHITE BLOOD COUNT 13.6 K/UL (4.8-10.8)
[2017-12-18 17:50] LABS: ANION GAP 12 mmol/L (5-15); BLOOD UREA NITROGEN 16 mg/dL (7-18); CALCIUM 9.5 MG/DL (8.5-10.1); CARBON DIOXIDE 22 MMOL/L (21-32); CHLORIDE 103 MMOL/L (98-107); CREATININE 0.9 MG/DL (0.55-1.30); POTASSIUM 4.3 MMOL/L (3.5-5.1); SODIUM 137 MMOL/L (136-145)
[2017-12-18 17:56] LABS: ALANINE AMINOTRANSFERASE 13 U/L (12-78); ALBUMIN 3.6 G/DL (3.4-5.0); ALBUMIN/GLOBULIN RATIO 0.8 (1.0-2.7); ALKALINE PHOSPHATASE 125 U/L (46-116); ASPARTATE AMINO TRANSFERASE 24 U/L (15-37); BILIRUBIN,TOTAL 0.4 MG/DL (0.2-1.0)
[2017-12-18] MEDS ORDERED: Promethazine HCl 12.5 MG in NS 55 ML IVPB ONE (18:30)
[2017-12-18] MEDS ORDERED: DiphenhydrAMINE 50mg/ml Inj ONE (19:54)
[2017-12-18 20:40] VITALS: BP 166/101
== END 2017-12-18 20:40 | disposition home or self-care (01) ==
LOC: EMR 16:51
DX: R11.2 Nausea with vomiting, unspecified (principal); R10.9 Unspecified abdominal pain; I10 Essential (primary) hypertension
CPT/HCPCS: 36415; 80053; 83690; 85025; 96360; 96374; 96375; 99284; J1200; J2270; J2405; J2550; S0028

== ENCOUNTER 2017-12-30 17:45 | Emergency (ER) | payer MEDICARE, MEDICAID ==
[~2017-12-30] VITALS: Ht 177.8 cm; Wt 90.7 kg
[2017-12-30 18:15] VITALS: BP 141/90
[2017-12-30] MEDS ORDERED: Isovue-300 100ml vial INJ PRN (18:15)
[2017-12-30] MEDS ORDERED: Morphine Sulfate 4mg/ml Inj IVP ONE ×2 (18:15→19:30)
[2017-12-30 19:04] LABS: APPEARANCE,URINE SLIGHTLY CLOUDY; BILIRUBIN, URINE NEGATIVE (NEGATIVE); COLOR,URINE PALE YELLOW; GLUCOSE, URINE (UA) NEGATIVE (NEGATIVE); KETONES,URINE NEGATIVE (NEGATIVE); LEUKOCYTE ESTERASE ,URINE NEGATIVE (NEGATIVE); NITRITE,URINE NEGATIVE (NEGATIVE); PH,URINE 7 (4.5-8.0); PROTEIN,URINE 2+ (NEGATIVE); UROBILINOGEN,URINE NORMAL MG/DL (0.0-1.0)
[2017-12-30 19:11] LABS: BASOPHILS % (AUTO) 1.9 % (0.0-2.0); EOSINOPHILS % (AUTO) 0.6 % (0.0-3.0); HEMOGLOBIN 12.4 G/DL (12.0-16.0); MEAN CORPUSCULAR VOLUME 78 FL (80-99); MONOCYTES % (AUTO) 3.7 % (1.0-10.0); NEUTROPHILS % (AUTO) 80.9 % (45.0-75.0); PLATELET COUNT 535 K/UL (150-450); RED BLOOD COUNT 5.28 M/UL (4.20-5.40); RED CELL DISTRIBUTION WIDTH 14.3 % (11.6-14.8); WHITE BLOOD COUNT 14.7 K/UL (4.8-10.8)
--- NOTE | 2017-12-30 19:18 | Emergency Room Report ---
History of Present Illness General Chief Complaint: Vomiting Source: Patient Present Illness HPI 42-year-old female presents ED complaining of abdominal pain with nausea and vomiting 1 day. Notes history of cyclical vomiting syndrome. States that she' s having multiple episodes of vomiting with abdominal pain but states this pain feels different. Sharp, 10 out of 10, localized to right lower quadrant. Denies fevers or chills. Denies dysuria or hematuria. Denies flank pain. No other aggravating relieving factors. Denies any other associated symptoms Allergies: Coded Allergies: No Known Allergies (Unverified , 09/16/17) Patient History Past Medical History: other - cyclical vomtiing syndrome, pancreatitis Past Surgical History: none Pertinent Family History: none Social History: Denies: smoking, alcohol use, drug use Last Menstrual Period: none Now: No Immunizations: UTD Reviewed Nursing Documentation: PMH: Agreed; PSxH: Agreed Nursing Documentation-PMH Past Medical History: No History, Except For Hx Hypertension: Yes Hx Diabetes: No Hx Cancer: No Hx Gastrointestinal Problems: Yes - cyclic vomitting syndrome, pancreatitis Review of Systems All Other Systems: negative except mentioned in HPI Physical Exam Vital Signs Date Time Temp Pulse Resp B/P (MAP) Pulse Ox O2 Delivery O2 Flow Rate FiO2 12/30/17 17:57 97.9 89 20 157/115 98 Room Air 97.9 Sp02 EP Interpretation: reviewed, normal General Appearance: no apparent distress, alert, GCS 15, non-toxic Head: normocephalic, atraumatic Eyes: bilateral eye normal inspection, bilateral eye PERRL ENT: hearing grossly normal, normal pharynx, no angioedema, normal voice Neck: full range of motion, supple/symm/no masses Respiratory: chest non-tender, lungs clear, normal breath sounds, speaking full sentences Cardiovascular #1: regular rate, rhythm, no edema Cardiovascular #2: 2+ carotid (R), 2+ carotid (L), 2+ radial (R), 2+ radial (L) , 2+ dorsalis pedis (R), 2+ dorsalis pedis (L) Gastrointestinal: normal bowel sounds, soft, non-distended, no guarding, no rebound, tenderness - RLQ Rectal: deferred Genitourinary: normal inspection, no CVA tenderness Musculoskeletal: back normal, gait/station normal, normal range of motion, non- tender Neurologic: alert, oriented x3, responsive, motor strength/tone normal, sensory intact, speech normal Psychiatric: judgement/insight normal, memory normal, mood/affect normal, no suicidal/homicidal ideation Reflexes: 3+ bicep (R), 3+ bicep (L), 3+ tricep (R), 3+ tricep (L), 3+ knee (R) , 3+ knee (L) Skin: normal color, no rash, warm/dry, well hydrated Lymphatic: no adenopathy Medical Decision Making Diagnostic Impression: Primary Impression: Colitis, acute Additional Impressions: Cyclical vomiting Qualified Codes: G43.A0 - Cyclical vomiting, not intractable Opiate dependence Qualified Codes: F11.20 - Opioid dependence, uncomplicated ER Course Hospital Course 42-year-old F presents to ED with abdominal pain. nausea and vomiting Differential diagnosis includes-appendicitis, cholecystitis, small bowel obstruction, gastritis, Clinical course Patient placed on stretcher. After initial history and physical I ordered labs , IV fluids, pain medications and CT scan Labs - noted leukocytosis, electrolytes ok, LFTs normal, UA unremarkable CT scan shows colitis Patient did require multiple rounds of pain medication and nausea medications. History of cyclical vomiting syndrome. Patient has been here multiple times for similar presentation. always requesting pain medications. CURES shows extensive narcotic prescriptions filled for her I feel this is a highly complex case requiring extensive working including EKG/ Rhythm strip, Xray/CT/US, Blood/urine lab work, repeat exams while in ED, and administration of strong opiates/narcotics for pain control, admission to hospital or close patient follow up. Diagnosis - colitis, cyclical vomiting, opiate dependence Stable and discharged to home with Rx Cipro, Zofran, Zantac. Followup with PMD. Return to ED if symptoms recur or worsen Labs Test 12/30/17 18:42 White Blood Count 14.7 K/UL (4.8-10.8) Red Blood Count 5.28 M/UL (4.20-5.40) Hemoglobin 12.4 G/DL (12.0-16.0) Hematocrit 41.0 % (37.0-47.0) Mean Corpuscular Volume 78 FL (80-99) Mean Corpuscular Hemoglobin 23.4 PG (27.0-31.0) Mean Corpuscular Hemoglobin Concent 30.1 G/DL (32.0-36.0) Red Cell Distribution Width 14.3 % (11.6-14.8) Platelet Count 535 K/UL (150-450) Mean Platelet Volume 5.7 FL (6.5-10.1) Neutrophils (%) (Auto) 80.9 % (45.0-75.0) Lymphocytes (%) (Auto) 13.0 % (20.0-45.0) Monocytes (%) (Auto) 3.7 % (1.0-10.0) Eosinophils (%) (Auto) 0.6 % (0.0-3.0) Basophils (%) (Auto) 1.9 % (0.0-2.0) Urine Color Pale yellow Urine Appearance Slightly cloudy Urine pH 7 (4.5-8.0) Urine Specific [place] 1.010 (1.005-1.035) Urine Protein 2+ (NEGATIVE) Urine Glucose (UA) Negative (NEGATIVE) Urine Ketones Negative (NEGATIVE) Urine Occult Blood 4+ (NEGATIVE) Urine Nitrite Negative (NEGATIVE) Urine Bilirubin Negative (NEGATIVE) Urine Urobilinogen Normal MG/DL (0.0-1.0) Urine Leukocyte Esterase Negative (NEGATIVE) Urine RBC 20-30 /HPF (0 - 2) Urine WBC 0-2 /HPF (0 - 2) Urine Squamous Epithelial Cells Moderate /LPF (NONE/OCC) Urine Bacteria Few /HPF (NONE) Urine HCG, Qualitative Negative (NEGATIVE) Sodium Level 137 MMOL/L (136-145) Potassium Level 4.6 MMOL/L (3.5-5.1) Chloride Level 102 MMOL/L (98-107) Carbon Dioxide Level 25 MMOL/L (21-32) Anion Gap 10 mmol/L (5-15) Blood Urea Nitrogen 13 mg/dL (7-18) Creatinine 1.0 MG/DL (0.55-1.30) Estimat Glomerular Filtration Rate > 60 mL/min (>60) Glucose Level 120 MG/DL (74-106) Calcium Level 10.0 MG/DL (8.5-10.1) Total Bilirubin 0.3 MG/DL (0.2-1.0) Aspartate Amino Transf (AST/SGOT) 27 U/L (15-37) Alanine Aminotransferase (ALT/SGPT) 19 U/L (12-78) Alkaline Phosphatase 133 U/L (46-116) Total Protein 8.9 G/DL (6.4-8.2) Albumin 3.8 G/DL (3.4-5.0) Globulin 5.1 g/dL Albumin/Globulin Ratio 0.7 (1.0-2.7) Lipase 202 U/L (73-393) CT/MRI/US Diagnostic Results CT/MRI/US Diagnostic Results : Imaging Test Ordered: CT A/P Impression colitis. s/p cholecystectomy Last Vital Signs Date Time Temp Pulse Resp B/P (MAP) Pulse Ox O2 Delivery O2 Flow Rate FiO2 12/30/17 18:50 97.9 12/30/17 18:15 85 16 141/90 100 Room Air Status: improved Disposition: HOME, SELF-CARE Condition: Stable Scripts Ranitidine Hcl* (ZANTAC*) 150 Mg Tablet 150 MG ORAL TWICE A DAY, #30 TAB Prov: Makr Rebolledo MD 12/30/17 Ondansetron Odt* (ZOFRAN ODT*) 4 Mg Tab.rapdis 4 MG BC EVERY 6 HOURS PRN for Nausea & Vomiting, #10 TAB 0 Refills Prov: Mark Rebolledo MD 12/30/17 Ciprofloxacin Hcl* (CIPROFLOXACIN HCL*) 500 Mg Tablet 500 MG ORAL Q12H, #14 TAB 0 Refills Prov: Mark Rebolledo MD 12/30/17 Mark Rebolledo MD Dec 30, 2017 19:17
[2017-12-30 19:20] LABS: ANION GAP 10 mmol/L (5-15); BLOOD UREA NITROGEN 13 mg/dL (7-18); CARBON DIOXIDE 25 MMOL/L (21-32); CHLORIDE 102 MMOL/L (98-107); POTASSIUM 4.6 MMOL/L (3.5-5.1); SODIUM 137 MMOL/L (136-145)
[2017-12-30 19:25] LABS: ALANINE AMINOTRANSFERASE 19 U/L (12-78); ALBUMIN 3.8 G/DL (3.4-5.0); ALBUMIN/GLOBULIN RATIO 0.7 (1.0-2.7); ALKALINE PHOSPHATASE 133 U/L (46-116); ASPARTATE AMINO TRANSFERASE 27 U/L (15-37); BILIRUBIN,TOTAL 0.3 MG/DL (0.2-1.0)
[2017-12-30 20:33] VITALS: BP 147/89
[2017-12-30] MEDS ORDERED: RANITIDINE HCL150 MG ORAL (20:50)
[2017-12-30] MEDS ORDERED: ONDANSETRON ODT4 MG BC (20:50)
[2017-12-30] MEDS ORDERED: CIPROFLOXACIN500 M2 ORAL (20:50)
[2017-12-30 21:13] VITALS: BP 147/89
--- NOTE | 2017-12-31 09:21 | Diagnostic Imaging Report ---
Indication: Abdominal pain Technique: Continuous helical transaxial imaging of the abdomen and pelvis was obtained from the lung bases to the pubic symphysis during intravenous contrast administration. Coronal 2-D reformats were also obtained. Study obtained in a Siemens sensation [address] Automatic Exposure Control was utilized. Total Dose length Product (DLP): 799.[address] Dose Index Volume (CTDIvol): 16.38 mGy Comparison: 06/15/2016 Findings: The lung bases are clear. The liver and spleen appear unremarkable. Pancreas is unremarkable. Gallbladder is absent with cholecystectomy clips noted. Kidneys are unremarkable. There is no adrenal mass. No free fluid identified. There is thickening of the wall the colon involving the transverse colon and descending colon. Findings consistent with colitis which is suspected. There is no abscess, pneumatosis or free air identified. There is no free fluid. Bladder is unremarkable. Uterus noted. The appendix is not seen but there are no secondary signs of appendicitis. IMPRESSION: Suspected mild colitis involving the transverse and descending colon. Correlate clinically. Status post cholecystectomy. [facility] has communicated the preliminary results to the Emergency Department. Their findings are largely concordant with this report. The CT scanner at [facility] is accredited by the [employer] and the scans are performed using dose optimization techniques as appropriate to a performed exam including Automatic Exposure control.
== END 2017-12-30 21:13 | disposition home or self-care (01) ==
LOC: EMR 18:30
DX: K52.9 Noninfective gastroenteritis and colitis, unspecified (principal); I10 Essential (primary) hypertension; G43.A0 Cyclical vomiting, in migraine, not intractable; F11.20 Opioid dependence, uncomplicated; Z90.49 Acquired absence of other specified parts of digestive tract
CPT/HCPCS: 36415; 74177; 80053; 81003; 81025; 83690; 85025; 96360; 96372; 96374; 96375; 99284; J2270; J2405; Q9967; S0028

== ENCOUNTER 2018-02-03 10:05 | Emergency (ER) | payer MEDICARE, MEDICAID ==
[~2018-02-03] VITALS: Ht 177.8 cm; Wt 90.7 kg
[~2018-02-03 10:05] MED LIST changes: +ONDANSETRON ODT4 MG BC
[2018-02-03] MEDS ORDERED: Morphine Sulfate 4mg/ml Inj (IV USE ONLY) IVP ONE ×2 (11:00→13:00)
[2018-02-03 11:22] LABS: APPEARANCE,URINE CLEAR; BILIRUBIN, URINE NEGATIVE (NEGATIVE); COLOR,URINE PALE YELLOW; GLUCOSE, URINE (UA) NEGATIVE (NEGATIVE); KETONES,URINE NEGATIVE (NEGATIVE); LEUKOCYTE ESTERASE ,URINE NEGATIVE (NEGATIVE); NITRITE,URINE NEGATIVE (NEGATIVE); PH,URINE 7 (4.5-8.0); PROTEIN,URINE 1+ (NEGATIVE); UROBILINOGEN,URINE NORMAL MG/DL (0.0-1.0)
[2018-02-03 12:00] LABS: BASOPHILS % (AUTO) 1.4 % (0.0-2.0); EOSINOPHILS % (AUTO) 2.3 % (0.0-3.0); HEMATOCRIT 37.9 % (37.0-47.0); HEMOGLOBIN 11.2 G/DL (12.0-16.0); LYMPHOCYTES % (AUTO) 22.7 % (20.0-45.0); MEAN CORPUSCULAR VOLUME 76 FL (80-99); MONOCYTES % (AUTO) 3.9 % (1.0-10.0); NEUTROPHILS % (AUTO) 69.7 % (45.0-75.0); PLATELET COUNT 426 K/UL (150-450); RED BLOOD COUNT 4.98 M/UL (4.20-5.40); RED CELL DISTRIBUTION WIDTH 13.8 % (11.6-14.8); WHITE BLOOD COUNT 10.5 K/UL (4.8-10.8)
[2018-02-03 12:27] LABS: ANION GAP 10 mmol/L (5-15); BLOOD UREA NITROGEN 17 mg/dL (7-18); CALCIUM 8.8 MG/DL (8.5-10.1); CARBON DIOXIDE 23 MMOL/L (21-32); CHLORIDE 105 MMOL/L (98-107); SODIUM 138 MMOL/L (136-145)
--- NOTE | 2018-02-03 12:29 | Emergency Room Report ---
History of Present Illness General Chief Complaint: Nausea, Vomiting, and Diarrhea Source: Patient Present Illness HPI Patient is a 42-year-old female who presented after increased abdominal pain. Patient reports having a right upper abdominal pain. She had multiple episodes of emesis. Patient states that she's had prior history of pancreatitis. This had occurred multiple times in the past. Patient denies any recent alcohol use. She reports having some episodes of diarrhea. She reports a taking her Dilaudid in the morning. Patient prior history of chronic pain. Allergies: Coded Allergies: No Known Allergies (Unverified , 09/16/17) Patient History Past Medical History: see triage record Last Menstrual Period: 2 YRS Now: No Reviewed Nursing Documentation: PMH: Agreed; PSxH: Agreed Nursing Documentation-PMH Hx Hypertension: Yes Hx Diabetes: No Hx Cancer: No Hx Gastrointestinal Problems: Yes - cyclic vomitting syndrome, pancreatitis Review of Systems All Other Systems: negative except mentioned in HPI Physical Exam Vital Signs Date Time Temp Pulse Resp B/P (MAP) Pulse Ox O2 Delivery O2 Flow Rate FiO2 02/03/18 10:12 98.2 82 16 144/103 97 Room Air 98.2 Sp02 EP Interpretation: reviewed, normal General Appearance: normal inspection, well appearing, no apparent distress, alert, GCS 15, non-toxic Head: atraumatic ENT: normal ENT inspection, hearing grossly normal, normal voice Neck: normal inspection, full range of motion, supple, no bony tend Respiratory: normal inspection, lungs clear, normal breath sounds, no respiratory distress, no retraction, no wheezing Cardiovascular #1: regular rate, rhythm, no edema Gastrointestinal: normal inspection, normal bowel sounds, non tender, soft, no guarding, no hernia Genitourinary: no CVA tenderness Musculoskeletal: normal inspection, back normal, normal range of motion Neurologic: normal inspection, alert, responsive, speech normal Psychiatric: normal inspection, judgement/insight normal, mood/affect normal Skin: normal inspection, normal color, no rash Medical Decision Making Diagnostic Impression: Primary Impression: Opiate dependence Additional Impression: Cyclical vomiting ER Course Patient presented for abdominal pain. Differential diagnoses included ischemic bowel, appendicitis, perforated viscus, abdominal aortic aneurysm, inferior myocardial infarction, viral gastroenteritis Because of complexity of patient's case laboratory testing and imaging studies were ordered.The laboratory testing was unremarkable. Patient does not appear to require any imaging at this time. Patient is advised to continue her the patient medication regimen. She was started on IV fluids in the emergency department given antiemetics as well as pain medications with improvement in her symptoms.The patient is advised to follow up with primary care doctor in 1- 2 days. Patient is advised to return if any worsening condition or if any changes in status that are concerning. This report is dictated with [employer] store lead software which may occasionally lead to discrepancies related to use of this software. Labs Test 02/03/18 10:22 02/03/18 11:39 Urine Color Pale yellow Urine Appearance Clear Urine pH 7 (4.5-8.0) Urine Specific [place] 1.010 (1.005-1.035) Urine Protein 1+ (NEGATIVE) Urine Glucose (UA) Negative (NEGATIVE) Urine Ketones Negative (NEGATIVE) Urine Occult Blood 4+ (NEGATIVE) Urine Nitrite Negative (NEGATIVE) Urine Bilirubin Negative (NEGATIVE) Urine Urobilinogen Normal MG/DL (0.0-1.0) Urine Leukocyte Esterase Negative (NEGATIVE) Urine RBC 2-4 /HPF (0 - 2) Urine WBC 0-2 /HPF (0 - 2) Urine Squamous Epithelial Cells Few /LPF (NONE/OCC) Urine Bacteria None /HPF (NONE) Urine Opiates Screen Negative (NEGATIVE) Urine Barbiturates Screen Negative (NEGATIVE) Phencyclidine (PCP) Screen Negative (NEGATIVE) Urine Amphetamines Screen Negative (NEGATIVE) Urine Benzodiazepines Screen Negative (NEGATIVE) Urine Cocaine Screen Negative (NEGATIVE) Urine Marijuana (THC) Screen Negative (NEGATIVE) White Blood Count 10.5 K/UL (4.8-10.8) Red Blood Count 4.98 M/UL (4.20-5.40) Hemoglobin 11.2 G/DL (12.0-16.0) Hematocrit 37.9 % (37.0-47.0) Mean Corpuscular Volume 76 FL (80-99) Mean Corpuscular Hemoglobin 22.4 PG (27.0-31.0) Mean Corpuscular Hemoglobin Concent 29.4 G/DL (32.0-36.0) Red Cell Distribution Width 13.8 % (11.6-14.8) Platelet Count 426 K/UL (150-450) Mean Platelet Volume 6.6 FL (6.5-10.1) Neutrophils (%) (Auto) 69.7 % (45.0-75.0) Lymphocytes (%) (Auto) 22.7 % (20.0-45.0) Monocytes (%) (Auto) 3.9 % (1.0-10.0) Eosinophils (%) (Auto) 2.3 % (0.0-3.0) Basophils (%) (Auto) 1.4 % (0.0-2.0) Sodium Level 138 MMOL/L (136-145) Potassium Level 5.0 MMOL/L (3.5-5.1) Chloride Level 105 MMOL/L (98-107) Carbon Dioxide Level 23 MMOL/L (21-32) Anion Gap 10 mmol/L (5-15) Blood Urea Nitrogen 17 mg/dL (7-18) Creatinine 1.0 MG/DL (0.55-1.30) Estimat Glomerular Filtration Rate > 60 mL/min (>60) Glucose Level 109 MG/DL (74-106) Calcium Level 8.8 MG/DL (8.5-10.1) Total Bilirubin 0.4 MG/DL (0.2-1.0) Aspartate Amino Transf (AST/SGOT) 42 U/L (15-37) Alanine Aminotransferase (ALT/SGPT) 18 U/L (12-78) Alkaline Phosphatase 117 U/L (46-116) Troponin I 0.000 ng/mL (0.000-0.056) Total Protein 7.7 G/DL (6.4-8.2) Albumin 3.4 G/DL (3.4-5.0) Globulin 4.3 g/dL Albumin/Globulin Ratio 0.8 (1.0-2.7) Lipase 344 U/L (73-393) Last Vital Signs Date Time Temp Pulse Resp B/P (MAP) Pulse Ox O2 Delivery O2 Flow Rate FiO2 02/03/18 10:12 98.2 82 16 144/103 97 Room Air 98.2 Status: improved Disposition: HOME, SELF-CARE Condition: Stable Referrals: NON PHYSICIAN (PCP) Amor Chase MD Feb 03, 2018 12:29
[2018-02-03 12:33] LABS: ALANINE AMINOTRANSFERASE 18 U/L (12-78); ALBUMIN 3.4 G/DL (3.4-5.0); ALBUMIN/GLOBULIN RATIO 0.8 (1.0-2.7); ALKALINE PHOSPHATASE 117 U/L (46-116); ASPARTATE AMINO TRANSFERASE 42 U/L (15-37); BILIRUBIN,TOTAL 0.4 MG/DL (0.2-1.0)
[2018-02-03] MEDS ORDERED: LR 1000ml 1,000 ML IV SCH (12:45)
[2018-02-03 14:06] VITALS: BP 133/98
== END 2018-02-03 14:07 | disposition home or self-care (01) ==
LOC: EMR 11:10
DX: G43.A0 Cyclical vomiting, in migraine, not intractable (principal); F11.20 Opioid dependence, uncomplicated; I10 Essential (primary) hypertension
CPT/HCPCS: 36415; 80053; 80307; 81003; 83690; 84484; 85025; 96361; 96374; 96375; 96376; 99284; J2270; J2405; J7120; S0028

== ENCOUNTER 2018-06-16 00:10 | Emergency (ER) | payer MEDICARE, MEDICAID ==
[~2018-06-16] VITALS: Ht 177.8 cm; Wt 104.3 kg
[2018-06-16] MEDS ORDERED: Metoclopramide 10mg/2ml Inj IVP ONE (00:45)
[2018-06-16 01:18] LABS: BASOPHILS % (AUTO) 1.1 % (0.0-2.0); EOSINOPHILS % (AUTO) 2.3 % (0.0-3.0); HEMATOCRIT 38.8 % (37.0-47.0); HEMOGLOBIN 11.8 G/DL (12.0-16.0); LYMPHOCYTES % (AUTO) 33.9 % (20.0-45.0); MEAN CORPUSCULAR VOLUME 75 FL (80-99); MONOCYTES % (AUTO) 1.9 % (1.0-10.0); NEUTROPHILS % (AUTO) 60.8 % (45.0-75.0); PLATELET COUNT 488 K/UL (150-450); RED BLOOD COUNT 5.15 M/UL (4.20-5.40); RED CELL DISTRIBUTION WIDTH 14.1 % (11.6-14.8); WHITE BLOOD COUNT 10.9 K/UL (4.8-10.8)
[2018-06-16 01:19] LABS: APPEARANCE,URINE CLEAR; BILIRUBIN, URINE NEGATIVE (NEGATIVE); COLOR,URINE PALE YELLOW; GLUCOSE, URINE (UA) NEGATIVE (NEGATIVE); KETONES,URINE NEGATIVE (NEGATIVE); LEUKOCYTE ESTERASE ,URINE NEGATIVE (NEGATIVE); NITRITE,URINE NEGATIVE (NEGATIVE); PH,URINE 6 (4.5-8.0); PROTEIN,URINE 1+ (NEGATIVE); UROBILINOGEN,URINE NORMAL MG/DL (0.0-1.0)
[2018-06-16 01:29] LABS: ANION GAP 13 mmol/L (5-15); BLOOD UREA NITROGEN 21 mg/dL (7-18); CALCIUM 8.7 MG/DL (8.5-10.1); CARBON DIOXIDE 21 MMOL/L (21-32); CHLORIDE 105 MMOL/L (98-107); CREATININE 1.2 MG/DL (0.55-1.30); SODIUM 139 MMOL/L (136-145)
[2018-06-16] MEDS ORDERED: Morphine Sulfate 4mg/ml Inj (IV/IM USE ONLY) IVP ONE ×2 (01:30→02:15)
--- NOTE | 2018-06-16 01:33 | Emergency Room Report ---
History of Present Illness General Chief Complaint: Vomiting Source: Patient Present Illness HPI Patient is a 43-year-old female presented after increased nausea and vomiting. Patient reports having multiple episodes similar symptoms in the past which she denies any diarrhea. She reports having increasedAbdominal discomfort. Patient gradual onset of symptoms. Patient reports having prior history of cyclic vomiting. She reports having been compliant with her medications which include Zofran as well as other medications. She had denies any fever. Allergies: Coded Allergies: No Known Allergies (Unverified , 09/16/17) Patient History Last Menstrual Period: n/a Now: No : 1 Para: 1 Reviewed Nursing Documentation: PMH: Agreed; PSxH: Agreed Nursing Documentation-PMH Past Medical History: No History, Except For Hx Hypertension: Yes Hx Diabetes: No Hx Cancer: No Hx Gastrointestinal Problems: Yes - cyclic vomitting syndrome, pancreatitis Physical Exam Vital Signs Date Time Temp Pulse Resp B/P (MAP) Pulse Ox O2 Delivery O2 Flow Rate FiO2 06/16/18 00:13 98.2 92 20 161/110 95 Room Air Sp02 EP Interpretation: reviewed, normal General Appearance: normal inspection, well appearing, no apparent distress, alert, GCS 15, obese Head: atraumatic ENT: normal ENT inspection, hearing grossly normal, normal voice Neck: normal inspection, full range of motion, supple, no bony tend Respiratory: normal inspection, lungs clear, normal breath sounds, no respiratory distress, no retraction, no wheezing Cardiovascular #1: regular rate, rhythm, no edema Gastrointestinal: normal inspection, normal bowel sounds, non tender, soft, no guarding, no hernia Genitourinary: no CVA tenderness Musculoskeletal: normal inspection, back normal, normal range of motion Neurologic: normal inspection, alert, oriented x3, responsive, radioisotope technologist III-XII nml as tested, speech normal Psychiatric: normal inspection, judgement/insight normal, mood/affect normal Skin: normal inspection, normal color, no rash Medical Decision Making Diagnostic Impression: Primary Impression: Nausea, vomiting, and diarrhea Additional Impressions: Cyclical vomiting Chronic pain disorder ER Course Patient presented for abdominal pain. Differential diagnoses included ischemic bowel, appendicitis, perforated viscus, abdominal aortic aneurysm, inferior myocardial infarction, viral gastroenteritis Patient has a benign exam and does not appear to require any further imaging or laboratory testing at this time the patient given IV fluids as well as IV antiemetics and pain medications. She was noted to have similar symptoms in the past multiple times. Patient the was noted to have improvement in her symptoms. Patient states she subsequently oral go home. Patient was given prescription for antiemetics. 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 Labs Test 06/16/18 01:00 White Blood Count 10.9 K/UL (4.8-10.8) Red Blood Count 5.15 M/UL (4.20-5.40) Hemoglobin 11.8 G/DL (12.0-16.0) Hematocrit 38.8 % (37.0-47.0) Mean Corpuscular Volume 75 FL (80-99) Mean Corpuscular Hemoglobin 22.9 PG (27.0-31.0) Mean Corpuscular Hemoglobin Concent 30.4 G/DL (32.0-36.0) Red Cell Distribution Width 14.1 % (11.6-14.8) Platelet Count 488 K/UL (150-450) Mean Platelet Volume 6.7 FL (6.5-10.1) Neutrophils (%) (Auto) 60.8 % (45.0-75.0) Lymphocytes (%) (Auto) 33.9 % (20.0-45.0) Monocytes (%) (Auto) 1.9 % (1.0-10.0) Eosinophils (%) (Auto) 2.3 % (0.0-3.0) Basophils (%) (Auto) 1.1 % (0.0-2.0) Urine Color Pale yellow Urine Appearance Clear Urine pH 6 (4.5-8.0) Urine Specific [place] 1.010 (1.005-1.035) Urine Protein 1+ (NEGATIVE) Urine Glucose (UA) Negative (NEGATIVE) Urine Ketones Negative (NEGATIVE) Urine Blood 4+ (NEGATIVE) Urine Nitrite Negative (NEGATIVE) Urine Bilirubin Negative (NEGATIVE) Urine Urobilinogen Normal MG/DL (0.0-1.0) Urine Leukocyte Esterase Negative (NEGATIVE) Urine RBC 30-40 /HPF (0 - 2) Urine WBC 0-2 /HPF (0 - 2) Urine Squamous Epithelial Cells Few /LPF (NONE/OCC) Urine Bacteria Few /HPF (NONE) Sodium Level 139 MMOL/L (136-145) Potassium Level 4.0 MMOL/L (3.5-5.1) Chloride Level 105 MMOL/L (98-107) Carbon Dioxide Level 21 MMOL/L (21-32) Anion Gap 13 mmol/L (5-15) Blood Urea Nitrogen 21 mg/dL (7-18) Creatinine 1.2 MG/DL (0.55-1.30) Estimat Glomerular Filtration Rate 58.9 mL/min (>60) Glucose Level 137 MG/DL (74-106) Calcium Level 8.7 MG/DL (8.5-10.1) Total Bilirubin 0.2 MG/DL (0.2-1.0) Aspartate Amino Transf (AST/SGOT) 25 U/L (15-37) Alanine Aminotransferase (ALT/SGPT) 12 U/L (12-78) Alkaline Phosphatase 127 U/L (46-116) Troponin I 0.000 ng/mL (0.000-0.056) Total Protein 8.5 G/DL (6.4-8.2) Albumin 3.5 G/DL (3.4-5.0) Globulin 5.0 g/dL Albumin/Globulin Ratio 0.7 (1.0-2.7) Lipase 313 U/L (73-393) Last Vital Signs Date Time Temp Pulse Resp B/P (MAP) Pulse Ox O2 Delivery O2 Flow Rate FiO2 06/16/18 00:13 98.2 92 20 161/110 95 Room Air Status: improved Disposition: HOME, SELF-CARE Condition: Stable Scripts Ranitidine Hcl* (ZANTAC*) 150 Mg Tablet 150 MG ORAL TWICE A DAY, #30 TAB Prov: Amor Chase MD 06/16/18 Ondansetron Odt* (ZOFRAN ODT*) 4 Mg Tab.rapdis 4 MG BC EVERY 6 HOURS PRN for Nausea & Vomiting, #10 TAB 0 Refills Prov: Amor Chase MD 06/16/18 Referrals: NON PHYSICIAN (PCP) Amor Chase MD Jun 16, 2018 01:33
[2018-06-16 01:34] LABS: ALANINE AMINOTRANSFERASE 12 U/L (12-78); ALBUMIN 3.5 G/DL (3.4-5.0); ALBUMIN/GLOBULIN RATIO 0.7 (1.0-2.7); ALKALINE PHOSPHATASE 127 U/L (46-116); ASPARTATE AMINO TRANSFERASE 25 U/L (15-37); BILIRUBIN,TOTAL 0.2 MG/DL (0.2-1.0)
[2018-06-16 02:00] VITALS: BP 146/69
[2018-06-16 03:15] VITALS: BP 136/63
[2018-06-16] MEDS ORDERED: ONDANSETRON ODT4 MG BC (03:24)
[2018-06-16] MEDS ORDERED: RANITIDINE HCL150 MG ORAL (03:24)
[2018-06-16 03:40] VITALS: BP 136/63
--- NOTE | 2018-06-16 10:40 | Diagnostic Imaging Report ---
Indication: Chest pain Comparison: None A single view chest radiograph was obtained. Findings: Cardiomediastinal appearance is within normal limits for age. The lungs are clear. Pulmonary vascularity is appropriate. The diaphragmatic contour is smooth and costophrenic angles are sharp. No pleural effusions are identified. The bones are unremarkable. Impression: No acute findings
== END 2018-06-16 03:40 | disposition home or self-care (01) ==
LOC: EMR 00:34
DX: G43.A0 Cyclical vomiting, in migraine, not intractable (principal); R19.7 Diarrhea, unspecified; G89.29 Other chronic pain; I10 Essential (primary) hypertension
CPT/HCPCS: 36415; 71045; 80053; 81003; 83690; 84484; 85025; 96361; 96374; 96375; 96376; 99284; J2270; J2405; J2765; S0028

== ENCOUNTER 2018-11-16 05:44 | Emergency (ER) | payer MEDICARE, MEDICAID ==
[~2018-11-16] VITALS: Ht 180.3 cm; Wt 108.9 kg
[2018-11-16 06:10] VITALS: BP 127/94
--- NOTE | 2018-11-16 06:10 | NUR ---
ED Nurse Note: Pt arrived ambulatory to ED for complaint of nausea and vomiting along with abd pain x4 days. Pt states pain is located in RLQ and radiate to back and jaw. Pt has hx of chronic nausea and vomiting.
[2018-11-16] MEDS ORDERED: D5NS 1,000 ML IV ONE (06:30)
[2018-11-16] MEDS ORDERED: DiphenhydrAMINE 50mg/ml Inj IVP ONE (06:30)
[2018-11-16] MEDS ORDERED: LORazepam Inj 2mg/ml 1ml IV ONE (06:30)
--- NOTE | 2018-11-16 07:05 | NUR ---
ED Nurse Note: Report given to RONNY Castillo. Pt resting comfortably. Showing no signs of acute distress.
--- NOTE | 2018-11-16 07:10 | NUR ---
ED Nurse Note: Received patient in bed. patient is resting comfortably in bed, appears to be sleeping, chest rise and fall evenly, with no acute distress. IVF infusing as ordered.
--- NOTE | 2018-11-16 07:11 | Emergency Room Report ---
History of Present Illness General Chief Complaint: Abdominal Pain Source: Patient Present Illness HPI Patient has a history of cyclic vomiting syndrome. Patient has had multiple visits to emergency department for cyclic vomiting syndrome. Patient states that she had an acute exacerbation the last few days with severe vomiting diffuse abdominal pain fairly typical for her usual cyclic vomiting syndrome. She denies any fever. Denies any chest pain shortness of breath. Denies any dysuria urinary frequency. Patient states that she has had multiple CAT scans in the past and does not want a CAT scan today. Denies any dysuria urinary frequency. No other complaints are noted. Symptoms noted to be moderate to severe. No other modifying factors. No other associated signs and symptoms. No other complaints were noted. Allergies: Coded Allergies: No Known Allergies (Unverified , 09/16/17) Patient History Past Medical History: HTN, other - Pancreatitis, cyclic vomiting syndrome Past Surgical History: maki Pertinent Family History: none Social History: Denies: smoking, alcohol use, drug use Last Menstrual Period: stop since 2009 Now: No Reviewed Nursing Documentation: PMH: Agreed; PSxH: Agreed Nursing Documentation-PMH Hx Hypertension: Yes Hx Diabetes: No Hx Cancer: No Hx Gastrointestinal Problems: Yes - cyclic vomitting syndrome, pancreatitis Review of Systems All Other Systems: negative except mentioned in HPI Physical Exam Vital Signs Date Time Temp Pulse Resp B/P (MAP) Pulse Ox O2 Delivery O2 Flow Rate FiO2 11/16/18 06:07 98.4 90 18 98 Room Air Sp02 EP Interpretation: reviewed, normal General Appearance: normal inspection, well appearing, no apparent distress, alert Head: atraumatic Eyes: bilateral eye normal inspection ENT: normal ENT inspection, hearing grossly normal, normal voice, dry mucus membranes Neck: normal inspection, full range of motion, supple, no bony tend Respiratory: normal inspection, lungs clear, normal breath sounds, no respiratory distress, no retraction, no wheezing Cardiovascular #1: regular rate, rhythm, no edema Gastrointestinal: normal inspection, normal bowel sounds, soft, no guarding, no hernia, tenderness - Diffusely, worse in epigastric Genitourinary: no CVA tenderness Musculoskeletal: normal inspection, back normal, normal range of motion Neurologic: normal inspection, alert, responsive, speech normal Psychiatric: normal inspection, judgement/insight normal, mood/affect normal Skin: normal inspection, normal color, no rash Medical Decision Making Diagnostic Impression: Primary Impression: Cyclical vomiting Additional Impression: Hematuria ER Course Patient presents to the emergency department today complaining of abdominal pain. Differential considerations include acute pancreatitis, cholecystitis, gastritis, hepatitis, recurrent cyclic vomiting syndrome, appendicitis just to name a few. Given the severity of the patient's presentation I felt this is a highly complex patient. This patient required extensive workup. Patient's laboratory work-up was negative. Patient was given fluids Ativan Benadryl and felt much better without requiring narcotics. Given patient is feeling better able to tolerate p.o. for the patient can be discharged. I did note that patient's urine is positive for red blood cells. Review of prior medical records from prior visits show frequent episodes of hematuria. However urine cultures are usually negative. Patient does not have any dysuria urinary frequency. Therefore I will hold off on antibiotics. Instead I recommend patient follow-up outpatient primary care physician and possible urologist concerning hematuria. Patient voiced understanding. Patient was given copies of her lab results to follow-up with her primary care physician. Patient states that she does have a follow-up appointment next week. Patient is advised to follow up with primary doctor in 2-3 days and return the emergency room for any worsening symptoms and as needed. Labs Test 11/16/18 06:38 11/16/18 07:10 White Blood Count 10.6 K/UL (4.8-10.8) Red Blood Count 4.83 M/UL (4.20-5.40) Hemoglobin 11.1 G/DL (12.0-16.0) Hematocrit 35.4 % (37.0-47.0) Mean Corpuscular Volume 73 FL (80-99) Mean Corpuscular Hemoglobin 22.9 PG (27.0-31.0) Mean Corpuscular Hemoglobin Concent 31.3 G/DL (32.0-36.0) Red Cell Distribution Width 14.6 % (11.6-14.8) Platelet Count 470 K/UL (150-450) Mean Platelet Volume 6.2 FL (6.5-10.1) Neutrophils (%) (Auto) 74.1 % (45.0-75.0) Lymphocytes (%) (Auto) 17.7 % (20.0-45.0) Monocytes (%) (Auto) 3.9 % (1.0-10.0) Eosinophils (%) (Auto) 3.0 % (0.0-3.0) Basophils (%) (Auto) 1.3 % (0.0-2.0) Sodium Level 140 MMOL/L (136-145) Potassium Level 3.6 MMOL/L (3.5-5.1) Chloride Level 106 MMOL/L (98-107) Carbon Dioxide Level 24 MMOL/L (21-32) Anion Gap 10 mmol/L (5-15) Blood Urea Nitrogen 13 mg/dL (7-18) Creatinine 1.0 MG/DL (0.55-1.30) Estimat Glomerular Filtration Rate > 60 mL/min (>60) Glucose Level 142 MG/DL (74-106) Calcium Level 9.1 MG/DL (8.5-10.1) Total Bilirubin 0.2 MG/DL (0.2-1.0) Aspartate Amino Transf (AST/SGOT) 16 U/L (15-37) Alanine Aminotransferase (ALT/SGPT) 14 U/L (12-78) Alkaline Phosphatase 155 U/L (46-116) Total Protein 8.0 G/DL (6.4-8.2) Albumin 3.4 G/DL (3.4-5.0) Globulin 4.6 g/dL Albumin/Globulin Ratio 0.7 (1.0-2.7) Lipase 257 U/L (73-393) Urine Color Pale yellow Urine Appearance Clear Urine pH 6.5 (4.5-8.0) Urine Specific [place] 1.015 (1.005-1.035) Urine Protein Negative (NEGATIVE) Urine Glucose (UA) Negative (NEGATIVE) Urine Ketones Negative (NEGATIVE) Urine Blood 4+ (NEGATIVE) Urine Nitrite Negative (NEGATIVE) Urine Bilirubin Negative (NEGATIVE) Urine Urobilinogen Normal MG/DL (0.0-1.0) Urine Leukocyte Esterase 1+ (NEGATIVE) Urine RBC 5-10 /HPF (0 - 2) Urine WBC 2-4 /HPF (0 - 2) Urine Squamous Epithelial Cells Few /LPF (NONE/OCC) Urine Bacteria Occasional /HPF (NONE) Urine HCG, Qualitative Negative (NEGATIVE) Last Vital Signs Date Time Temp Pulse Resp B/P (MAP) Pulse Ox O2 Delivery O2 Flow Rate FiO2 11/16/18 06:07 98.4 90 18 98 Room Air Status: improved Disposition: HOME, SELF-CARE Condition: Stable Scripts Famotidine (PEPCID AC) 20 Mg Tablet 20 MG PO DAILY, #30 TAB Prov: Adithya Nicholas MD 11/16/18 Ondansetron (Zofran) 4 Mg Tablet 4 MG ORAL Q6H PRN for Nausea & Vomiting, #30 TAB 0 Refills Prov: Adithya Nicholas MD 11/16/18 Referrals: NON PHYSICIAN (PCP) Adithya Nicholas MD November 16, 2018 07:11
[2018-11-16 07:21] LABS: BASOPHILS % (AUTO) 1.3 % (0.0-2.0); HEMATOCRIT 35.4 % (37.0-47.0); HEMOGLOBIN 11.1 G/DL (12.0-16.0); LYMPHOCYTES % (AUTO) 17.7 % (20.0-45.0); MEAN CORPUSCULAR VOLUME 73 FL (80-99); MONOCYTES % (AUTO) 3.9 % (1.0-10.0); NEUTROPHILS % (AUTO) 74.1 % (45.0-75.0); PLATELET COUNT 470 K/UL (150-450); RED BLOOD COUNT 4.83 M/UL (4.20-5.40); RED CELL DISTRIBUTION WIDTH 14.6 % (11.6-14.8); WHITE BLOOD COUNT 10.6 K/UL (4.8-10.8)
[2018-11-16 07:33] LABS: APPEARANCE,URINE CLEAR; BILIRUBIN, URINE NEGATIVE (NEGATIVE); COLOR,URINE PALE YELLOW; GLUCOSE, URINE (UA) NEGATIVE (NEGATIVE); KETONES,URINE NEGATIVE (NEGATIVE); LEUKOCYTE ESTERASE ,URINE 1+ (NEGATIVE); NITRITE,URINE NEGATIVE (NEGATIVE); PH,URINE 6.5 (4.5-8.0); PROTEIN,URINE NEGATIVE (NEGATIVE); UROBILINOGEN,URINE NORMAL MG/DL (0.0-1.0)
[2018-11-16 07:41] LABS: ANION GAP 10 mmol/L (5-15); BLOOD UREA NITROGEN 13 mg/dL (7-18); CALCIUM 9.1 MG/DL (8.5-10.1); CARBON DIOXIDE 24 MMOL/L (21-32); CHLORIDE 106 MMOL/L (98-107); POTASSIUM 3.6 MMOL/L (3.5-5.1); SODIUM 140 MMOL/L (136-145)
[2018-11-16 07:46] LABS: ALANINE AMINOTRANSFERASE 14 U/L (12-78); ALBUMIN 3.4 G/DL (3.4-5.0); ALBUMIN/GLOBULIN RATIO 0.7 (1.0-2.7); ALKALINE PHOSPHATASE 155 U/L (46-116); ASPARTATE AMINO TRANSFERASE 16 U/L (15-37); BILIRUBIN,TOTAL 0.2 MG/DL (0.2-1.0)
[2018-11-16] MEDS ORDERED: PEPCID AC20 M2 PO (09:05)
[2018-11-16] MEDS ORDERED: ZOFRAN4 MG ORAL (09:05)
[2018-11-16 09:23] VITALS: BP 121/92
[2018-11-16 09:31] VITALS: BP 121/92
--- NOTE | 2018-11-16 09:32 | NUR ---
ER DISCHARGE NOTE: Patient is cleared to be discharged per ERMD, pt is aox4, on room air, with stable vital signs. pt was given dc and prescription instructions, pt was able to verbalize understanding, pt id band and iv site removed without complications. pt is able to ambulate with steady gait. pt took all belongings. patient reports she will be following up with her primary doctor on 11/19/18
--- NOTE | 2018-11-16 11:40 | Diagnostic Imaging Report ---
Indication: Dyspnea Comparison: 06/16/2018 A single view chest radiograph was obtained. Findings: Cardiomediastinal appearance is within normal limits for age. The lungs are clear. Pulmonary vascularity is appropriate. The diaphragmatic contour is smooth and costophrenic angles are sharp. No pleural effusions are identified. The bones are unremarkable. Impression: No acute findings
== END 2018-11-16 09:31 | disposition home or self-care (01) ==
LOC: EMR 06:41
DX: G43.A0 Cyclical vomiting, in migraine, not intractable (principal); R31.9 Hematuria, unspecified; I10 Essential (primary) hypertension
CPT/HCPCS: 36415; 71045; 80053; 81003; 81025; 83690; 85025; 96361; 96374; 96375; 99284; J1200; J2405; S0028

== ENCOUNTER → 2019-04-30 | Emergency (ER) | payer MEDICARE, MEDICAID ==
[~2019-04-30] VITALS: Ht 177.8 cm; Wt 108.9 kg
[~2019-04-30] MED LIST changes: +AUGMENTIN 875-1 EAC1 ORAL; +D5NS 1,000 ML IV ONE; +DICYCLOMINE HCL10 MG ORAL; +DiphenhydrAMINE 50mg/ml Inj IVP ONE; +DiphenhydrAMINE 50mg/ml Inj ONE; +Lidocaine 2% Visc 15ml soln ORAL ONE; +Morphine Sulfate 4mg/ml Inj (IV USE ONLY) IVP ONE; +Morphine Sulfate 4mg/ml Inj (IV USE ONLY) ONE; +Omnipaque-300 100ml vial INJ PRN; +PEPCID AC20 M2 PO
--- NOTE | 2019-04-30 13:50 | NUR ---
ED Nurse Note: Patient walked into ED c/o of abdmonal pain 8/10, nausea and vomitting since last night. x1 diarrhea reported since last night. VSS. Afebrile. Patient having nausea now and vomit x2, clear emesis.
--- NOTE | 2019-04-30 14:02 | Emergency Room Report ---
History of Present Illness General Chief Complaint: Abdominal Pain Source: Patient, Medical Record Present Illness HPI 43-year-old female presents with generalized abdominal pain, she endorses an achy, she stated it started last night, she states that it is her cyclical vomiting syndrome again, she denies any dysuria, she tried to take her antiemetics, however she had an acute episode of vomiting, and 2 episodes of diarrhea no blood, patient endorses chills but no fevers, no cough no congestion no chest pain, patient presents for evaluation requesting antiemetics as well as pain medication. Allergies: Coded Allergies: No Known Allergies (Unverified , 09/16/17) Patient History Past Medical History: see triage record Last Menstrual Period: menopause Reviewed Nursing Documentation: PMH: Agreed; PSxH: Agreed Nursing Documentation-PMH Past Medical History: No History, Except For Hx Hypertension: Yes Hx Diabetes: No Hx Cancer: No Hx Gastrointestinal Problems: Yes - cyclic vomitting syndrome, pancreatitis Review of Systems All Other Systems: negative except mentioned in HPI Physical Exam Vital Signs Date Time Temp Pulse Resp B/P (MAP) Pulse Ox O2 Delivery O2 Flow Rate FiO2 04/30/19 13:45 98.2 74 18 134/99 (111) 95 Room Air Sp02 EP Interpretation: reviewed, normal General Appearance: well appearing, no apparent distress, alert Head: normocephalic, atraumatic Eyes: bilateral eye PERRL, bilateral eye EOMI ENT: uvula midline, moist mucus membranes Neck: supple, thyroid normal, supple/symm/no masses Respiratory: lungs clear, no respiratory distress, no retraction, no accessory muscle use Cardiovascular #1: normal peripheral pulses, regular rate, rhythm, no edema, no gallop, no murmur Gastrointestinal: non tender, soft, no guarding, no rebound Musculoskeletal: normal inspection Neurologic: alert, oriented x3 Psychiatric: mood/affect normal Skin: no rash, warm/dry Medical Decision Making Diagnostic Impression: Primary Impression: Colitis, acute ER Course 43-year-old female presents with generalized abdominal pain, differential diagnosis includes colitis, appendicitis, cyclical vomiting Labs show no acute abnormalities CT shows colitis, unchanged from 2016 Patient states that she will be picked up by her cousin, will start oral antibiotics for her prescription will be provided Repeat abdominal exam patient's pain well controlled Follow-up with PCP Laboratory Tests Test 04/30/19 15:20 04/30/19 15:30 Urine Color Pale yellow Urine Appearance Slightly cloudy Urine pH 7 (4.5-8.0) Urine Specific [place] 1.010 (1.005-1.035) Urine Protein Negative (NEGATIVE) Urine Glucose (UA) Negative (NEGATIVE) Urine Ketones Negative (NEGATIVE) Urine Blood 4+ (NEGATIVE) H Urine Nitrite Negative (NEGATIVE) Urine Bilirubin Negative (NEGATIVE) Urine Urobilinogen Normal MG/DL (0.0-1.0) Urine Leukocyte Esterase Negative (NEGATIVE) Urine RBC 15-20 /HPF (0 - 2) H Urine WBC 0-2 /HPF (0 - 2) Urine Squamous Epithelial Cells Many /LPF (NONE/OCC) H Urine Bacteria Few /HPF (NONE) Urine HCG, Qualitative Negative (NEGATIVE) Urine Opiates Screen Negative (NEGATIVE) Urine Barbiturates Screen Negative (NEGATIVE) Phencyclidine (PCP) Screen Negative (NEGATIVE) Urine Amphetamines Screen Negative (NEGATIVE) Urine Benzodiazepines Screen Negative (NEGATIVE) Urine Cocaine Screen Negative (NEGATIVE) Urine Marijuana (THC) Screen Negative (NEGATIVE) White Blood Count 9.3 K/UL (4.8-10.8) Red Blood Count 4.83 M/UL (4.20-5.40) Hemoglobin 11.1 G/DL (12.0-16.0) L Hematocrit 37.4 % (37.0-47.0) Mean Corpuscular Volume 77 FL (80-99) L Mean Corpuscular Hemoglobin 22.9 PG (27.0-31.0) L Mean Corpuscular Hemoglobin Concent 29.6 G/DL (32.0-36.0) L Red Cell Distribution Width 13.6 % (11.6-14.8) Platelet Count 435 K/UL (150-450) Mean Platelet Volume 6.1 FL (6.5-10.1) L Neutrophils (%) (Auto) 70.1 % (45.0-75.0) Lymphocytes (%) (Auto) 22.5 % (20.0-45.0) Monocytes (%) (Auto) 3.9 % (1.0-10.0) Eosinophils (%) (Auto) 2.1 % (0.0-3.0) Basophils (%) (Auto) 1.4 % (0.0-2.0) Sodium Level 143 MMOL/L (136-145) Potassium Level 4.1 MMOL/L (3.5-5.1) Chloride Level 107 MMOL/L (98-107) Carbon Dioxide Level 25 MMOL/L (21-32) Anion Gap 11 mmol/L (5-15) Blood Urea Nitrogen 11 mg/dL (7-18) Creatinine 0.9 MG/DL (0.55-1.30) Estimate Glomerular Filtration Rate > 60 mL/min (>60) Glucose Level 105 MG/DL (74-106) Calcium Level 9.2 MG/DL (8.5-10.1) Total Bilirubin 0.2 MG/DL (0.2-1.0) Aspartate Amino Transferase (AST) 19 U/L (15-37) Alanine Aminotransferase (ALT) 15 U/L (12-78) Alkaline Phosphatase 139 U/L (46-116) H Total Protein 7.3 G/DL (6.4-8.2) Albumin 3.1 G/DL (3.4-5.0) L Globulin 4.2 g/dL Albumin/Globulin Ratio 0.7 (1.0-2.7) L Lipase 341 U/L (73-393) EKG Diagnostic Results EKG Time: 15:04 EP Interpretation: NSR, rate 69, QTc 424, no acute ST elevations, left axis deviation Rhythm Strip Diag. Results Rhythm Strip Time: 15:20 EP Interpretation: yes Rate: 72 Rhythm: NSR, no PVC's, no ectopy CT/MRI/US Diagnostic Results CT/MRI/US Diagnostic Results : Impression Procedure: CT Abdomen Pelvis w/Contrast Clinical Indication: Abdominal pain Technique: No oral contrast utilized, per emergency room physician request IV administration nonionic contrast. Venous phase spiral acquisition obtained through the abdomen and pelvis. Multiplanar reconstructions were generated. Total dose length product 1318 mGycm. CTDIvol(s) 22 mGy. Dose reduction achieved using automated exposure control Comparison: 12/30/2017 Findings: Lack of enteric contrast limits assessment of the GI tract. There is equivocal mild wall thickening of the transverse and descending colon. This is similar to the previous study. What is probably a normal appendix is visualized. No evidence of acute appendicitis. No evidence of colonic diverticulosis or diverticulitis. No small bowel distention. No free or loculated intraperitoneal gas or fluid is evident. There is a small sliding-type hiatal hernia. The distal esophagus, stomach and duodenum are otherwise unremarkable. The gallbladder has been removed. The liver, bile ducts, pancreas, spleen, adrenals, kidneys are unremarkable. No retroperitoneal or mesenteric mass or adenopathy. No pelvic mass or adenopathy. Uterus and ovaries are unremarkable. The bones are unremarkable. The included lung bases are clear. Impression: Equivocal mild transverse and descending colonic wall thickening, consistent with colitis if real, nonspecific as regards etiology. This finding is similar to the previous study of 12/30/2017 Other findings as noted, including hiatal hernia, prior cholecystectomy The CT scanner at [facility] is accredited by the [employer] and the scans are performed using protocols designed to limit radiation exposure to as low as reasonably achievable to attain images of sufficient resolution adequate for diagnostic evaluation. Dictated By: Jose Langford MD Electronically Signed By: Jose Langford MD Signed Date/Time 04/30/19 3098 CC: Marlon Hester MD Last Vital Signs Date Time Temp Pulse Resp B/P (MAP) Pulse Ox O2 Delivery O2 Flow Rate FiO2 04/30/19 13:45 98.2 74 18 134/99 (111) 95 Room Air Disposition: HOME, SELF-CARE Condition: Stable Scripts Dicyclomine Hcl* (DICYCLOMINE HCL*) 10 Mg Capsule 10 MG ORAL QID PRN for Abdominal cramps, #20 CAP Prov: Marlon Hester MD 04/30/19 Amoxicillin/Potassium Clav 875-125* (AUGMENTIN 875-125 TABLET*) 1 Each Tablet 1 TAB ORAL TWICE A DAY, #20 TAB Prov: Marlon Hester MD 04/30/19 Referrals: [facility] Patient Instructions: Abdominal Pain, Adult, Colitis Additional Instructions: The patient was provided with discharge instructions, notified to follow-up with a primary care doctor and or specialist in the next 24-48 hours, and to return to the ED if they have worsening of their symptoms. Please note that this report is being documented using Can[employer] technology. This can lead to erroneous entry secondary to incorrect interpretation by the dictating instrument. Marlon Hester MD Apr 30, 2019 14:02
[2019-04-30 15:41] VITALS: BP 145/81
[2019-04-30 15:52] LABS: APPEARANCE,URINE SLIGHTLY CLOUDY; BILIRUBIN, URINE NEGATIVE (NEGATIVE); COLOR,URINE PALE YELLOW; GLUCOSE, URINE (UA) NEGATIVE (NEGATIVE); KETONES,URINE NEGATIVE (NEGATIVE); LEUKOCYTE ESTERASE ,URINE NEGATIVE (NEGATIVE); NITRITE,URINE NEGATIVE (NEGATIVE); PH,URINE 7 (4.5-8.0); PROTEIN,URINE NEGATIVE (NEGATIVE); UROBILINOGEN,URINE NORMAL MG/DL (0.0-1.0)
[2019-04-30 15:55] LABS: ANION GAP 11 mmol/L (5-15); BLOOD UREA NITROGEN 11 mg/dL (7-18); CALCIUM 9.2 MG/DL (8.5-10.1); CARBON DIOXIDE 25 MMOL/L (21-32); CHLORIDE 107 MMOL/L (98-107); CREATININE 0.9 MG/DL (0.55-1.30); POTASSIUM 4.1 MMOL/L (3.5-5.1); SODIUM 143 MMOL/L (136-145)
[2019-04-30 15:58] LABS: BASOPHILS % (AUTO) 1.4 % (0.0-2.0); EOSINOPHILS % (AUTO) 2.1 % (0.0-3.0); HEMATOCRIT 37.4 % (37.0-47.0); HEMOGLOBIN 11.1 G/DL (12.0-16.0); LYMPHOCYTES % (AUTO) 22.5 % (20.0-45.0); MEAN CORPUSCULAR VOLUME 77 FL (80-99); MONOCYTES % (AUTO) 3.9 % (1.0-10.0); NEUTROPHILS % (AUTO) 70.1 % (45.0-75.0); PLATELET COUNT 435 K/UL (150-450); RED BLOOD COUNT 4.83 M/UL (4.20-5.40); RED CELL DISTRIBUTION WIDTH 13.6 % (11.6-14.8); WHITE BLOOD COUNT 9.3 K/UL (4.8-10.8)
[2019-04-30 16:00] LABS: ALANINE AMINOTRANSFERASE 15 U/L (12-78); ALBUMIN 3.1 G/DL (3.4-5.0); ALBUMIN/GLOBULIN RATIO 0.7 (1.0-2.7); ALKALINE PHOSPHATASE 139 U/L (46-116); ASPARTATE AMINO TRANSFERASE 19 U/L (15-37); BILIRUBIN,TOTAL 0.2 MG/DL (0.2-1.0)
--- NOTE | 2019-04-30 16:49 | NUR ---
ED Nurse Note: IV estabalished on R. upper arm 20G by ERMD; patent and asymptomatic. Patient going to CT now.
--- NOTE | 2019-04-30 17:31 | Diagnostic Imaging Report ---
Clinical Indication: Abdominal pain Technique: No oral contrast utilized, per emergency room physician request IV administration nonionic contrast. Venous phase spiral acquisition obtained through the abdomen and pelvis. Multiplanar reconstructions were generated. Total dose length product 1318 mGycm. CTDIvol(s) 22 mGy. Dose reduction achieved using automated exposure control Comparison: 12/30/2017 Findings: Lack of enteric contrast limits assessment of the GI tract. There is equivocal mild wall thickening of the transverse and descending colon. This is similar to the previous study. What is probably a normal appendix is visualized. No evidence of acute appendicitis. No evidence of colonic diverticulosis or diverticulitis. No small bowel distention. No free or loculated intraperitoneal gas or fluid is evident. There is a small sliding-type hiatal hernia. The distal esophagus, stomach and duodenum are otherwise unremarkable. The gallbladder has been removed. The liver, bile ducts, pancreas, spleen, adrenals, kidneys are unremarkable. No retroperitoneal or mesenteric mass or adenopathy. No pelvic mass or adenopathy. Uterus and ovaries are unremarkable. The bones are unremarkable. The included lung bases are clear. Impression: Equivocal mild transverse and descending colonic wall thickening, consistent with colitis if real, nonspecific as regards etiology. This finding is similar to the previous study of 12/30/2017 Other findings as noted, including hiatal hernia, prior cholecystectomy The CT scanner at [facility] is accredited by the [employer] and the scans are performed using protocols designed to limit radiation exposure to as low as reasonably achievable to attain images of sufficient resolution adequate for diagnostic evaluation.
== END | disposition home or self-care (01) ==
LOC: EMR 14:03
DX: K52.9 Noninfective gastroenteritis and colitis, unspecified (principal); I10 Essential (primary) hypertension
CPT/HCPCS: 36415; 74177; 80053; 80307; 81003; 81025; 83690; 85025; 93005; 96365; 96375; 96376; 99284; J1200; J2270; J2405; Q9967; S0028

== ENCOUNTER 2019-05-08 14:02 | Emergency (ER) | payer MEDICARE, MEDICAID ==
[~2019-05-08] VITALS: Ht 177.8 cm; Wt 109.8 kg
[~2019-05-08 14:02] MED LIST changes: -D5NS 1,000 ML IV ONE; -DiphenhydrAMINE 50mg/ml Inj IVP ONE; -DiphenhydrAMINE 50mg/ml Inj ONE; -Lidocaine 2% Visc 15ml soln ORAL ONE; -Morphine Sulfate 4mg/ml Inj (IV USE ONLY) IVP ONE; -Morphine Sulfate 4mg/ml Inj (IV USE ONLY) ONE; -Omnipaque-300 100ml vial INJ PRN
[2019-05-08] MEDS ORDERED: DiphenhydrAMINE 50mg/ml Inj IVP ONE (14:30)
[2019-05-08] MEDS ORDERED: Morphine Sulfate 4mg/ml Inj (IV USE ONLY) IVP ONE (14:30)
[2019-05-08] MEDS ORDERED: Metoclopramide 10mg/2ml Inj IVP ONE (14:30)
--- NOTE | 2019-05-08 14:47 | Emergency Room Report ---
History of Present Illness General Chief Complaint: Abdominal Pain Source: Patient, Medical Record Present Illness HPI Patient presents with abdominal pain that began this morning. She says she has epigastric burning and has been vomiting uncontrollably. She denies vomiting any blood. In addition she has had diarrhea this been normal in color. The pain is actually right lower quadrant and fairly constant. 9/10 at this time. She also complains of chest pain. This seems to be more related to the burning that center epigastric region then exertional. Patient has a history of cyclic vomiting and also pancreatitis. Her stomach is been stable she says for approximately a year. She is postmenopausal. She denies dysuria. Last here May 04. CT showed colitis. She was able to be discharged. No fevers, chills, sore throat, palpitations, shortness of breath, joint pain, rashes, depression, anxiety, visual changes, dizziness, headache. Allergies: Coded Allergies: No Known Allergies (Unverified , 09/16/17) Patient History Past Medical History: see triage record Past Surgical History: maki Social History: Reports: smoking Social History Narrative From home Last Menstrual Period: N/A since 2008 Now: No Reviewed Nursing Documentation: PMH: Agreed; PSxH: Agreed Nursing Documentation-PMH Hx Hypertension: Yes Hx Diabetes: No Hx Cancer: No Hx Gastrointestinal Problems: Yes - cyclic vomitting syndrome, pancreatitis Review of Systems All Other Systems: negative except mentioned in HPI Physical Exam Vital Signs Date Time Temp Pulse Resp B/P (MAP) Pulse Ox O2 Delivery O2 Flow Rate FiO2 05/08/19 14:19 98.2 86 18 148/105 (119) 97 Sp02 EP Interpretation: reviewed, normal General Appearance: well appearing, no apparent distress, GCS 15, obese Head: normocephalic Eyes: bilateral eye normal inspection, bilateral eye PERRL ENT: dry mucus membranes Neck: supple Respiratory: lungs clear, normal breath sounds Cardiovascular #1: regular rate, rhythm Cardiovascular #2: 2+ radial (R) Gastrointestinal: normal inspection, normal bowel sounds, no mass, non- distended, no rebound, guarding - Minimal, tenderness - Right lower quadrant and epigastric Genitourinary: no CVA tenderness Musculoskeletal: back normal, gait/station normal, normal range of motion Neurologic: alert, oriented x3, grossly normal Psychiatric: mood/affect normal Skin: no rash, warm/dry Medical Decision Making Diagnostic Impression: Primary Impression: Intractable vomiting Qualified Codes: R11.2 - Nausea with vomiting, unspecified Additional Impressions: Hypokalemia Abdominal pain Qualified Codes: R10.9 - Unspecified abdominal pain ER Course Patient presents with persistent vomiting and abdominal pain. Differential includes diverticulitis, gastroenteritis, pancreatitis, gastritis amongst others. She has a nonsurgical exam at this time. Evaluation will be with chest x-ray, abdominal film and labs. The patient will be treated with IV hydration, Pepcid, Reglan, Benadryl and morphine. Chest x-ray normal. Abdomen films with some increased stool no obstruction. Labs with normal white count. CMP with low potassium. Patient still vomiting. Potassium is low. Potassium ordered. Improvement with treatment. Patient needs observation and continued treatment for vomiting and abdominal pain. Patient feels better. Advised patient of risk of . She understands but feels well enough to go home. Patient left AGAINST MEDICAL ADVICE. She was advised to return if she changes her mind. Laboratory Tests Test 05/08/19 15:15 05/08/19 15:20 Urine Color Pale yellow Urine Appearance Clear Urine pH 7 (4.5-8.0) Urine Specific [place] 1.010 (1.005-1.035) Urine Protein 1+ (NEGATIVE) H Urine Glucose (UA) Negative (NEGATIVE) Urine Ketones Negative (NEGATIVE) Urine Blood 4+ (NEGATIVE) H Urine Nitrite Negative (NEGATIVE) Urine Bilirubin Negative (NEGATIVE) Urine Urobilinogen Normal MG/DL (0.0-1.0) Urine Leukocyte Esterase Negative (NEGATIVE) Urine RBC 15-20 /HPF (0 - 2) H Urine WBC 0-2 /HPF (0 - 2) Urine Squamous Epithelial Cells Moderate /LPF (NONE/OCC) H Urine Bacteria Occasional /HPF (NONE) White Blood Count 10.4 K/UL (4.8-10.8) Red Blood Count 5.18 M/UL (4.20-5.40) Hemoglobin 11.9 G/DL (12.0-16.0) L Hematocrit 39.1 % (37.0-47.0) Mean Corpuscular Volume 75 FL (80-99) L Mean Corpuscular Hemoglobin 23.1 PG (27.0-31.0) L Mean Corpuscular Hemoglobin Concent 30.5 G/DL (32.0-36.0) L Red Cell Distribution Width 12.7 % (11.6-14.8) Platelet Count 489 K/UL (150-450) H Mean Platelet Volume 6.4 FL (6.5-10.1) L Neutrophils (%) (Auto) 80.9 % (45.0-75.0) H Lymphocytes (%) (Auto) 13.5 % (20.0-45.0) L Monocytes (%) (Auto) 3.1 % (1.0-10.0) Eosinophils (%) (Auto) 1.1 % (0.0-3.0) Basophils (%) (Auto) 1.4 % (0.0-2.0) Prothrombin Time 10.2 SEC (9.30-11.50) Prothrombin Time INR 1.0 (0.9-1.1) PTT 24 SEC (23-33) Sodium Level 142 MMOL/L (136-145) Potassium Level 3.2 MMOL/L (3.5-5.1) L Chloride Level 106 MMOL/L (98-107) Carbon Dioxide Level 25 MMOL/L (21-32) Anion Gap 11 mmol/L (5-15) Blood Urea Nitrogen 8 mg/dL (7-18) Creatinine 1.1 MG/DL (0.55-1.30) Estimate Glomerular Filtration Rate > 60 mL/min (>60) Glucose Level 128 MG/DL (74-106) H Calcium Level 9.5 MG/DL (8.5-10.1) Total Bilirubin 0.4 MG/DL (0.2-1.0) Aspartate Amino Transferase (AST) 18 U/L (15-37) Alanine Aminotransferase (ALT) 19 U/L (12-78) Alkaline Phosphatase 153 U/L (46-116) H Troponin I 0.000 ng/mL (0.000-0.056) Total Protein 8.4 G/DL (6.4-8.2) H Albumin 3.7 G/DL (3.4-5.0) Globulin 4.7 g/dL Albumin/Globulin Ratio 0.8 (1.0-2.7) L Lipase 342 U/L (73-393) Rhythm Strip Diag. Results Rhythm: NSR, no PVC's, no ectopy Chest X-Ray Diagnostic Results Chest X-Ray Diagnostic Results : Chest X-Ray Ordered: Yes # of Views/Limited/Complete: 1 View Indication: Other EP Interpretation: Yes Interpretation: no consolidation, no effusion, no pneumothorax Impression: No acute disease Electronically Signed by: Electronically signed by Marcos Thompson MD Other X-Ray Diagnostic Results Other X-Ray Diagnostic Results : X-Ray ordered: Abdomen # of Views/Limited Vs Complete: 2 View Indication: Pain EP Interpretation: Yes Interpretation: nonspecific bowel gas, no sbo, other - Choly clips Impression: No acute disease Electronically Signed by: Electronically signed by Marcos Thompson MD Last Vital Signs Date Time Temp Pulse Resp B/P (MAP) Pulse Ox O2 Delivery O2 Flow Rate FiO2 05/08/19 19:50 85 11 128/72 99 Room Air 05/08/19 17:11 98.2 Status: improved Disposition: AGAINST MEDICAL ADVICE Condition: Serious Marcos Thompson MD May 08, 2019 14:47
--- NOTE | 2019-05-08 15:00 | NUR ---
ED Nurse Note: Pt came in from home due to epigastric and and RLQ abdominal pain with nausea/vomiting/diarrhea since 0530 this morning. Pain 9/10 at this time. Last bowel movement was this morning. Hx of Cyclic vomiting syndrome and Pancreatitis. AOOx4, vital signs stable upon arrival. Will cont to monitor.
--- NOTE | 2019-05-08 15:03 | NUR ---
ED Nurse Note: 2 RNs were not able to initiate IV access, ERMD made aware.
[2019-05-08 15:29] LABS: APPEARANCE,URINE CLEAR; BILIRUBIN, URINE NEGATIVE (NEGATIVE); COLOR,URINE PALE YELLOW; GLUCOSE, URINE (UA) NEGATIVE (NEGATIVE); KETONES,URINE NEGATIVE (NEGATIVE); LEUKOCYTE ESTERASE ,URINE NEGATIVE (NEGATIVE); NITRITE,URINE NEGATIVE (NEGATIVE); PH,URINE 7 (4.5-8.0); PROTEIN,URINE 1+ (NEGATIVE); UROBILINOGEN,URINE NORMAL MG/DL (0.0-1.0)
[2019-05-08 15:31] VITALS: BP 163/109
[2019-05-08 15:35] LABS: BASOPHILS % (AUTO) 1.4 % (0.0-2.0); EOSINOPHILS % (AUTO) 1.1 % (0.0-3.0); HEMATOCRIT 39.1 % (37.0-47.0); HEMOGLOBIN 11.9 G/DL (12.0-16.0); LYMPHOCYTES % (AUTO) 13.5 % (20.0-45.0); MEAN CORPUSCULAR VOLUME 75 FL (80-99); MONOCYTES % (AUTO) 3.1 % (1.0-10.0); NEUTROPHILS % (AUTO) 80.9 % (45.0-75.0); PLATELET COUNT 489 K/UL (150-450); RED BLOOD COUNT 5.18 M/UL (4.20-5.40); RED CELL DISTRIBUTION WIDTH 12.7 % (11.6-14.8); WHITE BLOOD COUNT 10.4 K/UL (4.8-10.8)
--- NOTE | 2019-05-08 15:35 | Diagnostic Imaging Report ---
Indication: Reason For Exam: ABD PAIN Technique: AP views of the abdomen Comparison: Abdominal radiograph dated 10/21/2016 Findings: Bowel gas pattern is nonobstructive. Moderate colonic stool burden. Lung bases are clear. Status post cholecystectomy. IMPRESSION: No radiographic evidence of bowel obstruction.
[2019-05-08 15:44] LABS: ANION GAP 11 mmol/L (5-15); BLOOD UREA NITROGEN 8 mg/dL (7-18); CALCIUM 9.5 MG/DL (8.5-10.1); CARBON DIOXIDE 25 MMOL/L (21-32); CHLORIDE 106 MMOL/L (98-107); CREATININE 1.1 MG/DL (0.55-1.30); POTASSIUM 3.2 MMOL/L (3.5-5.1); SODIUM 142 MMOL/L (136-145)
--- NOTE | 2019-05-08 15:46 | Diagnostic Imaging Report ---
Indication: Reason For Exam: ABD PAIN Technique: Single AP view of the chest. Comparison: Chest radiograph dated 11/16/2018 Findings: The cardiomediastinal silhouette is within normal limits. There is no focal consolidation, pneumothorax or pleural effusion. Osseous structures demonstrate no acute abnormality. IMPRESSION: No radiographic evidence of acute cardiopulmonary process.
[2019-05-08 15:48] LABS: ALANINE AMINOTRANSFERASE 19 U/L (12-78); ALBUMIN 3.7 G/DL (3.4-5.0); ALBUMIN/GLOBULIN RATIO 0.8 (1.0-2.7); ALKALINE PHOSPHATASE 153 U/L (46-116); ASPARTATE AMINO TRANSFERASE 18 U/L (15-37); BILIRUBIN,TOTAL 0.4 MG/DL (0.2-1.0)
[2019-05-08] MEDS ORDERED: LIDOCAINE IV ONE (16:45)
[2019-05-08] MEDS ORDERED: HYDROmorphone 1mg/ml Carpuject IVP ONE (16:45)
--- NOTE | 2019-05-08 16:50 | NUR ---
ED Nurse Note: Lidocaine administered by Dr Thompson, pt tolerated well.
--- NOTE | 2019-05-08 16:58 | NUR ---
ED Nurse Note: Pt ambulated to the bathroom x 2 with steady gait. Will cont to monitor.
[2019-05-08 17:08] VITALS: BP 119/56
--- NOTE | 2019-05-08 19:30 | NUR ---
ED Nurse Note: pt reports "feeling better and wanting to go home." ERMD aware and will talk with pt
[2019-05-08 19:50] VITALS: BP 128/72
--- NOTE | 2019-05-08 19:50 | NUR ---
ED Nurse Note: Patient has signed out AMA, after recieving education from CHUCK. pt is aox4, on room air, with stable vital signs. pt verbalized unerstanding of risks of leaving, pt id band and iv site removed without complications. pt is able to ambulate with steady gait. pt took all belongings.
[2019-05-09] MEDS ORDERED: DICYCLOMINE HCL10 MG ORAL (09:41)
[2019-05-09] MEDS ORDERED: ONDANSETRON ODT4 MG BC (09:41)
[2019-05-09] MEDS ORDERED: METRONIDAZOLE500 MG ORAL (09:41)
== END 2019-05-08 19:50 | disposition left against medical advice (07) ==
LOC: EMR 14:50
DX: R11.2 Nausea with vomiting, unspecified (principal); R10.9 Unspecified abdominal pain; E87.6 Hypokalemia; I10 Essential (primary) hypertension; F17.200 Nicotine dependence, unspecified, uncomplicated
CPT/HCPCS: 36415; 71045; 74018; 80053; 81003; 83690; 84484; 85025; 85610; 85730; 96361; 96374; 96375; 99284; J1170; J1200; J2270; J2765; J3480; S0028

== ENCOUNTER 2019-05-09 06:26 | Emergency (ER) | payer MEDICARE, MEDICAID ==
[~2019-05-09] VITALS: Ht 177.8 cm; Wt 109.8 kg
--- NOTE | 2019-05-09 06:42 | Emergency Room Report ---
History of Present Illness General Chief Complaint: Nausea, Vomiting, and Diarrhea Present Illness HPI Patient 43-year-old female presents after increased nausea and vomiting. Patient had a recent emergency department visit for similar symptoms. She had left the hospital AGAINST MEDICAL ADVICE. Patient had previously had similar symptoms in the past and had some prior history of cyclic vomiting. She also had prior history of gastritis. She reports having multiple episodes of emesis since leaving the hospital.Patient reports having increased pain to the epigastric area. She had previously had a diagnosis of colitis as well as gastritis. She had a similar symptoms in the past. Allergies: Coded Allergies: No Known Allergies (Unverified , 09/16/17) Patient History Past Medical History: other - gastritis, colitis Last Menstrual Period: na Reviewed Nursing Documentation: PMH: Agreed; PSxH: Agreed Nursing Documentation-PMH Hx Hypertension: Yes Hx Diabetes: No Hx Cancer: No Hx Gastrointestinal Problems: Yes - cyclic vomitting syndrome, pancreatitis Review of Systems All Other Systems: negative except mentioned in HPI Physical Exam Vital Signs Date Time Temp Pulse Resp B/P (MAP) Pulse Ox O2 Delivery O2 Flow Rate FiO2 05/09/19 06:33 98.1 101 18 110/75 (87) 99 Room Air Sp02 EP Interpretation: reviewed, normal General Appearance: normal inspection, well appearing, no apparent distress, alert, GCS 15, non-toxic Head: atraumatic ENT: normal ENT inspection, hearing grossly normal, normal voice Neck: normal inspection, full range of motion, supple, no bony tend Respiratory: normal inspection, lungs clear, normal breath sounds, no respiratory distress, no retraction, no wheezing Cardiovascular #1: regular rate, rhythm, no edema Gastrointestinal: normal inspection, normal bowel sounds, non tender, soft, no guarding, no hernia Genitourinary: no CVA tenderness Musculoskeletal: normal inspection, back normal, normal range of motion Neurologic: normal inspection, alert, responsive, speech normal Psychiatric: normal inspection, judgement/insight normal, mood/affect normal Medical Decision Making Diagnostic Impression: Primary Impression: Vomiting ER Course Patient presented for abdominal pain. Patient had multiple prior visits for similar type symptoms. Differential diagnosis include was not limited to colitis, opiate withdrawal, gastroenteritis, cyclic vomiting among others. Because of complexity of patient's case laboratory tests and imaging studies were ordered. Patient does not appear to be in acute distress. She appears to be well-hydrated. Laboratory testing was ordered due to patient's previous significant episodes of hypokalemia and vomiting. Patient was given IV antiemetics as well as medications for gastritis. She was noted to have improvement in her symptoms. Patient was noted to have some improvement. She will be discharged home. Patient given prescription for medications for nausea and vomiting.The patient is advised to follow up with primary care doctor in 1- 2 days. Patient is advised to return if any worsening condition or if any changes in status that are concerning. This report is dictated with [employer] food service ambassador software which may occasionally lead to discrepancies related to use of this software. Labs Test 05/09/19 06:40 05/09/19 06:58 Urine Color Yellow Urine Appearance Clear Urine pH 6.5 (4.5-8.0) Urine Specific [place] 1.015 (1.005-1.035) Urine Protein 3+ (NEGATIVE) Urine Glucose (UA) 1+ (NEGATIVE) Urine Ketones 3+ (NEGATIVE) Urine Blood 5+ (NEGATIVE) Urine Nitrite Negative (NEGATIVE) Urine Bilirubin Negative (NEGATIVE) Urine Urobilinogen Normal MG/DL (0.0-1.0) Urine Leukocyte Esterase 1+ (NEGATIVE) Urine RBC 10-15 /HPF (0 - 2) Urine WBC 0-2 /HPF (0 - 2) Urine Squamous Epithelial Cells Few /LPF (NONE/OCC) Urine Bacteria Few /HPF (NONE) Urine HCG, Qualitative Negative (NEGATIVE) White Blood Count 15.1 K/UL (4.8-10.8) Red Blood Count 5.28 M/UL (4.20-5.40) Hemoglobin 12.3 G/DL (12.0-16.0) Hematocrit 39.2 % (37.0-47.0) Mean Corpuscular Volume 74 FL (80-99) Mean Corpuscular Hemoglobin 23.3 PG (27.0-31.0) Mean Corpuscular Hemoglobin Concent 31.4 G/DL (32.0-36.0) Red Cell Distribution Width 14.0 % (11.6-14.8) Platelet Count 480 K/UL (150-450) Mean Platelet Volume 6.3 FL (6.5-10.1) Neutrophils (%) (Auto) % (45.0-75.0) Lymphocytes (%) (Auto) % (20.0-45.0) Monocytes (%) (Auto) % (1.0-10.0) Eosinophils (%) (Auto) % (0.0-3.0) Basophils (%) (Auto) % (0.0-2.0) Differential Total Cells Counted 100 Neutrophils % (Manual) 89 % (45-75) Lymphocytes % (Manual) 5 % (20-45) Monocytes % (Manual) 2 % (1-10) Eosinophils % (Manual) 2 % (0-3) Basophils % (Manual) 0 % (0-2) Band Neutrophils 2 % (0-8) Platelet Estimate Adequate Platelet Morphology Normal Hypochromasia 1+ Microcytosis 1+ Sodium Level 138 MMOL/L (136-145) Potassium Level 3.2 MMOL/L (3.5-5.1) Chloride Level 100 MMOL/L (98-107) Carbon Dioxide Level 28 MMOL/L (21-32) Anion Gap 10 mmol/L (5-15) Blood Urea Nitrogen 6 mg/dL (7-18) Creatinine 1.2 MG/DL (0.55-1.30) Estimat Glomerular Filtration Rate 58.9 mL/min (>60) Glucose Level 159 MG/DL (74-106) Calcium Level 9.6 MG/DL (8.5-10.1) Total Bilirubin 0.4 MG/DL (0.2-1.0) Aspartate Amino Transf (AST/SGOT) 25 U/L (15-37) Alanine Aminotransferase (ALT/SGPT) 20 U/L (12-78) Alkaline Phosphatase 162 U/L (46-116) Total Protein 9.1 G/DL (6.4-8.2) Albumin 3.9 G/DL (3.4-5.0) Globulin 5.2 g/dL Albumin/Globulin Ratio 0.8 (1.0-2.7) Lipase 386 U/L (73-393) Last Vital Signs Date Time Temp Pulse Resp B/P (MAP) Pulse Ox O2 Delivery O2 Flow Rate FiO2 05/09/19 06:33 98.1 101 18 110/75 (87) 99 Room Air Status: improved Disposition: HOME, SELF-CARE Condition: Stable Scripts Dicyclomine Hcl* (DICYCLOMINE HCL*) 10 Mg Capsule 10 MG ORAL QID, #20 CAP Prov: Amor Chase MD 11/3/19 Metronidazole* (FLAGYL*) 500 Mg Tablet 500 MG ORAL BID for 7 Days, #14 TAB Prov: Amor Chase MD 05/09/19 Ondansetron Odt* (ZOFRAN ODT*) 4 Mg Tab.rapdis 4 MG BC EVERY 6 HOURS PRN for Nausea & Vomiting, #10 TAB 0 Refills Prov: Amor Chase MD 05/09/19 Amor Chase MD May 09, 2019 06:42
[2019-05-09 07:10] VITALS: BP 110/75
[2019-05-09] MEDS ORDERED: D5 1/2NS w/KCl 20mEq 1,000 ML IV SCH (07:15)
[2019-05-09] MEDS ORDERED: Metoclopramide 10mg/2ml Inj IVP ONE (07:15)
[2019-05-09] MEDS ORDERED: LR 1000ml 1,000 ML IV SCH (07:15)
--- NOTE | 2019-05-09 07:15 | NUR ---
ED Nurse Note: Received the patient from RONNY Mcpherson. Patient is awake, alert and orientedx4. No c/o pain or SOB. Patient still c/o nausea. Placed the patient on [employer] network [employer]. Left hand 22G intact, asymptomatic.
[2019-05-09 07:37] LABS: HEMATOCRIT 39.2 % (37.0-47.0); HEMOGLOBIN 12.3 G/DL (12.0-16.0); MEAN CORPUSCULAR VOLUME 74 FL (80-99); PLATELET COUNT 480 K/UL (150-450); RED BLOOD COUNT 5.28 M/UL (4.20-5.40); WHITE BLOOD COUNT 15.1 K/UL (4.8-10.8)
--- NOTE | 2019-05-09 07:40 | NUR ---
ED Nurse Note: Patient c/o pain in right and mid abdomen, 8/[address] Chase notified.
[2019-05-09 07:42] LABS: APPEARANCE,URINE CLEAR; BILIRUBIN, URINE NEGATIVE (NEGATIVE); GLUCOSE, URINE (UA) 1+ (NEGATIVE); KETONES,URINE 3+ (NEGATIVE); LEUKOCYTE ESTERASE ,URINE 1+ (NEGATIVE); NITRITE,URINE NEGATIVE (NEGATIVE); PH,URINE 6.5 (4.5-8.0); PROTEIN,URINE 3+ (NEGATIVE); UROBILINOGEN,URINE NORMAL MG/DL (0.0-1.0)
[2019-05-09 07:54] LABS: ANION GAP 10 mmol/L (5-15); BLOOD UREA NITROGEN 6 mg/dL (7-18); CALCIUM 9.6 MG/DL (8.5-10.1); CARBON DIOXIDE 28 MMOL/L (21-32); CHLORIDE 100 MMOL/L (98-107); CREATININE 1.2 MG/DL (0.55-1.30); POTASSIUM 3.2 MMOL/L (3.5-5.1); SODIUM 138 MMOL/L (136-145)
[2019-05-09 07:54] LABS: COLOR,URINE YELLOW
[2019-05-09 07:58] LABS: ALANINE AMINOTRANSFERASE 20 U/L (12-78); ALBUMIN 3.9 G/DL (3.4-5.0); ALBUMIN/GLOBULIN RATIO 0.8 (1.0-2.7); ALKALINE PHOSPHATASE 162 U/L (46-116); ASPARTATE AMINO TRANSFERASE 25 U/L (15-37); BILIRUBIN,TOTAL 0.4 MG/DL (0.2-1.0)
[2019-05-09] MEDS ORDERED: Morphine Sulfate 4mg/ml Inj (IV USE ONLY) IVP ONE (08:00)
[2019-05-09 08:14] VITALS: BP 153/97
[2019-05-09 09:15] VITALS: BP 157/103
--- NOTE | 2019-05-09 09:17 | NUR ---
ED Nurse Note: Patient still c/o nausea and abdominal pain. BP 157/103. Dr. Chase notified.
[2019-05-09] MEDS ORDERED: Dicyclomine HCl 10mg/5ml oral soln ORAL ONE (09:30)
[2019-05-09] MEDS ORDERED: METRONIDAZOLE500 MG ORAL (09:41)
[2019-05-09] MEDS ORDERED: ONDANSETRON ODT4 MG BC (09:41)
[2019-05-09] MEDS ORDERED: DICYCLOMINE HCL10 MG ORAL (09:41)
[2019-05-09 10:35] VITALS: BP 152/98
--- NOTE | 2019-05-09 10:37 | NUR ---
ER DISCHARGE NOTE: Patient is cleared to be discharged per ERMD, pt is aox4, on room air, with stable vital signs. pt was given dc and prescription instructions, pt was able to verbalize understanding, pt id band and iv site removed without complications. pt is able to ambulate with steady gait. pt took all belongings.
== END 2019-05-09 10:37 | disposition home or self-care (01) ==
LOC: EMR 06:42
DX: R11.10 Vomiting, unspecified (principal); I10 Essential (primary) hypertension
CPT/HCPCS: 36415; 80053; 81003; 81025; 83690; 85007; 85025; 96361; 96365; 96366; 96375; 99284; J2270; J2405; J2765; S0028

== ENCOUNTER 2019-05-11 11:17 | Inpatient (IN) | payer MEDICARE, MEDICAID ==
[~2019-05-11] VITALS: Ht 177.8 cm; Wt 108.6 kg
[~2019-05-11 11:17] MED LIST changes: +METRONIDAZOLE500 MG ORAL
[2019-05-11] MEDS ORDERED: DiphenhydrAMINE 50mg/ml Inj IVP ONE (11:45)
[2019-05-11] MEDS ORDERED: Metoclopramide 10mg/2ml Inj IVP ONE (11:45)
[2019-05-11 11:46] VITALS: BP 98/76
[2019-05-11 12:44] LABS: BASOPHILS % (AUTO) 1.1 % (0.0-2.0); EOSINOPHILS % (AUTO) 1.2 % (0.0-3.0); HEMOGLOBIN 12.7 G/DL (12.0-16.0); LYMPHOCYTES % (AUTO) 28.8 % (20.0-45.0); MEAN CORPUSCULAR VOLUME 75 FL (80-99); NEUTROPHILS % (AUTO) 63.9 % (45.0-75.0); PLATELET COUNT 515 K/UL (150-450); RED BLOOD COUNT 5.58 M/UL (4.20-5.40); RED CELL DISTRIBUTION WIDTH 14.1 % (11.6-14.8); WHITE BLOOD COUNT 13.1 K/UL (4.8-10.8)
--- NOTE | 2019-05-11 13:04 | Emergency Room Report ---
History of Present Illness General Chief Complaint: Abdominal Pain Source: Patient Present Illness HPI Patient presents with complaints of continued episodes of vomiting and diffuse abdominal discomfort Patient reports that she has been told she has history of cyclical vomiting she has been here several days in the recent past And reports that she is not able to tolerate oral intake Denies any fevers or chills denies any diarrhea denies any flank pain Denies any recent travel or trauma denies any change in diet Allergies: Coded Allergies: No Known Allergies (Unverified , 09/16/17) Patient History Past Medical History: see triage record Reviewed Nursing Documentation: PMH: Agreed; PSxH: Agreed Nursing Documentation-PMH Past Medical History: No History, Except For Hx Hypertension: Yes Hx Diabetes: No Hx Cancer: No Hx Gastrointestinal Problems: Yes - cyclic vomitting syndrome, pancreatitis Review of Systems All Other Systems: negative except mentioned in HPI Physical Exam Vital Signs Date Time Temp Pulse Resp B/P (MAP) Pulse Ox O2 Delivery O2 Flow Rate FiO2 05/11/19 11:23 97.7 18 114/92 (99) 98 Room Air 05/11/19 11:46 120 Sp02 EP Interpretation: reviewed, normal General Appearance: well appearing, no apparent distress Head: normocephalic, atraumatic Eyes: bilateral eye PERRL, bilateral eye EOMI ENT: hearing grossly normal, TMs + canals normal, uvula midline, dry mucus membranes Neck: full range of motion, supple, no meningismus, no bony tend Respiratory: lungs clear, normal breath sounds, no rhonchi, no respiratory distress, no retraction, no accessory muscle use Cardiovascular #1: normal peripheral pulses, regular rate, rhythm, no edema, no gallop, no JVD, no murmur Gastrointestinal: normal bowel sounds, non tender - On palpation however subjectively points diffusely throughout the abdominal regions, soft, no mass, no organomegaly, non-distended, no guarding, no hernia, no pulsatile mass, no rebound Genitourinary: no CVA tenderness Musculoskeletal: normal inspection Neurologic: oriented x3, responsive, recruitment director III-XII nml as tested, motor strength/ tone normal, sensory intact Psychiatric: mood/affect normal Skin: no rash Lymphatic: normal inspection, no adenopathy Medical Decision Making Diagnostic Impression: Primary Impression: Abdominal pain Additional Impressions: Nausea, vomiting, and diarrhea Cyclical vomiting ER Course With the history exam and presentation, multiple differentials considered, including but not limited to appendicitis, gastritis, cholecystitis, diverticulitis Patient has had fairly extensive recent blood work given her symptoms however these were repeated Patient's white blood cell count is mildly elevated The chemistry is hemolyzed given the recent examination and this was not repeated, patient remains nauseated Unable to take oral intake and is admitted for further inpatient care Labs Test 05/11/19 12:05 White Blood Count 13.1 K/UL (4.8-10.8) Red Blood Count 5.58 M/UL (4.20-5.40) Hemoglobin 12.7 G/DL (12.0-16.0) Hematocrit 42.0 % (37.0-47.0) Mean Corpuscular Volume 75 FL (80-99) Mean Corpuscular Hemoglobin 22.7 PG (27.0-31.0) Mean Corpuscular Hemoglobin Concent 30.2 G/DL (32.0-36.0) Red Cell Distribution Width 14.1 % (11.6-14.8) Platelet Count 515 K/UL (150-450) Mean Platelet Volume 6.4 FL (6.5-10.1) Neutrophils (%) (Auto) 63.9 % (45.0-75.0) Lymphocytes (%) (Auto) 28.8 % (20.0-45.0) Monocytes (%) (Auto) 5.0 % (1.0-10.0) Eosinophils (%) (Auto) 1.2 % (0.0-3.0) Basophils (%) (Auto) 1.1 % (0.0-2.0) Last Vital Signs Date Time Temp Pulse Resp B/P (MAP) Pulse Ox O2 Delivery O2 Flow Rate FiO2 05/11/19 11:46 98.1 120 18 98/76 100 Room Air Status: improved Disposition: ELOPED Condition: Serious Referrals: NON PHYSICIAN (PCP) Uli Hawkins DO May 11, 2019 13:04
[2019-05-11 13:33] LABS: ANION GAP 10 mmol/L (5-15); BLOOD UREA NITROGEN 17 mg/dL (7-18); CALCIUM 9.3 MG/DL (8.5-10.1); CARBON DIOXIDE 27 MMOL/L (21-32); CHLORIDE 105 MMOL/L (98-107); SODIUM 142 MMOL/L (136-145)
--- NOTE | 2019-05-11 13:55 | GI Initial Consult Note ---
History of Present Illness General Date patient seen: May 11, 2019 Time patient seen: 13:53 Reason for Hospitalization: Abdominal Pain Referring physician: ENDY KUMAR Reason for Consultation: cyclic vomiting syndrome Present Illness HPI This is a 43-year-old female patient presents with persistent vomiting for approximately 4 days secondary to cyclic vomiting syndrome. GI consulted for reported cyclic vomiting syndrome. Patient known to us from previous admissions for similar condition. Patient was seen in the emergency room, awake alert oriented x4 no apparent distress. No active signs or symptoms of any nausea vomiting. Denies any hematemesis or coffee-ground. Patient stated her current episode began approximately 4 days ago. The patient denies any drug use or alcohol use. The patient has been smoking cigarettes for approximately 15 years. Abdomen is soft, mild tenderness, non-distended. Patient's last endoscopy and colonoscopy was reported in 2017 noted with gastritis, colonic polyps. Labs reviewed significant for WBC 13.1, lipase of 543, creatinine 2.0, potassium 3.0. Home Meds Active Scripts Dicyclomine Hcl* (DICYCLOMINE HCL*) 10 Mg Capsule, 10 MG ORAL QID, #20 CAP Prov:Amor Chase MD 05/09/19 Metronidazole* (FLAGYL*) 500 Mg Tablet, 500 MG ORAL BID for 7 Days, #14 TAB Prov:Amor Chase MD 05/09/19 Ondansetron Odt* (ZOFRAN ODT*) 4 Mg Tab.rapdis, 4 MG BC EVERY 6 HOURS PRN for Nausea & Vomiting, #10 TAB 0 Refills Prov:Amor Chase MD 05/09/19 Dicyclomine Hcl* (DICYCLOMINE HCL*) 10 Mg Capsule, 10 MG ORAL QID PRN for Abdominal cramps, #20 CAP Prov:Marlon Hester MD 04/30/19 Amoxicillin/Potassium Clav 875-125* (AUGMENTIN 875-125 TABLET*) 1 Each Tablet, 1 TAB ORAL TWICE A DAY, #20 TAB Prov:Marlon Hester MD 04/30/19 Famotidine (PEPCID AC) 20 Mg Tablet, 20 MG PO DAILY, #30 TAB Prov:Adithya Nicholas MD 11/16/18 Ondansetron (Zofran) 4 Mg Tablet, 4 MG ORAL Q6H PRN for Nausea & Vomiting, #30 TAB 0 Refills Prov:Adithya Nicholas MD 11/16/18 Ranitidine Hcl* (ZANTAC*) 150 Mg Tablet, 150 MG ORAL TWICE A DAY, #30 TAB Prov:Amor Chase MD 06/16/18 Ciprofloxacin Hcl* (CIPROFLOXACIN HCL*) 500 Mg Tablet, 500 MG ORAL Q12H, #14 TAB 0 Refills Prov:Mark Rebolledo MD 12/30/17 Cyclobenzaprine Hcl* (FLEXERIL*) 10 Mg Tablet, 10 MG ORAL THREE TIMES A DAY, # 15 TAB Prov:Adithya Nicholas MD 11/05/17 Ibuprofen* (MOTRIN*) 600 Mg Tablet, 600 MG ORAL Q8H PRN for For Pain, #15 TAB 0 Refills Prov:Adithya Nicholas MD 11/05/17 Docusate Sodium* (COLACE*) 100 Mg Capsule, 100 MG ORAL THREE TIMES A DAY for 15 Days, CAP Prov:Adithya Nicholas MD 11/05/17 Ondansetron Odt* (ZOFRAN ODT*) 4 Mg Tab.rapdis, 4 MG ORAL Q6H PRN for Nausea & Vomiting, #30 TAB 0 Refills Prov:Mark Rebolledo MD 07/21/17 Reported Medications Hydromorphone HCl (Dilaudid) 4 Mg Tablet, 4 MG ORAL Q8H 05/07/17 Amlodipine Besylate* (AMLODIPINE BESYLATE*) 5 Mg Tablet, 5 MG ORAL DAILY 05/07/17 Atenolol* (TENORMIN*) 100 Mg Tablet, 100 MG ORAL DAILY, TAB 05/08/14 Med list reviewed/reconciled: Yes Allergies: Coded Allergies: No Known Allergies (Unverified , 09/16/17) Patient History PMH Narrative Past Medical History: No History, Except For Hx Hypertension: Yes Hx Diabetes: No Hx Cancer: No Hx Gastrointestinal Problems: Yes - cyclic vomitting syndrome, pancreatitis Social History: Reports: smoking Review of Systems All Other Systems: negative except mentioned in HPI Physical Exam Vital Signs Date Time Temp Pulse Resp B/P (MAP) Pulse Ox O2 Delivery O2 Flow Rate FiO2 05/11/19 11:23 97.7 18 114/92 (99) 98 Room Air 05/11/19 11:46 120 Sp02 EP Interpretation: reviewed, normal Labs Laboratory Tests Test 05/11/19 12:05 05/11/19 13:10 White Blood Count 13.1 K/UL (4.8-10.8) H Red Blood Count 5.58 M/UL (4.20-5.40) H Hemoglobin 12.7 G/DL (12.0-16.0) Hematocrit 42.0 % (37.0-47.0) Mean Corpuscular Volume 75 FL (80-99) L Mean Corpuscular Hemoglobin 22.7 PG (27.0-31.0) L Mean Corpuscular Hemoglobin Concent 30.2 G/DL (32.0-36.0) L Red Cell Distribution Width 14.1 % (11.6-14.8) Platelet Count 515 K/UL (150-450) H Mean Platelet Volume 6.4 FL (6.5-10.1) L Neutrophils (%) (Auto) 63.9 % (45.0-75.0) Lymphocytes (%) (Auto) 28.8 % (20.0-45.0) Monocytes (%) (Auto) 5.0 % (1.0-10.0) Eosinophils (%) (Auto) 1.2 % (0.0-3.0) Basophils (%) (Auto) 1.1 % (0.0-2.0) Sodium Level 142 MMOL/L (136-145) Potassium Level 3.0 MMOL/L (3.5-5.1) L Chloride Level 105 MMOL/L (98-107) Carbon Dioxide Level 27 MMOL/L (21-32) Anion Gap 10 mmol/L (5-15) Blood Urea Nitrogen 17 mg/dL (7-18) Creatinine 2.0 MG/DL (0.55-1.30) H Estimat Glomerular Filtration Rate 32.6 mL/min (>60) Glucose Level 122 MG/DL (74-106) H Calcium Level 9.3 MG/DL (8.5-10.1) Lipase 453 U/L (73-393) H General Appearance: well appearing, no apparent distress, alert Head: normocephalic EENT: PERRL/EOMI, normal ENT inspection Neck: supple Respiratory: normal breath sounds, no respiratory distress Cardiovascular: normal rate Gastrointestinal: normal inspection, non tender, soft, normal bowel sounds, non -distended Rectal: deferred Genitourinary: no CVA tenderness Musculoskeletal: normal inspection, back normal Neurologic: normal inspection, alert, oriented x3, responsive Psychiatric: normal inspection, judgement/insight normal, memory normal Skin: normal inspection, normal color, no rash, warm/dry, palpation normal, well hydrated Lymphatic: normal inspection, no adenopathy Current Medications Current Medications Medications (Trade) Dose Ordered Sig/Robbie Route PRN Reason Start Time Stop Time Status Last Admin Dose Admin Acetaminophen (Tylenol) 650 mg Q4H PRN ORAL Mild Pain (Pain Scale 1-3) 05/11/19 13:30 06/10/19 13:29 Acetaminophen (Tylenol) 650 mg Q4H PRN ORAL T>100.5 05/11/19 13:30 06/10/19 13:29 Dextrose (Dextrose 50%) 25 ml Q30M PRN IV Hypoglycemia 05/11/19 13:30 06/10/19 13:29 Dextrose (Dextrose 50%) 50 ml Q30M PRN IV Hypoglycemia 05/11/19 13:30 06/10/19 13:29 Heparin Sodium (Porcine) (Heparin 5000 units/ml) 5,000 units EVERY 12 HOURS SUBQ 05/11/19 21:00 06/10/19 20:59 Ondansetron HCl (Zofran) 4 mg Q6H PRN IVP Nausea & Vomiting 05/11/19 13:30 06/10/19 13:29 Pantoprazole (Protonix) 40 mg DAILY IV 05/12/19 09:00 06/11/19 08:59 Sodium 1,000 ml @ 75 mls/hr [id number] IV 05/11/19 14:29 06/10/19 14:28 GI: Plan Problems: (1) Nausea & vomiting (2) GERD (gastroesophageal reflux disease) (3) Vomiting (4) Cyclical vomiting (5) Abdominal pain (6) Hypokalemia Plan no plans for any GI procedures at this time Start patient on clear liquid diet, advance as tolerated IV and p.o. hydration plus electrolyte correction Will obtain urine toxicity PPI Zofran as needed repeat lipase We will follow with additional recommendations on a daily basis Discussed with Dr. Kim. Thank you for this patient referral, we will follow. The patient was seen and examined at bedside and all new and available data was reviewed in the patients chart. I agree with the above findings, impression and plan. (Patient seen earlier today. Signature stamp does not reflect patient encounter time.). - MD Aniyah WagnerNov[facility] Health Charlotte Orthopaedic Hospitalcristela SEE May 11, 2019 13:55
[2019-05-11 14:28] VITALS: BP 119/87
[2019-05-11] MEDS: 1/2NS w/KCl 20mEq 1000ml 1,000 ML IV SCH (15:42)
[2019-05-11 16:00] VITALS: BP 126/89
[2019-05-11] MEDS ORDERED: Metoclopramide 10mg/2ml Inj IVP PRN (16:45)
--- NOTE | 2019-05-11 16:51 | Consultation ---
Consult Note Consult Note asked to evaluate for high Cr and abnormal lytes Patient presents with complaints of continued episodes of vomiting and diffuse abdominal discomfort Patient reports that she has been told she has history of cyclical vomiting she has been here several days in the recent past And reports that she is not able to tolerate oral intake Denies any fevers or chills denies any diarrhea denies any flank pain Denies any recent travel or trauma denies any change in diet No Known Allergies (Unverified , 09/16/17) Past Medical History: No History, Except For Hx Hypertension: Yes Hx Gastrointestinal Problems: Yes - cyclic vomitting syndrome, pancreatitis Interviewed examined Assessment/Plan Renal Failure Dehydration elevated lipase hypokalemia Hydrate Adjust electrolytes Urine tox screen per orders Juan Antonio Burnham MD May 11, 2019 16:51
[2019-05-11 17:00] VITALS: BP 131/86
[2019-05-11] MEDS: HYDROmorphone 4mg tab ORAL PRN (17:18)
[2019-05-11] MEDS ORDERED: Docusate 100mg cap ORAL SCH (18:00)
--- NOTE | 2019-05-11 19:47 | Cardiac Electrophysiology PN ---
Subjective Subjective [id number] Objective Last 24 Hour Vital Signs Date Time Temp Pulse Resp B/P (MAP) Pulse Ox O2 Delivery O2 Flow Rate FiO2 05/11/19 17:48 98.2 05/11/19 17:00 98.0 122 131/86 (101) 98 122 122 05/11/19 16:05 Room Air 05/11/19 16:00 98.1 119 126/89 (101) 98 119 119 05/11/19 14:28 98.2 119 119/87 (98) 99 119 05/11/19 13:39 98.1 95 18 120/80 98 Room Air 98 05/11/19 13:04 120 18 Room Air 05/11/19 11:46 98.1 120 18 98/76 100 Room Air 05/11/19 11:23 97.7 18 114/92 (99) 98 Room Air Laboratory Tests Test 05/11/19 12:05 05/11/19 13:10 White Blood Count 13.1 K/UL (4.8-10.8) H Red Blood Count 5.58 M/UL (4.20-5.40) H Hemoglobin 12.7 G/DL (12.0-16.0) Hematocrit 42.0 % (37.0-47.0) Mean Corpuscular Volume 75 FL (80-99) L Mean Corpuscular Hemoglobin 22.7 PG (27.0-31.0) L Mean Corpuscular Hemoglobin Concent 30.2 G/DL (32.0-36.0) L Red Cell Distribution Width 14.1 % (11.6-14.8) Platelet Count 515 K/UL (150-450) H Mean Platelet Volume 6.4 FL (6.5-10.1) L Neutrophils (%) (Auto) 63.9 % (45.0-75.0) Lymphocytes (%) (Auto) 28.8 % (20.0-45.0) Monocytes (%) (Auto) 5.0 % (1.0-10.0) Eosinophils (%) (Auto) 1.2 % (0.0-3.0) Basophils (%) (Auto) 1.1 % (0.0-2.0) Sodium Level 142 MMOL/L (136-145) Potassium Level 3.0 MMOL/L (3.5-5.1) L Chloride Level 105 MMOL/L (98-107) Carbon Dioxide Level 27 MMOL/L (21-32) Anion Gap 10 mmol/L (5-15) Blood Urea Nitrogen 17 mg/dL (7-18) Creatinine 2.0 MG/DL (0.55-1.30) H Estimat Glomerular Filtration Rate 32.6 mL/min (>60) Glucose Level 122 MG/DL (74-106) H Calcium Level 9.3 MG/DL (8.5-10.1) Lipase 453 U/L (73-393) H Antonio Cheng MD May 11, 2019 19:47
[2019-05-11 20:00] VITALS: BP 106/65
[2019-05-11] MEDS ORDERED: Zolpidem 5mg tab ORAL PRN (20:30)
[2019-05-11] MEDS ORDERED: Heparin 5000 units/ml inj SUBQ SCH (21:00)
[2019-05-11] MEDS ORDERED: Pantoprazole Inj IV SCH (21:00)
--- NOTE | 2019-05-11 21:00 | History and Physical Report ---
DATE OF ADMISSION: 05/11/2019 CONSULTANTS: 1. Bebo Kim M.D. 2. Aida West M.D. CHIEF COMPLAINT: Cyclic nausea and vomiting, abdominal pain, and back pain. BRIEF HISTORY: This is a 43-year-old female, who lives at home, presented with above-mentioned diagnoses with 2 days increased nausea and vomiting. She says the last time was about a year ago and she has been getting this recurrently since 2009. Currently, given Reglan, feeling a little bit better in the ER gurney. No complaint. PAST MEDICAL HISTORY: Hypertension and cyclic vomiting. PAST SURGERY HISTORY: Gallbladder. MEDICATIONS: Include pantoprazole, heparin, calcium, Zofran, and Reglan. ALLERGIES: None. SOCIAL HISTORY: Positive smoking. No alcohol. No intravenous drug abuse. FAMILY HISTORY: Noncontributory. REVIEW OF SYSTEMS: No chest pain. No shortness of breath. Slight nausea and vomiting. No diarrhea. PHYSICAL EXAMINATION: GENERAL: Calm in bed, oriented x3, and in no acute distress. VITAL SIGNS: Show temperature 98 degrees, pulse 95, respirations 18, and blood pressure 120/80. CARDIOVASCULAR: No murmurs. LUNGS: Distant and clear. ABDOMEN: Bowel sounds positive. Soft, nontender, nondistended. EXTREMITIES: No cyanosis or edema. NEUROLOGIC: The patient moves all extremities, slightly weak. LABORATORY AND DIAGNOSTIC DATA: Labs at this time show white count 13, otherwise platelets 515,000. BMP show potassium 3.0, creatinine 2.0, and glucose 122. Lipase 453. ASSESSMENT: 1. Cyclic nausea and vomiting. 2. Abdominal pain. 3. Back pain. 4. Leukocytosis. 5. Hypertension. PLAN: 1. NPO. 2. IV fluids. 3. Antiemetics. 4. Blood pressure and pain control. 5. Dietary followup. 6. Nephrology evaluation by Dr. Burnham. Amadou Decker D.O. DR: BLANE JOB#: [id number] CC:
[2019-05-11 21:30] LABS: APPEARANCE,URINE VERY CLOUDY; BILIRUBIN, URINE 2+ (NEGATIVE); COLOR,URINE BROWN; GLUCOSE, URINE (UA) NEGATIVE (NEGATIVE); KETONES,URINE 3+ (NEGATIVE); LEUKOCYTE ESTERASE ,URINE 2+ (NEGATIVE); NITRITE,URINE POSITIVE (NEGATIVE); PH,URINE 5 (4.5-8.0); PROTEIN,URINE 3+ (NEGATIVE); UROBILINOGEN,URINE 4 MG/DL (0.0-1.0)
--- NOTE | 2019-05-11 22:31 | Consultation ---
DATE OF CONSULTATION: 05/11/2019 CARDIOLOGY CONSULTATION CONSULTING PHYSICIAN: nAtonio Cheng M.D. REFERRING PHYSICIAN: Amadou Decker D.O. REASON FOR CONSULTATION: Management of hypertension. HISTORY OF PRESENT ILLNESS: The patient is a 43-year-old lady with history of hypertension and abdominal pain, who was admitted to the hospital with episodes of vomiting and nausea and diffuse abdominal discomfort. The patient states she has history of cyclic vomiting and has had several hospitalizations. The patient denies prior myocardial infarction or coronary artery disease or congestive heart failure. The patient was admitted and a Cardiology consultation was obtained for further evaluation. REVIEW OF SYSTEMS: Review of systems was negative other than what was mentioned in the history of present illness. PAST MEDICAL HISTORY: As mentioned above. MEDICATIONS: Include amlodipine, Protonix, Colace, Reglan, and Dilaudid. FAMILY HISTORY: Noncontributory. SOCIAL HISTORY: She lives at home. Does not smoke or drink alcohol. PHYSICAL EXAMINATION: VITAL SIGNS: Show blood pressure of 131/86, pulse 122, respirations 18, and she is afebrile. HEAD AND NECK: Showed no JVD. LUNGS: Clear. CARDIOVASCULAR: Shows tachycardic S1 and S2 with no gallop or murmur. ABDOMEN: Soft. EXTREMITIES: No pitting edema. LABORATORY DATA: Her labs show white count of 13, hemoglobin of 12, hematocrit of 42, and platelet count is 515,000. Sodium 142, potassium 3.0, BUN of 17, creatinine of 2, and glucose of 32. Troponin is negative. ASSESSMENT AND PLAN: 1. Hypertension. Blood pressure currently is stable on amlodipine 5 mg daily. I will add p.r.n. clonidine to her medical regimen. 2. Tachycardia with heart rate in the 120s. We will repeat EKG and get an echocardiogram for further evaluation. 3. Abdominal pain and nausea and vomiting. Further evaluation by Dr. Kim. It is of note that the patient has history of being on atenolol and beta-ravinder withdrawal and have explained the patient's tachycardia as well. Thank you very much for allowing me to participate in the care of this patient. Please do not hesitate to contact me for any questions regarding my evaluation. Antonio Cheng M.D. DR: MARKELL JOB#: [id number] CC:
[2019-05-12] VITALS: BP 106/65
[2019-05-12] MEDS: HYDROmorphone 4mg tab ORAL PRN (01:35)
[2019-05-12] MEDS: 1/2NS w/KCl 20mEq 1000ml 1,000 ML IV SCH (03:03)
[2019-05-12 04:00] VITALS: BP 113/64
[2019-05-12 08:17] LABS: BASOPHILS % (AUTO) 1.2 % (0.0-2.0); EOSINOPHILS % (AUTO) 2.5 % (0.0-3.0); HEMATOCRIT 35.7 % (37.0-47.0); HEMOGLOBIN 11.1 G/DL (12.0-16.0); LYMPHOCYTES % (AUTO) 26.3 % (20.0-45.0); MEAN CORPUSCULAR VOLUME 75 FL (80-99); MONOCYTES % (AUTO) 9.3 % (1.0-10.0); NEUTROPHILS % (AUTO) 60.7 % (45.0-75.0); PLATELET COUNT 430 K/UL (150-450); RED BLOOD COUNT 4.74 M/UL (4.20-5.40); RED CELL DISTRIBUTION WIDTH 13.5 % (11.6-14.8); WHITE BLOOD COUNT 13.3 K/UL (4.8-10.8)
[2019-05-12 08:36] LABS: ALANINE AMINOTRANSFERASE 17 U/L (12-78); ALBUMIN 3.2 G/DL (3.4-5.0); ALBUMIN/GLOBULIN RATIO 0.8 (1.0-2.7); ALKALINE PHOSPHATASE 127 U/L (46-116); ANION GAP 11 mmol/L (5-15); ASPARTATE AMINO TRANSFERASE 16 U/L (15-37); BILIRUBIN,TOTAL 0.4 MG/DL (0.2-1.0); BLOOD UREA NITROGEN 19 mg/dL (7-18); CALCIUM 9.1 MG/DL (8.5-10.1); CARBON DIOXIDE 26 MMOL/L (21-32); CHLORIDE 104 MMOL/L (98-107); CREATININE 1.3 MG/DL (0.55-1.30); PHOSPHORUS 3.4 MG/DL (2.5-4.9); POTASSIUM 3.1 MMOL/L (3.5-5.1); SODIUM 141 MMOL/L (136-145)
[2019-05-12] MEDS ORDERED: Pantoprazole Inj IV SCH (09:00)
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
== END 2019-05-12 07:42 | disposition left against medical advice (07) | DRG 641 ==
LOC: EMR 11:55 → 4E 12:00 → EDBEDREQ 12:55
DX: E86.0 Dehydration (principal); N39.0 Urinary tract infection, site not specified; I10 Essential (primary) hypertension; R11.15 Cyclical vomiting syndrome unrelated to migraine; E87.6 Hypokalemia; D72.829 Elevated white blood cell count, unspecified; K21.9 Gastro-esophageal reflux disease without esophagitis; R00.0 Tachycardia, unspecified; N19 Unspecified kidney failure
CPT/HCPCS: 36415; 80048; 80053; 80307; 81001; 83690; 83735; 83880; 84100; 84550; 85025; 86140; 87086; 87181; 96374; 96375; 99285; J2765; J8499

== ENCOUNTER 2019-06-05 00:47 | Emergency (ER) | payer MEDICARE, MEDICAID ==
[~2019-06-05] VITALS: Ht 177.8 cm; Wt 109.8 kg
[2019-06-05 01:07] VITALS: BP 127/93
[2019-06-05] MEDS ORDERED: Ketorolac 30mg Inj IV ONE (01:45)
[2019-06-05] MEDS ORDERED: DiphenhydrAMINE 25mg/10ml Elixir ORAL ONE (01:45)
[2019-06-05 02:29] LABS: APPEARANCE,URINE CLEAR; BILIRUBIN, URINE NEGATIVE (NEGATIVE); COLOR,URINE PALE YELLOW; GLUCOSE, URINE (UA) NEGATIVE (NEGATIVE); KETONES,URINE NEGATIVE (NEGATIVE); LEUKOCYTE ESTERASE ,URINE NEGATIVE (NEGATIVE); NITRITE,URINE NEGATIVE (NEGATIVE); UROBILINOGEN,URINE NORMAL MG/DL (0.0-1.0)
[2019-06-05 02:32] LABS: PH,URINE 7 (4.5-8.0); PROTEIN,URINE 1+ (NEGATIVE)
[2019-06-05 02:35] LABS: ANION GAP 11 mmol/L (5-15); BLOOD UREA NITROGEN 14 mg/dL (7-18); CALCIUM 9.5 MG/DL (8.5-10.1); CARBON DIOXIDE 24 MMOL/L (21-32); CHLORIDE 103 MMOL/L (98-107); CREATININE 1.3 MG/DL (0.55-1.30); POTASSIUM 3.8 MMOL/L (3.5-5.1); SODIUM 138 MMOL/L (136-145)
[2019-06-05 02:36] LABS: BASOPHILS % (AUTO) 0.8 % (0.0-2.0); EOSINOPHILS % (AUTO) 1.3 % (0.0-3.0); HEMATOCRIT 40.6 % (37.0-47.0); HEMOGLOBIN 12.3 G/DL (12.0-16.0); LYMPHOCYTES % (AUTO) 13.4 % (20.0-45.0); MEAN CORPUSCULAR VOLUME 75 FL (80-99); NEUTROPHILS % (AUTO) 80.5 % (45.0-75.0); PLATELET COUNT 650 K/UL (150-450); RED BLOOD COUNT 5.44 M/UL (4.20-5.40); RED CELL DISTRIBUTION WIDTH 14.2 % (11.6-14.8); WHITE BLOOD COUNT 12.4 K/UL (4.8-10.8)
[2019-06-05 02:39] LABS: ALANINE AMINOTRANSFERASE 14 U/L (12-78); ALBUMIN 3.9 G/DL (3.4-5.0); ALBUMIN/GLOBULIN RATIO 0.8 (1.0-2.7); ALKALINE PHOSPHATASE 153 U/L (46-116); AMYLASE 57 U/L (25-115); ASPARTATE AMINO TRANSFERASE 12 U/L (15-37); BILIRUBIN,TOTAL 0.2 MG/DL (0.2-1.0)
[2019-06-05 03:08] VITALS: BP 130/74
--- NOTE | 2019-06-05 05:02 | Diagnostic Imaging Report ---
EXAM: US Abdomen Complete CLINICAL HISTORY: ABD PAIN TECHNIQUE: Real-time ultrasound of the abdomen with image documentation. COMPARISON: August 18, 2017 abdomen ultrasound and abdominal x-ray of May 08, 2019. FINDINGS: Liver: Unremarkable. No mass. No intrahepatic bile duct dilation. Gallbladder: Gallbladder remains surgically absent. Common bile duct: Common bile duct measures 4.6 mm, unchanged from prior. No stones. No dilation. Pancreas: Unremarkable as visualized. Kidneys: Unremarkable. No stones. No solid mass. No hydronephrosis. Spleen: Unremarkable. No splenomegaly. Aorta: Unremarkable. No aneurysm. Inferior vena cava: Unremarkable. Other vasculature: Normal directional flow in the patent main portal vein. IMPRESSION: Unremarkable postcholecystectomy complete abdominal ultrasound
[2019-06-05 05:12] VITALS: BP 130/78
--- NOTE | 2019-06-05 05:37 | Emergency Room Report ---
History of Present Illness General Chief Complaint: Abdominal Pain Source: Patient (Dusty Gallardo M.D.) Present Illness HPI 44-year-old female with history of hypertension, colitis, pancreatitis, cyclical vomiting syndrome who presents to emergency room with episodes of abdominal pain and vomiting. Pain is epigastric, burning in nature, she has been trying to take her antacids with no improvement of symptoms. Patient also notes some small loose stools which are nonbloody. Patient reports vomiting is nonbloody, nonbilious. Patient reports history of cholecystectomy in the past. She also notes that she is passing gas and not constipated at this time (Dusty Gallardo M.D.) Allergies: Coded Allergies: No Known Allergies (Unverified , 09/16/17) Patient History Past Medical History: none, other - Hypertension, colitis, pancreatitis, cyclical vomiting Past Surgical History: maki Last Menstrual Period: n/a (Dusty Gallardo M.D.) Nursing Documentation-[facility] Past Medical History: No History, Except For Hx Hypertension: Yes Hx Diabetes: No Hx Cancer: No Hx Gastrointestinal Problems: Yes - cyclic vomitting syndrome, pancreatitis (Dusty Gallardo M.D.) Review of Systems Constitutional: Denies: chills, fever Respiratory: Denies: cough, shortness of breath Cardiovascular: Denies: chest pain, palpitations Gastrointestinal: Reports: abdominal pain, nausea, vomiting; Denies: diarrhea Genitourinary: Denies: hematuria, pain Musculoskeletal: Denies: joint swelling Skin: Denies: rash, lesions Neurological: Denies: headache, dizziness (Dusty Gallardo M.D.) Physical Exam Vital Signs Date Time Temp Pulse Resp B/P (MAP) Pulse Ox O2 Delivery O2 Flow Rate FiO2 06/05/19 01:03 98.4 100 18 127/93 (104) 97 Room Air Sp02 EP Interpretation: reviewed General Appearance: well appearing, no apparent distress, non-toxic Head: normocephalic, atraumatic Eyes: bilateral eye normal inspection ENT: hearing grossly normal, EOM grossly intact, moist mucus membranes Neck: supple Respiratory: lungs clear, normal breath sounds, no respiratory distress, speaking full sentences Cardiovascular #1: regular rate, rhythm, normal capillary refill Cardiovascular #2: 2+ radial (R), 2+ radial (L) Gastrointestinal: soft, no mass, no organomegaly, no peritonitis, no bruit, non -distended, no guarding, no hernia, no rebound, tenderness - Epigastric, mild, other - Well-healed surgical scar Rectal: deferred Musculoskeletal: moves extm spontaneously, no lower extremity edema Neurologic: grossly normal Psychiatric: mood/affect normal Skin: warm/dry, normal turgor (Dusty Gallardo M.D.) Medical Decision Making Diagnostic Impression: Primary Impression: Abdominal pain Additional Impression: Nausea & vomiting ER Course 44-year-old female who presents with episodes of vomiting and epigastric burning abdominal pain. Patient with known history of cyclical vomiting syndrome pancreatitis and colitis. Patient found to have epigastric tenderness on exam Differential includes gastritis, GERD, gastric ulcer, cyclical vomiting syndrome , pancreatitis, small bowel obstruction Patient's testing found to have elevated gallbladder enzymes. Will do ultrasound to evaluate liver and area work on her bladder used to be. Ultrasound reviewed noted to be within normal limits with normal postcholecystectomy ultrasound changes. Laboratory Tests Test 06/05/19 02:10 White Blood Count 12.4 K/UL (4.8-10.8) H Red Blood Count 5.44 M/UL (4.20-5.40) H Hemoglobin 12.3 G/DL (12.0-16.0) Hematocrit 40.6 % (37.0-47.0) Mean Corpuscular Volume 75 FL (80-99) L Mean Corpuscular Hemoglobin 22.6 PG (27.0-31.0) L Mean Corpuscular Hemoglobin Concent 30.2 G/DL (32.0-36.0) L Red Cell Distribution Width 14.2 % (11.6-14.8) Platelet Count 650 K/UL (150-450) H Mean Platelet Volume 5.9 FL (6.5-10.1) L Neutrophils (%) (Auto) 80.5 % (45.0-75.0) H Lymphocytes (%) (Auto) 13.4 % (20.0-45.0) L Monocytes (%) (Auto) 4.0 % (1.0-10.0) Eosinophils (%) (Auto) 1.3 % (0.0-3.0) Basophils (%) (Auto) 0.8 % (0.0-2.0) Urine Color Pale yellow Urine Appearance Clear Urine pH 7 (4.5-8.0) Urine Specific [place] 1.010 (1.005-1.035) Urine Protein 1+ (NEGATIVE) H Urine Glucose (UA) Negative (NEGATIVE) Urine Ketones Negative (NEGATIVE) Urine Blood 3+ (NEGATIVE) H Urine Nitrite Negative (NEGATIVE) Urine Bilirubin Negative (NEGATIVE) Urine Urobilinogen Normal MG/DL (0.0-1.0) Urine Leukocyte Esterase Negative (NEGATIVE) Urine RBC 30-40 /HPF (0 - 2) H Urine WBC 0-2 /HPF (0 - 2) Urine Squamous Epithelial Cells Many /LPF (NONE/OCC) H Urine Bacteria Few /HPF (NONE) Sodium Level 138 MMOL/L (136-145) Potassium Level 3.8 MMOL/L (3.5-5.1) Chloride Level 103 MMOL/L (98-107) Carbon Dioxide Level 24 MMOL/L (21-32) Anion Gap 11 mmol/L (5-15) Blood Urea Nitrogen 14 mg/dL (7-18) Creatinine 1.3 MG/DL (0.55-1.30) Estimate Glomerular Filtration Rate 53.4 mL/min (>60) Glucose Level 139 MG/DL (74-106) H Calcium Level 9.5 MG/DL (8.5-10.1) Total Bilirubin 0.2 MG/DL (0.2-1.0) Aspartate Amino Transferase (AST) 12 U/L (15-37) L Alanine Aminotransferase (ALT) 14 U/L (12-78) Alkaline Phosphatase 153 U/L (46-116) H Total Protein 9.0 G/DL (6.4-8.2) H Albumin 3.9 G/DL (3.4-5.0) Globulin 5.1 g/dL Albumin/Globulin Ratio 0.8 (1.0-2.7) L Amylase Level 57 U/L (25-115) Lipase 319 U/L (73-393) Lab Results Impression Increased alk phos, urine noting increased squamous epithelial cells blood and protein, mild increased WBC likely secondary to inflammation (Dusty Gallardo M.D.) CT/MRI/US Diagnostic Results CT/MRI/US Diagnostic Results : Impression Procedure: US ABD Complete EXAM: US Abdomen Complete FINDINGS: Liver: Unremarkable. No mass. No intrahepatic bile duct dilation. Gallbladder: Gallbladder remains surgically absent. Common bile duct: Common bile duct measures 4.6 mm, unchanged from prior. No stones. No dilation. Pancreas: Unremarkable as visualized. Kidneys: Unremarkable. No stones. No solid mass. No hydronephrosis. Spleen: Unremarkable. No splenomegaly. Aorta: Unremarkable. No aneurysm. Inferior vena cava: Unremarkable. Other vasculature: Normal directional flow in the patent main portal vein. IMPRESSION: Unremarkable postcholecystectomy complete abdominal ultrasound Final Report EXAM: CT Abdomen and Pelvis Without Intravenous Contrast FINDINGS: Lung bases: Unremarkable. No mass. No consolidation. ABDOMEN: Liver: Unremarkable. Gallbladder and bile ducts: Cholecystectomy. No ductal dilation. Pancreas: Unremarkable. No ductal dilation. Spleen: Unremarkable. No splenomegaly. Adrenals: Unremarkable. No mass. Kidneys and ureters: Unremarkable. No obstructing stones. No hydronephrosis. Stomach and bowel: There are segments of large bowel that show underdistention with likely artifactual wall thickening especially notable in the transverse and descending colon. Scattered colonic diverticuli without findings of acute diverticulitis are present. No pericolonic soft tissue stranding is present to suggest acute inflammation. PELVIS: Appendix: No findings to suggest acute appendicitis. Bladder: Unremarkable. No stones. Reproductive: Unremarkable as visualized. ABDOMEN and PELVIS: Intraperitoneal space: Unremarkable. No free air. No significant fluid collection. Bones/joints: No acute fracture. No dislocation. Soft tissues: Unremarkable. Vasculature: Scattered abdominal aortic calcifications are present. No abdominal aortic aneurysm. Lymph nodes: Unremarkable. No enlarged lymph nodes. IMPRESSION: Likely artifactual thickening of the large bowel due to under distention. Otherwise unremarkable abdomen pelvis CT without IV contrast. If symptoms localize to the gastrointestinal tract, elective consultation with gastroenterology could be pursued as clinically warranted. Radiologist: Rakesh Oneil MD Electronically Signed: 06/05/19 05:52 Study ready at 05:41 and initial results transmitted at 05:52 (Dusty Gallardo M.D.) Reevaluation Time: 06:11 Last Vital Signs Date Time Temp Pulse Resp B/P (MAP) Pulse Ox O2 Delivery O2 Flow Rate FiO2 06/05/19 02:23 98.4 06/05/19 01:07 98 18 Room Air 06/05/19 01:07 127/93 97 Status: worsened Reevaluation Impression Patient reported feeling better and paperwork was created for discharge. Patient was recommended her oral Zofran which she has at home. However when nurse went to give patient her paperwork after taking her IV, she had retching symptoms and one small amount of emesis. Another IV was placed and another dose of 4 mg IV Zofran was given. (Dusty Gallardo M.D.) Reevaluation Time: 07:01 Reevaluation Impression Patient signed out to me from Dr. Gallardo at approximately 6:30 AM Briefly, this is a 44-year-old female history of cyclic vomiting syndrome presenting with intractable nausea vomiting. Labs, CT scan and ultrasound returned unremarkable. Patient had another episode of emesis during the discharge process and will be monitored in the emergency department and given additional IV fluids, antiemetics. I have also asked ordered capsaicin cream. Anticipate discharge home if symptomatically improved 0845: Patient sleeping comfortably on reevaluation. No further emesis in the emergency department. She will be discharged home with Zofran and follow-up with PMD/clinic. (Cachorro Mayers MD) Disposition: HOME, SELF-CARE Condition: Stable Scripts Ondansetron (Zofran) 4 Mg Tablet 4 MG ORAL Q6H PRN for Nausea & Vomiting, #30 TAB 0 Refills Prov: Cachorro Mayers MD 06/05/19 Referrals: NOT CHOSEN IPA/,REFERRING (PCP) Additional Instructions: Follow-up with your primary care doctor appointment that you have June 07, and your June 09 appointment with your GI specialist. Recommending taking Zofran as needed for nausea and vomiting. Return to emergency room if you are unable to tolerate pain, have worsening nausea vomiting or any new symptoms arise. Dusty Gallardo M.D. Jun 05, 2019 05:37 Cachorro Mayers MD Jun 05, 2019 07:02
--- NOTE | 2019-06-05 05:53 | Diagnostic Imaging Report ---
EXAM: CT Abdomen and Pelvis Without Intravenous Contrast CLINICAL HISTORY: ABD PAIN TECHNIQUE: Axial computed tomography images of the abdomen and pelvis without intravenous contrast. CTDI is 29.2 mGy and DLP is 1718.5 mGy-cm. One or more of the following dose reduction techniques were used: automated exposure control, adjustment of the mA and/or kV according to patient size, use of iterative reconstruction technique. COMPARISON: Complete abdominal ultrasound of June 05, 2019 FINDINGS: Lung bases: Unremarkable. No mass. No consolidation. ABDOMEN: Liver: Unremarkable. Gallbladder and bile ducts: Cholecystectomy. No ductal dilation. Pancreas: Unremarkable. No ductal dilation. Spleen: Unremarkable. No splenomegaly. Adrenals: Unremarkable. No mass. Kidneys and ureters: Unremarkable. No obstructing stones. No hydronephrosis. Stomach and bowel: There are segments of large bowel that show underdistention with likely artifactual wall thickening especially notable in the transverse and descending colon. Scattered colonic diverticuli without findings of acute diverticulitis are present. No pericolonic soft tissue stranding is present to suggest acute inflammation. PELVIS: Appendix: No findings to suggest acute appendicitis. Bladder: Unremarkable. No stones. Reproductive: Unremarkable as visualized. ABDOMEN and PELVIS: Intraperitoneal space: Unremarkable. No free air. No significant fluid collection. Bones/joints: No acute fracture. No dislocation. Soft tissues: Unremarkable. Vasculature: Scattered abdominal aortic calcifications are present. No abdominal aortic aneurysm. Lymph nodes: Unremarkable. No enlarged lymph nodes. IMPRESSION: Likely artifactual thickening of the large bowel due to under distention. Otherwise unremarkable abdomen pelvis CT without IV contrast. If symptoms localize to the gastrointestinal tract, elective consultation with gastroenterology could be pursued as clinically warranted. <MYCVCSECTION> Communications: 06/05/19 06:07 Verify Receipt Verified receipt with RAMILA Baez, given to Dr. Gallardo on 06/05 06:07 (-08:00)
[2019-06-05] MEDS ORDERED: Capsaicin 0.075% Cream TOPIC ONE (07:00)
[2019-06-05 07:15] VITALS: BP 125/72
[2019-06-05] MEDS ORDERED: ZOFRAN4 MG ORAL (07:57)
[2019-06-05 08:51] VITALS: BP 125/72
== END 2019-06-05 08:51 | disposition home or self-care (01) ==
LOC: EMR 01:53
DX: R10.9 Unspecified abdominal pain (principal); R11.2 Nausea with vomiting, unspecified; I10 Essential (primary) hypertension; Z90.49 Acquired absence of other specified parts of digestive tract
CPT/HCPCS: 36415; 74176; 76700; 80053; 81003; 82150; 83690; 85025; 96361; 96374; 96375; 96376; 99284; J1885; J2405; S0028

== ENCOUNTER 2019-12-04 14:34 | Emergency (ER) | payer MEDICARE, MEDICAID ==
[~2019-12-04] VITALS: Ht 177.8 cm; Wt 108.0 kg
[2019-12-04] MEDS ORDERED: OMEPRAZOLE40 M1 ORAL ×2 (14:56→16:34)
[2019-12-04] MEDS ORDERED: GABAPENTIN100 MG ORAL (14:56)
[2019-12-04] MEDS ORDERED: REGLAN5 MG ORAL (14:56)
[2019-12-04] MEDS ORDERED: Ketorolac 30mg Inj IV ONE ×2 (15:15→17:00)
[2019-12-04 15:35] LABS: BASOPHILS % (AUTO) 1.2 % (0.0-2.0); EOSINOPHILS % (AUTO) 0.7 % (0.0-3.0); HEMATOCRIT 37.1 % (37.0-47.0); HEMOGLOBIN 11.1 G/DL (12.0-16.0); LYMPHOCYTES % (AUTO) 19.9 % (20.0-45.0); MEAN CORPUSCULAR VOLUME 78 FL (80-99); MONOCYTES % (AUTO) 3.3 % (1.0-10.0); NEUTROPHILS % (AUTO) 74.8 % (45.0-75.0); PLATELET COUNT 492 K/UL (150-450); RED BLOOD COUNT 4.77 M/UL (4.20-5.40); RED CELL DISTRIBUTION WIDTH 16.6 % (11.6-14.8); WHITE BLOOD COUNT 12.9 K/UL (4.8-10.8)
[2019-12-04 15:40] LABS: APPEARANCE,URINE SLIGHTLY CLOUDY; BILIRUBIN, URINE NEGATIVE (NEGATIVE); GLUCOSE, URINE (UA) NEGATIVE (NEGATIVE); KETONES,URINE 1+ (NEGATIVE); NITRITE,URINE NEGATIVE (NEGATIVE); PH,URINE 8 (4.5-8.0); PROTEIN,URINE 2+ (NEGATIVE); UROBILINOGEN,URINE 4 MG/DL (0.0-1.0)
[2019-12-04 15:41] VITALS: BP 152/98
[2019-12-04 16:12] LABS: COLOR,URINE YELLOW; LEUKOCYTE ESTERASE ,URINE TRACE (NEGATIVE)
--- NOTE | 2019-12-04 16:28 | Emergency Room Report ---
History of Present Illness General Chief Complaint: Abdominal Pain Present Illness HPI 44-year-old female with history of chronic abdominal pain, intractable vomiting , colitis and gastritis here complaining of 4 days of abdominal pain exacerbation with few bouts of nonbloody emesis. Also complains of few bouts of nonbloody diarrhea. Reports that she last saw her band machine operator about a month ago and has an upcoming appointment with her next week. Rates the pain 10 out of 10 without radiation. Patient is currently taking hydromorphone at home. Denies any urinary symptoms, fever chills, cough or congestion, shortness of breath. Sitting comfortably with stable vital signs. Denies drug use. Allergies: Coded Allergies: No Known Allergies (Unverified , 09/16/17) COVID-19 Screening Contact w/high risk pt: No Recent Travel to affected area: No Experienced COVID-19 symptoms?: No COVID-19 Testing performed ROSTER CLERK: No Patient History Past Medical History: see triage record Past Surgical History: none Pertinent Family History: none Social History: Reports: smoking - tobacco Now: No Immunizations: UTD Reviewed Nursing Documentation: PMH: Agreed; PSxH: Agreed Nursing Documentation-PMH Hx Hypertension: Yes Hx Diabetes: No Hx Cancer: No Hx Gastrointestinal Problems: Yes - cyclic vomitting syndrome, pancreatitis Review of Systems All Other Systems: negative except mentioned in HPI Physical Exam Vital Signs Date Time Temp Pulse Resp B/P (MAP) Pulse Ox O2 Delivery O2 Flow Rate FiO2 12/04/19 14:44 98.4 97 19 160/104 (122) 95 Room Air Sp02 EP Interpretation: reviewed, normal General Appearance: no apparent distress, alert, GCS 15, non-toxic Head: normocephalic, atraumatic Eyes: bilateral eye normal inspection, bilateral eye PERRL ENT: hearing grossly normal, normal pharynx, no angioedema, normal voice Neck: full range of motion, supple/symm/no masses Respiratory: chest non-tender, lungs clear, normal breath sounds, no rhonchi, speaking full sentences Cardiovascular #1: regular rate, rhythm, no edema Gastrointestinal: normal bowel sounds, non tender, soft, non-distended, no guarding, no rebound Rectal: deferred Genitourinary: no CVA tenderness Neurologic: alert, oriented Psychiatric: judgement/insight normal, memory normal, mood/affect normal, no suicidal/homicidal ideation Skin: no rash Lymphatic: no adenopathy Medical Decision Making PA Attestation All my diagnosis and treatment plans were reviewed ad discussed with my supervising physician Dr. Hawkins Diagnostic Impression: Primary Impression: Abdominal pain Additional Impressions: Intractable vomiting UTI (urinary tract infection) ER Course 44-year-old female with history of chronic abdominal pain, intractable vomiting , colitis and gastritis here complaining of 4 days of abdominal pain exacerbation with few bouts of nonbloody emesis. Also complains of few bouts of nonbloody diarrhea. Reports that she last saw her band machine operator about a month ago and has an upcoming appointment with her next week. Rates the pain 10 out of 10 without radiation. Patient is currently taking hydromorphone at home. Denies any urinary symptoms, fever chills, cough or congestion, shortness of breath. Sitting comfortably with stable vital signs. Denies drug use. Ddx considered but are not limited to: appendicitis, cholecystis, gastritis, gastroenteritis, UTI, pylonephritis, SBO, diverticulitis, influenza with GI manifestation, LA, complication with Vital signs: are WNL, pt. is afebrile H&PE are most consistent with: Intractable vomiting, chronic abdominal pain ORDERS, abdominal ultrasound, no CT scan needed at this time patient was last seen,. However CT scan was within normal limits. Patient also has visits with band machine operator. Zofran, Tylenol, omeprazole ED INTERVENTIONS: NS bolus, Phenergan, Pepcid, Toradol DISCHARGE: At this time pt. is stable for d/c to home. Will provide printed patient care instructions, and any necessary prescriptions. Care plan and follow up instructions have been discussed with the patient prior to discharge. Patient to keep a brat diet, follow primary doctor and if worsening symptoms return to the emergency room EKG Diagnostic Results Rate: normal Rhythm: NSR ST Segments: no acute changes Other Impression No acute ST changes Last Vital Signs Date Time Temp Pulse Resp B/P (MAP) Pulse Ox O2 Delivery O2 Flow Rate FiO2 12/04/19 15:41 97 19 Room Air 12/04/19 15:41 98.4 152/98 95 Disposition: HOME, SELF-CARE Condition: Stable Scripts Nitrofurantoin Monohyd/M-Cryst* (MACROBID 100 MG*) 100 Mg Capsule 100 MG ORAL EVERY 12 HOURS for 7 Days, #14 CAP Prov: Mari Valadez 12/04/19 Acetaminophen* (TYLENOL EXTRA STRENGTH*) 500 Mg Tablet 500 MG ORAL Q8H PRN for Prn Headache/Temp > 101, #30 TAB 0 Refills Prov: Mari Valadez 12/04/19 Omeprazole (OMEPRAZOLE) 40 Mg Capsule.dr 40 MG ORAL DAILY for gerd for 30 Days, CAP Prov: Mari Valadez 12/04/19 Referrals: NON PHYSICIAN (PCP) Patient Instructions: Abdominal Pain, Adult, Urinary Tract Infection, Easy-to- Read Additional Instructions: Follow-up with your band machine operator as your abdominal pain is chronic also further evaluation needs to be done by your band machine operator. Take medication as directed, avoid smoking or any marijuana use. Avoid drinking alcohol. If worsening symptoms return to the emergency room Mari Valadez December 04, 2019 16:28
[2019-12-04] MEDS ORDERED: TYLENOL EXTRA500 MG ORAL (16:34)
[2019-12-04] MEDS ORDERED: NITROFURANTOIN100 M2 ORAL (16:36)
--- NOTE | 2019-12-04 17:02 | Diagnostic Imaging Report ---
INDICATION: Chest pain COMPARISON: 05/08/2019 FINDINGS: Single frontal view demonstrates a normal cardiomediastinal silhouette. The lungs are clear. No pleural effusions. The visualized osseous structures are within normal limits. IMPRESSION: No acute cardiopulmonary disease.
[2019-12-04 17:24] VITALS: BP 108/78
== END 2019-12-04 17:25 | disposition home or self-care (01) ==
LOC: EMR 16:05
DX: R10.9 Unspecified abdominal pain (principal); R11.10 Vomiting, unspecified; N39.0 Urinary tract infection, site not specified; F17.200 Nicotine dependence, unspecified, uncomplicated; I10 Essential (primary) hypertension; R19.7 Diarrhea, unspecified
CPT/HCPCS: 36415; 71045; 80307; 81003; 81025; 85025; 93005; 96361; 96374; 96375; 96376; 99284; J1885; J2405; J2550; J7030; S0028

== ENCOUNTER 2020-01-08 09:50 | Inpatient (IN) | payer MEDICARE, MEDICAID ==
[~2020-01-08] VITALS: Ht 177.8 cm; Wt 112.9 kg
[~2020-01-08 09:50] MED LIST changes: +FAMOTIDINE20 MG ORAL; +GABAPENTIN100 MG ORAL; +OMEPRAZOLE40 M1 ORAL; +TYLENOL EXTRA500 MG ORAL
[2020-01-08 10:03] VITALS: BP 121/88
--- NOTE | 2020-01-08 10:05 | NUR ---
ED Nurse Note: Pt from home came in due to episodes of vomiting since yesterday. Pt was seen here ta [facility] yesterday for the same symtoms and was discharged with Zofran and Pepcid prescription. Pt states her medications are not working for her. Patient presxented weak, stated kep vomiting every 20 min, AAO x4, VSS at this time.
[2020-01-08] MEDS ORDERED: Pantoprazole Inj IV ONE (10:30)
[2020-01-08] MEDS ORDERED: Morphine Sulfate 4mg/ml Inj (IV USE ONLY) IVP ONE (10:30)
--- NOTE | 2020-01-08 10:35 | NUR ---
ED Nurse Note: IV access was established on right AC 22 ga, blood and urine specimen sent to lab.
--- NOTE | 2020-01-08 10:49 | NUR ---
ED Nurse Note: All medications due were administered, patient stated feel better.
[2020-01-08 10:52] LABS: BASOPHILS % (AUTO) 0.4 % (0.0-2.0); HEMATOCRIT 39.4 % (37.0-47.0); HEMOGLOBIN 11.4 G/DL (12.0-16.0); LYMPHOCYTES % (AUTO) 12.7 % (20.0-45.0); MEAN CORPUSCULAR VOLUME 81 FL (80-99); MONOCYTES % (AUTO) 4.1 % (1.0-10.0); NEUTROPHILS % (AUTO) 82.8 % (45.0-75.0); PLATELET COUNT 542 K/UL (150-450); RED BLOOD COUNT 4.86 M/UL (4.20-5.40); RED CELL DISTRIBUTION WIDTH 17.6 % (11.6-14.8); WHITE BLOOD COUNT 14.9 K/UL (4.8-10.8)
[2020-01-08 10:55] LABS: APPEARANCE,URINE CLEAR; BILIRUBIN, URINE 1+ (NEGATIVE); GLUCOSE, URINE (UA) NEGATIVE (NEGATIVE); KETONES,URINE 3+ (NEGATIVE); LEUKOCYTE ESTERASE ,URINE 1+ (NEGATIVE); NITRITE,URINE NEGATIVE (NEGATIVE); PH,URINE 7 (4.5-8.0); PROTEIN,URINE 2+ (NEGATIVE); UROBILINOGEN,URINE 4 MG/DL (0.0-1.0)
[2020-01-08 11:00] LABS: COLOR,URINE YELLOW
[2020-01-08 11:03] LABS: ANION GAP 11 mmol/L (5-15); BLOOD UREA NITROGEN 16 mg/dL (7-18); CALCIUM 9.5 MG/DL (8.5-10.1); CARBON DIOXIDE 25 MMOL/L (21-32); CHLORIDE 99 MMOL/L (98-107); CREATININE 1.3 MG/DL (0.55-1.30); POTASSIUM 3.6 MMOL/L (3.5-5.1); SODIUM 135 MMOL/L (136-145)
[2020-01-08 11:07] LABS: ALANINE AMINOTRANSFERASE 13 U/L (12-78); ALBUMIN 3.6 G/DL (3.4-5.0); ALBUMIN/GLOBULIN RATIO 0.8 (1.0-2.7); ALKALINE PHOSPHATASE 147 U/L (46-116); ASPARTATE AMINO TRANSFERASE 16 U/L (15-37); BILIRUBIN,TOTAL 0.4 MG/DL (0.2-1.0)
--- NOTE | 2020-01-08 11:52 | NUR ---
NURSE NOTES: Pt has an episode of vomiting. Pt is still complaining of nausea and vomiting even after Zofran was given. MD made aware of the pt's condition and the unrelieved symptoms. Awaiting callback.
[2020-01-08 11:55] VITALS: BP 125/87
--- NOTE | 2020-01-08 11:55 | NUR ---
ED Nurse Note: Patient is sleeping, VSS at this time, no N/V noted.
--- NOTE | 2020-01-08 12:06 | Emergency Room Report ---
History of Present Illness General Chief Complaint: Vomiting Source: Patient Present Illness HPI 44-year-old female presents with abdominal pain and vomiting. Came in from home. Pain is epigastric, 10 out of 10, burning, nonradiating. Denies chest pain or shortness of breath. Denies fevers or chills. Denies diarrhea. Notes prior history of pancreatitis. History of GERD. History of cyclical vomiting. Was seen here yesterday for similar symptoms. States she was treated and discharged. States the medications that she was prescribed are not helping. No other aggravating relieving factors. Denies any other associated symptoms Allergies: Coded Allergies: No Known Allergies (Unverified , 09/16/17) COVID-19 Screening Contact w/high risk pt: No Recent Travel to affected area: No Experienced COVID-19 symptoms?: No COVID-19 Testing performed MAINSTREAMING FACILITATOR: No Patient History Past Medical History: other - pancreatitis Past Surgical History: none Pertinent Family History: none Social History: Reports: drug use; Denies: smoking, alcohol use Now: No Immunizations: UTD Reviewed Nursing Documentation: PMH: Agreed; PSxH: Agreed Nursing Documentation-PMH Past Medical History: No History, Except For Hx Hypertension: Yes Hx Diabetes: No Hx Cancer: No Hx Gastrointestinal Problems: Yes - cyclic vomitting syndrome, pancreatitis Review of Systems All Other Systems: negative except mentioned in HPI Physical Exam Vital Signs Date Time Temp Pulse Resp B/P (MAP) Pulse Ox O2 Delivery O2 Flow Rate FiO2 01/08/20 09:56 98.4 80 20 121/88 (99) 96 Room Air Sp02 EP Interpretation: reviewed, normal General Appearance: no apparent distress, alert, GCS 15, non-toxic Head: normocephalic, atraumatic Eyes: bilateral eye normal inspection, bilateral eye PERRL ENT: hearing grossly normal, normal pharynx, no angioedema, normal voice Neck: full range of motion, supple/symm/no masses Respiratory: chest non-tender, lungs clear, normal breath sounds, speaking full sentences Cardiovascular #1: regular rate, rhythm, no edema Cardiovascular #2: 2+ carotid (R), 2+ carotid (L), 2+ radial (R), 2+ radial (L) , 2+ dorsalis pedis (R), 2+ dorsalis pedis (L) Gastrointestinal: normal bowel sounds, soft, non-distended, no guarding, no rebound, tenderness Rectal: deferred Genitourinary: normal inspection, no CVA tenderness Musculoskeletal: back normal, normal range of motion, gait/station normal, non- tender Neurologic: alert, motor strength/tone normal, oriented x3, sensory intact, responsive, speech normal Psychiatric: judgement/insight normal, memory normal, mood/affect normal, no suicidal/homicidal ideation Reflexes: 3+ bicep (R), 3+ bicep (L), 3+ tricep (R), 3+ tricep (L), 3+ knee (R) , 3+ knee (L) Skin: no rash Lymphatic: no adenopathy Medical Decision Making Diagnostic Impression: Primary Impression: Cyclical vomiting Additional Impression: Pancreatitis Qualified Codes: K86.1 - Other chronic pancreatitis ER Course Hospital Course 44-year-old F presents to ED with epigastric pain with N/V. differential diagnosis: gastritis, SBO, cholecystits Clinical course Patient placed on stretcher. 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 After initial history and physical I ordered labs, IV fluids, morphine, pepcid and zofran Labs - noted leukocytosis, no electrolyte abnormalities, LFTs normal, lipase 416 patient continues to have vomiting. Patient was seen here yesterday states that the home medications were not helping. I believe patient should be admitted at this time. Patient will be admitted to Dr. Decker I feel this is a highly complex case requiring extensive working including EKG/ Rhythm strip, Xray/CT/US, Blood/urine lab work, repeat exams while in ED, and administration of strong opiates/narcotics for pain control, admission to hospital or close patient follow up. Diagnosis - cyclical vomiting, pancreatitis Admitted to floor in serious condition Labs Test 01/08/20 10:35 White Blood Count 14.9 K/UL (4.8-10.8) Red Blood Count 4.86 M/UL (4.20-5.40) Hemoglobin 11.4 G/DL (12.0-16.0) Hematocrit 39.4 % (37.0-47.0) Mean Corpuscular Volume 81 FL (80-99) Mean Corpuscular Hemoglobin 23.5 PG (27.0-31.0) Mean Corpuscular Hemoglobin Concent 29.0 G/DL (32.0-36.0) Red Cell Distribution Width 17.6 % (11.6-14.8) Platelet Count 542 K/UL (150-450) Mean Platelet Volume 6.3 FL (6.5-10.1) Neutrophils (%) (Auto) 82.8 % (45.0-75.0) Lymphocytes (%) (Auto) 12.7 % (20.0-45.0) Monocytes (%) (Auto) 4.1 % (1.0-10.0) Eosinophils (%) (Auto) 0.0 % (0.0-3.0) Basophils (%) (Auto) 0.4 % (0.0-2.0) Urine Color Yellow Urine Appearance Clear Urine pH 7 (4.5-8.0) Urine Specific [place] 1.015 (1.005-1.035) Urine Protein 2+ (NEGATIVE) Urine Glucose (UA) Negative (NEGATIVE) Urine Ketones 3+ (NEGATIVE) Urine Blood 5+ (NEGATIVE) Urine Nitrite Negative (NEGATIVE) Urine Bilirubin 1+ (NEGATIVE) Urine Ictotest Negative (NEGATIVE) Urine Urobilinogen 4 MG/DL (0.0-1.0) Urine Leukocyte Esterase 1+ (NEGATIVE) Urine RBC 15-20 /HPF (0 - 2) Urine WBC 0-2 /HPF (0 - 2) Urine Squamous Epithelial Cells Few /LPF (NONE/OCC) Urine Bacteria Few /HPF (NONE) Urine HCG, Qualitative Negative (NEGATIVE) Sodium Level 135 MMOL/L (136-145) Potassium Level 3.6 MMOL/L (3.5-5.1) Chloride Level 99 MMOL/L (98-107) Carbon Dioxide Level 25 MMOL/L (21-32) Anion Gap 11 mmol/L (5-15) Blood Urea Nitrogen 16 mg/dL (7-18) Creatinine 1.3 MG/DL (0.55-1.30) Estimat Glomerular Filtration Rate 53.4 mL/min (>60) Glucose Level 154 MG/DL (74-106) Calcium Level 9.5 MG/DL (8.5-10.1) Total Bilirubin 0.4 MG/DL (0.2-1.0) Aspartate Amino Transf (AST/SGOT) 16 U/L (15-37) Alanine Aminotransferase (ALT/SGPT) 13 U/L (12-78) Alkaline Phosphatase 147 U/L (46-116) Total Protein 8.2 G/DL (6.4-8.2) Albumin 3.6 G/DL (3.4-5.0) Globulin 4.6 g/dL Albumin/Globulin Ratio 0.8 (1.0-2.7) Lipase 416 U/L (73-393) Urine Opiates Screen Positive (NEGATIVE) Urine Barbiturates Screen Negative (NEGATIVE) Phencyclidine (PCP) Screen Negative (NEGATIVE) Urine Amphetamines Screen Negative (NEGATIVE) Urine Benzodiazepines Screen Negative (NEGATIVE) Urine Cocaine Screen Negative (NEGATIVE) Urine Marijuana (THC) Screen Negative (NEGATIVE) Last Vital Signs Date Time Temp Pulse Resp B/P (MAP) Pulse Ox O2 Delivery O2 Flow Rate FiO2 01/08/20 11:55 98.4 76 20 125/87 98 Room Air Status: improved Disposition: ADMITTED INPATIENT Condition: Serious Referrals: NON PHYSICIAN (PCP) Mark Rebolledo MD Jan 08, 2020 12:06
--- NOTE | 2020-01-08 13:07 | NUR ---
ED Nurse Note: Patient was able to ambulate to the bathroom with steady gait, VSS at this time, NO N/V noted.
--- NOTE | 2020-01-08 13:27 | NUR ---
ED Nurse Note: Report given to RONNY Villa
--- NOTE | 2020-01-08 13:36 | NUR ---
ED Nurse Note: Patient was admited to [facility] unit dcue to intractable vomiting. Patient was transfered to the unit via wheelchair, with all belongings. Patient AAO x4, VSS at this time, normal saline running at rate 200mL/hr.
--- NOTE | 2020-01-08 13:40 | NUR ---
NURSE NOTES: Handoff received from Audrey JEFFERSON. Patient is awake and alert, no signs of distress noted, patient looks fatigued. IV on left AC is intact and patent, running IVF as ordered. Patient states that her nausea is better but is still present. Patient c/o dry throat and mouth. Bed is low and locked, side rails up x2, call light is within reach.
[2020-01-08 13:45] VITALS: BP 134/99
--- NOTE | 2020-01-08 14:00 | NUR ---
NURSE NOTES: Called Dr. Decker for admission orders, orders were read back, verified, and carried out.
[2020-01-08] MEDS ORDERED: Morphine Sulfate 2mg/ml Inj(IV/IM USE ONLY) IVP PRN (14:15)
[2020-01-08] MEDS: D5 1/2NS 1,000 ML IV SCH (14:45)
[2020-01-08] MEDS ORDERED: HYDROmorphone 4mg tab ORAL PRN (15:00)
[2020-01-08 16:00] VITALS: BP 148/105
[2020-01-08] MEDS: HYDROmorphone 4mg tab ORAL PRN ×2 (16:07→20:08)
--- NOTE | 2020-01-08 19:07 | NUR ---
NURSE NOTES: Received report from RONNY Villa. Pt is sleeping, lying semi-west's; comfortably resting. No signs of acute distress noted. Checked IV site, line, and rate; patent and running. No erythema, bleeding, or infiltration noted. Bed at lowest position. Brakes on. Siderails up x3. Call light within reach. Will continue to monitor.
[2020-01-08 20:00] VITALS: BP 142/100
[2020-01-09] VITALS: BP 135/96
[2020-01-09] MEDS: Morphine Sulfate 2mg/ml Inj(IV/IM USE ONLY) IVP PRN ×4 (00:28→12:13)
[2020-01-09 04:00] VITALS: BP 138/95
[2020-01-09 06:06] LABS: BASOPHILS % (AUTO) 0.4 % (0.0-2.0); EOSINOPHILS % (AUTO) 0.5 % (0.0-3.0); HEMATOCRIT 36.2 % (37.0-47.0); HEMOGLOBIN 10.6 G/DL (12.0-16.0); LYMPHOCYTES % (AUTO) 22.2 % (20.0-45.0); MEAN CORPUSCULAR VOLUME 81 FL (80-99); MONOCYTES % (AUTO) 7.4 % (1.0-10.0); NEUTROPHILS % (AUTO) 69.6 % (45.0-75.0); PLATELET COUNT 492 K/UL (150-450); RED BLOOD COUNT 4.45 M/UL (4.20-5.40); RED CELL DISTRIBUTION WIDTH 17.2 % (11.6-14.8); WHITE BLOOD COUNT 12.7 K/UL (4.8-10.8)
[2020-01-09 06:19] LABS: AMYLASE 65 U/L (25-115); ANION GAP 10 mmol/L (5-15); BLOOD UREA NITROGEN 14 mg/dL (7-18); CALCIUM 8.5 MG/DL (8.5-10.1); CARBON DIOXIDE 27 MMOL/L (21-32); CHLORIDE 103 MMOL/L (98-107); POTASSIUM 3.1 MMOL/L (3.5-5.1); SODIUM 140 MMOL/L (136-145)
[2020-01-09] MEDS: D5 1/2NS 1,000 ML IV SCH (06:19)
--- NOTE | 2020-01-09 07:30 | NUR ---
NURSE NOTES: Patient is in bed asleep. Stable. Denies pain or SOB. Breathing is even and unlabored. No visible signs of distress at this time. All safety measures provided. Patient is in bed in locked and lowest position with call light within reach. Will continue to monitor.
--- NOTE | 2020-01-09 07:35 | NUR ---
HAND-OFF: Report given to RONNY Richardson. Pt is sleeping and in stable condition. Plan of care endorsed.
[2020-01-09 08:00] VITALS: BP 147/91
[2020-01-09] MEDS ORDERED: Metoclopramide 10mg/2ml Inj IVP PRN (08:15)
--- NOTE | 2020-01-09 09:35 | Consultation ---
History of Present Illness General Date patient seen: Jan 09, 2020 Time patient seen: 09:31 Chief Complaint: Vomiting Referring physician: dr dunn Reason for Consultation: leukocytosis Present Illness HPI 44yo woman with cyclic vomitnig syndrome presents with 2 days of NBNB emesis and abd pain. no fever, chills, cough, sob, diarrhea, rocha ein smell, change in taste, dysuria. no sick contacts. live with son and he is well. States her symptoms are similar to her previous episodes. Usually her episodes improve with fluids, pain medication, antiemetics. PMH: HTN, dyslipidemia, cyclic vomiting syndrome SHx: 1ppd. no etoh or drugs Allergies: Coded Allergies: No Known Allergies (Unverified , 09/16/17) Medication History Scheduled Amlodipine Besylate* (Amlodipine Besylate*), 5 MG ORAL DAILY, (Reported) Amoxicillin/Potassium Clav 875-125* (Augmentin 875-125 Tablet*), 1 TAB ORAL TWICE A DAY Atenolol* (Tenormin*), 100 MG ORAL DAILY, (Reported) Ciprofloxacin Hcl* (Ciprofloxacin Hcl*), 500 MG ORAL Q12H Cyclobenzaprine Hcl* (Flexeril*), 10 MG ORAL THREE TIMES A DAY Dicyclomine Hcl* (Dicyclomine Hcl*), 10 MG ORAL QID Docusate Sodium* (Colace*), 100 MG ORAL THREE TIMES A DAY Famotidine (Pepcid Ac), 20 MG PO DAILY Famotidine* (Pepcid 20mg tablet*), 20 MG ORAL DAILY Gabapentin* (Gabapentin*), 200 MG ORAL THREE TIMES A DAY, (Reported) Hydromorphone HCl (Dilaudid), 4 MG ORAL Q8H, (Reported) Metoclopramide Hcl* (Reglan*), 5 MG ORAL EVERY 6 HOURS, (Reported) Metronidazole* (Flagyl*), 500 MG ORAL BID Nitrofurantoin Monohyd/M-Cryst* (Macrobid 100 Mg*), 100 MG ORAL EVERY 12 HOURS Omeprazole (Omeprazole), 40 MG ORAL DAILY Ranitidine Hcl* (Zantac*), 150 MG ORAL TWICE A DAY Scheduled PRN Acetaminophen* (Tylenol Extra Strength*), 500 MG ORAL Q8H PRN for Prn Headache/ Temp > 101 Dicyclomine Hcl* (Dicyclomine Hcl*), 10 MG ORAL QID PRN for Abdominal cramps Ibuprofen (Motrin), 600 MG ORAL Q8H PRN for For Pain Ondansetron (Zofran), 4 MG ORAL Q6H PRN for Nausea & Vomiting Ondansetron Odt* (Zofran Odt*), 4 MG ORAL Q6H PRN for Nausea & Vomiting Ondansetron Odt* (Zofran Odt*), 4 MG BC EVERY 6 HOURS PRN for Nausea & Vomiting Ondansetron Odt* (Zofran Odt*), 4 MG BC EVERY 6 HOURS PRN for Nausea & Vomiting Patient History Healthcare decision maker Resuscitation status Advanced Directive on File Review of Systems All Other Systems: negative except mentioned in HPI Physical Exam General Appearance: no apparent distress, alert, overweight HEENT: normocephalic, atraumatic, anicteric, EOMI, other - slightly dry mucus membrane Neck: non-tender, supple, normal inspection Respiratory/Chest: chest wall non-tender, lungs clear, normal breath sounds, no respiratory distress, no accessory muscle use Cardiovascular/Chest: normal rate, regular rhythm, no gallop/murmur Abdomen: normal bowel sounds, soft, no mass, other - mild TTP. no rebound. 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, alert, oriented x 3, responsive, normal mood/affect Last 24 Hour Vital Signs Date Time Temp Pulse Resp B/P (MAP) Pulse Ox O2 Delivery O2 Flow Rate FiO2 01/09/20 08:39 93 147/91 01/09/20 08:39 93 147/91 01/09/20 04:00 98.4 86 18 138/95 (109) 98 01/09/20 00:00 98.6 84 20 135/96 (109) 99 01/08/20 21:00 Room Air 01/08/20 20:00 98.4 92 20 142/100 (114) 99 01/08/20 16:37 98.7 01/08/20 16:00 97.8 89 20 148/105 (119) 98 01/08/20 13:45 98.7 82 18 134/99 (111) 96 01/08/20 13:41 Room Air 01/08/20 13:35 98.4 76 20 125/87 98 Room Air 01/08/20 11:55 98.4 76 20 125/87 98 Room Air 01/08/20 11:12 98.4 01/08/20 10:03 98.4 79 20 121/88 96 Room Air 01/08/20 10:03 80 20 01/08/20 09:56 98.4 80 20 121/88 (99) 96 Room Air Intake and Output 01/08/20 01/09/20 19:00 07:00 Intake Total 20 ml Balance 20 ml Intake Oral 20 ml # Voids 3 3 # Bowel Movements 1 Laboratory Tests Test 01/08/20 10:35 01/09/20 05:10 White Blood Count 14.9 K/UL (4.8-10.8) H 12.7 K/UL (4.8-10.8) H Red Blood Count 4.86 M/UL (4.20-5.40) 4.45 M/UL (4.20-5.40) Hemoglobin 11.4 G/DL (12.0-16.0) L 10.6 G/DL (12.0-16.0) L Hematocrit 39.4 % (37.0-47.0) 36.2 % (37.0-47.0) L Mean Corpuscular Volume 81 FL (80-99) 81 FL (80-99) Mean Corpuscular Hemoglobin 23.5 PG (27.0-31.0) L 23.7 PG (27.0-31.0) L Mean Corpuscular Hemoglobin Concent 29.0 G/DL (32.0-36.0) L 29.1 G/DL (32.0-36.0) L Red Cell Distribution Width 17.6 % (11.6-14.8) H 17.2 % (11.6-14.8) H Platelet Count 542 K/UL (150-450) H 492 K/UL (150-450) H Mean Platelet Volume 6.3 FL (6.5-10.1) L 6.6 FL (6.5-10.1) Neutrophils (%) (Auto) 82.8 % (45.0-75.0) H 69.6 % (45.0-75.0) Lymphocytes (%) (Auto) 12.7 % (20.0-45.0) L 22.2 % (20.0-45.0) Monocytes (%) (Auto) 4.1 % (1.0-10.0) 7.4 % (1.0-10.0) Eosinophils (%) (Auto) 0.0 % (0.0-3.0) 0.5 % (0.0-3.0) Basophils (%) (Auto) 0.4 % (0.0-2.0) 0.4 % (0.0-2.0) Urine Color Yellow Urine Appearance Clear Urine pH 7 (4.5-8.0) Urine Specific [place] 1.015 (1.005-1.035) Urine Protein 2+ (NEGATIVE) H Urine Glucose (UA) Negative (NEGATIVE) Urine Ketones 3+ (NEGATIVE) H Urine Blood 5+ (NEGATIVE) H Urine Nitrite Negative (NEGATIVE) Urine Bilirubin 1+ (NEGATIVE) H Urine Ictotest Negative (NEGATIVE) Urine Urobilinogen 4 MG/DL (0.0-1.0) H Urine Leukocyte Esterase 1+ (NEGATIVE) H Urine RBC 15-20 /HPF (0 - 2) H Urine WBC 0-2 /HPF (0 - 2) Urine Squamous Epithelial Cells Few /LPF (NONE/OCC) Urine Bacteria Few /HPF (NONE) Urine HCG, Qualitative Negative (NEGATIVE) Sodium Level 135 MMOL/L (136-145) L 140 MMOL/L (136-145) Potassium Level 3.6 MMOL/L (3.5-5.1) 3.1 MMOL/L (3.5-5.1) L Chloride Level 99 MMOL/L (98-107) 103 MMOL/L (98-107) Carbon Dioxide Level 25 MMOL/L (21-32) 27 MMOL/L (21-32) Anion Gap 11 mmol/L (5-15) 10 mmol/L (5-15) Blood Urea Nitrogen 16 mg/dL (7-18) 14 mg/dL (7-18) Creatinine 1.3 MG/DL (0.55-1.30) 1.0 MG/DL (0.55-1.30) Estimat Glomerular Filtration Rate 53.4 mL/min (>60) > 60 mL/min (>60) Glucose Level 154 MG/DL (74-106) H 134 MG/DL (74-106) H Calcium Level 9.5 MG/DL (8.5-10.1) 8.5 MG/DL (8.5-10.1) Total Bilirubin 0.4 MG/DL (0.2-1.0) Aspartate Amino Transf (AST/SGOT) 16 U/L (15-37) Alanine Aminotransferase (ALT/SGPT) 13 U/L (12-78) Alkaline Phosphatase 147 U/L (46-116) H Total Protein 8.2 G/DL (6.4-8.2) Albumin 3.6 G/DL (3.4-5.0) Globulin 4.6 g/dL Albumin/Globulin Ratio 0.8 (1.0-2.7) L Lipase 416 U/L (73-393) H Urine Opiates Screen Positive (NEGATIVE) H Urine Barbiturates Screen Negative (NEGATIVE) Phencyclidine (PCP) Screen Negative (NEGATIVE) Urine Amphetamines Screen Negative (NEGATIVE) Urine Benzodiazepines Screen Negative (NEGATIVE) Urine Cocaine Screen Negative (NEGATIVE) Urine Marijuana (THC) Screen Negative (NEGATIVE) Amylase Level 65 U/L (25-115) Height (Feet): 5 Height (Inches): 10.00 Weight (Pounds): 249 Medications Current Medications Medications (Trade) Dose Ordered Sig/Robbie Route PRN Reason Start Time Stop Time Status Last Admin Dose Admin Amlodipine Besylate (Norvasc) 5 mg DAILY ORAL 01/09/20 09:00 02/08/20 08:59 01/09/20 08:39 Atenolol (Tenormin) 100 mg DAILY ORAL 01/09/20 09:00 02/08/20 08:59 01/09/20 08:39 Dextrose/Sodium Chloride 1,000 ml @ 60 mls/hr [id number] IV 01/08/20 14:15 02/07/20 14:14 01/09/20 06:19 Famotidine (Pepcid) 20 mg DAILY ORAL 01/09/20 09:00 04/08/20 08:59 01/09/20 08:39 Hydromorphone HCl (Dilaudid) 4 mg Q4H PRN ORAL Moderate Pain (Pain Scale 4-6) 01/08/20 15:00 7/11/20 14:59 01/08/20 20:08 Metoclopramide HCl (Reglan) 10 mg Q6H PRN IVP Nausea & Vomiting 2ND 01/09/20 08:15 02/08/20 08:14 01/09/20 08:38 Morphine Sulfate (Morphine Sulfate) 2 mg Q4H PRN IVP Severe Pain (Pain Scale 7-10) 01/08/20 15:00 01/15/20 14:59 01/09/20 08:38 Ondansetron HCl (Zofran) 4 mg Q4H PRN IVP Nausea & Vomiting 01/08/20 14:15 02/07/20 14:14 01/09/20 04:28 Pantoprazole (Protonix) 40 mg DAILY ORAL 01/08/20 15:00 02/07/20 14:59 01/09/20 08:39 Potassium Chloride (K-Dur) 40 meq ONCE ORAL 01/09/20 09:15 01/09/20 10:30 Assessment/Plan Assessment/Plan: Afebrile RA Leukocytosis, likely reactive, improving Exacerbation of cyclic vomiting syndrome Lipase 479 Unlikely UTI UA negative Thrombocytosis Anemia HTN Dyslipidemia Plan: monitor off abx management of her cyclic vomiting syndrome per primary monitor temp and CBC BCx IVF Maxine Ariza MD Jan 09, 2020 09:35
--- NOTE | 2020-01-09 10:48 | NUR ---
PT Note PT robby completed. Patient is independent in all aspects of mobility with a steady gait. No assistive device used. Patient does not need a [place] PT.Will DC physical therapy. Addendum: 01/09/20 at 1049 by FRANKIE KENNEY PT Amended: Links added.
[2020-01-09 12:00] VITALS: BP 139/98
--- NOTE | 2020-01-09 13:00 | NUR ---
NURSE NOTES: Patient left hospital AMA. Patient stated she wants to leave and acknowledged that she understands the risks and benefits of leaving hospital before being cleared by MD. Patient is stable. Breathing is even and unlabored. No signs of distress at this time. Skin is c/d/i. Patient has all belongings. No IV access. Patient assisted outside by staff without incident. Patient notified son on the way out of hospital.
--- NOTE | 2020-01-09 14:29 | History and Physical Report ---
DATE OF ADMISSION: 01/08/2020 DATE AND TIME SEEN: 01/09/2020 at 8 a.m. CONSULTANTS: Bebo Kim M.D. CHIEF COMPLAINT: Cyclic vomiting and pancreatitis. BRIEF HISTORY: This is a 44-year-old female with history of cyclic vomiting. Last time was six months ago. Apparently, two days ago started having recurrent nausea and vomiting, gotten worse, came to [place], diagnosed with above. Currently, admitted to medical floor. Currently, calm, slightly weak in bed. No complaint. REVIEW OF SYSTEMS: No chest pain. No shortness of breath. Slight nausea and vomiting. No diarrhea. PAST MEDICAL HISTORY: Cyclic vomiting, hypertension. PAST SURGICAL HISTORY: Gallbladder. MEDICATIONS: Include Norvasc, atenolol, famotidine, Reglan, hydromorphone, pantoprazole, morphine. ALLERGIES: Denies. SOCIAL HISTORY: Positive smoking. No alcohol. No intravenous drug abuse. FAMILY HISTORY: Noncontributory. PHYSICAL EXAMINATION: GENERAL: Calm in bed, oriented x3, slightly weak. VITAL SIGNS: Temperature 98 degrees, pulse 86, respirations 18, blood pressure 138/95. CARDIOVASCULAR: No murmur. LUNGS: . ABDOMEN: Bowel sound positive. Nontender. Nondistended. EXTREMITIES: No cyanosis or edema. NEUROLOGIC: The patient moves all extremities, slightly weak. LABORATORY AND DIAGNOSTIC DATA: Labs at this time show white count 12.7, hemoglobin and hematocrit 10/36, and platelets are 492,000. BMP show potassium 3.1, glucose 134, otherwise normal. Lipase 416. Urinalysis show 2+ protein, 3+ ketones, 5+ blood, 1+ leukocyte esterase. Urine tox positive for opiates. ASSESSMENT: 1. Cyclic vomiting. 2. Pancreatitis. 3. Anemia. 4. UTI. 5. Hypertension. PLAN: Resume home medications. Blood pressure and pain control. Antibiotics per Infectious Disease. Dietary followup. PT and dietary evaluation. CBC and BMP in the morning. We will add ID and Hematology evaluation. Amadou Decker D.O. DR: NIKOLAI/AMANDA JOB#: [id number] CC:
--- NOTE | 2020-01-10 15:17 | Discharge Summary ---
Discharge Summary Discharge Summary _ DATE OF ADMISSION: 01/08/2020 DATE OF DISCHARGE: 01/09/2020 Patient left AGAINST MEDICAL ADVICE REASON FOR ADMISSION: 44 years old female with past medical history of hypertension, cyclic vomiting syndrome, GERD, pancreatitis, anemia, opiate dependency, presented for evaluation due to epigastric abdominal pain and nonbloody nonbilious vomiting. Pain reported as burning and nonradiating , 10 out of 10. No fever or chills. No chest pain or shortness of breath. No diarrhea. Patient was seen in emergency department prior day , was treated and sent home with medications. According to patient the medications did not work . She was unable to hold down solids and fluids. Laboratory work-up revealed leukocytosis WBC 14.9, hemoglobin 11.4 , hematocrit 39.4 , platelet count 542. Urinalysis revealed +2 protein , no evidence of urinary tract infection. Urine test was negative. Stable electrolytes. Glucose 154. BUN 16, creatinine 1.3. AST 16, ALT 13, lipase 416. Urine toxicology screen was positive for opiates. In emergency department patient received analgesic , started on the IV hydration , received antiemetic, Protonix and admitted for further management. CONSULTANTS: ID specialist : Dr Ariza [facility] COURSE: Patient admitted to medical surgical floor. Patient was kept n.p.o. and t started on the IV fluids. Pain management was addressed. Symptomatic care provided. Antiemetic were on board as needed. GI prophylaxis provided. ID specialist followed. Per ID specialist leukocytosis was likely reactive and was improving. Urinalysis was negative, thus unlikely UTI. Pulse oximetry was stable on room air. Patient remained afebrile. The next day WBC down to 12.7. ID specialist recommended to monitor patient off antibiotics. Dietary evaluation was requested. On 01/08 patient decided to sign AGAINST MEDICAL ADVICE. The risks and consequences of signing AGAINST MEDICAL ADVICE were discussed with patient in detail. Patient verbalized understanding, nevertheless signed AMA form and left. FINAL DIAGNOSES: Cyclic vomiting syndrome exacerbation Pancreatitis Anemia Leukocytosis ,likely reactive -improved Hypertension Dyslipidemia Opiate dependency I have been assigned to dictate discharge summary for this account. I was not involved in the patient's management. Liz Pires NP Jan 10, 2020 15:17
== END 2020-01-09 13:00 | disposition left against medical advice (07) | DRG 393 ==
LOC: EMR 10:15 → 3E 11:33 → EDBEDREQ 12:33
DX: R11.15 Cyclical vomiting syndrome unrelated to migraine (principal); K85.90 Acute pancreatitis without necrosis or infection, unspecified; N39.0 Urinary tract infection, site not specified; F11.20 Opioid dependence, uncomplicated; D64.9 Anemia, unspecified; I10 Essential (primary) hypertension; K21.9 Gastro-esophageal reflux disease without esophagitis; E78.5 Hyperlipidemia, unspecified; D47.3 Essential (hemorrhagic) thrombocythemia
CPT/HCPCS: 36415; 80048; 80053; 80307; 81003; 81025; 82150; 83690; 85025; 87040; 96361; 96374; 96375; 99285; J2405; J2765; J7030; J8499

== ENCOUNTER 2020-01-31 10:47 | Emergency (ER) | payer MEDICARE, MEDICAID ==
[~2020-01-31] VITALS: Ht 177.8 cm; Wt 106.6 kg
[2020-01-31 10:59] VITALS: BP 135/90
[2020-01-31] MEDS ORDERED: Metoclopramide 10mg/2ml Inj IVP ONE (11:15)
[2020-01-31 11:23] LABS: APPEARANCE,URINE CLEAR; BILIRUBIN, URINE NEGATIVE (NEGATIVE); COLOR,URINE PALE YELLOW; GLUCOSE, URINE (UA) NEGATIVE (NEGATIVE); KETONES,URINE NEGATIVE (NEGATIVE); LEUKOCYTE ESTERASE ,URINE 1+ (NEGATIVE); NITRITE,URINE NEGATIVE (NEGATIVE); PH,URINE 8 (4.5-8.0); PROTEIN,URINE 1+ (NEGATIVE); UROBILINOGEN,URINE 1 MG/DL (0.0-1.0)
[2020-01-31 11:24] LABS: BASOPHILS % (AUTO) 1.7 % (0.0-2.0); EOSINOPHILS % (AUTO) 2.8 % (0.0-3.0); HEMATOCRIT 36.7 % (37.0-47.0); HEMOGLOBIN 10.8 G/DL (12.0-16.0); LYMPHOCYTES % (AUTO) 26.3 % (20.0-45.0); MEAN CORPUSCULAR VOLUME 81 FL (80-99); MONOCYTES % (AUTO) 3.2 % (1.0-10.0); PLATELET COUNT 563 K/UL (150-450); RED BLOOD COUNT 4.54 M/UL (4.20-5.40); RED CELL DISTRIBUTION WIDTH 17.6 % (11.6-14.8); WHITE BLOOD COUNT 11.2 K/UL (4.8-10.8)
[2020-01-31] MEDS ORDERED: Morphine Sulfate 4mg/ml Inj (IV USE ONLY) IVP ONE (11:45)
[2020-01-31 11:46] LABS: ANION GAP 9 mmol/L (5-15); BLOOD UREA NITROGEN 15 mg/dL (7-18); CALCIUM 9.5 MG/DL (8.5-10.1); CARBON DIOXIDE 25 MMOL/L (21-32); CHLORIDE 103 MMOL/L (98-107); CREATININE 1.2 MG/DL (0.55-1.30); POTASSIUM 4.2 MMOL/L (3.5-5.1); SODIUM 137 MMOL/L (136-145)
[2020-01-31 11:53] LABS: ALANINE AMINOTRANSFERASE 12 U/L (12-78); ALBUMIN 3.7 G/DL (3.4-5.0); ALBUMIN/GLOBULIN RATIO 0.8 (1.0-2.7); ALKALINE PHOSPHATASE 153 U/L (46-116); ASPARTATE AMINO TRANSFERASE 16 U/L (15-37); BILIRUBIN,TOTAL 0.2 MG/DL (0.2-1.0)
--- NOTE | 2020-01-31 11:58 | Emergency Room Report ---
History of Present Illness General Chief Complaint: Vomiting Source: Patient Present Illness HPI This patient is well-known to [facility]. She has a history of cyclic vomiting syndrome. She states that over the past couple days she has noted a recurrence and exacerbation of her cyclic vomiting syndrome. She states that this particular one is not as severe and she wants to get in front of it. She denies fever chills. She states she does have crampy abdominal pain like she normally does with her cyclic vomiting syndrome. She states that the symptoms are not different from her usual. She has no other complaints. Allergies: Coded Allergies: No Known Allergies (Unverified , 09/16/17) COVID-19 Screening Contact w/high risk pt: No Recent Travel to affected area: No Experienced COVID-19 symptoms?: No COVID-19 Testing performed LOCK MASTER: No Patient History Past Medical History: see triage record, HTN, other - cyclic vomiting syndrome Social History: Denies: smoking, alcohol use, drug use Last Menstrual Period: n/a Reviewed Nursing Documentation: PMH: Agreed; PSxH: Agreed Nursing Documentation-PMH Hx Cardiac Problems: Yes Hx Hypertension: Yes Hx Diabetes: No Hx Cancer: No Hx Neurological Problems: Yes Hx Headaches: Yes Review of Systems All Other Systems: negative except mentioned in HPI Physical Exam Vital Signs Date Time Temp Pulse Resp B/P (MAP) Pulse Ox O2 Delivery O2 Flow Rate FiO2 01/31/20 10:54 98.4 94 20 131/95 (107) 97 Room Air Sp02 EP Interpretation: reviewed, normal General Appearance: no apparent distress, alert, GCS 15, non-toxic Head: normocephalic, atraumatic Eyes: bilateral eye normal inspection ENT: hearing grossly normal, normal pharynx, no angioedema, normal voice Neck: full range of motion, supple/symm/no masses Respiratory: no respiratory distress, no retraction, no accessory muscle use, speaking full sentences Cardiovascular #1: regular rate, rhythm, no edema Gastrointestinal: normal bowel sounds, soft, non-distended, no guarding, no rebound, tenderness - mild ttp lower abdomen Rectal: deferred Musculoskeletal: back normal, normal range of motion, gait/station normal, non- tender Neurologic: alert, motor strength/tone normal, oriented x3, sensory intact, responsive, speech normal Psychiatric: judgement/insight normal, memory normal, mood/affect normal, no suicidal/homicidal ideation Skin: no rash, normal color Medical Decision Making Diagnostic Impression: Primary Impression: Cyclic vomiting syndrome Additional Impression: Chronic pancreatitis ER Course This patient has a known prolonged history of cyclic vomiting syndrome. She also has opiate dependence. Patient presents with her typical symptoms. She did have a slight elevation in her lipase. She has a history of chronic pancreatitis. She is given IV morphine and Zofran. She had significant improvement of her symptoms and requested discharge home. She was offered admission but declined at this time. Overall, the patient is well-appearing and nontoxic. There is no vomiting here in the emergency department. She is instructed to follow-up closely with her primary care physician. She is given close return precautions and follow-up instructions. Laboratory Tests Test 01/31/20 11:02 01/31/20 11:13 Urine Color Pale yellow Urine Appearance Clear Urine pH 8 (4.5-8.0) Urine Specific [place] 1.010 (1.005-1.035) Urine Protein 1+ (NEGATIVE) H Urine Glucose (UA) Negative (NEGATIVE) Urine Ketones Negative (NEGATIVE) Urine Blood 4+ (NEGATIVE) H Urine Nitrite Negative (NEGATIVE) Urine Bilirubin Negative (NEGATIVE) Urine Urobilinogen 1 MG/DL (0.0-1.0) H Urine Leukocyte Esterase 1+ (NEGATIVE) H Urine RBC 20-30 /HPF (0 - 2) H Urine WBC 2-4 /HPF (0 - 2) Urine Squamous Epithelial Cells Few /LPF (NONE/OCC) Urine Bacteria Few /HPF (NONE) Urine Mucus Occasional /LPF Urine HCG, Qualitative Negative (NEGATIVE) Urine Opiates Screen Negative (NEGATIVE) Urine Barbiturates Screen Negative (NEGATIVE) Phencyclidine (PCP) Screen Negative (NEGATIVE) Urine Amphetamines Screen Negative (NEGATIVE) Urine Benzodiazepines Screen Negative (NEGATIVE) Urine Cocaine Screen Negative (NEGATIVE) Urine Marijuana (THC) Screen Negative (NEGATIVE) White Blood Count 11.2 K/UL (4.8-10.8) H Red Blood Count 4.54 M/UL (4.20-5.40) Hemoglobin 10.8 G/DL (12.0-16.0) L Hematocrit 36.7 % (37.0-47.0) L Mean Corpuscular Volume 81 FL (80-99) Mean Corpuscular Hemoglobin 23.7 PG (27.0-31.0) L Mean Corpuscular Hemoglobin Concent 29.3 G/DL (32.0-36.0) L Red Cell Distribution Width 17.6 % (11.6-14.8) H Platelet Count 563 K/UL (150-450) H Mean Platelet Volume 5.6 FL (6.5-10.1) L Neutrophils (%) (Auto) 66.0 % (45.0-75.0) Lymphocytes (%) (Auto) 26.3 % (20.0-45.0) Monocytes (%) (Auto) 3.2 % (1.0-10.0) Eosinophils (%) (Auto) 2.8 % (0.0-3.0) Basophils (%) (Auto) 1.7 % (0.0-2.0) Sodium Level 137 MMOL/L (136-145) Potassium Level 4.2 MMOL/L (3.5-5.1) Chloride Level 103 MMOL/L (98-107) Carbon Dioxide Level 25 MMOL/L (21-32) Anion Gap 9 mmol/L (5-15) Blood Urea Nitrogen 15 mg/dL (7-18) Creatinine 1.2 MG/DL (0.55-1.30) Estimated Glomerular Filtration Rate 58.7 mL/min (>60) Glucose Level 135 MG/DL (74-106) H Calcium Level 9.5 MG/DL (8.5-10.1) Total Bilirubin 0.2 MG/DL (0.2-1.0) Aspartate Amino Transferase (AST) 16 U/L (15-37) Alanine Aminotransferase (ALT) 12 U/L (12-78) Alkaline Phosphatase 153 U/L (46-116) H Total Protein 8.1 G/DL (6.4-8.2) Albumin 3.7 G/DL (3.4-5.0) Globulin 4.4 g/dL Albumin/Globulin Ratio 0.8 (1.0-2.7) L Lipase 476 U/L (73-393) H Last Vital Signs Date Time Temp Pulse Resp B/P (MAP) Pulse Ox O2 Delivery O2 Flow Rate FiO2 01/31/20 10:59 90 18 Room Air 01/31/20 10:59 98.4 135/90 97 Status: improved Disposition: HOME, SELF-CARE Condition: Improved Referrals: NON PHYSICIAN (PCP) Colianno,Denise M. DO Jan 31, 2020 11:57
[2020-01-31 12:06] VITALS: BP 128/88
== END 2020-01-31 12:06 | disposition home or self-care (01) ==
LOC: EDBEDREQ 11:09 → EMR 11:15
DX: R11.15 Cyclical vomiting syndrome unrelated to migraine (principal); I10 Essential (primary) hypertension
CPT/HCPCS: 36415; 80053; 80307; 81003; 81025; 83690; 85025; 96374; 96375; 99284; J2270; J2405; J2765

== ENCOUNTER 2020-04-25 22:51 | Emergency (ER) | payer MEDICARE, MEDICAID ==
[~2020-04-25] VITALS: Ht 177.8 cm; Wt 104.3 kg
[2020-04-25 23:02] VITALS: BP 136/87
--- NOTE | 2020-04-25 23:03 | NUR ---
ED Nurse Note: walked in to ed c/o nausea and vomitting onset today at around 1300. pt reports multiple emesis with last emesis 45 min ago. denies abd pain or diarrhea. vss, nad, aaox4, ambulatory, urine collected and sent to lab.
--- NOTE | 2020-04-25 23:11 | Emergency Room Report ---
History of Present Illness General Chief Complaint: Vomiting Source: Patient, Medical Record Present Illness HPI Is a 44-year-old female with a history of chronic pancreatitis and cyclic vomiting syndrome. She also has history of high blood pressure. She takes atenolol and Dilaudid. She presents with chief complaint abdominal pain with nausea and vomiting. Onset about 10 hours now. Has nausea and vomiting. Unable to keep anything down. Unable to keep her blood pressure medication or Dilaudid. she tried Zofran and Reglan helped. Similar symptom in the past. Pain is 8 out of 10. Vomiting is nonbloody nonbilious. There is no fever or chills. No diarrhea. Pain is diffuse in nature. Allergies: Coded Allergies: No Known Allergies (Unverified , 09/16/17) COVID-19 Screening Contact w/high risk pt: No Recent Travel to affected area: No Experienced COVID-19 symptoms?: No COVID-19 Testing performed MANAGER PORT: No Patient History Past Medical History: see triage record, old chart reviewed, HTN Pertinent Family History: none Social History: Denies: smoking Now: No Immunizations: other Reviewed Nursing Documentation: PMH: Agreed; PSxH: Agreed Nursing Documentation-PMH Hx Cardiac Problems: Yes Hx Hypertension: Yes Hx Diabetes: No Hx Cancer: No Hx Neurological Problems: Yes Hx Headaches: Yes Review of Systems Eye: Denies: eye pain, blurred vision ENT: Denies: ear pain, nose congestion, throat swelling Respiratory: Denies: cough, shortness of breath Cardiovascular: Denies: chest pain, palpitations Gastrointestinal: Reports: abdominal pain, nausea, vomiting; Denies: diarrhea Musculoskeletal: Denies: back pain, joint pain Skin: Denies: rash Neurological: Denies: headache, numbness Endocrine: Denies: increased thirst, increased urine Hematologic/Lymphatic: Denies: easy bruising All Other Systems: negative except mentioned in HPI Physical Exam Vital Signs Date Time Temp Pulse Resp B/P (MAP) Pulse Ox O2 Delivery O2 Flow Rate FiO2 04/25/20 22:56 99.0 97 18 134/94 (107) 98 Room Air 04/25/20 23:02 99 Vitals normal Sp02 EP Interpretation: reviewed, normal General Appearance: well appearing, no apparent distress, alert Head: normocephalic, atraumatic Eyes: bilateral eye PERRL, bilateral eye EOMI ENT: hearing grossly normal, normal pharynx Neck: full range of motion, supple, no meningismus Respiratory: chest non-tender, lungs clear, normal breath sounds Cardiovascular #1: regular rate, rhythm, no murmur Gastrointestinal: no mass, no organomegaly, no bruit, non-distended, tenderness - Mild, diffuse, decreased bowel sounds Musculoskeletal: back normal, normal range of motion, gait/station normal Psychiatric: mood/affect normal Medical Decision Making Diagnostic Impression: Primary Impression: Abdominal pain Qualified Codes: R10.84 - Generalized abdominal pain Additional Impression: Cyclical vomiting ER Course Patient presents with abdominal pain with nausea and vomiting. This is consistent with her cyclic vomiting syndrome. Labs unremarkable. Urine is negative for ketones. Patient felt better now. Will discharge home. Last Vital Signs Date Time Temp Pulse Resp B/P (MAP) Pulse Ox O2 Delivery O2 Flow Rate FiO2 04/25/20 23:02 98.7 92 18 136/87 98 Room Air 04/25/20 23:02 99 Status: improved Disposition: HOME, SELF-CARE Condition: Improved Patient Instructions: Nausea and Vomiting, Adult Additional Instructions: Advance diet as tolerated. Follow-up with In 7 days. Return if worse. Miguel Dill MD Apr 25, 2020 23:11
[2020-04-25] MEDS ORDERED: HYDROmorphone 1mg/ml Carpuject IVP ONE (23:15)
[2020-04-25 23:24] LABS: APPEARANCE,URINE CLEAR; BILIRUBIN, URINE NEGATIVE (NEGATIVE); COLOR,URINE PALE YELLOW; GLUCOSE, URINE (UA) NEGATIVE (NEGATIVE); KETONES,URINE NEGATIVE (NEGATIVE); LEUKOCYTE ESTERASE ,URINE NEGATIVE (NEGATIVE); NITRITE,URINE NEGATIVE (NEGATIVE); PH,URINE 6 (4.5-8.0); PROTEIN,URINE NEGATIVE (NEGATIVE); UROBILINOGEN,URINE NORMAL MG/DL (0.0-1.0)
--- NOTE | 2020-04-25 23:33 | NUR ---
ED Nurse Note: blood collected and sent to lab
[2020-04-25 23:35] LABS: ANION GAP 10 mmol/L (5-15); BLOOD UREA NITROGEN 14 mg/dL (7-18); CARBON DIOXIDE 24 MMOL/L (21-32); CHLORIDE 105 MMOL/L (98-107); CREATININE 1.4 MG/DL (0.55-1.30); POTASSIUM 4.1 MMOL/L (3.5-5.1); SODIUM 139 MMOL/L (136-145)
[2020-04-25 23:36] LABS: BASOPHILS % (AUTO) 1.4 % (0.0-2.0); EOSINOPHILS % (AUTO) 1.2 % (0.0-3.0); HEMATOCRIT 35.5 % (37.0-47.0); HEMOGLOBIN 11.1 G/DL (12.0-16.0); LYMPHOCYTES % (AUTO) 27.4 % (20.0-45.0); MEAN CORPUSCULAR VOLUME 79 FL (80-99); MONOCYTES % (AUTO) 5.8 % (1.0-10.0); NEUTROPHILS % (AUTO) 64.2 % (45.0-75.0); PLATELET COUNT 427 K/UL (150-450); RED CELL DISTRIBUTION WIDTH 16.8 % (11.6-14.8); WHITE BLOOD COUNT 12.1 K/UL (4.8-10.8)
[2020-04-25 23:39] LABS: ALANINE AMINOTRANSFERASE 7 U/L (12-78); ALBUMIN 3.6 G/DL (3.4-5.0); ALKALINE PHOSPHATASE 140 U/L (46-116); ASPARTATE AMINO TRANSFERASE 19 U/L (15-37); BILIRUBIN,TOTAL < 0.1 MG/DL (0.2-1.0)
[2020-04-26] MEDS ORDERED: HYDROmorphone 1mg/ml Carpuject IVP ONE (00:15)
[2020-04-26 00:28] VITALS: BP 134/81
[2020-04-26 00:40] VITALS: BP 134/81
--- NOTE | 2020-04-26 00:40 | NUR ---
ER DISCHARGE NOTE: Patient is cleared to be discharged per ERMD, pt is aox4, on room air, with stable vital signs. pt was given dc instructions, pt was able to verbalize understanding, pt id band and iv site removed without complications. pt is able to ambulate with steady gait. pt took all belongings.
== END 2020-04-26 00:40 | disposition home or self-care (01) ==
LOC: EMR 23:15
DX: R11.15 Cyclical vomiting syndrome unrelated to migraine (principal); R10.84 Generalized abdominal pain; I10 Essential (primary) hypertension
CPT/HCPCS: 36415; 80053; 81003; 83690; 85025; 96361; 96374; 96375; 96376; 99284; J1170; J2405; J7030

== ENCOUNTER 2020-04-29 03:28 | Emergency (ER) | payer MEDICARE, MEDICAID ==
[~2020-04-29] VITALS: Ht 177.8 cm; Wt 104.3 kg
[2020-04-29 03:30] VITALS: BP 160/125
--- NOTE | 2020-04-29 03:39 | NUR ---
ED Nurse Note: PT AMBULATED TO ED FROM HOME C/O N/V X3 DAYS, PT WAS SEEN A FEW DAYS AGO FOR THE SAME REASONS. PT C/O 10/10 ABDOMINAL PAIN RADIATING TO BACK AND NECK. PT HAS A HX OF PANCRIATITIS, PT WITH ELEVATED BP. PT PLACED ON DIRECTOR PAYMENT. PT IS A&OX4.
--- NOTE | 2020-04-29 03:47 | Emergency Room Report ---
History of Present Illness General Chief Complaint: Nausea Source: Patient Present Illness HPI Patient is a 44-year-old female past medical history of obesity, cyclical vomiting and hypertension who presents to the ER complaining of epigastric discomfort, nonbilious nonbloody vomitus and nausea for the past 3 days. Patient was here earlier in the week for the same complaint. Patient denies any fever or chills. She denies any chest pain or shortness of breath. She denies any dysuria or hematuria. She denies any diarrhea. She states that usually Zofran and morphine help her symptoms. Allergies: Coded Allergies: No Known Allergies (Unverified , 09/16/17) COVID-19 Screening Contact w/high risk pt: No Recent Travel to affected area: No Experienced COVID-19 symptoms?: Yes COVID-19 Testing performed MANAGER OF HOSPITAL: No Patient History Last Menstrual Period: unk Now: No : 1 Para: 1 Reviewed Nursing Documentation: PMH: Agreed; PSxH: Agreed Nursing Documentation-PMH Past Medical History: No History, Except For Hx Cardiac Problems: Yes Hx Hypertension: Yes Hx Diabetes: No Hx Cancer: No Hx Neurological Problems: Yes Hx Headaches: Yes Review of Systems All Other Systems: negative except mentioned in HPI Physical Exam Vital Signs Date Time Temp Pulse Resp B/P (MAP) Pulse Ox O2 Delivery O2 Flow Rate FiO2 04/29/20 03:30 97.9 107 22 160/125 (137) 96 Room Air Sp02 EP Interpretation: reviewed, normal General Appearance: alert, GCS 15, mild distress Head: normocephalic, atraumatic Eyes: bilateral eye normal inspection, bilateral eye PERRL ENT: hearing grossly normal, normal pharynx, no angioedema, normal voice Neck: full range of motion, supple/symm/no masses Respiratory: chest non-tender, lungs clear, normal breath sounds, speaking full sentences Cardiovascular #1: tachycardia Gastrointestinal: other - Mild epigastric tenderness to palpation with no guarding or rebound, overweight Rectal: deferred Genitourinary: no CVA tenderness Musculoskeletal: normal range of motion, no calf tenderness, no lower extremity edema Neurologic: injection molding operator III-XII nml as tested, oriented x3 Psychiatric: no suicidal/homicidal ideation Skin: no rash Lymphatic: no adenopathy Medical Decision Making ER Course Patient given IV fluids, Zofran and Reglan as well as IV narcotics and GI cocktail. On reevaluation at 5:15 AM patient states that she feels improved. She appears much improved as well. I explained to the patient that her white blood cell count is higher than her baseline and therefore I would like to order CT to rule out any acute intra-abdominal pathology. Patient is aware. Patient pending CT abd/pelvis. Signed out to [facility] pending CT, reevaluation, and final disposition. Laboratory Tests Test 04/29/20 04:00 04/29/20 05:00 White Blood Count 16.5 K/UL (4.8-10.8) H Red Blood Count 4.91 M/UL (4.20-5.40) Hemoglobin 11.8 G/DL (12.0-16.0) L Hematocrit 38.8 % (37.0-47.0) Mean Corpuscular Volume 79 FL (80-99) L Mean Corpuscular Hemoglobin 24.0 PG (27.0-31.0) L Mean Corpuscular Hemoglobin Concent 30.3 G/DL (32.0-36.0) L Red Cell Distribution Width 16.1 % (11.6-14.8) H Platelet Count 576 K/UL (150-450) H Mean Platelet Volume 6.2 FL (6.5-10.1) L Neutrophils (%) (Auto) 80.5 % (45.0-75.0) H Lymphocytes (%) (Auto) 15.4 % (20.0-45.0) L Monocytes (%) (Auto) 2.6 % (1.0-10.0) Eosinophils (%) (Auto) 0.5 % (0.0-3.0) Basophils (%) (Auto) 0.9 % (0.0-2.0) Sodium Level 134 MMOL/L (136-145) L Potassium Level 3.4 MMOL/L (3.5-5.1) L Chloride Level 102 MMOL/L (98-107) Carbon Dioxide Level 22 MMOL/L (21-32) Blood Urea Nitrogen 13 mg/dL (7-18) Creatinine 1.2 MG/DL (0.55-1.30) Estimated Glomerular Filtration Rate 58.7 mL/min (>60) Glucose Level 153 MG/DL (74-106) H Calcium Level 8.6 MG/DL (8.5-10.1) Magnesium Level 2.0 MG/DL (1.8-2.4) Total Bilirubin 0.2 MG/DL (0.2-1.0) Aspartate Amino Transferase (AST) 17 U/L (15-37) Alanine Aminotransferase (ALT) 12 U/L (12-78) Alkaline Phosphatase 152 U/L (46-116) H Total Protein 8.3 G/DL (6.4-8.2) H Albumin 3.7 G/DL (3.4-5.0) Globulin 4.6 g/dL Albumin/Globulin Ratio 0.8 (1.0-2.7) L Lipase 200 U/L (73-393) Urine Color Pale yellow Urine Appearance Slightly cloudy Urine pH 6.5 (4.5-8.0) Urine Specific [place] 1.015 (1.005-1.035) Urine Protein 1+ (NEGATIVE) H Urine Glucose (UA) Negative (NEGATIVE) Urine Ketones 1+ (NEGATIVE) H Urine Blood 5+ (NEGATIVE) H Urine Nitrite Negative (NEGATIVE) Urine Bilirubin Negative (NEGATIVE) Urine Urobilinogen Normal MG/DL (0.0-1.0) Urine Leukocyte Esterase Negative (NEGATIVE) Urine RBC Pending Urine WBC Pending Urine Squamous Epithelial Cells Pending Urine Bacteria Pending Urine HCG, Qualitative Negative (NEGATIVE) Urine Opiates Screen Positive (NEGATIVE) H Urine Barbiturates Screen Negative (NEGATIVE) Phencyclidine (PCP) Screen Negative (NEGATIVE) Urine Amphetamines Screen Negative (NEGATIVE) Urine Benzodiazepines Screen Negative (NEGATIVE) Urine Cocaine Screen Negative (NEGATIVE) Urine Marijuana (THC) Screen Negative (NEGATIVE) EKG Diagnostic Results Troponin ordered: No - EKG ordered for epigastric pain EKG Time: 03:43 EP Interpretation: Zaynab Dowd MD Rate: tachycardiac - 102 bpm Rhythm: other - Sinus tachycardia ST Segments: no acute changes ASA given to the pt in ED: No Rhythm Strip Diag. Results Rhythm Strip Time: 04:04 EP Interpretation: yes - Zaynab Dowd MD Rate: 101 bpm Rhythm: no PVC's, no ectopy, other - Sinus tachycardia Last Vital Signs Date Time Temp Pulse Resp B/P (MAP) Pulse Ox O2 Delivery O2 Flow Rate FiO2 04/29/20 03:30 97.9 107 22 160/125 (137) 96 Room Air Condition: Improved Signed Out To: Dr. Mayers at 0600 Referrals: NON PHYSICIAN (PCP) Additional Instructions: Please note that this report is being documented using Gro technology. This can lead to erroneous entry secondary to incorrect interpretation by the dictating instrument. Zaynab Dowd M.D. Apr 29, 2020 03:47
[2020-04-29 04:11] LABS: BASOPHILS % (AUTO) 0.9 % (0.0-2.0); EOSINOPHILS % (AUTO) 0.5 % (0.0-3.0); HEMATOCRIT 38.8 % (37.0-47.0); HEMOGLOBIN 11.8 G/DL (12.0-16.0); LYMPHOCYTES % (AUTO) 15.4 % (20.0-45.0); MEAN CORPUSCULAR VOLUME 79 FL (80-99); MONOCYTES % (AUTO) 2.6 % (1.0-10.0); NEUTROPHILS % (AUTO) 80.5 % (45.0-75.0); PLATELET COUNT 576 K/UL (150-450); RED BLOOD COUNT 4.91 M/UL (4.20-5.40); RED CELL DISTRIBUTION WIDTH 16.1 % (11.6-14.8); WHITE BLOOD COUNT 16.5 K/UL (4.8-10.8)
[2020-04-29] MEDS ORDERED: Morphine Sulfate 4mg/ml Inj (IV USE ONLY) IVP ONE ×3 (04:15→06:45)
[2020-04-29 04:26] LABS: ALANINE AMINOTRANSFERASE 12 U/L (12-78); ALBUMIN 3.7 G/DL (3.4-5.0); ALBUMIN/GLOBULIN RATIO 0.8 (1.0-2.7); ALKALINE PHOSPHATASE 152 U/L (46-116); ASPARTATE AMINO TRANSFERASE 17 U/L (15-37); BILIRUBIN,TOTAL 0.2 MG/DL (0.2-1.0); CALCIUM 8.6 MG/DL (8.5-10.1); CARBON DIOXIDE 22 MMOL/L (21-32); CREATININE 1.2 MG/DL (0.55-1.30)
[2020-04-29] MEDS ORDERED: Omnipaque-300 100ml vial INJ PRN (04:30)
[2020-04-29 04:36] LABS: CHLORIDE 102 MMOL/L (98-107); POTASSIUM 3.4 MMOL/L (3.5-5.1); SODIUM 134 MMOL/L (136-145)
[2020-04-29] MEDS ORDERED: Mylanta II UD 30ml ONE (04:43)
[2020-04-29] MEDS ORDERED: Lidocaine 2% Visc 15ml soln ONE (04:43)
[2020-04-29] MEDS ORDERED: Dicyclomine HCl 10mg/5ml oral soln ORAL ONE (04:45)
[2020-04-29] MEDS ORDERED: HYDROmorphone 1mg/ml Carpuject IVP ONE (04:45)
[2020-04-29] MEDS ORDERED: Metoclopramide 10mg/2ml Inj IVP ONE (04:45)
[2020-04-29] MEDS ORDERED: GI Cocktail 50 ML LIQD ORAL ONE (04:45)
[2020-04-29 04:53] LABS: BLOOD UREA NITROGEN 13 mg/dL (7-18)
[2020-04-29 05:30] VITALS: BP 137/98
[2020-04-29 05:38] LABS: APPEARANCE,URINE SLIGHTLY CLOUDY; BILIRUBIN, URINE NEGATIVE (NEGATIVE); COLOR,URINE PALE YELLOW; GLUCOSE, URINE (UA) NEGATIVE (NEGATIVE); KETONES,URINE 1+ (NEGATIVE); LEUKOCYTE ESTERASE ,URINE NEGATIVE (NEGATIVE); NITRITE,URINE NEGATIVE (NEGATIVE); PH,URINE 6.5 (4.5-8.0); PROTEIN,URINE 1+ (NEGATIVE); UROBILINOGEN,URINE NORMAL MG/DL (0.0-1.0)
--- NOTE | 2020-04-29 06:02 | NUR ---
ED Nurse Note: pt to ct
--- NOTE | 2020-04-29 06:17 | Emergency Room Report ---
Physical Exam Vital Signs Date Time Temp Pulse Resp B/P (MAP) Pulse Ox O2 Delivery O2 Flow Rate FiO2 04/29/20 03:30 97.9 99 22 160/125 96 Room Air Medical Decision Making Diagnostic Impression: Primary Impression: Nausea & vomiting ER Course Assumed care of the patient from the previous provider at approximately 0600. Please refer to initial note for full history and physical exam. Briefly, 44-year-old female history of cyclic vomiting syndrome presents for evaluation of vomiting abdominal pain. Symptoms are now controlled. No further emesis in the ED. At the time of signout we are awaiting CT as the patient's white blood cell count was elevated above her baseline. CT shows evidence of enteritis but otherwise no other major findings. Patient stable for outpatient follow-up. We will renew her prescriptions for Zofran and ranitidine. Instructed to follow-up with her PMD and return with new or worsening symptoms. She understands and agrees with this treatment plan. CT/MRI/US Diagnostic Results CT/MRI/US Diagnostic Results : Impression Final Report EXAM: CT Abdomen and Pelvis With Intravenous Contrast CLINICAL HISTORY: PAIN TECHNIQUE: Axial computed tomography images of the abdomen and pelvis with intravenous contrast. CTDI is 12.9 mGy and DLP is 674.5 mGy-cm. One or more of the following dose reduction techniques were used: automated exposure control, adjustment of the mA and/or kV according to patient size, use of iterative reconstruction technique. COMPARISON: 05/04/19 FINDINGS: Lung bases: Unremarkable. No mass. No consolidation. ABDOMEN: Liver: Unremarkable. No mass. Gallbladder and bile ducts: Cholecystectomy. No ductal dilation. Pancreas: Unremarkable. No mass. No ductal dilation. Spleen: Unremarkable. No splenomegaly. Adrenals: Unremarkable. No mass. Kidneys and ureters: Unremarkable. No solid mass. No hydronephrosis. Stomach and bowel: There is mild mural thickening of multiple loops of proximal and mid small bowel consistent with enteritis. There is mural thickening versus incomplete distention of the colon. Colitis cannot be excluded. PELVIS: Appendix: No findings to suggest acute appendicitis. Bladder: Unremarkable. No mass. Reproductive: Unremarkable as visualized. ABDOMEN and PELVIS: Intraperitoneal space: Unremarkable. No free air. No significant fluid collection. Bones/joints: No acute fracture. No dislocation. Soft tissues: Unremarkable. Vasculature: Unremarkable. No abdominal aortic aneurysm. Lymph nodes: Unremarkable. No enlarged lymph nodes. IMPRESSION: There is mild mural thickening of multiple loops of proximal and mid small bowel consistent with enteritis. There is mural thickening versus incomplete distention of the colon. Colitis cannot be excluded. Radiologist: Renan Hurley MD Electronically Signed: 04/29/20 07:07 Study ready at 06:39 and initial results transmitted at 07:07 Last Vital Signs Date Time Temp Pulse Resp B/P (MAP) Pulse Ox O2 Delivery O2 Flow Rate FiO2 04/29/20 05:11 97.9 04/29/20 03:30 107 22 160/125 (137) 96 Room Air Disposition: HOME, SELF-CARE Condition: Stable Scripts Ondansetron (Zofran) 4 Mg Tablet 4 MG ORAL Q6H PRN for Nausea & Vomiting, #30 TAB 0 Refills Prov: Cachorro Mayers MD 04/29/20 Ranitidine Hcl* (ZANTAC) 150 Mg Tablet 150 MG ORAL TWICE A DAY, #30 TAB Prov: Cachorro Mayers MD 04/29/20 Referrals: NON PHYSICIAN (PCP) Additional Instructions: Please note that this report is being documented using [employer] technology. This can lead to erroneous entry secondary to incorrect interpretation by the dictating instrument. Cachorro Mayers MD Apr 29, 2020 06:17
--- NOTE | 2020-04-29 06:58 | NUR ---
HAND-OFF: Report given to RONNY Frank.
--- NOTE | 2020-04-29 07:08 | Diagnostic Imaging Report ---
EXAM: CT Abdomen and Pelvis With Intravenous Contrast CLINICAL HISTORY: PAIN TECHNIQUE: Axial computed tomography images of the abdomen and pelvis with intravenous contrast. CTDI is 12.9 mGy and DLP is 674.5 mGy-cm. One or more of the following dose reduction techniques were used: automated exposure control, adjustment of the mA and/or kV according to patient size, use of iterative reconstruction technique. COMPARISON: 05/04/19 FINDINGS: Lung bases: Unremarkable. No mass. No consolidation. ABDOMEN: Liver: Unremarkable. No mass. Gallbladder and bile ducts: Cholecystectomy. No ductal dilation. Pancreas: Unremarkable. No mass. No ductal dilation. Spleen: Unremarkable. No splenomegaly. Adrenals: Unremarkable. No mass. Kidneys and ureters: Unremarkable. No solid mass. No hydronephrosis. Stomach and bowel: There is mild mural thickening of multiple loops of proximal and mid small bowel consistent with enteritis. There is mural thickening versus incomplete distention of the colon. Colitis cannot be excluded. PELVIS: Appendix: No findings to suggest acute appendicitis. Bladder: Unremarkable. No mass. Reproductive: Unremarkable as visualized. ABDOMEN and PELVIS: Intraperitoneal space: Unremarkable. No free air. No significant fluid collection. Bones/joints: No acute fracture. No dislocation. Soft tissues: Unremarkable. Vasculature: Unremarkable. No abdominal aortic aneurysm. Lymph nodes: Unremarkable. No enlarged lymph nodes. IMPRESSION: There is mild mural thickening of multiple loops of proximal and mid small bowel consistent with enteritis. There is mural thickening versus incomplete distention of the colon. Colitis cannot be excluded.
[2020-04-29] MEDS ORDERED: ZOFRAN4 MG ORAL (07:10)
[2020-04-29] MEDS ORDERED: RANITIDINE HCL150 MG ORAL (07:10)
[2020-04-29 07:20] VITALS: BP 133/89
--- NOTE | 2020-04-29 07:20 | NUR ---
ER DISCHARGE NOTE: Patient is cleared to be discharged per ERMD, pt is aox4, on room air, with stable vital signs. pt was given dc and prescription instructions, pt was able to verbalize understanding, pt id band and iv sites removed without complications. pt is able to ambulate with steady gait. pt took all belongings.
== END 2020-04-29 07:20 | disposition home or self-care (01) ==
LOC: EMR 03:44
DX: K52.9 Noninfective gastroenteritis and colitis, unspecified (principal); R11.2 Nausea with vomiting, unspecified; Z90.49 Acquired absence of other specified parts of digestive tract; I10 Essential (primary) hypertension; E66.3 Overweight; Z68.33 Body mass index [BMI] 33.0-33.9, adult; R00.0 Tachycardia, unspecified
CPT/HCPCS: 36415; 74177; 80053; 80307; 81003; 81025; 83690; 83735; 84703; 85025; 93005; 96361; 96374; 96375; 96376; 99284; J1170; J2270; J2405; J2765; J7030; Q9965; S0028

== ENCOUNTER 2020-05-25 20:34 | Emergency (ER) | payer MEDICARE, MEDICAID ==
[~2020-05-25] VITALS: Ht 177.8 cm; Wt 110.2 kg
--- NOTE | 2020-05-25 21:10 | NUR ---
ED Nurse Note: Recierved pt walk in from home, here with c/o right shoulder pain x 2 weeks at 04/15, pt states she has been taking dilaudid at home for pain and now it is not effective, pt denies cp, sob, injury to area or any other complaints, or discomforts, pt gowned and placed on gurney.
--- NOTE | 2020-05-25 21:13 | Emergency Room Report ---
History of Present Illness General Chief Complaint: Pain Source: Patient (Amor Chase MD) Present Illness HPI Patient is a 44-year-old female presents for increased right-sided shoulder pain. Prior history of chronic pain. Currently in pain management. Pain is worse with movement. Reports having pain to the posterior right shoulder. Denies any recent trauma. Had been having normal movement to the hands. (Amor Chase MD) Allergies: Coded Allergies: No Known Allergies (Unverified , 09/16/17) COVID-19 Screening Contact w/high risk pt: No Recent Travel to affected area: No Experienced COVID-19 symptoms?: No COVID-19 Testing performed PASTE UP ARTIST: No COVID-19 Screening: Negative COVID-19 COVID-19 Testing Source: [facility] (Amor Chase MD) Patient History Past Medical History: see triage record Now: No Reviewed Nursing Documentation: PMH: Agreed; PSxH: Agreed (Amor Chase MD) Nursing Documentation-PMH Hx Cardiac Problems: Yes Hx Hypertension: Yes Hx Diabetes: No Hx Cancer: No Hx Neurological Problems: Yes Hx Headaches: Yes (Amor Chase MD) Review of Systems All Other Systems: negative except mentioned in HPI (Amor Chase MD) Physical Exam Vital Signs Date Time Temp Pulse Resp B/P (MAP) Pulse Ox O2 Delivery O2 Flow Rate FiO2 05/25/20 20:48 99.0 84 18 137/99 (112) 99 Room Air Sp02 EP Interpretation: reviewed, normal General Appearance: normal inspection, well appearing, no apparent distress, alert, GCS 15, non-toxic, obese Head: atraumatic ENT: normal ENT inspection, hearing grossly normal, normal voice Neck: normal inspection, full range of motion, supple, no bony tend Respiratory: normal inspection, lungs clear, normal breath sounds, no respiratory distress, no retraction, no wheezing Cardiovascular #1: regular rate, rhythm, no edema Gastrointestinal: normal inspection, normal bowel sounds, non tender, soft, no guarding, no hernia Genitourinary: no CVA tenderness Musculoskeletal: normal inspection, back normal, other - Tenderness to the suprascapular area and over the supraspinatus tendon Neurologic: alert, motor strength/tone normal, food service aide III-XII nml as tested, oriented x3, responsive, speech normal, normal inspection Psychiatric: normal inspection, judgement/insight normal, mood/affect normal (Amor Chase MD) Medical Decision Making Diagnostic Impression: Primary Impression: Right shoulder pain Qualified Codes: M25.511 - Pain in right shoulder Additional Impression: Opiate dependence Qualified Codes: F11.29 - Opioid dependence with unspecified opioid-induced disorder ER Course Patient presented for right shoulder pain. Differential diagnosis include was not limited to contusion, dislocation, fracture, bursitis, tendinitis among others. X-ray imaging was ordered to patient's complaint of pain. She was noted have prior history of chronic pain is currently in pain management. Patient was given topical NSAID as well as oral pain medication. Patient states that she is taking Dilaudid at home. Patient will be discharged home. She is advised to follow-up with her primary care physician for reevaluation. Joint does not appear to have any evidence of erythema or significant inflammation at this time. Patient was advised to return if worse. This medical record is generated with THYME commercial production editor software. There may be some commercial production editor discrepancies related to use of this software (Amor Chase MD) ER Course Please see above note. Patient had been given [place] to control pain that she takes Dilaudid for at [facility]. She states pain is not controlled. IM Dilaudid given. Improvement prior to discharge. (Marcos Thompson MD) Last Vital Signs Date Time Temp Pulse Resp B/P (MAP) Pulse Ox O2 Delivery O2 Flow Rate FiO2 05/25/20 20:48 99.0 84 18 137/99 (112) 99 Room Air Status: improved (Amor Chase MD) Last Vital Signs Date Time Temp Pulse Resp B/P (MAP) Pulse Ox O2 Delivery O2 Flow Rate FiO2 05/25/20 23:57 98.9 78 18 137/99 99 Room Air Status: improved (Marcos Thompson MD) Disposition: HOME, SELF-CARE Condition: Improved Amor Chase MD May 25, 2020 21:13 Marcos Thompson MD May 25, 2020 23:48
[2020-05-25] MEDS ORDERED: HYDROcodone/Acetamin 5/325 tab ORAL ONE (21:15)
[2020-05-25] MEDS ORDERED: Diclofenac 1% Gel 100gm TOPIC ONE ×2 (21:15→21:45)
[2020-05-25 22:15] VITALS: BP 131/82
--- NOTE | 2020-05-25 22:30 | NUR ---
ED Nurse Note: Meds given effective, pt states no pain at all, meds effective, pt ambulating in bathroom, steady gait, tolerating well, denies cp, sob, or any acute chagnes, pt asking to go home, waiting for results and dispo information.
[2020-05-25] MEDS ORDERED: HYDROmorphone 1mg/ml Carpuject IM ONE (23:00)
[2020-05-25] MEDS ORDERED: HYDROmorphone 1mg/ml Carpuject IVP ONE (23:00)
--- NOTE | 2020-05-25 23:55 | NUR ---
DISCHARGED home with instruction to follow up with pmd right shoulder sling in place. no pain now
[2020-05-25 23:56] VITALS: BP 130/90
[2020-05-25 23:57] VITALS: BP 137/99
--- NOTE | 2020-05-26 14:39 | Diagnostic Imaging Report ---
Indication: Shoulder pain Technique: 3 views of the right shoulder Comparison: None Findings: Bony mineralization is within normal limits. No acute fracture or dislocation is identified. Imaged portions of the right lung grossly clear. No radiopaque foreign body. Impression: No acute fracture or dislocation.
== END 2020-05-26 | disposition home or self-care (01) ==
LOC: EMR 21:20
DX: M25.511 Pain in right shoulder (principal); F11.29 Opioid dependence with unspecified opioid-induced disorder; I11.0 Hypertensive heart disease with heart failure; Z79.899 Other long term (current) drug therapy
CPT/HCPCS: 73030; 96372; 99283; J1170

== ENCOUNTER 2020-08-07 06:30 | Emergency (ER) | payer MEDICAID, MEDICARE ==
[~2020-08-07] VITALS: Ht 177.8 cm; Wt 97.5 kg
[2020-08-07] MEDS ORDERED: HYDROmorphone 1mg/ml Carpuject IVP ONE ×2 (06:45→08:00)
--- NOTE | 2020-08-07 07:18 | Emergency Room Report ---
History of Present Illness General Chief Complaint: Abdominal Pain Source: Patient Present Illness HPI 45-year-old female history of cyclical vomiting syndrome, hypertension, currently on Dilaudid at home presents with acute nausea vomiting, diarrhea, no chest pain no shortness of breath. 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: No Patient History Past Medical History: see triage record Social History: Reports: smoking Reviewed Nursing Documentation: PMH: Agreed; PSxH: Agreed Nursing Documentation-PMH Hx Cardiac Problems: Yes Hx Hypertension: Yes Hx Diabetes: No Hx Cancer: No Hx Neurological Problems: Yes Hx Headaches: Yes Review of Systems All Other Systems: negative except mentioned in HPI Physical Exam Vital Signs Date Time Temp Pulse Resp B/P (MAP) Pulse Ox O2 Delivery O2 Flow Rate FiO2 08/07/20 06:53 98.1 97 18 130/85 (100) 95 Room Air Sp02 EP Interpretation: reviewed, normal General Appearance: well appearing, no apparent distress, alert Head: normocephalic, atraumatic Eyes: bilateral eye PERRL, bilateral eye EOMI ENT: uvula midline, moist mucus membranes Neck: supple, thyroid normal, supple/symm/no masses Respiratory: lungs clear, no respiratory distress, no retraction, no accessory muscle use Cardiovascular #1: normal peripheral pulses, regular rate, rhythm, no edema, no gallop, no murmur Gastrointestinal: non tender, soft, no guarding, no rebound Musculoskeletal: normal inspection Neurologic: alert, oriented x3 Psychiatric: mood/affect normal Skin: no rash, warm/dry Medical Decision Making Diagnostic Impression: Primary Impression: Abdominal pain Qualified Codes: R10.30 - Lower abdominal pain, unspecified ER Course Repeat abdominal exam 8:12 AM patient's abdomen remains soft nontender patient states her pain is well controlled. Joint decision making made with patient patient with a recent CT scan in April 2020 patient states she opts not to have another CT scan she will watch and wait see if symptoms worsen and will return to the ED for a CT scan. Patient was amenable to receiving Zofran as an outpatient so that she can continue to take her hydromorphone at home. Differential diagnosis included urinary tract infection pyelonephritis, appendicitis, diverticulitis. Patient with known cyclical vomiting syndrome, anticipatory guidance given to patient patient will return if she worsens Strict abdominal return precautions were discussed Last Vital Signs Date Time Temp Pulse Resp B/P (MAP) Pulse Ox O2 Delivery O2 Flow Rate FiO2 08/07/20 06:53 98.1 97 18 130/85 (100) 95 Room Air Disposition: HOME, SELF-CARE Condition: Stable Scripts Ondansetron (Zofran) 4 Mg Tablet 4 MG ORAL Q8H PRN for Nausea & Vomiting, #21 TAB 0 Refills Prov: Marlon Hester MD 08/07/20 Referrals: [facility] Patient Instructions: Abdominal Pain, Adult Additional Instructions: The patient was provided with discharge instructions, notified to follow-up with a primary care doctor and or specialist in the next 24-48 hours, and to return to the ED if they have worsening of their symptoms. Please note that this report is being documented using FitWithMe technology. This can lead to erroneous entry secondary to incorrect interpretation by the dictating instrument. Marlon Hester MD Aug 07, 2020 07:17
[2020-08-07 07:20] VITALS: BP 129/93
[2020-08-07 07:49] LABS: APPEARANCE,URINE SLIGHTLY CLOUDY; BILIRUBIN, URINE NEGATIVE (NEGATIVE); GLUCOSE, URINE (UA) NEGATIVE (NEGATIVE); KETONES,URINE NEGATIVE (NEGATIVE); LEUKOCYTE ESTERASE ,URINE 1+ (NEGATIVE); NITRITE,URINE NEGATIVE (NEGATIVE); PH,URINE 6.5 (4.5-8.0); PROTEIN,URINE 1+ (NEGATIVE); UROBILINOGEN,URINE NORMAL MG/DL (0.0-1.0)
[2020-08-07 07:56] LABS: COLOR,URINE YELLOW
[2020-08-07 07:56] LABS: BASOPHILS % (AUTO) 0.7 % (0.0-2.0); EOSINOPHILS % (AUTO) 0.9 % (0.0-3.0); HEMATOCRIT 40.2 % (37.0-47.0); HEMOGLOBIN 11.4 G/DL (12.0-16.0); LYMPHOCYTES % (AUTO) 23.5 % (20.0-45.0); MEAN CORPUSCULAR VOLUME 80 FL (80-99); MONOCYTES % (AUTO) 6.2 % (1.0-10.0); NEUTROPHILS % (AUTO) 68.7 % (45.0-75.0); PLATELET COUNT 497 K/UL (150-450); RED BLOOD COUNT 5.01 M/UL (4.20-5.40); RED CELL DISTRIBUTION WIDTH 17.4 % (11.6-14.8); WHITE BLOOD COUNT 12.1 K/UL (4.8-10.8)
[2020-08-07 08:00] LABS: ANION GAP 10 mmol/L (5-15); BLOOD UREA NITROGEN 16 mg/dL (7-18); CARBON DIOXIDE 24 MMOL/L (21-32); CHLORIDE 107 MMOL/L (98-107); POTASSIUM 3.6 MMOL/L (3.5-5.1); SODIUM 141 MMOL/L (136-145)
[2020-08-07] MEDS ORDERED: DiphenhydrAMINE 50mg/ml Inj IVP ONE (08:00)
[2020-08-07 08:04] LABS: ALANINE AMINOTRANSFERASE 10 U/L (12-78); ALBUMIN 3.6 G/DL (3.4-5.0); ALBUMIN/GLOBULIN RATIO 0.8 (1.0-2.7); ALKALINE PHOSPHATASE 143 U/L (46-116); ASPARTATE AMINO TRANSFERASE 13 U/L (15-37); BILIRUBIN,TOTAL 0.4 MG/DL (0.2-1.0)
[2020-08-07] MEDS ORDERED: ZOFRAN4 MG ORAL (08:14)
[2020-08-07 08:38] VITALS: BP 113/63
== END 2020-08-07 08:20 | disposition home or self-care (01) ==
LOC: EMR 07:40
DX: R10.30 Lower abdominal pain, unspecified (principal); R11.2 Nausea with vomiting, unspecified; I10 Essential (primary) hypertension; F17.200 Nicotine dependence, unspecified, uncomplicated
CPT/HCPCS: 36415; 80053; 81003; 81025; 83690; 85025; 96361; 96374; 96375; 96376; J1170; J1200; J2405; J7030; Z7502; 99284

== ENCOUNTER 2020-08-08 11:24 | Emergency (ER) | payer MEDICAID ==
[~2020-08-08] VITALS: Ht 177.8 cm; Wt 97.5 kg
--- NOTE | 2020-08-08 12:01 | NUR ---
Patient in ER today c/o cyclic vomiting syndrome. Presenting with epi-gastric abdominal pain. She was at the ER yesterday, treated for said problem and sent home. She reports that she still feels badly. PMH: HTN, GERD, leukocytosis, dyslipidemia, anemia, opiate dependency, pancreatitis and cyclic vomiting syndrome. Ambulatory and independent. AAOX4. Awaiting MD for re-evaluation.
[2020-08-08 12:12] VITALS: BP 172/114
--- NOTE | 2020-08-08 12:35 | Emergency Room Report ---
History of Present Illness General Chief Complaint: Abdominal Pain Source: Patient (Amor Chase MD) Present Illness HPI Patient is a 45-year-old female presents for increased abdominal pain and vomiting. Prior history of cyclic vomiting syndrome. Multiple similar episodes in the past with multiple previous ER visits. Patient is currently in pain management and normally takes multiple medications for nausea including Zofran and Reglan as well as Dilaudid and gabapentin for chronic pain. Patient is followed by [facility]. Denies any hematemesis. Denies any bloody stools. Some episodes of diarrhea. Has been taking amlodipine for blood pressure. 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 COVID-19 Screening: Negative COVID-19 COVID-19 Testing Source: 2 weeks ago (Amor Chase MD) Patient History Now: No (Amor Chase MD) Nursing Documentation-[facility] Past Medical History: No History, Except For Hx Cardiac Problems: Yes Hx Hypertension: Yes Hx Diabetes: No Hx Cancer: No Hx Neurological Problems: Yes Hx Headaches: Yes (Amor Chase MD) Physical Exam Vital Signs Date Time Temp Pulse Resp B/P (MAP) Pulse Ox O2 Delivery O2 Flow Rate FiO2 08/08/20 11:34 98.4 97 20 172/114 (133) 95 Room Air Sp02 EP Interpretation: reviewed, normal General Appearance: normal inspection, alert, GCS 15, obese Head: atraumatic ENT: normal ENT inspection, hearing grossly normal, normal voice Neck: normal inspection, full range of motion, supple, no bony tend Respiratory: normal inspection, lungs clear, normal breath sounds, no respiratory distress, no retraction, no wheezing Cardiovascular #1: regular rate, rhythm, no edema Gastrointestinal: normal inspection, normal bowel sounds, non tender, soft, no guarding, no hernia Genitourinary: no CVA tenderness Musculoskeletal: normal inspection, back normal, normal range of motion Neurologic: alert, motor strength/tone normal, eyeglass fitter III-XII nml as tested, oriented x3, responsive, speech normal, normal inspection Psychiatric: normal inspection, judgement/insight normal, mood/affect normal Skin: no rash (Amor Chase MD) Gastrointestinal: non tender, soft, non-distended, no rebound (Marlon Hester MD) Medical Decision Making Diagnostic Impression: Primary Impression: Abdominal pain Qualified Codes: R10.84 - Generalized abdominal pain Additional Impression: Cyclical vomiting ER Course Patient presented for abdominal pain. Differential diagnosis include was not limited to cyclic vomiting, opiate withdrawal, gastritis, among others. Patient is multiple episodes of similar symptoms in the past. Laboratory testing was ordered as well as IV pain medications. Patient was started on IV fluids. Patient was endorsed to Dr. Hester pending laboratory testing results. (Amor Chase MD) ER Course 45-year-old female history of cyclical vomiting, presents with recurrent symptoms, patient states she needs hydromorphone Patient was given hydromorphone with complete cessation of her symptoms Repeat abdominal exam at 3:31 PM patient's abdomen soft nontender no rebound no guarding patient states she feels comfortable going home and will return if she worsens patient counseled that if she continues to present to the ED she may require a CT scan Disposition home with return precautions patient will follow up with gastroenterology Laboratory Tests Test 08/08/20 13:15 White Blood Count 9.3 K/UL (4.8-10.8) Red Blood Count 5.26 M/UL (4.20-5.40) Hemoglobin 11.9 G/DL (12.0-16.0) L Hematocrit 41.8 % (37.0-47.0) Mean Corpuscular Volume 79 FL (80-99) L Mean Corpuscular Hemoglobin 22.7 PG (27.0-31.0) L Mean Corpuscular Hemoglobin Concent 28.5 G/DL (32.0-36.0) L Red Cell Distribution Width 18.0 % (11.6-14.8) H Platelet Count 372 K/UL (150-450) Mean Platelet Volume 7.5 FL (6.5-10.1) Neutrophils (%) (Auto) 68.5 % (45.0-75.0) Lymphocytes (%) (Auto) 23.4 % (20.0-45.0) Monocytes (%) (Auto) 5.9 % (1.0-10.0) Eosinophils (%) (Auto) 1.0 % (0.0-3.0) Basophils (%) (Auto) 1.2 % (0.0-2.0) Urine Color Pale yellow Urine Appearance Clear Urine pH 6.5 (4.5-8.0) Urine Specific [place] 1.010 (1.005-1.035) Urine Protein Negative (NEGATIVE) Urine Glucose (UA) Negative (NEGATIVE) Urine Ketones Negative (NEGATIVE) Urine Blood 4+ (NEGATIVE) H Urine Nitrite Negative (NEGATIVE) Urine Bilirubin Negative (NEGATIVE) Urine Urobilinogen Normal MG/DL (0.0-1.0) Urine Leukocyte Esterase Negative (NEGATIVE) Urine RBC 5-10 /HPF (0 - 2) H Urine WBC 0-2 /HPF (0 - 2) Urine Squamous Epithelial Cells Few /LPF (NONE/OCC) Urine Bacteria Few /HPF (NONE) Urine HCG, Qualitative Negative (NEGATIVE) Sodium Level 140 MMOL/L (136-145) Potassium Level 4.7 MMOL/L (3.5-5.1) Chloride Level 106 MMOL/L (98-107) Carbon Dioxide Level 23 MMOL/L (21-32) Anion Gap 11 mmol/L (5-15) Blood Urea Nitrogen 13 mg/dL (7-18) Creatinine 0.9 MG/DL (0.55-1.30) Estimated Glomerular Filtration Rate > 60 mL/min (>60) Glucose Level 114 MG/DL (74-106) H Calcium Level 9.1 MG/DL (8.5-10.1) Total Bilirubin 0.4 MG/DL (0.2-1.0) Aspartate Amino Transferase (AST) 32 U/L (15-37) Alanine Aminotransferase (ALT) 10 U/L (12-78) L Alkaline Phosphatase 146 U/L (46-116) H Total Protein 8.5 G/DL (6.4-8.2) H Albumin 3.7 G/DL (3.4-5.0) Globulin 4.8 g/dL Albumin/Globulin Ratio 0.8 (1.0-2.7) L Lipase 198 U/L (73-393) (Marlon Hetser MD) Last Vital Signs Date Time Temp Pulse Resp B/P (MAP) Pulse Ox O2 Delivery O2 Flow Rate FiO2 08/08/20 12:12 98.4 97 172/114 95 Room Air 08/08/20 12:12 20 Status: improved (Amor Chase MD) Disposition: HOME, SELF-CARE Condition: Stable Referrals: [facility] Patient Instructions: Abdominal Pain, Adult Additional Instructions: The patient was provided with discharge instructions, notified to follow-up with a primary care doctor and or specialist in the next 24-48 hours, and to return to the ED if they have worsening of their symptoms. Please note that this report is being documented using 1,2,3 Listo technology. This can lead to erroneous entry secondary to incorrect interpretation by the dictating instrument. Amor Chase MD Aug 08, 2020 12:35 Marlon Hester MD Aug 08, 2020 15:32
[2020-08-08] MEDS ORDERED: HYDROmorphone 1 MG, DiphenhydrAMINE 25 MG in NS 55 ML IV ONE (12:45)
[2020-08-08] MEDS ORDERED: Metoclopramide 10mg/2ml Inj IVP ONE (12:45)
[2020-08-08 13:33] LABS: APPEARANCE,URINE CLEAR; BILIRUBIN, URINE NEGATIVE (NEGATIVE); COLOR,URINE PALE YELLOW; GLUCOSE, URINE (UA) NEGATIVE (NEGATIVE); KETONES,URINE NEGATIVE (NEGATIVE); LEUKOCYTE ESTERASE ,URINE NEGATIVE (NEGATIVE); NITRITE,URINE NEGATIVE (NEGATIVE); PH,URINE 6.5 (4.5-8.0); PROTEIN,URINE NEGATIVE (NEGATIVE); UROBILINOGEN,URINE NORMAL MG/DL (0.0-1.0)
[2020-08-08 13:35] LABS: BASOPHILS % (AUTO) 1.2 % (0.0-2.0); HEMATOCRIT 41.8 % (37.0-47.0); HEMOGLOBIN 11.9 G/DL (12.0-16.0); LYMPHOCYTES % (AUTO) 23.4 % (20.0-45.0); MEAN CORPUSCULAR VOLUME 79 FL (80-99); MONOCYTES % (AUTO) 5.9 % (1.0-10.0); NEUTROPHILS % (AUTO) 68.5 % (45.0-75.0); PLATELET COUNT 372 K/UL (150-450); RED BLOOD COUNT 5.26 M/UL (4.20-5.40); WHITE BLOOD COUNT 9.3 K/UL (4.8-10.8)
[2020-08-08 13:43] LABS: ANION GAP 11 mmol/L (5-15); BLOOD UREA NITROGEN 13 mg/dL (7-18); CALCIUM 9.1 MG/DL (8.5-10.1); CARBON DIOXIDE 23 MMOL/L (21-32); CHLORIDE 106 MMOL/L (98-107); CREATININE 0.9 MG/DL (0.55-1.30); POTASSIUM 4.7 MMOL/L (3.5-5.1); SODIUM 140 MMOL/L (136-145)
[2020-08-08 13:47] LABS: ALANINE AMINOTRANSFERASE 10 U/L (12-78); ALBUMIN 3.7 G/DL (3.4-5.0); ALBUMIN/GLOBULIN RATIO 0.8 (1.0-2.7); ALKALINE PHOSPHATASE 146 U/L (46-116); ASPARTATE AMINO TRANSFERASE 32 U/L (15-37); BILIRUBIN,TOTAL 0.4 MG/DL (0.2-1.0)
[2020-08-08] MEDS ORDERED: HYDROmorphone 1mg/ml Carpuject IVP ONE (14:45)
[2020-08-08 15:41] VITALS: BP 165/98
[2020-08-08 15:42] VITALS: BP 165/98
--- NOTE | 2020-08-08 15:43 | NUR ---
ED Nurse Note: Pt cleared by health care Provider for discharge. DC instructions was given and explained to pt and verbalized understanding of teachings. All medical deviecs such as ID band removed. Pt is AAO x4, ambulatory and left with all personal belongings.
== END 2020-08-08 15:44 | disposition home or self-care (01) ==
LOC: EMR 13:12
DX: R10.84 Generalized abdominal pain (principal); I11.9 Hypertensive heart disease without heart failure; Z79.899 Other long term (current) drug therapy
CPT/HCPCS: 36415; 80053; 81003; 81025; 83690; 85025; 96361; 96374; 96375; J1170; J1200; J2405; J2765; J7030; S0028; Z7502; 99284

== ENCOUNTER 2020-09-04 07:09 | Emergency (ER) | payer MEDICARE, MEDICAID ==
[~2020-09-04] VITALS: Ht 165.1 cm; Wt 86.2 kg
[2020-09-04 07:31] VITALS: BP 160/100
--- NOTE | 2020-09-04 07:34 | NUR ---
Patient presents to the ER for lower abdominal pain with nausea x 3 days but started throwing up at 3am this morning. AAOX4. Independently ambulatory. No syncopal episodes.
[2020-09-04] MEDS ORDERED: HYDROmorphone 1mg/ml Carpuject IVP ONE (07:45)
--- NOTE | 2020-09-04 07:48 | Emergency Room Report ---
History of Present Illness General Chief Complaint: Nausea Source: Patient Present Illness HPI 45-year-old female presents for abdominal pain with nausea and vomiting. Symptoms started yesterday. History of cyclical vomiting. Notes nausea and vomiting. Denies diarrhea. Pain is sharp, 6 out of 10, nonradiating. Denies chest pain or shortness of breath. No other aggravating relieving factors. Denies any other associated symptoms Allergies: Coded Allergies: No Known Allergies (Unverified , 09/16/17) COVID-19 Screening Contact w/high risk pt: No Recent Travel to affected area: No Experienced COVID-19 symptoms?: No COVID-19 Testing performed JAVA TECH: No Patient History Past Medical History: HTN, GERD Past Surgical History: none Pertinent Family History: none Social History: Denies: smoking, alcohol use, drug use Now: No Immunizations: UTD Reviewed Nursing Documentation: PMH: Agreed; PSxH: Agreed Nursing Documentation-PMH Hx Cardiac Problems: Yes Hx Hypertension: Yes Hx Diabetes: No Hx Cancer: No Hx Neurological Problems: Yes Hx Headaches: Yes Review of Systems All Other Systems: negative except mentioned in HPI Physical Exam Vital Signs Date Time Temp Pulse Resp B/P (MAP) Pulse Ox O2 Delivery O2 Flow Rate FiO2 09/04/20 07:31 98.1 82 18 160/100 (120) 98 Room Air Sp02 EP Interpretation: reviewed, normal General Appearance: no apparent distress, alert, GCS 15, non-toxic Head: normocephalic, atraumatic Eyes: bilateral eye normal inspection, bilateral eye PERRL ENT: hearing grossly normal, normal pharynx, no angioedema, normal voice Neck: full range of motion, supple/symm/no masses Respiratory: chest non-tender, lungs clear, normal breath sounds, speaking full sentences Cardiovascular #1: regular rate, rhythm, no edema Cardiovascular #2: 2+ carotid (R), 2+ carotid (L), 2+ radial (R), 2+ radial (L), 2+ dorsalis pedis (R), 2+ dorsalis pedis (L) Gastrointestinal: normal bowel sounds, soft, non-distended, no guarding, no rebound, tenderness Rectal: deferred Genitourinary: normal inspection, no CVA tenderness Musculoskeletal: back normal, normal range of motion, gait/station normal, non- tender Neurologic: alert, motor strength/tone normal, oriented x3, sensory intact, responsive, speech normal Psychiatric: judgement/insight normal, memory normal, mood/affect normal, no suicidal/homicidal ideation Reflexes: 3+ bicep (R), 3+ bicep (L), 3+ tricep (R), 3+ tricep (L), 3+ knee (R), 3+ knee (L) Skin: no rash Lymphatic: no adenopathy Medical Decision Making Diagnostic Impression: Primary Impression: Cyclical vomiting Additional Impressions: GERD (gastroesophageal reflux disease) Qualified Codes: K21.9 - Gastro-esophageal reflux disease without esophagitis Opiate dependence Qualified Codes: F11.29 - Opioid dependence with unspecified opioid-induced disorder ER Course Hospital Course 45-year-old female presents to ED with epigastric pain with N/V. History of cyclical vomiting differential diagnosis: gastritis, SBO, cholecystits Clinical course Patient placed on stretcher. 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 After initial history and physical I ordered labs, IV fluids, Pepcid, Zofran, pain meds Labs - no leukocytosis, no electrolyte abnormalities, LFTs normal, Upon reassessment, patient states pain has improved. Vitals stable. Labs unremarkable. Abdomen soft. On cures patient is receiving multiple narcotic prescriptions. Patient knows she will follow-up with her pain management doctor currently has a GI appointment scheduled for this month. I feel this is a highly complex case requiring extensive working including EKG/Rhythm strip, Xray/CT/US, Blood/urine lab work, repeat exams while in ED, and administration of strong opiates/narcotics for pain control, admission to hospital or close patient follow up. Diagnosis -cyclical vomiting, GERD, opiate dependence Stable and discharged to home. Followup with PMD. Return to ED if symptoms recur or worsen Laboratory Tests Test 09/04/20 07:29 White Blood Count 10.3 K/UL (4.8-10.8) Red Blood Count 4.87 M/UL (4.20-5.40) Hemoglobin 11.4 G/DL (12.0-16.0) L Hematocrit 38.4 % (37.0-47.0) Mean Corpuscular Volume 79 FL (80-99) L Mean Corpuscular Hemoglobin 23.4 PG (27.0-31.0) L Mean Corpuscular Hemoglobin Concent 29.7 G/DL (32.0-36.0) L Red Cell Distribution Width 17.7 % (11.6-14.8) H Platelet Count 488 K/UL (150-450) H Mean Platelet Volume 6.0 FL (6.5-10.1) L Neutrophils (%) (Auto) 61.8 % (45.0-75.0) Lymphocytes (%) (Auto) 28.7 % (20.0-45.0) Monocytes (%) (Auto) 5.7 % (1.0-10.0) Eosinophils (%) (Auto) 2.0 % (0.0-3.0) Basophils (%) (Auto) 1.7 % (0.0-2.0) Urine Color Pale yellow Urine Appearance Clear Urine pH 6 (4.5-8.0) Urine Specific [place] 1.005 (1.005-1.035) Urine Protein Negative (NEGATIVE) Urine Glucose (UA) Negative (NEGATIVE) Urine Ketones Negative (NEGATIVE) Urine Blood 4+ (NEGATIVE) H Urine Nitrite Negative (NEGATIVE) Urine Bilirubin Negative (NEGATIVE) Urine Urobilinogen Normal MG/DL (0.0-1.0) Urine Leukocyte Esterase Negative (NEGATIVE) Urine RBC 2-4 /HPF (0 - 2) H Urine WBC 0-2 /HPF (0 - 2) Urine Squamous Epithelial Cells Few /LPF (NONE/OCC) Urine Bacteria Few /HPF (NONE) Sodium Level 139 MMOL/L (136-145) Potassium Level 3.6 MMOL/L (3.5-5.1) Chloride Level 104 MMOL/L (98-107) Carbon Dioxide Level 23 MMOL/L (21-32) Anion Gap 12 mmol/L (5-15) Blood Urea Nitrogen 14 mg/dL (7-18) Creatinine 1.2 MG/DL (0.55-1.30) Estimat Glomerular Filtration Rate 58.4 mL/min (>60) Glucose Level 125 MG/DL (74-106) H Calcium Level 9.2 MG/DL (8.5-10.1) Total Bilirubin < 0.1 MG/DL (0.2-1.0) L Aspartate Amino Transf (AST/SGOT) 12 U/L (15-37) L Alanine Aminotransferase (ALT/SGPT) 9 U/L (12-78) L Alkaline Phosphatase 146 U/L (46-116) H Total Protein 7.9 G/DL (6.4-8.2) Albumin 3.7 G/DL (3.4-5.0) Globulin 4.2 g/dL Albumin/Globulin Ratio 0.9 (1.0-2.7) L Lipase 221 U/L (73-393) Last Vital Signs Date Time Temp Pulse Resp B/P (MAP) Pulse Ox O2 Delivery O2 Flow Rate FiO2 09/04/20 07:39 Room Air 09/04/20 07:31 98.1 82 18 160/100 (120) 98 Status: improved Disposition: HOME, SELF-CARE Condition: Stable Referrals: NON PHYSICIAN (PCP) Mark Rebolledo MD Sep 04, 2020 07:48
[2020-09-04 07:52] LABS: BASOPHILS % (AUTO) 1.7 % (0.0-2.0); HEMATOCRIT 38.4 % (37.0-47.0); HEMOGLOBIN 11.4 G/DL (12.0-16.0); LYMPHOCYTES % (AUTO) 28.7 % (20.0-45.0); MEAN CORPUSCULAR VOLUME 79 FL (80-99); MONOCYTES % (AUTO) 5.7 % (1.0-10.0); NEUTROPHILS % (AUTO) 61.8 % (45.0-75.0); PLATELET COUNT 488 K/UL (150-450); RED BLOOD COUNT 4.87 M/UL (4.20-5.40); RED CELL DISTRIBUTION WIDTH 17.7 % (11.6-14.8); WHITE BLOOD COUNT 10.3 K/UL (4.8-10.8)
[2020-09-04 07:55] LABS: ANION GAP 12 mmol/L (5-15); BLOOD UREA NITROGEN 14 mg/dL (7-18); CALCIUM 9.2 MG/DL (8.5-10.1); CARBON DIOXIDE 23 MMOL/L (21-32); CHLORIDE 104 MMOL/L (98-107); CREATININE 1.2 MG/DL (0.55-1.30); POTASSIUM 3.6 MMOL/L (3.5-5.1); SODIUM 139 MMOL/L (136-145)
[2020-09-04 07:59] LABS: ALANINE AMINOTRANSFERASE 9 U/L (12-78); ALBUMIN 3.7 G/DL (3.4-5.0); ALBUMIN/GLOBULIN RATIO 0.9 (1.0-2.7); ALKALINE PHOSPHATASE 146 U/L (46-116); ASPARTATE AMINO TRANSFERASE 12 U/L (15-37); BILIRUBIN,TOTAL < 0.1 MG/DL (0.2-1.0)
[2020-09-04 08:06] LABS: BILIRUBIN, URINE NEGATIVE (NEGATIVE); COLOR,URINE PALE YELLOW; GLUCOSE, URINE (UA) NEGATIVE (NEGATIVE); KETONES,URINE NEGATIVE (NEGATIVE); LEUKOCYTE ESTERASE ,URINE NEGATIVE (NEGATIVE); NITRITE,URINE NEGATIVE (NEGATIVE); PH,URINE 6 (4.5-8.0); PROTEIN,URINE NEGATIVE (NEGATIVE); UROBILINOGEN,URINE NORMAL MG/DL (0.0-1.0)
[2020-09-04 08:08] LABS: APPEARANCE,URINE CLEAR
== END 2020-09-04 09:53 | disposition home or self-care (01) ==
LOC: EMR 07:45
DX: R11.15 Cyclical vomiting syndrome unrelated to migraine (principal); K21.9 Gastro-esophageal reflux disease without esophagitis; F11.29 Opioid dependence with unspecified opioid-induced disorder; I10 Essential (primary) hypertension
CPT/HCPCS: 36415; 80053; 81003; 83690; 85025; 96361; 96374; 96375; 96376; 99284; J1170; J2405; J7030; S0028